=== PATIENT | male | born 1965 | race Caucasian/White ===

== ENCOUNTER 2023-01-05 09:46 | Emergency (ER) | payer MEDICAID, SELFPAY ==
[2023-01-05 09:47] VITALS: BP 162/95
[2023-01-05 09:49] VITALS: BP 162/95; PULSE 72; RESP 24; TEMP 36.4; O2SAT 100; BMI 30.4
--- NOTE | 2023-01-05 09:53 | ECG_ITS ---
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
--- NOTE | 2023-01-05 09:53 | CT_ITS ---
The [address] [address] Patient Name: OSMANI AYALA MRN: [id number] date: 1965 Sex: M Assigned Patient Location: ED.MAIN Current Patient Location: Accession/Order Number: [id number] Exam Date: 01/05/2023 10:15 Report Date: 01/05/2023 10:42 At the request of: IBIS HART Procedure: CT head/brain wo con CT head/brain wo con, 01/05/2023 10:15 AM EDT, OH001 INDICATION: MONT[place]OS confusion. Sensitivity. Nausea. COMPARISON: None. TECHNIQUE: CT images of the brain from skull base to vertex, including portions of the face and sinuses, were obtained without contrast. Supplemental 2D reformatted images were generated and reviewed as needed. Dose reduction techniques were achieved by using automated exposure control and/or adjustment of mA and/or kV according to patient size and/or use of iterative reconstruction technique. FINDINGS: The ventricles and sulci are within normal limits for the patient's age. No significant white matter disease or acute ischemia. No mass effect, acute hemorrhage, midline shift, hydrocephalus or exta-axial fluid collection. The basal cisterns are patent. The calvarium appears intact. The visualized paranasal sinuses are clear. The mastoids are clear. CT/CT head/brain wo con IMPRESSION: No CT evidence of acute intracranial abnormality. Electronically authenticated by: ANDREW WRIGHT Date: 01/05/2023 10:42
--- NOTE | 2023-01-05 09:54 | ED.GENADUL1 ---
HPI - General Adult General Chief complaint: Headache Stated complaint: HEADACHE Time Seen by Provider: 01/05/23 09:49 Mode of arrival: ambulance History of Present Illness HPI narrative: 57-year-old male presents for reported headache. Paramedics brought him and he was quite uncooperative with them. He admitted to drinking alcohol. He's had a headache reportedly for a week, per paramedics. He won't answer questions generally. There is no known history of trauma. Related Data Home Medications Medication Instructions Recorded Confirmed amlodipine 10 mg tablet 10 mg PO DAILY 01/05/23 01/05/23 atenolol 50 mg tablet 50 mg PO Q24H 01/05/23 01/05/23 cefdinir 300 mg capsule 300 mg PO Q12H 01/05/23 01/05/23 meloxicam 15 mg tablet 15 mg PO DAILY 01/05/23 01/05/23 Allergies Allergy/AdvReac Type Severity Reaction Status Date / Time No Known Drug Allergies Allergy Verified 01/05/23 09:48 Review of Systems ROS Narrative not obtainable, uncooperative Exam Narrative Exam Narrative: Nurses note and vital signs reviewed and patient is not hypoxic. General: The patient is in no respiratory distress. He is sitting upright. Skin: Warm, dry, no pallor noted. There is no rash noted. Head: Normocephalic, atraumatic Eye: Normal conjunctiva, no drainage, EOMI. PERRL Ears, Nose, Mouth, and Throat: oral mucosa is moist. Nares patent. Cardiovascular: Regular Rate and Rhythm Respiratory: Patient is in no distress, no accessory muscle use, lungs are clear to auscultation, no wheezing, rales or rhonchi Back: non-tender, no CVA tenderness bilaterally to percussion. GI: soft and nontender Musculoskeletal: The patient has no evidence of calf tenderness, no pitting edema, symmetrical pulses noted bilaterally Neurological: he is awake and alert. He will speak but will answer questions. He moves all four extremities well. Psychiatric: uncooperative Constitutional Vital Signs, click to edit/add: Last Vital Signs Temp 97.5 F L 01/05/23 09:49 Pulse 72 01/05/23 09:49 Resp 24 01/05/23 09:49 BP 162/95 H 01/05/23 09:49 Pulse Ox 100 01/05/23 09:49 O2 Del Method Room Air 01/05/23 09:49 Course Vital Signs Vital signs: Vital Signs Temperature 97.5 F L 01/05/23 09:49 Pulse Rate 72 01/05/23 09:49 Respiratory Rate 24 01/05/23 09:49 Blood Pressure 162/95 H 01/05/23 09:49 Pulse Oximetry 100 01/05/23 09:49 Oxygen Delivery Method Room Air 01/05/23 09:49 Temperature 97.5 F L 01/05/23 09:49 Pulse Rate 72 01/05/23 09:49 Respiratory Rate 24 01/05/23 09:49 Blood Pressure 162/95 H 01/05/23 09:49 Pulse Oximetry 100 01/05/23 09:49 Oxygen Delivery Method Room Air 01/05/23 09:49 Medical Decision Making MDM Narrative Medical decision making narrative: the patient has had a negative workup. The patient is known to have cervical arthritis and the findings on the CTA of his neck were discussed with him. He is acting himself now. He tested positive for opiates and is not prescribed any opiates. He is able to be discharged home. Differential Diagnosis Differential Diagnosis: stroke, and call intoxication, overdose Lab Data Lab results reviewed: Yes I reviewed the patient's lab results Labs: Lab Results 01/05/23 01/05/23 01/05/23 Range/Units 09:06 10:33 11:31 WBC 15.1 H (4.0-11.0) 10^3/uL RBC 4.58 L (4.70-6.10) 10^6/uL Hgb 14.4 (14.0-18.0) g/dL Hct 42.2 (42.0-54.0) % MCV 92.1 (80.0-94.0) fL MCH 31.4 (25.9-34.0) pg MCHC 34.1 (29.9-35.2) g/dL RDW 13.6 (11.0-15.0) % Plt Count 376 (150-450) 10^3/uL MPV 9.4 L (9.5-13.5) fL Neut % (Auto) 71.9 (43.0-75.0) % Lymph % (Auto) 19.4 L (20.5-60.0) % [place] % (Auto) 7.8 (1.7-12.0) % Eos % (Auto) 0.2 L (0.9-7.0) % Baso % (Auto) 0.3 (0.2-2.0) % Neut # (Auto) 10.9 H (1.4-6.5) 10^3/uL Lymph # (Auto) 2.9 (1.2-3.8) 10^3/uL [place] # (Auto) 1.2 H (0.3-0.8) 10^3/uL Eos # (Auto) 0.0 (0.0-0.7) 10^3/uL Baso # (Auto) 0.1 (0.0-0.1) 10^3/uL Abs Immat Gran (auto) 0.06 H (0.00-0.03) 10^3/uL Imm/Tot Granulo (auto) 0.4 (0.0-0.5) % Sodium 137 (136-145) mmol/L Potassium 4.0 (3.5-5.1) mmol/L Chloride 99 (98-107) mmol/L Carbon Dioxide 23.7 (21.0-32.0) mmol/L Anion Gap 18.3 BUN 8.0 (7.0-18.0) mg/dL Creatinine 1.18 (0.70-1.30) mg/dL Est GFR ( Amer) >60 (>=60) Est GFR (Non-Af Amer) >60 (>=60) BUN/Creatinine Ratio 6.8 Glucose 116 H (74-106) mg/dL Calcium 10.0 (8.5-10.1) mg/dL Total Bilirubin 0.5 (0.2-1.0) mg/dL Direct Bilirubin 0.2 (0.0-0.2) mg/dL AST 30 (15-37) U/L ALT 34 (16-63) U/L Alkaline Phosphatase 86 (46-116) U/L Troponin I High Sens (4.0-76.1) pg/mL Total Protein 8.2 (6.4-8.2) g/dL Albumin 4.6 (3.4-5.0) g/dL Globulin 3.6 g/dL Albumin/Globulin Ratio 1.3 Amylase 50 (25-115) U/L Lipase 42.0 (16.0-77.0) U/L Urine Color Lt. yellow (YELLOW) Urine Clarity Clear (CLEAR) Urine pH 7.0 (5.0-9.0) Ur Specific [place] <=1.005 A (1.005-1.025) Urine Protein Negative (NEG/TRACE) mg/dL Urine Glucose (UA) Negative (NEGATIVE) mg/dL Urine Ketones Trace A (NEGATIVE) mg/dL Urine Occult Blood Negative (NEGATIVE) Urine Nitrite Negative (NEGATIVE) Urine Bilirubin Negative (NEGATIVE) Urine Urobilinogen 0.2 (0.2-1.0) EU/dL Ur Leukocyte Esterase Negative (NEGATIVE) Urine RBC None seen (0-2) #/HPF Urine WBC None seen (NONE SEEN) #/HPF Ur Squamous Epith Cells Rare (NONE/RARE) #/LPF Urine Bacteria None seen (NONE SEEN) #/HPF Urine Mucus None seen (NONE SEEN) Urine Opiates Screen Positive A (NEGATIVE) Ur Buprenorphine Scrn Negative (NEGATIVE) Ur Oxycodone Screen Negative (NEGATIVE) Urine Methadone Screen Negative (NEGATIVE) Ur Propoxyphene Screen Negative (NEGATIVE) Ur Barbiturates Screen Negative (NEGATIVE) U Tricyclic Antidepress Negative (NEGATIVE) Ur Phencyclidine Scrn Negative (NEGATIVE) Ur Amphetamines Screen Negative (NEGATIVE) U Methamphetamines Scrn Negative (NEGATIVE) U Benzodiazepines Scrn Negative (NEGATIVE) Urine Cocaine Screen Negative (NEGATIVE) U Cannabinoids Screen Negative (NEGATIVE) Ethanol Quant <3 mg/dL SARS-CoV-2 (PCR) Negative (NEGATIVE) 01/05/23 Range/Units 11:40 WBC (4.0-11.0) 10^3/uL RBC (4.70-6.10) 10^6/uL Hgb (14.0-18.0) g/dL Hct (42.0-54.0) % MCV (80.0-94.0) fL MCH (25.9-34.0) pg MCHC (29.9-35.2) g/dL RDW (11.0-15.0) % Plt Count (150-450) 10^3/uL MPV (9.5-13.5) fL Neut % (Auto) (43.0-75.0) % Lymph % (Auto) (20.5-60.0) % [place] % (Auto) (1.7-12.0) % Eos % (Auto) (0.9-7.0) % Baso % (Auto) (0.2-2.0) % Neut # (Auto) (1.4-6.5) 10^3/uL Lymph # (Auto) (1.2-3.8) 10^3/uL [place] # (Auto) (0.3-0.8) 10^3/uL Eos # (Auto) (0.0-0.7) 10^3/uL Baso # (Auto) (0.0-0.1) 10^3/uL Abs Immat Gran (auto) (0.00-0.03) 10^3/uL Imm/Tot Granulo (auto) (0.0-0.5) % Sodium (136-145) mmol/L Potassium (3.5-5.1) mmol/L Chloride (98-107) mmol/L Carbon Dioxide (21.0-32.0) mmol/L Anion Gap BUN (7.0-18.0) mg/dL Creatinine (0.70-1.30) mg/dL Est GFR ( Amer) (>=60) Est GFR (Non-Af Amer) (>=60) BUN/Creatinine Ratio Glucose (74-106) mg/dL Calcium (8.5-10.1) mg/dL Total Bilirubin (0.2-1.0) mg/dL Direct Bilirubin (0.0-0.2) mg/dL AST (15-37) U/L ALT (16-63) U/L Alkaline Phosphatase (46-116) U/L Troponin I High Sens 5.4 (4.0-76.1) pg/mL Total Protein (6.4-8.2) g/dL Albumin (3.4-5.0) g/dL Globulin g/dL Albumin/Globulin Ratio Amylase (25-115) U/L Lipase (16.0-77.0) U/L Urine Color (YELLOW) Urine Clarity (CLEAR) Urine pH (5.0-9.0) Ur Specific [place] (1.005-1.025) Urine Protein (NEG/TRACE) mg/dL Urine Glucose (UA) (NEGATIVE) mg/dL Urine Ketones (NEGATIVE) mg/dL Urine Occult Blood (NEGATIVE) Urine Nitrite (NEGATIVE) Urine Bilirubin (NEGATIVE) Urine Urobilinogen (0.2-1.0) EU/dL Ur Leukocyte Esterase (NEGATIVE) Urine RBC (0-2) #/HPF Urine WBC (NONE SEEN) #/HPF Ur Squamous Epith Cells (NONE/RARE) #/LPF Urine Bacteria (NONE SEEN) #/HPF Urine Mucus (NONE SEEN) Urine Opiates Screen (NEGATIVE) Ur Buprenorphine Scrn (NEGATIVE) Ur Oxycodone Screen (NEGATIVE) Urine Methadone Screen (NEGATIVE) Ur Propoxyphene Screen (NEGATIVE) Ur Barbiturates Screen (NEGATIVE) U Tricyclic Antidepress (NEGATIVE) Ur Phencyclidine Scrn (NEGATIVE) Ur Amphetamines Screen (NEGATIVE) U Methamphetamines Scrn (NEGATIVE) U Benzodiazepines Scrn (NEGATIVE) Urine Cocaine Screen (NEGATIVE) U Cannabinoids Screen (NEGATIVE) Ethanol Quant mg/dL SARS-CoV-2 (PCR) (NEGATIVE) Imaging Data CT head, CTA head and neck: Radiologist's impression: Procedure: CT angio head EXAMINATION: CT angio head, CT angio neck HISTORY: difficulty speaking COMPARISON: Noncontrast CT head 01/05/2023. TECHNIQUE: Contrast enhanced head and neck CT arteriogram was performed. Scanning performed during the arterial phase from the thoracic inlet to the [place] of [place]. 3D reconstructions were rendered on a separate 3D workstation to evaluate vascular anatomy. Dose reduction techniques were achieved by using automated exposure control and/or adjustment of mA and/or kV according to patient size and/or use of iterative reconstruction technique. Carotid stenosis was measured utilizing NASCET criteria. FINDINGS: VASCULATURE FINDINGS: Arch and Subclavian Arteries: Standard three vessel arch. Subclavian arteries are normal bilaterally. Common Carotids: Normal bilaterally. ICAs: Patent bilaterally to the carotid terminus. MCAs: Normal bilaterally. ACAs: Normal bilaterally. P-Comms: Visualized bilaterally. Vertebral Arteries: Short segment near occlusion/occlusion of the bilateral vertebral arteries at C6-C7, contributed to by uncovertebral and facet joint hypertrophy. Additional high-grade narrowing of both vertebral arteries at C5-C6, also contributed to by uncovertebral and facet joint hypertrophy. Remainder of the vertebral arteries are patent. Right vertebral artery is dominant. Nondominant left vertebral artery predominantly terminates into the PICA. Basilar Artery: Patent and developmentally small in caliber. 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 Aneurysm: None. Dural venous sinuses: Patent. NECK FINDINGS: No acute soft tissue abnormalities in the neck. Airway is patent. Normal thyroid. Visualized lungs are clear. IMPRESSION: 1. No large vessel occlusion, high-grade narrowing, or substantial luminal irregularity in the carotid arteries or intracranial arterial vasculature. 2. Short segment near occlusion/occlusion of the bilateral vertebral arteries at C6-C7. Additional high-grade narrowing of the bilateral vertebral arteries at C5-C6. These are contributed to by uncovertebral and facet joint hypertrophy. Electronically authenticated by: MILES NINA Date: 01/05/2023 12:29 Procedure: CT head/brain wo con CT head/brain wo con, 01/05/2023 10:15 AM EDT, OH001 INDICATION: [place] confusion. Sensitivity. Nausea. COMPARISON: None. TECHNIQUE: CT images of the brain from skull base to vertex, including portions of the face and sinuses, were obtained without contrast. Supplemental 2D reformatted images were generated and reviewed as needed. Dose reduction techniques were achieved by using automated exposure control and/or adjustment of mA and/or kV according to patient size and/or use of iterative reconstruction technique. FINDINGS: The ventricles and sulci are within normal limits for the patient's age. No significant white matter disease or acute ischemia. No mass effect, acute hemorrhage, midline shift, hydrocephalus or exta-axial fluid collection. The basal cisterns are patent. The calvarium appears intact. The visualized paranasal sinuses are clear. The mastoids are clear. IMPRESSION: No CT evidence of acute intracranial abnormality. Electronically authenticated by: ANDREW WRIGHT Date: 01/05/2023 10:42 Procedure: XR chest 1V EXAM: XR chest 1V HISTORY: . cough . COMPARISON: None. TECHNIQUE: Single view of the chest FINDINGS: Heart and vascularity are unremarkable. Lungs are free of focal infiltrates. Grossly no bony abnormality is appreciated. IMPRESSION: No acute heart or lung disease identified. Electronically authenticated by: EDMUNDO SILVA Date: 01/05/2023 10:41 Discharge Plan Discharge Chief Complaint: Headache Clinical Impression: Altered mental status Patient Disposition: Home, Self-Care Time of Disposition Decision: 13:01 Condition: Good Mode of Transportation: Private Vehicle Prescriptions / Home Meds: No Action meloxicam 15 mg tablet 15 mg PO DAILY amlodipine 10 mg tablet 10 mg PO DAILY cefdinir 300 mg capsule 300 mg PO Q12H atenolol 50 mg tablet 50 mg PO Q24H Instructions: Altered Mental Status (ED) Stand Alone Forms: Portal Instructions Referrals: Marlee Sosa MD [Primary Care Provider] - 1 week
[2023-01-05 09:58] VITALS: PULSE 63; RESP 14
[2023-01-05 09:59] VITALS: PULSE 66; RESP 19
[2023-01-05] MEDS: ONDANSETRON PF 4 MG/2 ML VIAL IV (10:06)
--- NOTE | 2023-01-05 10:13 | XR_ITS ---
The [address] [address] Patient Name: OSMANI AYALA MRN: [id number] date: 1965 Sex: M Assigned Patient Location: ER Current Patient Location: ER Accession/Order Number: [id number] Exam Date: 01/05/2023 10:15 Report Date: 01/05/2023 10:41 At the request of: IBIS HART Procedure: XR chest 1V EXAM: XR chest 1V HISTORY: . cough . COMPARISON: None. TECHNIQUE: Single view of the chest FINDINGS: Heart and vascularity are unremarkable. Lungs are free of focal infiltrates. Grossly no bony abnormality is appreciated. XR/XR chest 1V IMPRESSION: No acute heart or lung disease identified. Electronically authenticated by: EDMUNDO SILVA Date: 01/05/2023 10:41
[2023-01-05 10:22] LABS: Alanine Aminotransferase 34 U/L (16-63); Albumin Globulin Ratio 1.3; Albumin Level 4.6 g/dL (3.4-5.0); Alkaline Phosphatase 86 U/L (46-116); Amylase 50 U/L (25-115); Anion Gap 18.3; Aspartate Amino Transferase 30 U/L (15-37); BUN Creatinine Ratio 6.8; Bilirubin Direct 0.2 mg/dL (0.0-0.2); Bilirubin Total 0.5 mg/dL (0.2-1.0); Carbon Dioxide 23.7 mmol/L (21.0-32.0); Chloride 99 mmol/L (98-107); Estimated GFR (African America >60 (>=60); Estimated GFR (Non-African Ame >60 (>=60); Ethanol <3 mg/dL; Globulin 3.6 g/dL; Glucose 116 mg/dL (74-106); Sodium 137 mmol/L (136-145); Total Protein 8.2 g/dL (6.4-8.2)
[2023-01-05 10:28] LABS: Basophils Absolute Auto 0.1 10^3/uL (0.0-0.1); Basophils Percent Auto 0.3 % (0.2-2.0); Eosinophils Percent Auto 0.2 % (0.9-7.0); Hematocrit 42.2 % (42.0-54.0); Hemoglobin 14.4 g/dL (14.0-18.0); Immature Granulocytes Abs Auto 0.06 10^3/uL (0.00-0.03); Immature Granulocytes Pct Auto 0.4 % (0.0-0.5); Lymphocytes Absolute Auto 2.9 10^3/uL (1.2-3.8); Lymphocytes Percent Auto 19.4 % (20.5-60.0); Mean Corpuscular HGB Conc 34.1 g/dL (29.9-35.2); Mean Corpuscular Hemoglobin 31.4 pg (25.9-34.0); Mean Corpuscular Volume 92.1 fL (80.0-94.0); Mean Platelet Volume 9.4 fL (9.5-13.5); Monocytes Absolute Auto 1.2 10^3/uL (0.3-0.8); Monocytes Percent Auto 7.8 % (1.7-12.0); Neutrophils Absolute Auto 10.9 10^3/uL (1.4-6.5); Neutrophils Percent Auto 71.9 % (43.0-75.0); Platelet Count 376 10^3/uL (150-450); Red Blood Count 4.58 10^6/uL (4.70-6.10); Red Cell Distribution Width 13.6 % (11.0-15.0); White Blood Count 15.1 10^3/uL (4.0-11.0)
[2023-01-05 10:58] LABS: SARS-CoV-2 Ag NEGATIVE (NEGATIVE)
--- NOTE | 2023-01-05 11:20 | CT_ITS ---
[address] [address] Patient Name: OSMANI AYALA MRN: [id number] date: 1965 Sex: M Assigned Patient Location: ER Current Patient Location: Accession/Order Number: [id number] Exam Date: 01/05/2023 11:45 Report Date: 01/05/2023 12:29 At the request of: IBIS HART Procedure: CT angio neck EXAMINATION: CT angio head, CT angio neck HISTORY: difficulty speaking COMPARISON: Noncontrast CT head 01/05/2023. TECHNIQUE: Contrast enhanced head and neck CT arteriogram was performed. Scanning performed during the arterial phase from the thoracic inlet to the [place] of [place]. 3D reconstructions were rendered on a separate 3D workstation to evaluate vascular anatomy. Dose reduction techniques were achieved by using automated exposure control and/or adjustment of mA and/or kV according to patient size and/or use of iterative reconstruction technique. Carotid stenosis was measured utilizing NASCET criteria. FINDINGS: VASCULATURE FINDINGS: Arch and Subclavian Arteries: Standard three vessel arch. Subclavian arteries are normal bilaterally. Common Carotids: Normal bilaterally. ICAs: Patent bilaterally to the carotid terminus. MCAs: Normal bilaterally. ACAs: Normal bilaterally. P-Comms: Visualized bilaterally. Vertebral Arteries: Short segment near occlusion/occlusion of the bilateral vertebral arteries at C6-C7, contributed to by uncovertebral and facet joint hypertrophy. Additional high-grade narrowing of both vertebral arteries at C5-C6, also contributed to by uncovertebral and facet joint hypertrophy. Remainder of the vertebral arteries are patent. Right vertebral artery is dominant. Nondominant left vertebral artery predominantly terminates into the PICA. Basilar Artery: Patent and developmentally small in caliber. 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 Aneurysm: None. Dural venous sinuses: Patent. NECK FINDINGS: No acute soft tissue abnormalities in the neck. Airway is patent. Normal thyroid. Visualized lungs are clear. CT/CT angio neck IMPRESSION: 1. No large vessel occlusion, high-grade narrowing, or substantial luminal irregularity in the carotid arteries or intracranial arterial vasculature. 2. Short segment near occlusion/occlusion of the bilateral vertebral arteries at C6-C7. Additional high-grade narrowing of the bilateral vertebral arteries at C5-C6. These are contributed to by uncovertebral and facet joint hypertrophy. Electronically authenticated by: MILES NINA Date: 01/05/2023 12:29
--- NOTE | 2023-01-05 11:20 | CT_ITS ---
[address] [address] Patient Name: OSMANI AYALA MRN: [id number] date: 1965 Sex: M Assigned Patient Location: ER Current Patient Location: Accession/Order Number: [id number] Exam Date: 01/05/2023 11:45 Report Date: 01/05/2023 12:29 At the request of: IBIS HART Procedure: CT angio head EXAMINATION: CT angio head, CT angio neck HISTORY: difficulty speaking COMPARISON: Noncontrast CT head 01/05/2023. TECHNIQUE: Contrast enhanced head and neck CT arteriogram was performed. Scanning performed during the arterial phase from the thoracic inlet to the [place] of [place]. 3D reconstructions were rendered on a separate 3D workstation to evaluate vascular anatomy. Dose reduction techniques were achieved by using automated exposure control and/or adjustment of mA and/or kV according to patient size and/or use of iterative reconstruction technique. Carotid stenosis was measured utilizing NASCET criteria. FINDINGS: VASCULATURE FINDINGS: Arch and Subclavian Arteries: Standard three vessel arch. Subclavian arteries are normal bilaterally. Common Carotids: Normal bilaterally. ICAs: Patent bilaterally to the carotid terminus. MCAs: Normal bilaterally. ACAs: Normal bilaterally. P-Comms: Visualized bilaterally. Vertebral Arteries: Short segment near occlusion/occlusion of the bilateral vertebral arteries at C6-C7, contributed to by uncovertebral and facet joint hypertrophy. Additional high-grade narrowing of both vertebral arteries at C5-C6, also contributed to by uncovertebral and facet joint hypertrophy. Remainder of the vertebral arteries are patent. Right vertebral artery is dominant. Nondominant left vertebral artery predominantly terminates into the PICA. Basilar Artery: Patent and developmentally small in caliber. 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 Aneurysm: None. Dural venous sinuses: Patent. NECK FINDINGS: No acute soft tissue abnormalities in the neck. Airway is patent. Normal thyroid. Visualized lungs are clear. CT/CT angio head IMPRESSION: 1. No large vessel occlusion, high-grade narrowing, or substantial luminal irregularity in the carotid arteries or intracranial arterial vasculature. 2. Short segment near occlusion/occlusion of the bilateral vertebral arteries at C6-C7. Additional high-grade narrowing of the bilateral vertebral arteries at C5-C6. These are contributed to by uncovertebral and facet joint hypertrophy. Electronically authenticated by: MILES NINA Date: 01/05/2023 12:29
[2023-01-05] MEDS: KETOROLAC TROMETHAMINE 30 MG/ML VIAL IVP (11:22)
[2023-01-05 11:59] LABS: Troponin I High Sensitivity 5.4 pg/mL (4.0-76.1)
[2023-01-05 12:00] LABS: Bilirubin Urine NEGATIVE (NEGATIVE); Blood Urine NEGATIVE (NEGATIVE); Clarity Urine CLEAR (CLEAR); Color Urine LT. YELLOW (YELLOW); Glucose Urine UA NEGATIVE (NEGATIVE); Ketones Urine TRACE mg/dL (NEGATIVE); Leukocyte Esterase Urine NEGATIVE (NEGATIVE); Nitrite Urine NEGATIVE (NEGATIVE); Protein Urine NEGATIVE (NEG/TRACE); Specific Gravity Urine <=1.005 (1.005-1.025); Urobilinogen Urine 0.2 EU/dL (0.2-1.0)
[2023-01-05 12:20] LABS: Cannabinoid Screen Urine NEGATIVE (NEGATIVE); Cocaine Screen Urine NEGATIVE (NEGATIVE); Methamphetamines Screen Urine NEGATIVE (NEGATIVE); Opiate Screen Urine POSITIVE (NEGATIVE); Phencyclidine Screen Urine NEGATIVE (NEGATIVE)
[2023-01-05 12:21] LABS: Amphetamine Screen Urine NEGATIVE (NEGATIVE); Barbiturates Screen Urine NEGATIVE (NEGATIVE); Benzodiazepines Screen Urine NEGATIVE (NEGATIVE); Buprenorphine Screen Urine NEGATIVE (NEGATIVE); Methadone Screen Urine NEGATIVE (NEGATIVE); Oxycodone Screen Urine NEGATIVE (NEGATIVE); Tricyclic Antidepressant Urine NEGATIVE (NEGATIVE)
[2023-01-05 12:32] LABS: Bacteria Urine NONE SEEN #/HPF (NONE SEEN); Mucus Urine NONE SEEN (NONE SEEN); RBC Urine NONE SEEN #/HPF (0-2); Squamous Epithelial Cell Urine RARE #/LPF (NONE/RARE); WBC Urine NONE SEEN #/HPF (NONE SEEN)
[2023-01-05 13:08] VITALS: BP 160/90
[2023-01-05 15:14] LABS: SARS-CoV-2 NAA NOT DETECTED (NOT DETECTE)
== END 2023-01-05 13:11 | disposition home or self-care (01) ==
PROVIDERS: Emergency Provider Emergency Medicine; PCP Family Medicine
DX: R41.82 Altered mental status, unspecified (principal); Z79.899 Other long term (current) drug therapy; Z20.822 Contact with and (suspected) exposure to COVID-19
CPT/HCPCS: 36415; 70450; 70496; 70498; 71045; 80048; 80076; 80307; 80320; 81001; 82150; 83690; 84484; 85025; 87635; 87811; 93005; 96374; 96375; 99285; Q9967

== ENCOUNTER 2023-01-09 11:10 | Inpatient (IN) | payer MEDICAID, SELFPAY ==
[2023-01-09] VITALS (26 sets, daily range): BP systolic 104–153; BP diastolic 74–93; PULSE 52–64; RESP 12–23; TEMP 36.4–36.7; O2SAT 93–100; BMI 27.4
--- NOTE | 2023-01-09 12:01 | XR_ITS ---
The [address] [address] Patient Name: OSMANI AYALA MRN: [id number] date: 1965 Sex: M Assigned Patient Location: ER Current Patient Location: ER Accession/Order Number: [id number] Exam Date: 01/09/2023 12:30 Report Date: 01/09/2023 12:51 At the request of: DIVYA PAN Procedure: XR chest 1V EXAM: XR chest 1V HISTORY: confusion COMPARISON: None. TECHNIQUE: AP view of the chest. FINDINGS: The cardiomediastinal silhouette is normal. The lungs are clear. There is no pneumothorax. No pleural effusion is noted. The osseous structures are intact. XR/XR chest 1V IMPRESSION: No acute cardiopulmonary process. Electronically authenticated by: OWEN BESS Date: 01/09/2023 12:51
--- NOTE | 2023-01-09 12:01 | ECG_ITS ---
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
--- NOTE | 2023-01-09 12:01 | CT_ITS ---
[address] [address] Patient Name: OSMANI AYALA MRN: [id number] date: 1965 Sex: M Assigned Patient Location: ER Current Patient Location: ER Accession/Order Number: [id number] Exam Date: 01/09/2023 12:30 Report Date: 01/09/2023 12:51 At the request of: DIVYA PAN Procedure: CT head/brain wo con EXAMINATION: CT head/brain wo con 01/09/2023 12:30 PM EDT HISTORY: confusion COMPARISON: CT head 01/05/2023 TECHNIQUE: Using multidetector thin collimation helical acquisition technique, axial, coronal and sagittal CT images from the skull base to the vertex were obtained without intravenous contrast. Dose reduction techniques were achieved by using automated exposure control and/or adjustment of mA and/or kV according to patient size and/or use of iterative reconstruction technique. FINDINGS: No intracranial hemorrhage, mass effect, or midline shift. The ventricles are proportionate to the cerebral sulci. The lee to white matter differentiation of the cerebral hemispheres is preserved. The basal cisterns are patent. The visualized paranasal sinuses are clear. The mastoid air cells are clear. CT/CT head/brain wo con IMPRESSION: No acute intracranial pathology. Electronically authenticated by: MOISE GOYAL Date: 01/09/2023 12:51
[2023-01-09 12:05] LABS: Glucometer 107 mg/dL (74-106)
[2023-01-09 12:21] LABS: Basophils Absolute Auto 0.1 10^3/uL (0.0-0.1); Basophils Percent Auto 0.4 % (0.2-2.0); Eosinophils Absolute Auto 0.1 10^3/uL (0.0-0.7); Eosinophils Percent Auto 0.6 % (0.9-7.0); Hemoglobin 13.1 g/dL (14.0-18.0); Immature Granulocytes Abs Auto 0.06 10^3/uL (0.00-0.03); Immature Granulocytes Pct Auto 0.4 % (0.0-0.5); Lymphocytes Percent Auto 21.1 % (20.5-60.0); Mean Corpuscular HGB Conc 33.6 g/dL (29.9-35.2); Mean Corpuscular Hemoglobin 31.3 pg (25.9-34.0); Mean Corpuscular Volume 93.3 fL (80.0-94.0); Mean Platelet Volume 9.5 fL (9.5-13.5); Monocytes Absolute Auto 1.3 10^3/uL (0.3-0.8); Monocytes Percent Auto 8.9 % (1.7-12.0); Neutrophils Absolute Auto 9.9 10^3/uL (1.4-6.5); Neutrophils Percent Auto 68.6 % (43.0-75.0); Platelet Count 309 10^3/uL (150-450); Red Blood Count 4.18 10^6/uL (4.70-6.10); Red Cell Distribution Width 13.5 % (11.0-15.0); White Blood Count 14.4 10^3/uL (4.0-11.0)
[2023-01-09 12:23] LABS: PCO2 VBG 42.4 mmHg (40.0-52.0); pH VBG 7.397 (7.330-7.430)
[2023-01-09 12:34] LABS: Ammonia 17 umol/L (11-32)
[2023-01-09] MEDS: MULTIVIT INFUSN,ADULT 4,VIT K 10 ML, FOLIC ACID 1 MG, THIAMINE HCL 100 MG in DEXTROSE 5... 250 ML IV (12:37)
[2023-01-09 12:38] LABS: Alanine Aminotransferase 47 U/L (16-63); Albumin Globulin Ratio 1.3; Alkaline Phosphatase 76 U/L (46-116); Anion Gap 14.6; Aspartate Amino Transferase 25 U/L (15-37); Bilirubin Total 0.3 mg/dL (0.2-1.0); Calcium 9.4 mg/dL (8.5-10.1); Carbon Dioxide 24.1 mmol/L (21.0-32.0); Chloride 106 mmol/L (98-107); Estimated GFR (African America >60 (>=60); Estimated GFR (Non-African Ame >60 (>=60); Globulin 3.2 g/dL; Glucose 105 mg/dL (74-106); Potassium 3.7 mmol/L (3.5-5.1); Sodium 141 mmol/L (136-145); Total Protein 7.2 g/dL (6.4-8.2)
[2023-01-09 12:39] LABS: Ethanol <3 mg/dL; Troponin I High Sensitivity 5.5 pg/mL (4.0-76.1)
[2023-01-09 12:41] LABS: Acetaminophen <2.0 ug/mL (10.0-30.0)
--- NOTE | 2023-01-09 14:21 | ED.GENADUL1 ---
HPI - General Adult General Chief complaint: Altered Mental Status Stated complaint: CONFUSION Time Seen by Provider: 01/09/23 12:01 Source: friend Source information: Ada Roach, s/o of many years Mode of arrival: walk-in Limitations: altered mental status History of Present Illness HPI narrative: Patient is a 57-year-old male who is presenting to the Emergency Room today with difficulty speaking, and confusion. Patient's long time girlfriend over 15 years is at bedside. Patient was seen and evaluated on 01/05 for similar symptoms. Patient had workup, and was discharged. Patient symptoms have been ongoing since . Patient's been having Difficulty speaking throughout the weekend. Patient also had confusion state this morning. Patient normally wears overalls when he goes to work. Patient typically wears all of his clothes underneath his overalls before he goes to work. 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 Patient had 2 shirts on top of his overalls which is not normal for him at all. Patient also had 2 different shoes on this morning. Patient's girlfriend states that he's been intermittently confused all weekend as well. Patient smokes 2 packs of cigarettes a day for over 40+ years. Patient drinks 2 twisted teas Daily, patient quit drinking heavily approximately 15 years ago. Patient did drink heavily for approximately 20+ years. Patient takes medication for blood pressure and arthritis. Patient has diffuse arthritis. Patient's PCP is Dr. Sosa. Patient takes no blood thinners, has not been taking any blood thinners or aspirin recently. Patient has had no recent trauma. Patient did travel to [place] in the last few weeks, they went to [place]. Patient has no chest pain, no shortness of breath, no headache. No loss of function to arms or legs. No facial droop, no garbled speech. Patient comfort at bedside was most concerned because he's had a intermittent blank stare since last . Patient was in the Emergency Room on January 05, patient had a very thorough evaluation done including CTA of the head and neck along with a stroke workup. . All systems are negative except as noted/marked. All systems reviewed and otherwise negative. . Nurses note and vital signs reviewed and patient is not hypoxic. General: The patient appears well and in no apparent distress. Patient is resting comfortably on cart. Patient is not toxic, lethargic, or listless Skin: Warm, dry, no pallor noted. There is no rash noted. No petechiae, purpura. Head: Normocephalic, atraumatic; No carotid bruits bilateral. Eye: Normal conjunctiva, no drainage, EOMI. PERRL Ears, Nose, Mouth, and Throat: oral mucosa is moist. Nares patent. Mouth without vesicles. Cardiovascular: Regular Rate and Rhythm, no murmur, gallop, rub Respiratory: Patient is in no distress, no accessory muscle use, lungs are clear to auscultation, no wheezing, rales or rhonchi Back: non-tender, no CVA tenderness bilaterally to percussion. No CT LS midline pain GI: soft, no tenderness to palpation, no masses appreciated. No rebound, guarding, or rigidity noted. No flank pain bilateral, No distention Musculoskeletal: Patient has full range of motion of all of the extremities, no motor, sensory, or focal neurological deficits Neurological: A&O x3, Expressive aphasia, NIH 2. Psychiatric: Cooperative Related Data Home Medications Medication Instructions Recorded Confirmed amlodipine 10 mg tablet 10 mg PO DAILY 01/05/23 01/09/23 atenolol 50 mg tablet 50 mg PO Q24H 01/05/23 01/09/23 cefdinir 300 mg capsule 300 mg PO Q12H 01/05/23 01/09/23 meloxicam 15 mg tablet 15 mg PO DAILY 01/05/23 01/09/23 Allergies Allergy/AdvReac Type Severity Reaction Status Date / Time No Known Drug Allergies Allergy Verified 01/09/23 11:37 PFSH PFS Social History Smoking status: Current every day smoker Exam Constitutional Vital Signs, click to edit/add: Last Vital Signs Temp 97.8 F 01/09/23 11:29 Pulse 59 L 01/09/23 14:30 Resp 22 01/09/23 14:30 BP 141/84 01/09/23 14:30 Pulse Ox 100 01/09/23 14:30 O2 Del Method Room Air 01/09/23 11:29 Course Vital Signs Vital signs: Vital Signs Temperature 97.8 F 01/09/23 11:29 Pulse Rate 60 01/09/23 11:29 Respiratory Rate 18 01/09/23 11:29 Blood Pressure 145/86 H 01/09/23 11:29 Pulse Oximetry 98 01/09/23 11:29 Oxygen Delivery Method Room Air 01/09/23 11:29 Temperature 97.8 F 01/09/23 11:29 Pulse Rate 59 L 01/09/23 14:30 Respiratory Rate 22 01/09/23 14:30 Blood Pressure 141/84 01/09/23 14:30 Pulse Oximetry 100 01/09/23 14:30 Oxygen Delivery Method Room Air 01/09/23 11:29 Medical Decision Making MDM Narrative Medical decision making narrative: CT of the brain shows no acute findings. Patient had CT of the brain and a CT of the head and neck January 05. Patient labwork otherwise is unremarkable. Patient's normotensive. Patient has expressive aphasia. Patient will be admitted for further evaluation. His only concern about acute confusion state. Patient has no diagnosis of any type of dementia. Patient does have a significant alcohol history, he has quit drinking heavily approximately 15 years ago but did drink heavily for over 20 years. Patient smokes 2 packs of cigarettes a day. Patient PCP is Dr. Sosa. Differential diagnosis was discussed at bedside with patient and his long-time girlfriend of possible types of dementia that could be occurring as well. Patient looks well. Patient also has diffuse arthritis that is chronic, he's had no new acute findings. Patient be admitted for further evaluation and testing. Patient be admitted to Dr. Lanza. Lab Data Lab results reviewed: Yes I reviewed the patient's lab results Labs: Lab Results 01/09/23 01/09/23 01/09/23 Range/Units 11:58 12:02 12:14 WBC 14.4 H (4.0-11.0) 10^3/uL RBC 4.18 L (4.70-6.10) 10^6/uL Hgb 13.1 L (14.0-18.0) g/dL Hct 39.0 L (42.0-54.0) % MCV 93.3 (80.0-94.0) fL MCH 31.3 (25.9-34.0) pg MCHC 33.6 (29.9-35.2) g/dL RDW 13.5 (11.0-15.0) % Plt Count 309 (150-450) 10^3/uL MPV 9.5 (9.5-13.5) fL Neut % (Auto) 68.6 (43.0-75.0) % Lymph % (Auto) 21.1 (20.5-60.0) % [place] % (Auto) 8.9 (1.7-12.0) % Eos % (Auto) 0.6 L (0.9-7.0) % Baso % (Auto) 0.4 (0.2-2.0) % Neut # (Auto) 9.9 H (1.4-6.5) 10^3/uL Lymph # (Auto) 3.0 (1.2-3.8) 10^3/uL [place] # (Auto) 1.3 H (0.3-0.8) 10^3/uL Eos # (Auto) 0.1 (0.0-0.7) 10^3/uL Baso # (Auto) 0.1 (0.0-0.1) 10^3/uL Abs Immat Gran (auto) 0.06 H (0.00-0.03) 10^3/uL Imm/Tot Granulo (auto) 0.4 (0.0-0.5) % VBG pH 7.397 (7.330-7.430) VBG pCO2 42.4 (40.0-52.0) mmHg Sodium 141 (136-145) mmol/L Potassium 3.7 (3.5-5.1) mmol/L Chloride 106 (98-107) mmol/L Carbon Dioxide 24.1 (21.0-32.0) mmol/L Anion Gap 14.6 BUN 12.0 (7.0-18.0) mg/dL Creatinine 1.00 (0.70-1.30) mg/dL Est GFR ( Amer) >60 (>=60) Est GFR (Non-Af Amer) >60 (>=60) BUN/Creatinine Ratio 12.0 Glucose 105 (74-106) mg/dL Calcium 9.4 (8.5-10.1) mg/dL Total Bilirubin 0.3 (0.2-1.0) mg/dL AST 25 (15-37) U/L ALT 47 (16-63) U/L Alkaline Phosphatase 76 (46-116) U/L Ammonia 17 (11-32) umol/L Troponin I High Sens 5.5 (4.0-76.1) pg/mL Total Protein 7.2 (6.4-8.2) g/dL Albumin 4.0 (3.4-5.0) g/dL Globulin 3.2 g/dL Albumin/Globulin Ratio 1.3 Acetaminophen <2.0 L (10.0-30.0) ug/mL Ethanol Quant <3 mg/dL POC Glucose 107 H (74-106) mg/dL ECG Data Attestation: I personally reviewed and interpreted this ECG as follows: (EKG interpretation. Normal sinus rhythm at 59 beats a minute. Normal axis deviation. No acute ST elevation, no acute ectopy. QTC of 403.) Discharge Plan Discharge Chief Complaint: Altered Mental Status Clinical Impression: Expressive aphasia, Confusion state Patient Disposition: Admitted As Inpatient Time of Disposition Decision: 14:35 Condition: Fair
[2023-01-09] MEDS: ACETAMINOPHEN 325 MG TABLET 650 MG PO (14:27)
[2023-01-09] MEDS: ASPIRIN 81 MG TAB.CHEW 324 MG PO (14:27)
--- NOTE | 2023-01-09 17:06 | P.HP_ITS ---
Pt seen and examined at about 1900. Agree with Above information provided by MEDICAL LABORATORY TECHNICAL OFFICER Did demonstrate some word finding issues on exam - no other focal deficits Check on MRI in am, Teleneuro visit. With peristence of symptoms would start pt on aspirin and plavix, can stop one of the 2 depending on findings with MRI, and progression of symptoms H&P: HPI History of Present Illness Chief complaint: CONFUSION, Expressive Aphasia Narrative: Date/time of exam: 01/09/23 2460 This is a 57-year-old male patient with a past medical history as outlined below including remote history of alcohol dependence, daily tobacco abuse, hypertension; who presented to the ED for the second time in a week complaining of acute confusion and difficulty with speech. The patient reports a 2-week course of apparent expressive aphasia and some confusion. The patient confirms that he is aware of the word he is trying to say but sometimes cannot express it or comes out improperly or in pieces. He had a thorough work-up for stroke in the ED on 01/05/2023 with no acute finding and the patient was discharged home a t that time. He reports traveling to [place] within the last month. He denies any toxic exposure, bug bites, or swimming in lakes or [place]. He admits to daily NyQuil and DayQuil use since returning from [place] as he complained of congestion after returning. In addition the patient drinks 2 twisted teas per day (EtOH), and was taking Percocet belonging to someone else over the last week. Work-up in the ED was unremarkable other than leukocytosis which is persistent for this patient since November. CXR and CT of the head were unremarkable. Due to the patient's persistent confusion and expressive aphasia he is being admitted to observation by the hospitalist service under Dr. Lanza for further work-up. At the time of my exam the patient is resting comfortably in bed. He has cont inued evidence of expressive aphasia at times during our conversation. He is awake and alert and oriented throughout our conversation. The ED did report staring episodes which did not evidence during my exam. He denies CP (other than long standing chest pain), increased SOB, N/V/D, abdominal pain, fever/chills, or any other acute complaint. Review of Systems ROS Status of ROS 10 or more systems reviewed and unremarkable except as noted in history and below [facility] Medical History (Updated 01/09/23 @ 17:28 by Marcy Duff NP) Arthritis ?M19.90 - Unspecified osteoarthritis, unspecified site (ICD-10) Hypertension ?I10 - Essential (primary) hypertension (ICD-10) Family History (Updated 01/09/23 @ 15:45 by Yulissa Cantrell) Mother Family history of diabetes mellitus Family history of hypertension Father Family history of hypertension Brother Family history of diabetes mellitus Social History (Updated 01/09/23 @ 16:06 by Yulissa Cantrell) Within the past year, how often did you have a drink containing alcohol: 4 or more times a week Within the past year, how many standard drinks containing alcohol did you have on a typical day: 3 or 4 Within the past year, how often did you have six or more drinks on one occasion: never Total score: 2 Score interpretation: A score of 4 or more indicates drinking is likely to affect patient's safety. 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 Highest level of school completed/degree received: 9th grade Are you now , , , , never or living with a partner: living with partner In a typical week, how many times do you talk on the telephone with family, friends, or neighbors: 3 or more times per week How often do you get together with friends or relatives: 3 or more times per week How often do you attend taoism or moravian services: never Do you belong to any clubs or organizations such as taoism groups unions, fraternal or athletic groups, or school groups: no Total score: 2 Score interpretation: A score of greater than or equal to 2 indicates the lowest level of social isolation. Little interest or pleasure in doing things: not at all Feeling down, depressed, or hopeless: not at all Feel stressed/tense/nervous/anxious/difficulty sleeping: not at all Do you think of yourself as: straight/heterosexual Gender Identity: male Meds Home Medications and Allergies Home Medications Medication Instructions Recorded Confirmed Type amlodipine 10 mg tablet 10 mg PO DAILY 01/05/23 01/09/23 History atenolol 50 mg tablet 50 mg PO Q24H 01/05/23 01/09/23 History cefdinir 300 mg capsule 300 mg PO Q12H 01/05/23 01/09/23 History meloxicam 15 mg tablet 15 mg PO DAILY 01/05/23 01/09/23 History Allergies Allergy/AdvReac Type Severity Reaction Status Date / Time No Known Drug Allergies Allergy Verified 01/09/23 11:37 Exam Constitutional Vital Signs, click to edit/add: Last Vital Signs Temp 97.5 F L 01/09/23 15:47 Pulse 58 L 01/09/23 15:47 Resp 18 01/09/23 15:47 BP 153/93 H 01/09/23 15:47 Pulse Ox 94 L 01/09/23 15:47 O2 Del Method Room Air 01/09/23 15:47 Common normals: no apparent distress, oriented x3, alert and well nourished General appearance: cooperative Orientation/consciousness: Yes awake HENMT Common normals: normocephalic, head/scalp atraumatic, hearing grossly normal bilaterally, external ears normal, external nose normal and moist oral mucous membranes Head and scalp: normocephalic and atraumatic Face and sinus: normal facial exam Nose: external nose normal External ear: external ears normal Eye Common normals: PERRL, EOMs intact bilaterally, conjunctivae normal and no scleral icterus General eye: normal appearance of both eyes Alignment: alignment normal Eyelid: eyelids normal Conjunctiva: conjunctiva(e) normal Pupil: PERRL Neck & C-Spine Common normals: full ROM, supple and no JVD Chest Common normals: inspection of chest normal Chest: symmetrical chest wall rise Respiratory Common normals: normal respiratory effort, no retractions, no use of accessory muscles and clear to auscultation bilaterally Effort & inspection: able to speak in complete sentences Auscultation: clear to auscultation bilaterally Cardio Common normals: no JVD, regular rate, regular rhythm, S1 normal heart sound, S2 normal heart sound, no gallops, no clicks, no murmurs, no rub and peripheral pulses 2+ throughout Rate: regular rate Rhythm: regular rhythm Heart sounds: S1 normal and S2 normal Peripheral pulses: pulses 2+ throughout GI Common normals: Normal to inspection, nondistended, normoactive bowel sounds present, soft to palpation, non-tender, no hepatosplenomegaly, no masses and no bruits Palpation: soft and no hepatosplenomegaly Bladder/kidney exam: bladder normal to palpation Back & Pelvis Common normals: thoracic and lumbar spine normal to inspection Extremity Common normals: normal capillary refill and no pedal edema General: normal exam except as noted; no clubbing and no cyanosis Neuro [place] Coma Scale: GCS not evaluated Common normals: oriented x3, CN's II-XII intact bilaterally, moves all extremities, no focal motor deficits and no sensory deficits noted Sensorium/orientation: awake and alert Speech: expressive aphasia Motor exam: strength 5/5 throughout Psych Common normals: mental status grossly normal, thought process normal, affect normal and activity/motor behavior normal Thought process: normal thought process Results Labs Labs: Short CBC 01/09/23 Range/Units 11:58 WBC 14.4 H (4.0-11.0) 10^3/uL Hgb 13.1 L (14.0-18.0) g/dL Hct 39.0 L (42.0-54.0) % Plt Count 309 (150-450) 10^3/uL BMP 01/09/23 11:58 Sodium 141 Potassium 3.7 Chloride 106 Carbon Dioxide 24.1 BUN 12.0 Creatinine 1.00 Glucose 105 Calcium 9.4 Liver Function 01/09/23 Range/Units 11:58 Total Bilirubin 0.3 (0.2-1.0) mg/dL AST 25 (15-37) U/L ALT 47 (16-63) U/L Alkaline Phosphatase 76 (46-116) U/L Albumin 4.0 (3.4-5.0) g/dL ABG ABG results: 01/09/23 12:14 VBG pH 7.397 VBG pCO2 42.4 Pulse Oximetry Attestation: I have reviewed the pertinent pulse oximetry results. Assessment and Plan Assessment and Plan (1) Expressive aphasia: Assessment and Plan: ACUTE * Adm observation * CT/CTA head & neck neg for acute abnormalities on 01/05 & 01/09 * Persistent expressive aphasia remains concerning for neurologic event * Obtain MRI brain w/ wo contrast in AM * Etiology remains unclear - Polypharmacy vs CVA vs other * CBC, CMP daily (2) Acute metabolic encephalopathy: Assessment and Plan: ACUTE * Unclear etiology * Consider polypharmacy - pt taking nyquil, twisted tea x 2, percocet together * See expressive aphasia above (3) Arthritis: Assessment and Plan: CHRONIC * Continue home meloxicam (4) Hypertension: Assessment and Plan: CHRONIC * Continue home atenolol (5) Tobacco dependence: Assessment and Plan: CHRONIC * 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
[2023-01-09 19:56] LABS: Bilirubin Urine NEGATIVE (NEGATIVE); Blood Urine NEGATIVE (NEGATIVE); Clarity Urine CLEAR (CLEAR); Color Urine YELLOW (YELLOW); Glucose Urine UA NEGATIVE (NEGATIVE); Ketones Urine NEGATIVE (NEGATIVE); Leukocyte Esterase Urine NEGATIVE (NEGATIVE); Nitrite Urine NEGATIVE (NEGATIVE); Protein Urine NEGATIVE (NEG/TRACE); Urobilinogen Urine 0.2 EU/dL (0.2-1.0); pH Urine 6.5 (5.0-9.0)
[2023-01-09 19:57] LABS: Urine Microscopic Indicated NO
[2023-01-09 20:05] LABS: Amphetamine Screen Urine NEGATIVE (NEGATIVE); Barbiturates Screen Urine NEGATIVE (NEGATIVE); Benzodiazepines Screen Urine NEGATIVE (NEGATIVE); Buprenorphine Screen Urine NEGATIVE (NEGATIVE); Cannabinoid Screen Urine NEGATIVE (NEGATIVE); Cocaine Screen Urine NEGATIVE (NEGATIVE); Methadone Screen Urine NEGATIVE (NEGATIVE); Methamphetamines Screen Urine NEGATIVE (NEGATIVE); Opiate Screen Urine NEGATIVE (NEGATIVE); Oxycodone Screen Urine NEGATIVE (NEGATIVE); Phencyclidine Screen Urine NEGATIVE (NEGATIVE); Tricyclic Antidepressant Urine NEGATIVE (NEGATIVE)
[2023-01-09] MEDS: NICOTINE 21 MG PATCH TD (20:18)
[2023-01-09] MEDS: CLOPIDOGREL BISULFATE 75 MG TABLET PO (20:18)
[2023-01-09] MEDS: ATENOLOL 50 MG TABLET PO (20:18)
[2023-01-09] MEDS: ENOXAPARIN SODIUM 40 MG/0.4 ML SYRINGE SUBQ (20:18)
[2023-01-10] VITALS (19 sets, daily range): BP systolic 147–170; BP diastolic 80–99; PULSE 51–88; RESP 18–20; TEMP 36.4–36.6; O2SAT 92–98
--- NOTE | 2023-01-10 | XR_ITS ---
The [address] [address] Patient Name: OSMANI AYALA MRN: [id number] date: 1965 Sex: M Assigned Patient Location: [place] Current Patient Location: [place] Accession/Order Number: [id number] Exam Date: 01/10/2023 09:12 Report Date: 01/10/2023 10:35 At the request of: NATALIE HECTOR Procedure: XR foreign body eye EXAMINATION: XR foreign body eye HISTORY: FOREIGN BODY EYE COMPARISON: No relevant comparison available. FINDINGS: ORBITS: Negative for a metallic foreign body. OTHER: Negative. XR/XR foreign body eye IMPRESSION: No metallic foreign body within the orbits. Electronically authenticated by: DAYLIN HAN Date: 01/10/2023 10:35
--- NOTE | 2023-01-10 07:00 | MR_ITS ---
[address] [address] Patient Name: OSMANI AYALA MRN: [id number] date: 1965 Sex: M Assigned Patient Location: [place] Current Patient Location: [place] Accession/Order Number: [id number] Exam Date: 01/10/2023 08:45 Report Date: 01/11/2023 07:59 At the request of: HARVEY ESPINOZA Procedure: MR head/brain wo/w con MRI BRAIN WITH AND WITHOUT CONTRAST, 01/10/2023. HISTORY: Altered mental status. COMPARISON: CT head without contrast, 01/09/2023. TECHNIQUE: Multiplanar, multisequence MRI imaging of the brain with and without contrast. FINDINGS: Chronic left maxillary sinusitis. There is mucosal thickening and thickening of the wall the left maxillary sinus. There is some fluid in the mastoid air cells on the left. Nasopharynx is normal. Cost Control Supervisor spaces are normal. Orbital contents are unremarkable. Ventricles are normal in size. No hydrocephalus. No mass effect. No shift of midline. Mild chronic microvascular ischemic changes in the cerebral white matter. No diffusion restriction. No evidence of acute ischemic infarction. T2 gradient images show no hemorrhagic lesions. No pathologic enhancement in the brain. No brain mass. MR/MR head/brain wo/w con IMPRESSION: 1. No acute findings. No acute infarction. 2. Very mild chronic microvascular ischemic changes. No pathologic enhancement. No masses. Electronically authenticated by: KRUNAL MARIE Date: 01/11/2023 07:59
[2023-01-10 07:12] LABS: Basophils Absolute Auto 0.1 10^3/uL (0.0-0.1); Basophils Percent Auto 0.6 % (0.2-2.0); Eosinophils Percent Auto 0.3 % (0.9-7.0); Hematocrit 42.1 % (42.0-54.0); Hemoglobin 14.3 g/dL (14.0-18.0); Immature Granulocytes Abs Auto 0.04 10^3/uL (0.00-0.03); Immature Granulocytes Pct Auto 0.3 % (0.0-0.5); Lymphocytes Absolute Auto 2.3 10^3/uL (1.2-3.8); Mean Corpuscular Hemoglobin 31.4 pg (25.9-34.0); Mean Corpuscular Volume 92.3 fL (80.0-94.0); Mean Platelet Volume 9.2 fL (9.5-13.5); Monocytes Absolute Auto 0.7 10^3/uL (0.3-0.8); Neutrophils Absolute Auto 8.7 10^3/uL (1.4-6.5); Neutrophils Percent Auto 73.8 % (43.0-75.0); Platelet Count 305 10^3/uL (150-450); Red Blood Count 4.56 10^6/uL (4.70-6.10); Red Cell Distribution Width 13.2 % (11.0-15.0); White Blood Count 11.9 10^3/uL (4.0-11.0)
[2023-01-10 07:36] LABS: Alanine Aminotransferase 50 U/L (16-63); Albumin Globulin Ratio 1.1; Alkaline Phosphatase 79 U/L (46-116); Aspartate Amino Transferase 25 U/L (15-37); BUN Creatinine Ratio 7.3; Bilirubin Total 0.4 mg/dL (0.2-1.0); Carbon Dioxide 24.5 mmol/L (21.0-32.0); Chloride 105 mmol/L (98-107); Estimated GFR (African America >60 (>=60); Estimated GFR (Non-African Ame >60 (>=60); Globulin 3.5 g/dL; Glucose 141 mg/dL (74-106); Potassium 3.5 mmol/L (3.5-5.1); Sodium 140 mmol/L (136-145); Total Protein 7.5 g/dL (6.4-8.2)
[2023-01-10 07:41] LABS: Thyroid Stimulating Hormone 1.767 uIU/mL (0.358-3.740)
--- NOTE | 2023-01-10 08:03 | CM.NOTE ---
Rounds made with Dr. Lanza. Mr. Landaverde complaining of being dizzy-fuzzy vision. Plan for MRI and TeleNeuro Consult today. Potential discharge later today.
[2023-01-10] MEDS: ASPIRIN 81 MG TAB.CHEW 162 MG PO (08:30)
[2023-01-10] MEDS: ATENOLOL 50 MG TABLET PO ×2 (08:30→22:33)
[2023-01-10] MEDS: MELOXICAM 7.5 MG TABLET 15 MG PO (08:31)
[2023-01-10] MEDS: AMLODIPINE BESYLATE 5 MG TABLET 10 MG PO (08:31)
[2023-01-10] MEDS: CEFDINIR 300 MG CAPSULE PO ×2 (08:34→18:16)
--- NOTE | 2023-01-10 09:25 | CM.NOTE ---
Spoke with Saima and his significant other, Ada who state he does not have Medical coverage. Patient Financial Services notified. Paperwork had been filled out according to Ada.
[2023-01-10] MEDS: CLONIDINE HCL 0.1 MG TABLET PO ×2 (10:34→22:32)
[2023-01-10] MEDS: ROPINIROLE HCL 0.25 MG TABLET 0.5 MG PO ×3 (10:35→22:32)
[2023-01-10] MEDS: HYOSCYAMINE SULFATE 0.125 MG TAB.SUBL PO ×3 (12:45→22:32)
--- NOTE | 2023-01-10 13:12 | CA_ITS ---
Patient: OSMANI AYALA Exam Date: 01/10/2023 : 1965 Gender:M Ordering : NATALIE HECTOR Admission #: [id number] Family : DR Folrezlas Pool . Order #: [id number] CLICK HERE TO VIEW EXAM ECHOCARDIOGRAM REPORT PROCEDURE: CA ECHO DOPPLER COMPLETE INDICATIONS: Possible CVA, etoh,hypertension, smoker (2 ppd) COMPARISON: None. DESCRIPTION: COMPLETE ECHOCARDIOGRAM Real-time transthoracic echocardiography with 2D, M-mode, spectral and color flow Doppler performed. QUALITY: Technical quality was adequate. LEFT VENTRICLE: Normal chamber size. Mild concentric left ventricular hypertrophy. Normal systolic function. LV EF: Normal left ventricular ejection fraction, (>55%). DIASTOLIC: Normal diastolic function. ATRIAL SEPTUM: Visually appears intact. LEFT ATRIUM: Normal chamber size. RIGHT ATRIUM: Normal chamber size. RIGHT VENTRICLE: Normal chamber size. Normal right ventricular systolic function. TRICUSPID VALVE: Normal mobility and thickness. No stenosis with trivial regurgitation. No evidence of pulmonary hypertension. RVSP 26 mmHg MITRAL VALVE: Normal mobility and thickness. No evidence of mitral valve stenosis. There is no mitral annular calcification. No mitral regurgitation. AORTIC VALVE: Normal trileaflet appearance. No visible sclerosis. Normal leaflet mobility. No evidence of aortic valve stenosis. No aortic regurgitation. AORTIC ROOT: Normal diameter and appearance. PULMONIC VALVE: Not well visualized. No stenosis. No regurgitation. PERICARDIUM: No evidence of pericardial effusion. IVC: Collapses with inspirations. PLEURA: CONCLUSION: 1. Mild concentric left ventricular hypertrophy with normal systolic function. LVEF is 55 to 60%. 2. Normal right ventricular size and systolic function. 3. No significant valvular dysfunction. 4. Normal right-sided pressures. 5. No pericardial effusion. Adult Echocardiography Procedure Report Left Ventricle LVEDD (3.7 - 5.6 cm): 4.52 cm LVESD (2.2 - 4.0 cm): 2.41 cm LVIVS thickness (0.6 - 1.2 cm): 0.94 cm LVPW thickness (0.5 - 1.0 cm): 1.16 cm e': 0.11 m/s E - e': 4.78 LVOT Max Gradient: 3.86 mm[Hg] LVOT Area (cm2): 0.98 m/s Peak Velocity (LVOT): 0.98 m/s LVOT Diameter 2.01 cm Left Atrium LA Volume Index (2D A2C): 30.84 ml/m2 Left Atrium Systolic Dimension: 3.21 cm Mitral Valve MV E to A Ratio: 0.98 Mitral Valve A-Wave Peak Velocity: 0.55 m/s Mitral Valve E-Wave Peak Velocity: 0.54 m/s Right Ventricle Aorta AO Root Diam: 3.60 cm Ascending Ao Diam: 2.68 cm Aortic Valve AoV Area (Peak Antonio): 2.47 cm2, 2.47 cm2 Peak Velocity(Antegrade Flow): 1.27 m/s Peak Gradient(Antegrade Flow): 6.41 mm[Hg] Tricuspid Valve Peak Velocity (Regurgitant Flow): 2.39 m/s Pulmonic Valve Peak Velocity: 0.80 m/s Peak Gradient: 2.57 mm[Hg] Right Atrium Dictated by: Ugo Soto M.D. on 01/10/2023 at 17:07 Approved by: Ugo Soto M.D. on 01/10/2023 at 17:09
--- NOTE | 2023-01-10 16:21 | P.PN_ITS ---
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 His significant other is at the bedside during our conversation. I have informed him that all imaging studies are unremarkable and we do not believe the patient has a CVA, mass, or other acute intracranial abnormality. We will obtain a 2D echo today to rule out PFO or other valvular or wall motion abnormality. In addition we have consulted telestroke because of his expressive aphasia and staring episodes which could represent absence seizure's. No observed seizure-like activity since arrival to the medical floor. During my exam the patient's speech is completely back to normal and there is no evidence of confusion. Discharge possible later today or tomorrow pending neuro recommendations from teleneuro service. ADDENDUM 1625: Teleneuro recommends EEG, check B12, thiamine, folate, ammonia, and methylmalonic acid labs. EEG and thiamine (AM fasting lab) cannot be done until tomorrow. Pt will remain until further work up is completed. Exam Constitutional Vital Signs, click to edit/add: Last Vital Signs Temp 98 F 01/10/23 14:00 Pulse 72 01/10/23 16:00 Resp 18 01/10/23 14:00 BP 149/92 H 01/10/23 14:00 Pulse Ox 92 L 01/10/23 14:00 O2 Del Method Room Air 01/10/23 14:00 Common normals: no apparent distress, oriented x3, alert and well nourished Orientation/consciousness: Yes awake [facility] Common normals: normocephalic, head/scalp atraumatic, hearing grossly normal bilaterally, external ears normal, external nose normal and moist oral mucous membranes Head and scalp: normocephalic and atraumatic Face and sinus: normal facial exam Nose: external nose normal External ear: external ears normal Eye Common normals: PERRL, EOMs intact bilaterally, conjunctivae normal and no scleral icterus General eye: normal appearance of both eyes Alignment: alignment normal Eyelid: eyelids normal Conjunctiva: conjunctiva(e) normal Pupil: PERRL Neck & C-Spine Common normals: full ROM, supple and no JVD Chest Common normals: inspection of chest normal Chest: symmetrical chest wall rise Respiratory Common normals: normal respiratory effort, no retractions, no use of accessory muscles and clear to auscultation bilaterally Effort & inspection: able to speak in complete sentences Auscultation: clear to auscultation bilaterally Cardio Common normals: no JVD, regular rate, regular rhythm, S1 normal heart sound, S2 normal heart sound, no gallops, no clicks, no murmurs, no rub and peripheral pulses 2+ throughout Rate: regular rate Rhythm: regular rhythm Heart sounds: S1 normal and S2 normal Peripheral pulses: pulses 2+ throughout GI Common normals: Normal to inspection, nondistended, normoactive bowel sounds pre sent, soft to palpation, non-tender, no hepatosplenomegaly, no masses and no bruits Palpation: soft and no hepatosplenomegaly Bladder/kidney exam: bladder normal to palpation Back & Pelvis Common normals: thoracic and lumbar spine normal to inspection Extremity Common normals: normal capillary refill and no pedal edema General: normal exam except as noted; no clubbing and no cyanosis Neuro [place] Coma Scale: GCS not evaluated Common normals: oriented x3, CN's II-XII intact bilaterally, moves all extremities, no focal motor deficits and no sensory deficits noted Sensorium/orientation: awake and alert Speech: speech normal (expressive aphasia resolved) Motor exam: strength 5/5 throughout Psych Common normals: mental status grossly normal, thought process normal, affect normal and activity/motor behavior normal Thought process: normal thought process Progress Note: Objective Labs Labs: Short CBC 01/10/23 Range/Units 07:01 WBC 11.9 H (4.0-11.0) 10^3/uL Hgb 14.3 (14.0-18.0) g/dL Hct 42.1 (42.0-54.0) % Plt Count 305 (150-450) 10^3/uL BMP 01/10/23 07:01 Sodium 140 Potassium 3.5 Chloride 105 Carbon Dioxide 24.5 BUN 8.0 Creatinine 1.09 Glucose 141 H Calcium 9.0 Liver Function 01/10/23 Range/Units 07:01 Total Bilirubin 0.4 (0.2-1.0) mg/dL AST 25 (15-37) U/L ALT 50 (16-63) U/L Alkaline Phosphatase 79 (46-116) U/L Albumin 4.0 (3.4-5.0) g/dL Urine 01/09/23 Range/Units 19:28 Urine Color Yellow (YELLOW) Urine Clarity Clear (CLEAR) Urine pH 6.5 (5.0-9.0) Ur Specific [place] 1.020 (1.005-1.025) Urine Protein Negative (NEG/TRACE) mg/dL Urine Glucose (UA) Negative (NEGATIVE) mg/dL Imaging MRI - head: Attestation: I have reviewed the pertinent imaging results. Radiologist's impression: IMPRESSION: 1. No acute findings. No acute infarction. 2. Very mild chronic microvascular ischemic changes. No pathologic enhancement. No masses. Eye XR: Attestation: I have reviewed the pertinent imaging results. Radiologist's impression: IMPRESSION: No metallic foreign body within the orbits. Progress Note: A&P Assessment and Plan (1) Expressive aphasia: Assessment and Plan: ACUTE * CT/CTA head & neck neg for acute abnormalities on 01/05 & 01/09 * MRI today - No acute intracranial abnormalities * Expressive aphasia apparently resolved today * Etiology remains unclear - Polypharmacy vs CVA vs other * Obtain 2D echo to r/o PFO or other WM or valvular abn * Teleneuro consult today * further work up per neurology recommendations * Consider D/C later today if pt remains stable w/o recurrence of aphasia unless neurology has further recommendations * CBC, CMP daily (2) Acute metabolic encephalopathy: Assessment and Plan: ACUTE * Resolved * Consider polypharmacy - pt taking nyquil, twisted tea x 2, percocet together * Pt strongly advised to avoid mixing opioids with alcohol or other medications * Opioids were not prescribed to this pt and he is strongly advised not to take medications if not prescribed to him * See expressive aphasia above (3) Seizure-like activity: Assessment and Plan: ACUTE * Family reports staring episodes where pt is awake but unresponsive. No recurrence after arrival to the floor * Possible absence seizures * defer to teleneuro service if further work up is indicated * Follow up outpatient with neurology (4) Polypharmacy: Assessment and Plan: ACUTE * See acute metabolic enceph above (5) Tachycardia: Assessment and Plan: ACUTE * Possible opioid withdrawal syndrome but pts reported opioid use history is unclear and contradictatory * Home atenolol increased to BID dosing last night w/ adequate HR response and stable BP - consider continuing at discharge (6) Arthritis: Assessment and Plan: CHRONIC * Continue home meloxicam (7) Hypertension: Assessment and Plan: CHRONIC * Continue home atenolol (8) Tobacco dependence: Assessment and Plan: CHRONIC * 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
[2023-01-10] MEDS: CLOPIDOGREL BISULFATE 75 MG TABLET PO (20:54)
[2023-01-10] MEDS: NICOTINE 21 MG PATCH TD (20:54)
--- NOTE | 2023-01-10 21:21 | CT_ITS ---
The [address] [address] Patient Name: OSMANI AYALA MRN: [id number] date: 1965 Sex: M Assigned Patient Location: [place] Current Patient Location: [place] Accession/Order Number: [id number] Exam Date: 01/10/2023 22:03 Report Date: 01/10/2023 22:35 At the request of: LINO HERNADEZ Procedure: CT head/brain wo con INDICATION: 57 years old; Male. Expressive aphasia. TECHNIQUE: CT Head (ax/cor/sag reformats). Ionizing radiation dose reduced via iterative reconstruction/FBP blend and body size kV/mA adjustment. Comparison: Head CT dated 01/09/2023 at 12:32 PM. FINDINGS: POSTOPERATIVE CHANGES: None. BRAIN PARENCHYMA: No focal lesions. No mass effect. No midline shift or herniation. No intraparenchymal or extra-axial hemorrhage. Normal lee/white differentiation. VENTRICLES/EXTRA-AXIAL SPACES: Normal for patient's age. SINUSES/MASTOIDS: There is bony sclerosis and thickening in the visualized portion of the superior aspect of the maxillary sinus on the left. The maxillary sinuses are incompletely visualized. The frontal sinuses are hypoplastic. Mastoid air cells are clear. MSK: No displaced or depressed calvarial fracture. OTHER: No hyperdense intraluminal thrombus. CT/CT head/brain wo con IMPRESSION: 1. No acute intracranial abnormality. No hemorrhage or mass effect. If there is continued suspicion for intracranial infarction, then MRI with diffusion imaging would be more sensitive to evaluate this patient. Electronically authenticated by: KYLE CALLAHAN Date: 01/10/2023 22:35
[2023-01-11] VITALS (17 sets, daily range): BP systolic 132–158; BP diastolic 74–94; PULSE 50–89; RESP 18–20; TEMP 36.4–36.8; O2SAT 93–96
--- NOTE | 2023-01-11 00:34 | PC.NURSE ---
was in room with pt and getting ready to admin meds at 2053, episode lasted @ 4 minutes, pt had another episode of expressive aphasia, he was unable to speak and unable to move. pt came out of episode and started acting normal, was able to answer questions and wanted to stand up out of bed. pupils were slow to respond/unresponsive dilated at 7-8mm- during this episode. able to talk to and articulate now, pupils are reactive now and pt follows directions. Pt later had an additional episode at [id number] while still in room with pt. Pt had anther episode at 0944-1050 when imaging came up to get him for stat CT. During the times he was having an episode of this aphasia he could not talk, or move in a controlled manner, pupils were dilated to 8mm and were slow/unresponsive when checked with pen light, pt also when he first came out of the episode he was fixated on the line on the floor and walking on it like it was possibly a field sobriety test and after he regained control of his body and words he would reorient on his own at that time.
[2023-01-11 04:42] LABS: Basophils Absolute Auto 0.1 10^3/uL (0.0-0.1); Basophils Percent Auto 0.5 % (0.2-2.0); Eosinophils Absolute Auto 0.1 10^3/uL (0.0-0.7); Eosinophils Percent Auto 0.6 % (0.9-7.0); Hemoglobin 14.4 g/dL (14.0-18.0); Immature Granulocytes Abs Auto 0.06 10^3/uL (0.00-0.03); Immature Granulocytes Pct Auto 0.4 % (0.0-0.5); Lymphocytes Absolute Auto 3.2 10^3/uL (1.2-3.8); Lymphocytes Percent Auto 21.1 % (20.5-60.0); Mean Corpuscular HGB Conc 33.5 g/dL (29.9-35.2); Mean Corpuscular Hemoglobin 31.3 pg (25.9-34.0); Mean Corpuscular Volume 93.5 fL (80.0-94.0); Mean Platelet Volume 9.3 fL (9.5-13.5); Monocytes Absolute Auto 1.3 10^3/uL (0.3-0.8); Monocytes Percent Auto 8.4 % (1.7-12.0); Neutrophils Absolute Auto 10.3 10^3/uL (1.4-6.5); Platelet Count 346 10^3/uL (150-450); Red Cell Distribution Width 13.3 % (11.0-15.0); White Blood Count 14.9 10^3/uL (4.0-11.0)
[2023-01-11 05:10] LABS: Alanine Aminotransferase 52 U/L (16-63); Albumin Globulin Ratio 1.2; Albumin Level 4.1 g/dL (3.4-5.0); Alkaline Phosphatase 77 U/L (46-116); Anion Gap 12.5; Aspartate Amino Transferase 24 U/L (15-37); BUN Creatinine Ratio 11.7; Bilirubin Total 0.4 mg/dL (0.2-1.0); Calcium 9.4 mg/dL (8.5-10.1); Carbon Dioxide 27.4 mmol/L (21.0-32.0); Chloride 101 mmol/L (98-107); Estimated GFR (African America >60 (>=60); Estimated GFR (Non-African Ame >60 (>=60); Globulin 3.5 g/dL; Glucose 110 mg/dL (74-106); Potassium 3.9 mmol/L (3.5-5.1); Sodium 137 mmol/L (136-145); Total Protein 7.6 g/dL (6.4-8.2)
[2023-01-11] MEDS: ROPINIROLE HCL 0.25 MG TABLET 0.5 MG PO ×3 (07:04→21:19)
[2023-01-11] MEDS: CEFDINIR 300 MG CAPSULE PO (07:04)
[2023-01-11] MEDS: ATENOLOL 50 MG TABLET PO ×2 (10:09→21:19)
[2023-01-11] MEDS: MELOXICAM 7.5 MG TABLET 15 MG PO (10:09)
[2023-01-11] MEDS: HYOSCYAMINE SULFATE 0.125 MG TAB.SUBL PO ×4 (10:10→21:19)
[2023-01-11] MEDS: ASPIRIN 81 MG TAB.CHEW 162 MG PO (10:10)
[2023-01-11] MEDS: AMLODIPINE BESYLATE 5 MG TABLET 10 MG PO (10:10)
[2023-01-11] MEDS: CLONIDINE HCL 0.1 MG TABLET PO ×2 (10:10→21:19)
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
[2023-01-11] MEDS: CEFTRIAXONE 2,000 MG in 0.9 % SODIUM CHLORIDE 100 ML 200 MG IV (14:03)
[2023-01-11 18:10] LABS: Amphetamine Screen Urine NEGATIVE (NEGATIVE); Barbiturates Screen Urine NEGATIVE (NEGATIVE); Benzodiazepines Screen Urine NEGATIVE (NEGATIVE); Buprenorphine Screen Urine NEGATIVE (NEGATIVE); Cannabinoid Screen Urine NEGATIVE (NEGATIVE); Cocaine Screen Urine NEGATIVE (NEGATIVE); Methadone Screen Urine NEGATIVE (NEGATIVE); Methamphetamines Screen Urine NEGATIVE (NEGATIVE); Opiate Screen Urine NEGATIVE (NEGATIVE); Oxycodone Screen Urine NEGATIVE (NEGATIVE); Phencyclidine Screen Urine NEGATIVE (NEGATIVE); Tricyclic Antidepressant Urine NEGATIVE (NEGATIVE)
--- NOTE | 2023-01-11 18:40 | PC.NURSE ---
Printer Helper took call from [facility] stating pt is on waiting list for a bed there. No accepting physician has been named yet. She did state there was a long wait list.
[2023-01-11] MEDS: LEVETIRACETAM 1,000 MG in 0.9 % SODIUM CHLORIDE 100 ML 440 MG IV (20:33)
[2023-01-11] MEDS: CLOPIDOGREL BISULFATE 75 MG TABLET PO (21:19)
[2023-01-11] MEDS: NICOTINE 21 MG PATCH TD (21:25)
--- NOTE | 2023-01-11 22:50 | PC.NURSE ---
At 0, pt called stating his tube was out of his vein . Nurse found pts IV pulled out. Pt began having jerky movements in both arms, along with his staring episodes and head nodding. This was observed by both the DATA MINING ANALYST and covering RN. Pt was alert the entire time during this. Tele Hospitalist Myrna Mckeon notified of change in condition, patient is still awaiting a bed at [facility] at this time.
[2023-01-12] VITALS (10 sets, daily range): BP systolic 138–167; BP diastolic 55–79; PULSE 62–102; RESP 18; TEMP 37.1; O2SAT 97
[2023-01-12 00:33] LABS: Glucometer 142 mg/dL (74-106)
--- NOTE | 2023-01-12 00:45 | PC.NURSE ---
Nurse notified tele hospitalist Myrna Mckeon again. Pt is now very confused, holding the urinal up to his chest. She stated he is most likely post ictal and no new orders.
[2023-01-12] MEDS: CEFTRIAXONE 2,000 MG in 0.9 % SODIUM CHLORIDE 100 ML 200 MG IV (01:25)
--- NOTE | 2023-01-12 02:17 | PC.NURSE ---
Pt taking off tele wires from the patches and attempting to move onto different patches. Pt talking nonsense. Speech is clear but does not make any sense.
--- NOTE | 2023-01-12 03:36 | PC.NURSE ---
[facility] access called for update, updated on frequency and length of his episodes as well as the confusion. Had a 3 way call with neuro and access. Dr wants to keep the Keppra BID. No other orders.
[2023-01-12] MEDS: ROPINIROLE HCL 0.25 MG TABLET 0.5 MG PO (05:14)
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
[2023-01-12 05:26] LABS: Basophils Absolute Auto 0.1 10^3/uL (0.0-0.1); Basophils Percent Auto 0.6 % (0.2-2.0); Eosinophils Percent Auto 0.3 % (0.9-7.0); Hemoglobin 13.4 g/dL (14.0-18.0); Immature Granulocytes Abs Auto 0.07 10^3/uL (0.00-0.03); Immature Granulocytes Pct Auto 0.5 % (0.0-0.5); Lymphocytes Absolute Auto 2.4 10^3/uL (1.2-3.8); Lymphocytes Percent Auto 15.5 % (20.5-60.0); Mean Corpuscular HGB Conc 32.7 g/dL (29.9-35.2); Mean Corpuscular Hemoglobin 30.6 pg (25.9-34.0); Mean Corpuscular Volume 93.6 fL (80.0-94.0); Mean Platelet Volume 9.5 fL (9.5-13.5); Monocytes Absolute Auto 1.3 10^3/uL (0.3-0.8); Monocytes Percent Auto 8.4 % (1.7-12.0); Neutrophils Absolute Auto 11.5 10^3/uL (1.4-6.5); Neutrophils Percent Auto 74.7 % (43.0-75.0); Platelet Count 340 10^3/uL (150-450); Red Blood Count 4.38 10^6/uL (4.70-6.10); Red Cell Distribution Width 13.2 % (11.0-15.0); White Blood Count 15.4 10^3/uL (4.0-11.0)
[2023-01-12 05:57] LABS: Alanine Aminotransferase 47 U/L (16-63); Albumin Globulin Ratio 1.1; Albumin Level 3.9 g/dL (3.4-5.0); Alkaline Phosphatase 76 U/L (46-116); Anion Gap 15.8; Aspartate Amino Transferase 24 U/L (15-37); BUN Creatinine Ratio 10.5; Bilirubin Total 0.2 mg/dL (0.2-1.0); Calcium 8.8 mg/dL (8.5-10.1); Carbon Dioxide 26.1 mmol/L (21.0-32.0); Chloride 101 mmol/L (98-107); Estimated GFR (African America >60 (>=60); Estimated GFR (Non-African Ame >60 (>=60); Globulin 3.4 g/dL; Glucose 102 mg/dL (74-106); Potassium 3.9 mmol/L (3.5-5.1); Sodium 139 mmol/L (136-145); Total Protein 7.3 g/dL (6.4-8.2)
--- NOTE | 2023-01-12 06:05 | PC.NURSE ---
0600- RNs walked in on patient while he was unresponsive, he was grunting and gasping for air and thrashing his arms and legs. He was then able to hear what we were saying and nodding his head yes but unable to speak. Once patient was able to speak he said his head was in a fog and was tired. patient appeared to be dazed, pulse oxygenation was 95% on room air.
[2023-01-12] MEDS: CALCIUM CARBONATE 500 MG (200MG ELEMENTAL) TAB CHEW PO (08:11)
[2023-01-12] MEDS: HYOSCYAMINE SULFATE 0.125 MG TAB.SUBL PO ×2 (08:11→10:41)
[2023-01-12] MEDS: LEVETIRACETAM 500 MG in 0.9 % SODIUM CHLORIDE 100 ML 420 MG IV ×2 (08:12→11:33)
--- NOTE | 2023-01-12 08:42 | CM.NOTE ---
Nurse Lisa voiced concern to Dr. Lanza regarding episodes patient continues to have. Dr. Lanza stated he will try to facilitate priority for transfer for the patient. The patient was alert and oriented during rounds and is aware of the episodes he is having and explained them to Dr. Lanza. Continue to follow for any anticipated discharge needs. Plan at this time is awaiting bed at [facility].
[2023-01-12] MEDS: AMLODIPINE BESYLATE 5 MG TABLET 10 MG PO (10:39)
[2023-01-12] MEDS: ATENOLOL 50 MG TABLET PO (10:39)
[2023-01-12] MEDS: CLONIDINE HCL 0.1 MG TABLET PO (10:39)
[2023-01-12] MEDS: MELOXICAM 7.5 MG TABLET 15 MG PO (10:40)
--- NOTE | 2023-01-12 11:22 | SWNOTE1 ---
Pt is being transferred.
[2023-01-12] MEDS: AMPICILLIN SODIUM 2,000 MG in 0.9 % SODIUM CHLORIDE 100 ML 200 MG IV (12:00)
--- NOTE | 2023-01-12 13:31 | P.PN_ITS ---
Pt seen and examined at 0730 this am Deterioration overnight not following commands Will have teleneuro do assessment this ama for added strategies prior to transfer Progress Note: Subjective Subjective Interval history: Date/time of exam: 01/12/23 0930 The pt is resting quietly in bed. Nursing reports recurrent aphasia and episodes of unresponsiveness with staring overnight. In addition an episode with generalized shaking was noted and the patient appears to have no memory of this event but clear memory of events immediately preceding and after this episode. He has been accepted in transfer to [facility] in [place] by the neurology service but a bed is not yet available. Per neurology recommendations yesterday afternoon we have added acyclovir in addition to Rocephin for possible meningitis. Aspirin and plavix have been held to allow for an LP procedure as soon as possible. He has also been placed on IV Keppra BID with a loading dose given yesterday afternoon. We expect a repeat teleneurology visit within the next hour or so and will implement any further recommendations that they have. Hopefully the patient will be able to be transferred within the next 12 to 24 hours. ADDENDUM 1045: Per neurologist recommendations, IVPB Vancomycin (pharmacy to dose) and ampicillin 2Gm have been added for broad empiric gram pos coverage as well. Rocephin and acyclovir are to continue. IV Keppra was increased to 1000mg BID dosing. Transfer still pending bed availability. Exam Constitutional Vital Signs, click to edit/add: Last Vital Signs Temp 98.7 F 01/12/23 05:03 Pulse 65 01/12/23 11:48 Resp 18 01/12/23 05:03 BP 167/55 H 01/12/23 10:39 Pulse Ox 97 01/12/23 05:03 O2 Del Method Room Air 01/12/23 05:03 Common normals: no apparent distress, oriented x3, alert and well nourished Orientation/consciousness: Yes awake HENNH Common normals: normocephalic, head/scalp atraumatic, hearing grossly normal bilaterally, external ears normal, external nose normal and moist oral mucous membranes Head and scalp: normocephalic and atraumatic Face and sinus: normal facial exam Nose: external nose normal External ear: external ears normal Eye Common normals: PERRL, EOMs intact bilaterally, conjunctivae normal and no scleral icterus General eye: normal appearance of both eyes Alignment: alignment normal Eyelid: eyelids normal Conjunctiva: conjunctiva(e) normal Pupil: PERRL Neck & C-Spine Common normals: full ROM, supple and no JVD Chest Common normals: inspection of chest normal Chest: symmetrical chest wall rise Respiratory Common normals: normal respiratory effort, no retractions and no use of accessory muscles Effort & inspection: able to speak in complete sentences Cardio Common normals: no JVD, regular rate, regular rhythm, S1 normal heart sound, S2 normal heart sound, no gallops, no clicks, no murmurs, no rub and peripheral pulses 2+ throughout Rate: regular rate Rhythm: regular rhythm Heart sounds: S1 normal and S2 normal Peripheral pulses: pulses 2+ throughout GI Common normals: Normal to inspection, nondistended, normoactive bowel sounds present, soft to palpation, non-tender, no hepatosplenomegaly, no masses and no bruits Palpation: soft and no hepatosplenomegaly Bladder/kidney exam: bladder normal to palpation Back & Pelvis Common normals: thoracic and lumbar spine normal to inspection Extremity Common normals: normal capillary refill and no pedal edema General: normal exam except as noted; no clubbing and no cyanosis Neuro Kandy Coma Scale: GCS not evaluated Common normals: oriented x3, CN's II-XII intact bilaterally, moves all extremities and no sensory deficits noted Sensorium/orientation: awake and alert Meningeal signs: no meningeal signs Speech: expressive aphasia (No aphasia throughout my exam, but nursing notes recurrent episodes) Motor exam: strength 5/5 throughout Psych Common normals: mental status grossly normal, affect normal and activity/motor behavior normal Thought process: abnormal (Difficulty with higher processing during aphasic episodes) Memory/cognition: memory grossly intact Progress Note: Objective Labs Labs: Short CBC 01/12/23 Range/Units 04:48 WBC 15.4 H (4.0-11.0) 10^3/uL Hgb 13.4 L (14.0-18.0) g/dL Hct 41.0 L (42.0-54.0) % Plt Count 340 (150-450) 10^3/uL BMP 01/12/23 04:48 Sodium 139 Potassium 3.9 Chloride 101 Carbon Dioxide 26.1 BUN 12.0 Creatinine 1.14 Glucose 102 Calcium 8.8 Liver Function 01/12/23 Range/Units 04:48 Total Bilirubin 0.2 (0.2-1.0) mg/dL AST 24 (15-37) U/L ALT 47 (16-63) U/L Alkaline Phosphatase 76 (46-116) U/L Albumin 3.9 (3.4-5.0) g/dL Progress Note: A&P Assessment and Plan (1) Expressive aphasia: Assessment and Plan: ACUTE * Frequent recurrent episodes again overnight of expressive aphasia and staring episodes (Aphasia had completely resolved yesterday) * Episodic in nature and pt fully recovers between episodes * Nursing notes episode of unresponsiveness that included generalized tremors suggestive of tonic-clonic activity * Reportedly pt did not have memory of time of generalized tremors, but did not have a post-ictal phase and was completely cognizant of events i mmediately afterwards * CT/CTA head & neck neg for acute abnormalities on 01/05 & 01/09 * MRI 01/10/23 - No acute intracranial abnormalities, mild chronic changes * Etiology remains unclear - Polypharmacy vs CVA vs Absence Seizure vs Atypical migraine vs Meningitis vs other * 2D echo 01/10/23 - unremarkable w/ preserved LVEF of 55-60% no valvular dysfunction, Nrml R side pressures. No mention of R to L shunting or valvular vegetations * Teleneuro consult - we appreciate geolad teleneuro's assistance w/ this pt's care. Further recommended QUINN: * Ammonia - 17 * B12 - 816 * Folate - 16.6 * Thiamine - pending (send out) * Continue neurochecks q4h * In presence of persistent leukocytosis (pt afebrile), will add meningitis work up * BC x 2 01/11/23 - pending * LP ordered 01/11 but unable to obtain d/t ASA & plavix - meds held * Continue Rocephin 2 gm q12h (bacterial meningitis coverage) and acyclovir (viral meningitis coverage) * Atypical migraines possible * Defer to neurology service if triptans should be added to med regimen * CBC, CMP daily (2) Acute metabolic encephalopathy: Assessment and Plan: ACUTE * Resolved * Despite episodic aphasia and decreased responsiveness, pt remains fully conscious and is not confused or disoriented * Consider polypharmacy - pt taking nyquil, twisted tea x 2, percocet together * Pt strongly advised to avoid mixing opioids with alcohol or other medications * Opioids were not prescribed to this pt and he is strongly advised not to take medications if not prescribed to him * Acute opioid withdrawal not clinically suspected at this time after 72+ hr hospitalization * See expressive aphasia above (3) Seizure-like activity: Assessment and Plan: ACUTE * Frequent staring episodes where pt is awake but unresponsive associated w/ expressive aphasia * Initial episode of generalized tremoring noted overnight suggestive of tonic- clonic seizure activity * Possible absence/focal seizures * EEG obtained today per Neuro recommendation. Result pending - we've requested expedited read * Seizure precautions * Keppra loading dose then 500mg BID added per neurology recommendation yeste rday afternoon (4) Polypharmacy: Assessment and Plan: ACUTE * See acute metabolic enceph above (5) Tachycardia: Assessment and Plan: ACUTE * Resolved w/ increased atenolol dosing * Continue to monitor for SS of opioid w/d (6) Arthritis: Assessment and Plan: CHRONIC * Continue home meloxicam (7) Hypertension: Assessment and Plan: CHRONIC * Continue home atenolol (8) Tobacco dependence: Assessment and Plan: CHRONIC * intermediate dependence hx of 2 PPD * Nicoderm patch 21 mg daily * Smoking cessation advised
--- NOTE | 2023-01-13 14:24 | P.DS_ITS ---
Pt seen and examined on day of d/c with persitent symoptoms of intermittent AMS consistent with seizure, one episode witnessed by ER Dr. Agree with assessments and plan from [facility] DS: Providers Provider Date of admission: 01/11/23 08:00 Primary care physician: Marlee Sosa MD Consults: 01/09/23 17:16 Speech Therapy Eval and Treat Routine Reason for consultation: expressive aphasia Has provider been notified: No 01/10/23 10:29 Consult to Telestroke Routine Reason for consultation: expressive aphasia Has provider been notified: No Attending physician on discharge: Gilberto Lanza Discharging clinician: Marcy Duff DS: Diagnosis Discharge Diagnosis (1) Expressive aphasia: (2) Seizure-like activity: (3) Meningitis: (4) Acute metabolic encephalopathy: (5) Polypharmacy: (6) Tachycardia: (7) Arthritis: (8) Hypertension: (9) Tobacco dependence: DS: Summary Hospital Course Hospital Course: Date of exam/discharge: 01/12/23 The patient was admitted with expressive aphasia and staring episodes as described by his family, initially to observation as all previous CT studies of the brain were negative on previous ED visits. During the course of stay thorough work-up was completed including an MRI of the brain which was unremarkable as well as a 2D echo which was also mostly unremarkable. There was some clinical concern for polypharmacy contributing to the patient's symptoms and the patient was advised to avoid mixing alcohol and medications. The patient's expressive aphasia appeared to have resolved and discharge was pending when he acutely worsened with his expressive aphasia and absence type episodes resumed. Telemedicine neurology was consulted. As the patient had symptoms that were concerning for both stroke and seizure, he was initiated on DAPT and IV Keppra per neurology recommendations. An EEG of the brain was also ordered as well as further lab work-up including thiamine, B12, and folate acid. An ammonia level had been obtained on admission and this was unremarkable. Clinical concern for meningitis was also considered and per telemetry neuro recommendations the patient was initiated on IVPB Rocephin, vancomycin, ampicillin, and acyclovir. We were unable to identify any acute abnormality either on imaging or lab work. A diagnostic LP was planned but unable to be performed as the patient was on DAPT. As the patient's symptoms began became more increasingly alarming with episodic aphasia and seizure-like activity, telemetry neuro recommended that the patient be transferred to their tertiary facility for specialty neurology care. On the last day of admission, the patient developed symptoms concerning for possible tonic-clonic seizure-like activity. A bed at [facility] in [place] eventually became available after 2 days. The patient is being transferred to the tertiary facility for advanced neurology care in stable condition. Time Spent with Patient Time attestation: Total time spent providing and/or coordinating discharge services: Exam Narrative Exam Narrative: See physical exam on Progress Noted dated 01/12/23 Constitutional Vital Signs, click to edit/add: Last Vital Signs Temp 98.7 F 01/12/23 05:03 Pulse 62 01/12/23 14:08 Resp 18 01/12/23 05:03 BP 167/55 H 01/12/23 10:39 Pulse Ox 97 01/12/23 05:03 O2 Del Method Room Air 01/12/23 05:03 DS: Data Imaging MRI - head: Attestation: I have reviewed the pertinent imaging results. Radiologist's impression: 01/10/23 IMPRESSION: 1. No acute findings. No acute infarction. 2. Very mild chronic microvascular ischemic changes. No pathologic enhancement. No masses. CT scan - head: Attestation: I have reviewed the pertinent imaging results. Radiologist's impression: 01/10/23 IMPRESSION: 1. No acute intracranial abnormality. No hemorrhage or mass effect. If there is continued suspicion for intracranial infarction, then MRI with diffusion imaging would be more sensitive to evaluate this patient. 2D Echo: Attestation: I have reviewed the pertinent imaging results. Radiologist's impression: 01/10/23 CONCLUSION: 1. Mild concentric left ventricular hypertrophy with normal systolic function. LVEF is 55 to 60%. 2. Normal right ventricular size and systolic function. 3. No significant valvular dysfunction. 4. Normal right-sided pressures. 5. No pericardial effusion. Chest x-ray: Attestation: I have reviewed the pertinent imaging results. Radiologist's impression: 01/09/23 IMPRESSION: No acute cardiopulmonary process. Discharge Plan Discharge Disposition: [facility] Condition: Fair Discharge Date/Time: 01/12/23 14:31 Discharge Location: [facility]
[2023-01-16 02:07] LABS: Methylmalonic Acid, Serum 112 nmol/L (0-378)
[2023-01-22 10:11] LABS: Vitamin B1 (Thiamine), Blood 181.1 nmol/L (66.5-200.0)
== END 2023-01-12 14:31 | disposition short-term general hospital (02) | DRG 70 ==
LOC: ER 14:35 → MS 15:33
PROVIDERS: Admitting Provider Family Medicine; Emergency Provider Emergency Medicine; PCP Family Medicine; Visit Provider Nurse Practitioner
DX: G93.41 Metabolic encephalopathy (principal); G03.9 Meningitis, unspecified; R47.01 Aphasia; R56.9 Unspecified convulsions; D72.829 Elevated white blood cell count, unspecified; R00.0 Tachycardia, unspecified; M19.90 Unspecified osteoarthritis, unspecified site; I10 Essential (primary) hypertension; F17.210 Nicotine dependence, cigarettes, uncomplicated; F11.10 Opioid abuse, uncomplicated; Z83.3 Family history of diabetes mellitus; Z82.49 Family history of ischemic heart disease and other diseases of the circulatory system; Z79.2 Long term (current) use of antibiotics; Z79.1 Long term (current) use of non-steroidal anti-inflammatories (NSAID); Z79.899 Other long term (current) drug therapy
CPT/HCPCS: 36415; 70030; 70450; 70553; 71045; 80053; 80307; 80320; 80329; 81003; 82140; 82607; 82746; 82800; 82945; 82948; 83921; 84157; 84425; 84443; 84484; 85025; 87040; 87070; 87116; 87205; 87206; 89051; 92507; 92523; 93005; 93306; 95819; 96365; 96366; 96367; 96368; 96372; 99285; A9575; G0378; Q3014

== ENCOUNTER 2023-05-05 10:33 | Outpatient (OUT) | payer OTHER, SELFPAY ==
--- OUTSIDE RECORDS SUMMARY | 2023-05-05 10:45 | XMS_ITS | CCD ---
Author Name Unknown Address [address] [facility] [address] [place] [address] Organization [facility] Care Team Providers Care Child Care Director Name Role Phone NEO WATKINS Attending Unavailable NEO WATKINS Consulting Unavailable MARTHA, DR MARLEE Akins Primary Care Unavailable NEO WATKINS Admitting Unavailable JAY JAY, DR OWEN Moss Attending Unavailable JAY JAY, DR OWEN Moss Consulting Unavailable JAY JAY, DR OWEN Moss Admitting Unavailable DR MARLEE SOSA Primary Care Unavailable DR YOLANDA GO Consulting Unavailable Marlee Sosa Allergies Allergy Classification Reported Allergen(s) Allergy Type Date of Onset Reaction(s) Facility (11 sources) Lisinopril Drug Allergy Unknown [place] [facility] Other Medications Current Medications Medication Drug Class(es) Dates Sig (Normalized) Sig (Original) amLODIPine 10 mg oral tablet (11 sources) Dihydropyridine Calcium Channel Cassie take 1 tablet by mouth once daily amLODIPine Besylate 10 mg TAKE ONE TABLET BY MOUTH ONCE DAILY for 30 Active Aspirin (8 sources) Platelet Aggregation Inhibitor, Nonsteroidal Anti-inflammatory Drug Aspirin 81 Active atenolol 50 mg oral tablet (6 sources) beta-Adrenergic Cassie take 1 tablet by mouth every twenty-four hours Atenolol 50 MG 1 tablet Orally Once a day for 30 days Active cefdinir 300 mg oral capsule (1 source) Cephalosporin Antibacterial Start: 01-02-2023 Cefdinir 300 MG as directed Orally bid for 7 days Dec, Active gabapentin 100 mg oral capsule (5 sources) Anti-epileptic Agent take 1 capsule by mouth every eight hours Gabapentin 100 MG 1 capsule Orally tid Active lacosamide 100 mg oral tablet (3 sources) Anti-epileptic Agent take 1 tablet by mouth every twelve hours Lacosamide 100 MG 1 tablet twice a day Active levETIRAcetam 750 mg oral tablet (8 sources) take 2 tablets by mouth twice daily at bedtime levETIRAcetam 750 MG 2 tablets Orally Twice daily, in the morning and at bedtime for 30 days Active meloxicam 15 mg oral tablet (11 sources) Nonsteroidal Anti-inflammatory Drug take 1 tablet by mouth once daily Meloxicam 15 mg TAKE ONE TABLET BY MOUTH DAILY for 30 Active 24 hr metoprolol succinate 100 mg extended release oral tablet (5 sources) beta-Adrenergic Cassie Start: 03-07-2023 take 1 tablet by mouth every twenty-four hours Toprol XL 100 MG 1 tablet Orally Once a day for 30 days Feb, Active Start: 03-07-2023 take 1 tablet by rosemary th every twenty-four hours Toprol XL 25 MG 1 tablet Orally Once a day for 30 days Feb, Active thiamine 100 mg oral tablet (8 sources) take 1 tablet by rosemary th every twenty-four hours Vitamin B-1 100 MG 1 tablet once a day Active Problems Active Problems Problem Classification Problem Date Documented Date Episodic/Chronic Chronic obstructive pulmonary disease and bronchiectasis (2 sources) Bronchitis, not specified as acute or chronic Episodic E Codes: Adverse effects of medical drugs (1 source) Adverse effect of angiotensin-converti ng-enzyme inhibitors, initial encounter; Translations: [ADVERSE EFFECT ACEI INITIAL ENCNTR] Onset: 10-21-2020 Episodic Epilepsy; convulsions (11 sources) Seizure disorder; Translations: [Epilepsy, unspecified, not intractable, without status epilepticus] Chronic Essential hypertension (20 sources) Essential (primary) hypertension; Translations: [Essential hypertension] Onset: 07-24-2017 Chronic Headache; including migraine (11 sources) Headache disorder; Translations: [Other headache syndrome] Episodic Other aftercare (1 source) 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; Translations: [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] Onset: 10-21-2020 Episodic Other connective tissue disease (1 source) Neuralgia and neuritis, unspecified Episodic Other injuries and conditions due to external causes (2 sources) Angioneurotic edema, initial encounter; Translations: [ANGIONEUROTIC EDEMA INITIAL ENCNTR] Onset: 11-28-2019 Episodic Other injuries and conditions due to external causes (11 sources) Angioedema; Translations: [Angioneurotic edema, initial encounter] Episodic Other nervous system disorders (11 sources) Paresthesia of lower extremity; Translations: [Paresthesia of skin] Episodic Other nervous system disorders (1 source) Paresthesia of skin Episodic Other skin disorders (3 sources) Localized swelling, mass and lump, head; Translations: [LOCALIZED SWELLING MASS AND LUMP HEAD] Onset: 10-19-2020 Episodic Residual codes; unclassified (8 sources) Difficulty sleeping ; Translations: [Sleep disorder, unspecified] Episodic Residual codes; unclassified (1 source) Sleep disorder, unspecified Episodic Spondylosis; intervertebral disc disorders; other back problems (20 sources) Thoracic and lumbosacral neuritis; Translations: [Thoracic or lumbosacral neuritis or radiculitis, unspecified] Onset: 06-06-2017 Episodic Substance-related disorders (12 sources) Nicotine dependence, cigarettes, uncomplicated; Translations: [Tobacco user] Onset: 11-28-2019 Chronic Past or Other Problems Problem Classification Problem Date Documented Da te Episodic/Chronic Cardiac dysrhythmias (11 sources) Tachycardia; Translations: [Tachycardia, unspecified] Onset: 06-06-2017 Episodic Disorders of teeth and jaw (1 source) Periapical abscess without sinus; Translations: [PERIAPICAL ABSCESS WITHOUT SINUS] Onset: 11-28-2019 Episodic Other lower respiratory disease (3 sources) Shortness of breath; Translations: [SHORTNESS OF BREATH] Onset: 11-04-2019 Episodic Results Test Name Value Interpretation Reference Range Facil ity FRESH FROZ PLASMAon 10-30-19 21 FRESH FROZ PLASMA Unit Blood Type O Pos Unit Number [id number] Status Information Transfused Product ID FFP Product Code [id number] Normal [facility] Comment on above: Performed By: #### F FP #### [facility] [address] [place], [place] [id number] Brenda Murphy CBC W MANUAL DIFFon 10-20-19 21 ATYPICAL LYMPH # 0.29 103/ul Normal [facility] Comment on above: Performed By: #### C CARO #### [facility] [address], [place] [address] Brenda Murphy ATYPICAL LYMPH % 2 % Normal [facility] Comment on above: Performed By: #### C CARO #### [facility] [address] [place], [place] [address] Brenda Murpyh BAND # 0.1 103/ul Normal 0.0-0.3 [facility] Comment on above: Performed By: #### C CARO #### [facility] [address] [id number] Brenda Katherine BAND % 1 % Normal 0-5 [facility] Comment on above: Performed By: #### C CARO #### [facility] [address] [address] Brenda Katherine BASOM # 0.15 103/ul Critically high 0.00-0.10 [facility] Comment on above: Performed By: #### C CARO #### [facility] [address] [address] Brenda Katherine BASOM % 1.0 % Normal 0.2-2.0 [facility] Comment on above: Performed By: #### C CARO #### [facility] [address] [place] [address] Brenda Katherine BLAST # Normal [facility] Comment on above: Performed By: #### C CARO #### [facility] [address] [place] [address] Brenda Katherine BLAST % Normal [facility] Comment on above: Performed By: #### C CARO #### [facility] [address] [place], [place] [id number] Brenda Katherine CORRECTED WBC Normal 4.0-11.0 [facility] Comment on above: Performed By: #### C CARO #### [facility] [address] [place] [address] Brenda Katherine EOS # 0.58 103/ul Normal 0.00-0.70 [facility] Comment on above: Performed By: #### C CARO #### [facility] [address] [place] [address] Brenda Katherine EOS% 4.0 % Normal 0.9-7.0 [facility] Comment on above: Performed By: #### C CARO #### [facility] [address] [place] [address] Brenda Katherine HCT 39.9 % Critically low 42.0-54.0 [facility] Comment on above: Performed By: #### Alcon ELIZONDO #### [facility] [address] [id number] Brenda Katherine HGB 13.3 g/dl Critically low 14.0-18.0 [facility] Comment on above: Performed By: #### Alcon ELIZONDO #### [facility] [address] [id number] Brenda Katherine LYMPHM # 5.40 103/ul Critically high 1.20-3.80 [facility] Comment on above: Performed By: #### Alcon ELIZONDO #### [facility] [address] [address] Brenda Katherine LYMPHM% 37.0 % Normal 20.5-60.0 [facility] Comment on above: Performed By: #### Alcon ELIZONDO #### [facility] [address] [place] [address] Brenda Katherine MCH 31.4 pg Normal 25.9-34.0 [facility] Comment on above: Performed By: #### Alcon ELIZONDO #### [facility] [address] [place] [address] Brenda Katherine MCHC 33.3 g/dl Normal 29.9-35.2 [facility] Comment on above: Performed By: #### Alcon ELIZONDO #### [facility] [address] [place], [place] [id number] Brenda Katherine MCV 94.1 fL Critically high 80.0-94.0 [facility] Comment on above: Performed By: #### Alcon ELIZONDO #### [facility] [address] [place] [address] Brenda Katherine METAMYELOCYTE # Normal [facility] Comment on above: Performed By: #### Alcon ELIZONDO #### [facility] [address] [place], [place] [id number] Brenda Katherine METAMYELOCYTE % Normal [facility] Comment on above: Performed By: #### Alcon ELIZONDO #### [facility] [address] [id number] Brenda Katherine MONOM# 0.00 103/ul Critically low 0.30-0.80 [facility] Comment on above: Performed By: #### C CARO #### [facility] [address] [id number] Brenda Katherine MONOM% 0.0 % Critically low 1.7-12.0 [facility] Comment on above: Performed By: #### C CARO #### [facility] [address] [id number] Brenda Katherine MPV 9.6 fL Normal 9.5-13.5 [facility] Comment on above: Performed By: #### C CARO #### [facility] [address] [place] [address] Brenda Katherine MYELOCYTE # Normal [facility] Comment on above: Performed By: #### C CARO #### [facility] [address] [place] [address] Brenda Katherine MYELOCYTE % Normal [facility] Comment on above: Performed By: #### Alcon ELIZONDO #### [facility] [address] [place] [address] Brenda Katherine NRBC Normal [facility] Comment on above: Performed By: #### Alcon ELIZONDO #### [facility] [address] [place], [place] [id number] Brenda Katherine PLT 256 103/ul Normal 150-450 [facility] Comment on above: Performed By: #### Alcon ELIZONDO #### [facility] [address] [address] Brenda Katherine RBC 4.24 106/ul Critically low 4.70-6.10 [facility] Comment on above: Performed By: #### Alcon ELIZONDO #### [facility] [address] [id number] Brenda Katherine RDW 13.9 % Normal 11.0-15.0 [facility] Comment on above: Performed By: #### C CARO #### [facility] [address] [address] Brenda Katherine SEG # 8.03 103/ul Critically high 1.40-6.50 [facility] Comment on above: Performed By: #### C CARO #### [facility] [address] [place] [address] Brenda Katherine SEG % 55.0 % Normal 43.0-75.0 [facility] Comment on above: Performed By: #### C CARO #### [facility] [address] [place], [place] [address] Brenda Katherine WBC 14.6 103/ul Critically high 4.0-11.0 [facility] Comment on above: Performed By: #### C CARO #### [facility] [address] [place] [address] Brenda Katherine PROF 14(COMP METB)on 021 Albumin [Mass/Vol] 4.1 g/dL Normal 3.5-5.0 [facility] [place] Comment on above: Performed By: #### C MP #### [facility] [address] [place], [place] [address] Brenda Katherine Albumin/Globulin [Mass ratio] 1.5 {ratio} Normal [facility] Comment on above: Performed By: #### C MP #### [facility] [address] [place] [address] Brenda Katherine ALP [Catalytic activity/Vol] 76 U/L Normal 38-126 [facility] Comment on above: Performed By: #### C MP #### [facility] [address] [place], [place] [address] Brenda Katherien ALT [Catalytic activity/Vol] 27 U/L Normal 21-72 [facility] Comment on above: Performed By: #### C MP #### [facility] [address] [place] [address] Brenda Katherine Anion gap [Moles/Vol] 10.1 mmol/L Normal [facility] Comment on above: Performed By: #### C MP #### [facility] [address] [place], [place] [address] Brenda Katherine AST [Catalytic activity/Vol] 24 U/L Normal 17-59 [facility] Comment on above: Performed By: #### C MP #### [facility] [address] [place], [place] [address] Brenda Katherine Bilirubin [Mass/Vol] 0.2 mg/dL Normal 0.2-1.3 [facility] Comment on above: Performed By: #### C MP #### [facility] [address] [address] Brenda Katherine Calcium [Mass/Vol] 8.5 mg/dL Normal 8.4-10.2 [facility] Comment on above: Performed By: #### C MP #### [facility] [address] [address] Brenda Katherine Chloride [Moles/Vol] 107 mmol/L Normal 98-107 [facility] Comment on above: Performed By: #### C MP #### [facility] [address] [address] Brenda Katherine CO2 [Moles/Vol] 29.0 mmol/L Normal 22.0-30.0 [facility] Comment on above: Performed By: #### C MP #### [facility] [address] [address] Brenda Katherine Creatinine [Mass/Vol] 1.30 mg/dL Critically high 0.66-1.25 [facility] Comment on above: Performed By: #### C MP #### [facility] [address] [place] [address] Brenda Katherine EGFR-AF TANZANIAN >60 Normal >=60 [facility] Comment on above: Performed By: #### C MP #### [facility] [address] [place] [address] Brenda Katherine EGFR-NON AF TANZANIAN 57 mL/min/1.73m2 Critically low >=60 [facility] Comment on above: Performed By: #### C MP #### [facility] [address] [id number] Brenda Katherine Globulin (S) [Mass/Vol] 2.7 g/dL Normal [facility] Comment on above: Performed By: #### C MP #### [facility] [address] [address] Brenda Katherine Glucose [Mass/Vol] 109 mg/dL Critically high 74-106 T [facility] Comment on above: Performed By: #### C MP #### [facility] [address] [address] Brenda Katherine Potassium [Moles/Vol] 4.1 mmol/L Normal 3.4-5.0 [facility] Comment on above: Performed By: #### C MP #### [facility] [address] [address] Brenda Katherine Protein [Mass/Vol] 6.8 g/dL Normal 6.1-8.2 [facility] [place] Comment on above: Performed By: #### C MP #### [facility] [address] [address] Brenda Katherine Sodium [Moles/Vol] 142 mmol/L Normal 137-145 [facility] [place] Comment on above: Performed By: #### C MP #### [facility] [address] [address] Brenda Katherine Urea nitrogen [Mass/Vol] 19.0 mg/dL Normal 9.0-20.0 [facility] Comment on above: Performed By: #### C MP #### [facility] [address] [address] Brenda Katherine Urea nitrogen/Creatinine [Mass ratio] 14.6 mg/mg Normal [facility] Comment on above: Performed By: #### C MP #### [facility] [address] [id number] Brenda Katherine PROTIMEon 10-19-2020 INR Coag (PPP) [Relative time] 0.97 {INR} Normal [facility] Comment on above: Performed By: #### P TT, PT #### [facility] [address] [id number] Brenda Katherine INR GUIDELINES SEE BELOW Normal [facility] Comment on above: Result Comment: JED RED INR: 2.0 - 3.0 CONDITIONS NOT LISTED BELOW 2.5 - 3.5 FOR PROSTHETIC HEART VALVE REPLACEMENT 2.5 - 3.5 RECURRENT THROMBOSIS Performed By: #### P TT, PT #### [facility] [address] [address] Brendaconrad Murphy PT Coag (PPP) [Time] 10.5 s Normal 9.0-11.6 [facility] Comment on above: Performed By: #### P TT, PT #### [facility] [address] [place], [place] [address] Brenda Murphy PTTon 10-19-2020 aPTT Coag (Bld) [Time] 26.8 s Normal 22.3-36.2 [facility] Comment on above: Performed By: #### P TT, PT #### [facility] [address] [place], [place] [address] Brenda Katherine TYPE AND SCREENon 10-19-2020 TYPE AND SCREEN Negative Normal [facility] Comment on above: Performed By: #### T NS #### [facility] [address] [place], [place] [address] Brenda Murphy Vital Signs Date Time Vital Sign Value Performing Clinician Facility 03-07-2023 14:00-0500 Body height 166.37 cm Marlee Sosa Other [facility] 03-07-2023 14:00-0500 Body mass index (BMI) [Ratio] 31.2 kg/m2 Marlee Sosa Other [facility] 03-07-2023 14:00-0500 Body weight 86.37 kg Marlee Sosa Other [facility] 03-07-2023 14:00-0500 Diastolic blood pressure 85 mm[Hg] Marlee Sosa Other [facility] Other 03-07-2023 14:00-0500 SaO2% (BldA) [Mass fraction] 97 % Marlee Sosa Other [facility] Other 03-07-2023 14:00-0500 Systolic blood pressure 125 mm[Hg] Marlee Sosa Other [facility] Other 01-26-2023 10:45-0500 Body height 166.37 cm Marlee Sosa Other [facility] Other 01-26-2023 10:45-0500 Body mass index (BMI) [Ratio] 29.36 kg/m2 Marlee Sosa Other [facility] 01-26-2023 10:45-0500 Body weight 81.29 kg Marlee Sosa Other [facility] Other 01-26-2023 10:45-0500 Diastolic blood pressure 87 mm[Hg] Marlee Sosa Other [facility] Other 01-26-2023 10:45-0500 Systolic blood pressure 146 mm[Hg] Marlee Sosa Other [facility] Other 11-22-2022 09:00-0400 Body height 166.37 cm Marlee Sosa Other [facility] Other 11-22-2022 09:00-0400 Body mass index (BMI) [Ratio] 29.99 kg/m2 Marlee Sosa Other [facility] 11-22-2022 09:00-0400 Body weight 83.01 kg Marlee Sosa Other [facility] Other 11-22-2022 09:00-0400 Diastolic blood pressure 88 mm[Hg] Marlee Sosa Other [facility] Other 11-22-2022 09:00-0400 Systolic blood pressure 134 mm[Hg] Marlee Sosa Other [facility] Other Encounters Encounter Date Encounter Type Care Provider Facility Start: 04-17-2023 End: 04-17-2023 ambulatory Marlee Sosa Other [facility] Other Start: 04-17-2023 Telephone encounter Marlee Sosa [facility] Start: 03-21-2023 End: 03-21-2023 ambulatory Marlee Sosa Other [facility] Start: 03-21-2023 Telephone encounter Marlee Sosa [facility] Start: 03-16-2023 End: 03-16-2023 ambulatory Marlee Sosa Other [facility] Other Start: 03-16-2023 Telephone encounter Marlee Sosa [facility] Start: 03-07-2023 End: 03-07-2023 ambulatory Marlee Sosa Other [facility] Other Start: 03-07-2023 Office outpatient vi sit 15 minutes Marlee Martha [facility] Start: 03-06-2023 End: 03-06-2023 ambulatory Marlee Sosa Other [facility] Other Start: 03-06-2023 Telephone encounter Marlee Sosa [facility] Start: 01-26-2023 End: 01-26-2023 ambulatory Marlee Sosa Other [facility] Start: 01-26-2023 Office outpatient vi sit 15 minutes Marlee Martha [facility] Start: 01-02-2023 (Televisit) Televisit Marlee Martha Vela [facility] Start: 01-02-2023 End: 01-02-2023 ambulatory Marlee Sosa Other [facility] Other Start: 11-28-2022 End: 11-28-2022 ambulatory Marlee Sosa Other [facility] Other Start: 11-28-2022 Telephone encounter Marlee Martha [facility] Start: 11-22-2022 End: 11-22-2022 ambulatory Marlee Sosa Other [facility] Other Start: 11-22-2022 Office outpatient vi sit 15 minutes Marlee Sosa [facility] Start: 10-19-2020 End: 10-19-[address] OWEN GOYAL Facility:[facility] Start: 11-04-2019 End: 11-04-2019 ambulatory NEO WATKINS Facility:[facility] Procedures Date Procedure Procedure Detail Performing Clinician Screening for malign ant neoplasm of prostate Marlee Sosa Other Payers Date Payer Category Payer Unknown [id number] [id number] 1965 Unknown [id number] 1959 Self-pay [id number] Medicaid [id number] 2. [id number] Social History Date Type Detail Facility Sex Assigned At [facility] Other Evaluation note 03-21-2023 Note Date & Type Note Facility 03-21-2023 Evaluation note Encounter Date Diagnosis Assessment Notes Mar, Seizure disorder (ICD-10 - G40.909) Mar, Essential (primary) hypertension (ICD-10 - I10) f/u in 6 months [facility] Other Evaluation note 03-07-2023 Note Date & Type Note Facility 03-07-2023 Evaluation note Encounter Date Diagnosis Assessment Notes Feb, Essential (primary) hypertension (ICD-10 - I10) f/u in 6 months Switched b-cassie. Call w bps in 2 weeks Feb, Seizure disorder (ICD-10 - G40.909) Reviewed notes from Dr. Buck. - one med removed, followup there as scheduled. [facility] Other Evaluation note 01-26-2023 Note Date & Type Note Facility 01-26-2023 Evaluation note Encounter Date Diagnosis Assessment Notes Jan, Seizure disorder (ICD-10 - G40.909) We will obtain test and discharge summaries from the [facility]. Patient and his significant other agreed to referral to advanced neurology for further care. I discussed his positive opiate drug test. Patient was unaware that he was taking that medication. He states that he was not thinking properly prior to hospitalizatio n. 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 t Suggested follow-up with neurology This is a chronic problem. Also Jan, Sleep difficulties (ICD-10 - G47.9) Presently taking melatonin 5 mg. Would limit anything stronger to help with sleep as he has had a lot of medical issues recently. [facility] Other Evaluation note 01-02-2023 Note Date & Type Note Facility 01-02-2023 Evaluation note Encounter Date Diagnosis Assessment Notes Dec, Bronchitis (ICD-10 - J40) Finish antibiotic. ER if dyspnea occurs. Take OTC Cold meds only as listed on packaging. Pt understands. [facility] Other Evaluation note 11-22-2022 Note Date & Type Note Facility 11-22-2022 Evaluation note Encounter Date Diagnosis Assessment Notes Nov, Bilateral leg paresthesia (ICD-10 - R20.2) Discussed differential including diabetes. Gave HO for JUNE at [facility] - advised A1C and the lipid/chem 8 panel. Pt states he will do it tomorrow when he is paid. Nov, Essential (primary) hypertension (ICD-10 - I10) f/u in 6 months Blood pressure remains well controlled at this time. Denies cardiac symptoms. Shows no signs or symptoms or poor control. Patient to continue with above medication and we will continue to monitor. Advised to pay attention to body and symptoms. Any developing patterns. Stay well hydrated. 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 Diagnosis 1 Seizure disorder (G4 0.909) Referral Organization [facility] saravanan Referring Provider First Name Marlee Referring Provider Last Name Martha Referring Provider Specialty Family [facility] Referred Organization [facility] Referred Address [address] [place], [place],[address] Referred Provider Specialty Neurology Referral Priority Routine Additional Source Comments (unrecognized sect ion and content) No Status Records Found INFORMATION SOURCE (unrecogn ized section and content) DATE CREATED AUTHOR 10/30/2020 [facility] REASON FOR VISIT (unrecogniz ed section and content) Check [employer] Infection, Congestion- [phone] Infection, Congestion- [phone] bpBP issuesRefillBP Readingsbps FOR RECORDS PERTAINING TO PATIENTS WHO ARE OR HAVE BEEN ENROLLED IN A CHEMICAL DEPENDENCY/SUBSTANCEABUSE PROGRAM, SOME INFORMATION MAY BE OMITTED. This clinical summary was aggregated from multiple sources. Caution should be exercised in using it in the provision of clinical care. This summary normalizes information from multiple sources, and as a consequence, information in this document may materially change the coding, format and clinical context of patient data. In addition, data may be omitted in some cases. CLINICAL DECISIONS SHOULD BE BASED ON THE PRIMARY CLINICAL RECORDS. [employer] provides no warranty or guarantee of the accuracy or completeness of information in this document.
[2023-05-05 11:32] LABS: Basophils Absolute Auto 0.1 10^3/uL (0.0-0.1); Basophils Percent Auto 0.6 % (0.2-2.0); Eosinophils Absolute Auto 0.2 10^3/uL (0.0-0.7); Eosinophils Percent Auto 1.8 % (0.9-7.0); Hematocrit 45.7 % (42.0-54.0); Hemoglobin 14.9 g/dL (14.0-18.0); Immature Granulocytes Abs Auto 0.06 10^3/uL (0.00-0.03); Immature Granulocytes Pct Auto 0.5 % (0.0-0.5); Lymphocytes Absolute Auto 3.3 10^3/uL (1.2-3.8); Lymphocytes Percent Auto 26.4 % (20.5-60.0); Mean Corpuscular HGB Conc 32.6 g/dL (29.9-35.2); Mean Corpuscular Hemoglobin 31.1 pg (25.9-34.0); Mean Corpuscular Volume 95.4 fL (80.0-94.0); Mean Platelet Volume 9.9 fL (9.5-13.5); Monocytes Absolute Auto 1.2 10^3/uL (0.3-0.8); Neutrophils Absolute Auto 7.5 10^3/uL (1.4-6.5); Neutrophils Percent Auto 60.7 % (43.0-75.0); Platelet Count 271 10^3/uL (150-450); Red Blood Count 4.79 10^6/uL (4.70-6.10); Red Cell Distribution Width 12.4 % (11.0-15.0); White Blood Count 12.4 10^3/uL (4.0-11.0)
[2023-05-05 14:15] LABS: Anion Gap 11.3; BUN Creatinine Ratio 15.2; Calcium 9.3 mg/dL (8.5-10.1); Carbon Dioxide 29.7 mmol/L (21.0-32.0); Chloride 103 mmol/L (98-107); Estimated GFR (African America >60 (>=60); Estimated GFR (Non-African Ame 60 (>=60); Glucose 93 mg/dL (74-106); Sodium 139 mmol/L (136-145); Thyroid Stimulating Hormone 2.896 uIU/mL (0.358-3.740)
[2023-05-05 14:26] LABS: Prostate Specific Antigen Scrn 0.97 ng/mL (<=4.00)
== END 2023-05-05 10:34 | disposition home or self-care (01) ==
LOC: LAB 10:36
PROVIDERS: PCP Family Medicine; Visit Provider Family Medicine
DX: R42 Dizziness and giddiness (principal); R53.83 Other fatigue; Z12.5 Encounter for screening for malignant neoplasm of prostate
CPT/HCPCS: 36415; 80048; 82607; 82746; 84443; 85025; G0103

== ENCOUNTER 2023-10-04 20:42 | Outpatient (OUT) | payer OTHER, SELFPAY ==
--- OUTSIDE RECORDS SUMMARY | 2023-10-04 20:50 | XMS_ITS | CCD ---
Author Organization [facility] Care Team Providers Care Lead Caster Name Role Phone NEO WATKINS Attending Unavailable NEO WATKINS Consulting Unavailable DR MARLEE SOSA Primary Care Unavailable NEO WATKINS Admitting Unavailable JAY JAY, DR OWEN Moss Attending Unavailable JAY JAY, DR OWEN Moss Consulting Unavailable DR OWEN GOYAL Admitting Unavailable DR MARLEE SOSA Primary Care Unavailable DR YOLANDA GO Consulting Unavailable Marlee Sosa REHAN RAE Attending Unavailable Allergies Allergy Classification Reported Allergen(s) Allergy Type Date of Onset Reaction(s) Facility (12 sources) Lisinopril Drug Allergy Unknown Pica8 Other Medications Current Medications Medication Drug Class(es) Dates Sig (Normalized) Sig (Original) amLODIPine 10 mg oral tablet (14 sources) Dihydropyridine Calcium Channel Cassie Start: 05-05-2023 take 1 tablet by mouth once daily Amlodipine Active 1 TAB PO Daily May 05, 2023 1:00am FreeTextSig: TAKE ONE TABLET BY MOUTH ONCE DAILY; Note: Source Status: Taking; Refills: 4; Qty: 30 Each; Provider: Ian Akins aspirin 81 mg delayed release oral tablet (11 sources) Platelet Aggregation Inhibitor, Nonsteroidal Anti-inflammatory Drug Start: 05-05-2023 take 1 tablet by mouth once daily Aspirin (Adult Aspirin Regimen) 81 mg tablet,delayed release (/EC) Active 81 MG PO Daily May 05, 2023 1:00am Aspirin 81 Activ e atenolol 50 mg oral tablet (6 sources) beta-Adrenergic Cassie take 1 tablet by mouth every twenty-four hours Atenolol 50 MG 1 tablet Orally Once a day for 30 days Active cefdinir 300 mg oral capsule (1 source) Cephalosporin Antibacterial Start: 023 Cefdinir 300 MG as directed Orally bid for 7 days Dec, Active cloNIDine hydrochloride 0.2 mg oral tablet (6 sources) Central alpha-2 Adrenergic Agonist Start: take 0.2 mg by mouth twice daily Clonidine Hcl Active 0.2 MG PO Twice daily July 24, 2023 12:00am Start: 07-17-2023 End: 07-24-2023 take 1 tablet by mouth twice daily Clonidine Hcl Discontinued 0 .ROUTE .COMPLEX 60 July 17, 2023 11:47am July 24, 2023 10:19am TAKE ONE TABLET BY MOUTH TWICE A DAY Start: 06-15-2023 End: 07-17-2023 take 1 tablet by mouth twice daily Clonidine Hcl Discontinued 0 .ROUTE .COMPLEX June 15, 2023 9:49pm July 17, 2023 11:47am TAKE ONE TABLET BY MOUTH TWICE A DAY Start: 05-12-2023 End: 06-15-2023 take 0.1 mg by mouth twice daily Clonidine Hcl Discontinued 0.1 MG PO Twice daily June 14, 2023 12:48pm June 15, 2023 9:49pm gabapentin 100 mg oral capsule (8 sources) Anti-epileptic Agent Start: 05-05-2023 take 1 capsule by mouth three times daily Gabapentin Active 100 MG PO Three times daily May 05, 2023 1:00am FreeTextSi capsule Orally tid; Note: Source Status: Taking; Provider: Ian Whalen ( ) lacosamide 100 mg oral tablet (3 sources) Anti-epileptic Agent take 1 tablet by mouth every twelve hours Lacosamide 100 MG 1 tablet twice a day Active levETIRAcetam 750 mg oral tablet (12 sources) Start: 05-22-2023 take 2 tablets by mouth twice daily at bedtime Levetiracetam Active 0 .ROUTE .COMPLEX 60 May 22, 2023 4:36pm TAKE TWO TABLETS BY MOUTH TWICE A DAY ( IN THE MORNING AND AT BEDTIME ) Start: 05-05-2023 End: 05-22-2023 take 2 tablets by mouth twice daily at bedtime Levetiracetam Discontinued MG PO May 05, 2023 1:00am May 22, 2023 4:36pm FreeTextSi tablets Orally Twice daily, in the morning and at bedtime; Note: Source Status: Refill; Refills: 3; Provider: Ina Akins meloxicam 15 mg oral tablet (16 sources) Nonsteroidal Anti-inflammatory Drug Start: 05-05-2023 End: 05-05-2023 take 1 tablet by mouth once daily Meloxicam Active 15 MG PO Daily May 05, 2023 10:47am FreeTextSig: TAKE ONE TABLET BY MOUTH DAILY; Note: Source Status: Start; Refills: 3; Qty: 30 Each; Provider: Ian Whalen ( ) 24 hr metoprolol succinate 100 mg extended release oral tablet (10 sources) beta-Adrenergic Cassie Start: 07-17-2023 take 1 tablet by mouth once daily Metoprolol Succinate Active 0 .ROUTE .COMPLEX July 17, 2023 11:47am TAKE ONE TABLET BY MOUTH ONCE DAILY FOR 30 DAYS Start: 05-22-2023 End: 07-17-2023 take 1 tablet by mouth once daily Metoprolol Succinate Discontinued 0 .ROUTE .COMPLEX May 22, 2023 4:36pm July 17, 2023 11:47am TAKE ONE TABLET BY MOUTH ONCE DAILY FOR 30 DAYS Start: 03-07-2023 take 1 tablet by rosemary th every twenty-four hours Toprol XL 25 MG 1 tablet Orally Once a day for 30 days Feb, Active Start: 03-07-2023 End: 05-22-2023 take 1 tablet by mouth once daily Metoprolol Succinate Discontinued 100 MG PO Daily May 05, 2023 1:00am May 22, 2023 4:36pm FreeTextSi tablet Orally Once a day; Note: Source Status: Refill; Refills: 1; Qty: 30 Tablet; Provider: Ian Akins thiamine 100 mg oral tablet (11 sources) Start: 05-05-2023 take 1 tablet by mouth once daily Thiamine Hcl (Vitamin B1) Active 100 MG PO Daily May 05, 2023 1:00am FreeTextSi tablet once a day; Note: Source Status: Taking; Provider: Ian Whalen ( ) Problems Active Problems Problem Classification Problem Date Documented Date Episodic/Chronic Chronic obstructive pulmonary disease and bronchiectasis (2 sources) Bronchitis, not specified as acute or chronic Episodic Conditions associated with dizziness or vertigo (4 sources) Dizziness of unknown cause; Translations: [Dizziness and giddiness] 05-05-2023 Episodic E Codes: Adverse effects of medical drugs (1 source) Adverse effect of angiotensin-converti ng-enzyme inhibitors, initial encounter; Translations: [ADVERSE EFFECT ACEI INITIAL ENCNTR] Onset: 10-21-2020 Episodic Epilepsy; convulsions (12 sources) Seizure disorder; Translations: [Epilepsy, unspecified, not intractable, without status epilepticus] Chronic Essential hypertension (20 sources) Essential (primary) hypertension; Translations: [Essential hypertension] Onset: 07-24-2017 Chronic Headache; including migraine (12 sources) Headache disorder; Translations: [Other headache syndrome] Episodic Malaise and fatigue (4 sources) Fatigue; Translations: [Other fatigue] 05-05-2023 Episodic Other aftercare (1 source) Other rat exterminator (current) drug therapy; Translations: [OTH LONGTERM CURRENT DRUG THERAPY] Onset: 10-21-2020 Episodic Other connective tissue disease (1 source) Neuralgia and neuritis, unspecified Episodic Other injuries and conditions due to external causes (2 sources) Angioneurotic edema, initial encounter; Translations: [ANGIONEUROTIC EDEMA INITIAL ENCNTR] Onset: 11-28-2019 Episodic Other injuries and conditions due to external causes (12 sources) Angioedema; Translations: [Angioneurotic edema, initial encounter] Episodic Other nervous system disorders (12 sources) Paresthesia of lower extremity; Translations: [Paresthesia of skin] Episodic Other nervous system disorders (1 source) Paresthesia of skin Episodic Other screening for suspected conditions (not mental disorders or infectious disease) (4 sources) Patient encounter status; Translations: [Encounter for screening for malignant neoplasm of prostate] 05-05-2023 Episodic Other skin disorders (3 sources) Localized swelling, mass and lump, head; Translations: [LOCALIZED SWELLING MASS AND LUMP HEAD] Onset: 10-19-2020 Episodic Residual codes; unclassified (9 sources) Difficulty sleeping ; Translations: [Sleep disorder, unspecified] Episodic Residual codes; unclassified (1 source) Sleep disorder, unspecified Episodic Spondylosis; intervertebral disc disorders; other back problems (4 sources) Lumbar spondylosis; Translations: [Spondylosis without myelopathy or radiculopathy, lumbar region] 05-05-2023 Chronic Spondylosis; intervertebral disc disorders; other back problems (20 sources) Thoracic and lumbosacral neuritis; Translations: [Thoracic or lumbosacral neuritis or radiculitis, unspecified] Onset: 06-06-2017 Episodic Substance-related disorders (13 sources) Nicotine dependence, cigarettes, uncomplicated; Translations: [Tobacco user] Onset: 11-28-2019 Chronic Past or Other Problems Problem Classification Problem Date Documented Da te Episodic/Chronic Cardiac dysrhythmias (12 sources) Tachycardia; Translations: [Tachycardia, unspecified] Onset: 06-06-2017 Episodic Disorders of teeth and jaw (1 source) Periapical abscess without sinus; Translations: [PERIAPICAL ABSCESS WITHOUT SINUS] Onset: 11-28-2019 Episodic Other lower respiratory disease (3 sources) Shortness of breath; Translations: [SHORTNESS OF BREATH] Onset: 11-04-2019 Episodic Results Test Name Value Interpretation Reference Range Facil ity Basophils Auto (Bld) [#/Vol] on 05-05-2023 Basophils (Bld) [#/Vol] 0.1 10 3/uL 0.0-0.1 [facility] Basophils/100 WBC Auto (Bld) on 05-05-2023 Basophils/100 WBC (Bld) 0.6 % 0.2-2.0 [facility] Eosinophils/100 WBC Auto (Bl d)on 05-05-2023 Eosinophils/100 WBC (Bld) 1.8 % 0.9-7.0 [facility] Erythrocyte distribution wid th Auto (RBC) [Ratio]on 05-05-2023 Erythrocyte distribution width (RBC) [Ratio] 12.4 % 11.0-15.0 [facility] Estimated glomerular filtrat ion rate (GFR) non- Americanon 05-05-2023 GFR/1.73 sq M.predicted among non-blacks MDRD (S/P/Bld) [Vol rate/Area] 60 mL/min/{1.73_m2} >=60 [facility] Hematocrit Auto (Bld) [Volum e fraction]on 05-05-2023 Hematocrit (Bld) [Volume fraction] 45.7 % 42.0-54.0 [facility] Hemoglobin [Mass/volume] in Bloodon 05-05-2023 Hemoglobin (Bld) [Mass/Vol] 14.9 g/dL 14.0-18.0 [facility] Laboratory - Chemistry and C hemistry - challengeon 05-05-2023 Calcium [Mass/Vol] 9.3 mg/dL 8.5-10.1 [facility] Chloride [Moles/Vol] 103 mmol/L 98-107 [facility] CO2 [Moles/Vol] 29.7 mmol/L 21.0-32.0 [facility] Cobalamin (Vitamin B12) [Mass/Vol] 710.0 pg/mL 193.0-986.0 [facility] Creatinine [Mass/Vol] 1.25 mg/dL 0.70-1.30 [facility] GFR/1.73 sq M.predicted MDRD (S/P/Bld) [Vol rate/Area] mL/min/{1.73_m2} >=60 [facility] Glucose [Mass/Vol] 93 mg/dL 74-106 [facility] Potassium [Moles/Vol] 5.0 mmol/L 3.5-5.1 [facility] Sodium [Moles/Vol] 139 mmol/L 136-145 [facility] TSH Qn 2.896 m[IU]/L 0.358-3.740 [facility] Urea nitrogen [Mass/Vol] 19.0 mg/dL 7.0-18.0 [facility] Urea nitrogen/Creatinine [Mass ratio] 15.2 mg/mg [facility] Laboratory - Hematology and Cell countson 05-05-2023 Immature granulocytes/100 WBC (Bld) 0.5 % 0.0-0.5 [facility] Leukocytes [#/volume] correc wendy for nucleated erythrocytes in Blood by Automated counon 05-05-2023 WBC corrected for nucl RBC Auto (Bld) [#/Vol] 12.4 10 3/uL 4.0-11.0 [facility] Lymphocytes Auto (Bld) [#/Vo l]on 05-05-2023 Lymphocytes (Bld) [#/Vol] 3.3 10 3/uL 1.2-3.8 [facility] Lymphocytes/100 WBC Auto (Bl d)on 05-05-2023 Lymphocytes/100 WBC (Bld) 26.4 % 20.5-60.0 [facility] MCH Auto (RBC) [Entitic mass ]on 05-05-2023 MCH (RBC) [Entitic mass] 31.1 pg 25.9-34.0 [facility] MCHC Auto (RBC) [Mass/Vol]on 05-05-2023 MCHC (RBC) [Mass/Vol] 32.6 g/dL 29.9-35.2 [facility] MCV Auto (RBC) [Entitic vol] on 05-05-2023 MCV (RBC) [Entitic vol] 95.4 fL 80.0-94.0 [facility] Monocytes Auto (Bld) [#/Vol] on 05-05-2023 Monocytes (Bld) [#/Vol] 1.2 10 3/uL 0.3-0.8 [facility] Monocytes/100 WBC Auto (Bld) on 05-05-2023 Monocytes/100 WBC (Bld) 10.0 % 1.7-12.0 [facility] Neutrophils Auto (Bld) [#/Vo l]on 05-05-2023 Neutrophils (Bld) [#/Vol] 7.5 10 3/uL 1.4-6.5 [facility] Neutrophils/100 WBC Auto (Bl d)on 05-05-2023 Neutrophils/100 WBC (Bld) 60.7 % 43.0-75.0 [facility] No Panel Informationon 05-05 Eosinophils # (Auto) 0.2 10 3/uL 0.0-0.7 [facility] Folate 26.40 ng/mL 8.60-58.90 [facility] Immature Granulocyte # (Auto) 0.06 10 3/uL 0.00-0.03 [facility] Prostate Specific Antigen Screen 0.97 ng/mL <=4.00 [facility] Platelet mean volume Auto (B ld) [Entitic vol]on 05-05-2023 Platelet mean volume (Bld) [Entitic vol] 9.9 fL 9.5-13.5 [facility] Platelets Auto (Bld) [#/Vol] on 05-05-2023 Platelets (Bld) [#/Vol] 271 10 3/uL 150-450 [facility] RBC Auto (Bld) [#/Vol]on RBC (Bld) [#/Vol] 4.79 10 6/uL 4.70-6.10 [facility] Serum or plasma anion gap de terminationon 05-05-2023 Anion gap [Moles/Vol] 11.3 mmol/L [facility] FRESH FROZ PLASMAon 10-30-19 21 FRESH FROZ PLASMA Unit Blood Type O Pos Unit Number [id number] Status Information Transfused Product ID FFP Product Code [id number] Normal [facility] Comment on above: Performed By: #### F FP #### [facility] [address] [place], [place] [id number] Brenda Katherine CBC W MANUAL DIFFon 10-20-19 21 ATYPICAL LYMPH # 0.29 103/ul Normal [facility] Comment on above: Performed By: #### C CARO #### [facility] [address] [place] [address] Brenda Katherine ATYPICAL LYMPH % 2 % Normal [facility] Comment on above: Performed By: #### C CARO #### [facility] [address] [place] [address] Brenda Katherine BAND # 0.1 103/ul Normal 0.0-0.3 [facility] Comment on above: Performed By: #### C CARO #### [facility] [address] [place] [address] Brenda Katherine BAND % 1 % Normal 0-5 [facility] Comment on above: Performed By: #### C CARO #### [facility] [address] [place] [address] Brenda Katherine BASOM # 0.15 103/ul Critically high 0.00-0.10 [facility] Comment on above: Performed By: #### C CARO #### [facility] [address] [place] [address] Brenda Katherine BASOM % 1.0 % Normal 0.2-2.0 [facility] Comment on above: Performed By: #### C CARO #### [facility] [address] [id number] Brenda Katherine BLAST # Normal [facility] Comment on above: Performed By: #### C CARO #### [facility] [address] [id number] Brenda Katherine BLAST % Normal [facility] Comment on above: Performed By: #### C CARO #### [facility] [address] [id number] Brenda Katherine CORRECTED WBC Normal 4.0-11.0 [facility] Comment on above: Performed By: #### C CARO #### [facility] [address] [place] [address] Brenda Katherine EOS # 0.58 103/ul Normal 0.00-0.70 [facility] Comment on above: Performed By: #### C CARO #### [facility] [address] [place] [address] Brenda Katherine EOS% 4.0 % Normal 0.9-7.0 [facility] Comment on above: Performed By: #### C CARO #### [facility] [address] [place], [place] [phone] Brenda Katherine HCT 39.9 % Critically low 42.0-54.0 [facility] Comment on above: Performed By: #### C CARO #### [facility] [address] [place] [address] Brenda Katherine HGB 13.3 g/dl Critically low 14.0-18.0 [facility] Comment on above: Performed By: #### C CARO #### [facility] [address] [place] [address] Brenda Katherine LYMPHM # 5.40 103/ul Critically high 1.20-3.80 [facility] Comment on above: Performed By: #### C CARO #### [facility] [address] [place] [address] Brenda Katherine LYMPHM% 37.0 % Normal 20.5-60.0 [facility] Comment on above: Performed By: #### C CARO #### [facility] [address] [address] Brendaconrad Linaresen MCH 31.4 pg Normal 25.9-34.0 [facility] Comment on above: Performed By: #### Alcon ELIZONDO #### [facility] [address] [address] Brenda Murphy MCHC 33.3 g/dl Normal 29.9-35.2 [facility] Comment on above: Performed By: #### Alcon ELIZONDO #### [facility] [address] [address] Bernda Katherine MCV 94.1 fL Critically high 80.0-94.0 [facility] Comment on above: Performed By: #### Alcon ELIZONDO #### [facility] [address] [place] [address] Brenda Katherine METAMYELOCYTE # Normal [facility] Comment on above: Performed By: #### Alcon ELIZONDO #### [facility] [address] [place] [address] Brenda Katherine METAMYELOCYTE % Normal [facility] Comment on above: Performed By: #### Alcon ELIZONDO #### [facility] [address] [place] [address] Brenda Katherine MONOM# 0.00 103/ul Critically low 0.30-0.80 [facility] Comment on above: Performed By: #### Alcon ELIZONDO #### [facility] [address] [place] [address] Brenda Katherine MONOM% 0.0 % Critically low 1.7-12.0 [facility] Comment on above: Performed By: #### Alcon ELIZONDO #### [facility] [address] [place] [address] Brenda Katherine MPV 9.6 fL Normal 9.5-13.5 [facility] Comment on above: Performed By: #### Alcon ELIZONDO #### [facility] [address] [place] [address] Brenda Katherine MYELOCYTE # Normal [facility] Comment on above: Performed By: #### Alcon ELIZONDO #### [facility] [address] [place], [place] [phone] Brenda Murphy MYELOCYTE % Normal [facility] Comment on above: Performed By: #### Alcon ELIZONDO #### [facility] [address] [place], [place] [phone] Brenda Murphy NRBC Normal [facility] Comment on above: Performed By: #### Alcon ELIZONDO #### [facility] [address] [place], [place] [address] Brenda Murphy PLT 256 103/ul Normal 150-450 [facility] Comment on above: Performed By: #### Alcon ELIZONDO #### [facility] [address] [place] [address] Brenda Murphy RBC 4.24 106/ul Critically low 4.70-6.10 [facility] Comment on above: Performed By: #### Alcon ELIZONDO #### [facility] [address] [place] [address] Brenda Murphy RDW 13.9 % Normal 11.0-15.0 [facility] Comment on above: Performed By: #### Alcon ELIZONDO #### [facility] [address] [place] [address] Brenda Murphy SEG # 8.03 103/ul Critically high 1.40-6.50 [facility] Comment on above: Performed By: #### C CARO #### [facility] [address] [place] [address] Brenda Murphy SEG % 55.0 % Normal 43.0-75.0 [facility] Comment on above: Performed By: #### Alcon ELIZONDO #### [facility] [address] [place] [address] Brenda Murphy WBC 14.6 103/ul Critically high 4.0-11.0 [facility] Comment on above: Performed By: #### Alcon ELIZONDO #### [facility] [address] [place], [place] [address] Brenda Murphy PROF 14(COMP METB)on 021 Albumin [Mass/Vol] 4.1 g/dL Normal 3.5-5.0 [facility] Comment on above: Performed By: #### Alcon MP #### [facility] [address] [place], [place] [address] Brenda Katherine Albumin/Globulin [Mass ratio] 1.5 {ratio} Normal [facility] Comment on above: Performed By: #### C MP #### [facility] [address] [phone] Brenda Katherine ALP [Catalytic activity/Vol] 76 U/L Normal 38-126 [facility] Comment on above: Performed By: #### C MP #### [facility] [address] [id number] Brenda Katherine ALT [Catalytic activity/Vol] 27 U/L Normal 21-72 [facility] Comment on above: Performed By: #### C MP #### [facility] [address] [place], [place] [address] Brenda Katherine Anion gap [Moles/Vol] 10.1 mmol/L Normal [facility] Comment on above: Performed By: #### C MP #### [facility] [address] [place] [address] Brenda Katherine AST [Catalytic activity/Vol] 24 U/L Normal 17-59 [facility] Comment on above: Performed By: #### C MP #### [facility] [address] [place], [place] [address] Brenda Katherine Bilirubin [Mass/Vol] 0.2 mg/dL Normal 0.2-1.3 [facility] Comment on above: Performed By: #### C MP #### [facility] [address] [place], [place] [address] Brenda Katherine Calcium [Mass/Vol] 8.5 mg/dL Normal 8.4-10.2 [facility] Comment on above: Performed By: #### C MP #### [facility] [address] [place], [place] [address] Brenda Katherine Chloride [Moles/Vol] 107 mmol/L Normal 98-107 [facility] Comment on above: Performed By: #### C MP #### [facility] [address] [place], [place] [address] Brenda Katherine CO2 [Moles/Vol] 29.0 mmol/L Normal 22.0-30.0 [facility] Comment on above: Performed By: #### C MP #### [facility] [address] [phone] Brenda Katherine Creatinine [Mass/Vol] 1.30 mg/dL Critically high 0.66-1.25 [facility] Comment on above: Performed By: #### C MP #### [facility] [address] [phone] Brenda Katherine EGFR-AF TANZANIAN >60 Normal >=60 [facility] Comment on above: Performed By: #### C MP #### [facility] [address] [place], [place] [address] Brenda Katherine EGFR-NON AF TANZANIAN 57 mL/min/1.73m2 Critically low >=60 [facility] Comment on above: Performed By: #### C MP #### [facility] [address] [place], [place] [address] Brenda Katherine Globulin (S) [Mass/Vol] 2.7 g/dL Normal [facility] Comment on above: Performed By: #### C MP #### [facility] [address] [place], [place] [address] Brenda Katherine Glucose [Mass/Vol] 109 mg/dL Critically high 74-106 [facility] Comment on above: Performed By: #### C MP #### [facility] [address] [place], [place] [address] Brenda Katherine Potassium [Moles/Vol] 4.1 mmol/L Normal 3.4-5.0 [facility] Comment on above: Performed By: #### C MP #### [facility] [address] [place], [place] [address] Brenda Katherine Protein [Mass/Vol] 6.8 g/dL Normal 6.1-8.2 [facility] Comment on above: Performed By: #### C MP #### [facility] [address] [place], [place] [address] Brenda Katherine Sodium [Moles/Vol] 142 mmol/L Normal 137-145 [facility] Comment on above: Performed By: #### C MP #### [facility] [address] [place] [address] Brenda Katherine Urea nitrogen [Mass/Vol] 19.0 mg/dL Normal 9.0-20.0 [facility] Comment on above: Performed By: #### C MP #### [facility] [address] [place] [address] Brenda Katherine Urea nitrogen/Creatinine [Mass ratio] 14.6 mg/mg Normal [facility] Comment on above: Performed By: #### C MP #### [facility] [address] [place] [address] Brenda Katherine PROTIMEon 10-19-2020 INR Coag (PPP) [Relative time] 0.97 {INR} Normal [facility] Comment on above: Performed By: #### P TT, PT #### [facility] [address] [place] [address] Brenda Katherine INR GUIDELINES SEE BELOW Normal [facility] Comment on above: Result Comment: JED RED INR: 2.0 - 3.0 CONDITIONS NOT LISTED BELOW 2.5 - 3.5 FOR PROSTHETIC HEART VALVE REPLACEMENT 2.5 - 3.5 RECURRENT THROMBOSIS Performed By: #### P TT, PT #### [facility] [address] [place] [address] Brendaconrad Murphy PT Coag (PPP) [Time] 10.5 s Normal 9.0-11.6 [facility] Comment on above: Performed By: #### P TT, PT #### [facility] [address] [place] [address] Brenda Katherine PTTon 10-19-2020 aPTT Coag (Bld) [Time] 26.8 s Normal 22.3-36.2 Th [facility] Comment on above: Performed By: #### P TT, PT #### [facility] [address] [place] [address] Brenda Katherine TYPE AND SCREENon 10-19-2020 TYPE AND SCREEN Negative Normal [facility] Comment on above: Performed By: #### T NS #### [facility] [address] [place], [place] [id number] Brenda Murphy Vital Signs Date Time Vital Sign Value Performing Clinician Facility 07-24-2023 09:57-0400 Body height 166.37 cm [facility] 07-24-2023 09:57-0400 Body mass index (BMI) [Ratio] 33 kg/m2 [facility] 07-24-2023 09:57-0400 Body weight 91.62 kg [facility] 07-24-2023 09:57-0400 Diastolic blood pressure 101 mm[Hg] [facility] 07-24-2023 09:57-0400 Heart rate 72 /min [facility] 07-24-2023 09:57-0400 Systolic blood pressure 153 mm[Hg] [facility] 05-05-2023 09:28-0500 Body height 166.37 cm [facility] 05-05-2023 09:28-0500 Body mass index (BMI) [Ratio] 32.6 kg/m2 [facility] 05-05-2023 09:28-0500 Body weight 90.43 kg [facility] 05-05-2023 09:28-0500 Diastolic blood pressure 86 mm[Hg] [facility] 05-05-2023 09:28-0500 Heart rate 78 /min [facility] 05-05-2023 09:28-0500 Systolic blood pressure 134 mm[Hg] [facility] 03-07-2023 14:00-0500 Body height 166.37 cm Marlee Sosa Other [facility] 03-07-2023 14:00-0500 Body mass index (BMI) [Ratio] 31.2 kg/m2 Marlee Sosa Other [facility] Other 03-07-2023 14:00-0500 Body weight 86.37 kg Marlee Sosa Other [facility] Other 03-07-2023 14:00-0500 Body weight 86.36 kg [facility] 03-07-2023 14:00-0500 Diastolic blood pressure 85 mm[Hg] Marlee Sosa Other [facility] 03-07-2023 14:00-0500 SaO2% (BldA) [Mass fraction] 97 % Marlee Sosa Other [facility] Other 03-07-2023 14:00-0500 Systolic blood pressure 125 mm[Hg] Marlee Sosa Other [facility] 01-26-2023 10:45-0500 Body height 166.37 cm Marlee Sosa Other [email or web address] Other 01-26-2023 10:45-0500 Body mass index (BMI) [Ratio] 29.36 kg/m2 Marlee Sosa Other [facility] Other 01-26-2023 10:45-0500 Body weight 81.29 kg Marlee Sosa Other [facility] Other 01-26-2023 10:45-0500 Diastolic blood pressure 87 mm[Hg] Marlee Sosa Other [facility] Other 01-26-2023 10:45-0500 Systolic blood pressure 146 mm[Hg] Marlee Sosa Other [facility] Other 11-22-2022 09:00-0400 Body height 166.37 cm Marlee Sosa Other [facility] Other 11-22-2022 09:00-0400 Body mass index (BMI) [Ratio] 29.99 kg/m2 Marlee Sosa Other [facility] Other 11-22-2022 09:00-0400 Body weight 83.01 kg Marlee Sosa Other [facility] Other 11-22-2022 09:00-0400 Diastolic blood pressure 88 mm[Hg] Marlee Sosa Other [facility] Other 11-22-2022 09:00-0400 Systolic blood pressure 134 mm[Hg] Marlee Sosa Other [facility] Other Encounters Encounter Date Encounter Type Care Provider Facility Start: 09-20-2023 End: 09-20-2023 ambulatory REHAN RAE Not Available Start: 07-24-2023 End: 07-24-2023 ambulatory [facility] Work Phone: Start: 07-24-2023 End: 07-24-2023 Patient encounter procedure [facility] Work Phone: Start: 05-22-2023 Non-patient / Non-visit [facility] [employer] Work Phone: Start: 05-12-2023 End: 05-12-2023 ambulatory Marlee Sosa Other [facility] Other Start: 05-12-2023 Telephone encounter Marlee Ian [facility] Start: 05-12-2023 Non-patient / [facility] Start: 05-05-2023 End: 05-05-2023 ambulatory [facility] Work Phone: Start: 05-05-2023 End: 05-05-2023 Patient encounter procedure [facility] Work Phone: Start: 04-17-2023 End: 04-17-2023 ambulatory Marlee Sosa Other [facility] Other Start: 04-17-2023 Telephone encounter Marlee Ian [facility] Start: 03-21-2023 End: 03-21-2023 ambulatory Marlee Sosa Other [facility] Other Start: 03-21-2023 Telephone encounter Marlee Ian [facility] Start: 03-16-2023 End: 03-16-2023 ambulatory Marlee Sosa Other [facility] Other Start: 03-16-2023 Telephone encounter Marlee Ian [facility] Start: 03-07-2023 End: 03-07-2023 ambulatory Marlee Sosa Other [facility] Other Start: 03-07-2023 Office outpatient vi sit 15 minutes Marlee Sosa [facility] Start: 03-07-2023 End: 03-07-2023 Patient encounter procedure [facility] Work Phone: Start: 03-06-2023 End: 03-06-2023 ambulatory Marlee Sosa Other [facility] Other Start: 03-06-2023 Telephone encounter Marlee Ian [facility] Start: 01-26-2023 End: 01-26-2023 ambulatory Marlee Ian Other [facility] Other Start: 01-26-2023 Office outpatient vi sit 15 minutes Marlee Ian [facility] Start: 01-02-2023 (Televisit) Televisit Marlee Ian [facility] Start: 01-02-2023 End: 01-02-2023 ambulatory Marlee Ian Other [facility] Other Start: 11-28-2022 End: 11-28-2022 ambulatory Marlee Ian Other [facility] Other Start: 11-28-2022 Telephone encounter Marlee Ian [facility] Start: 11-22-2022 End: 11-22-2022 ambulatory Marlee Ian Other [facility] Other Start: 11-22-2022 Office outpatient vi sit 15 minutes Marlee Sosa [facility] Start: 10-19-2020 End: 10-19-[address] OWEN GOYAL Facility:[facility] Start: 11-04-2019 End: 11-04-2019 ambulatory NEO WATKINS Facility:[facility] Procedures Date Procedure Procedure Detail Performing Clinician Screening for malign ant neoplasm of prostate Marlee Sosa Other Plan of Treatment Date Care Activity Detail Author [facility] Payers Date Payer Category Payer Medicaid [id number] 2. [id number] 1965 Unknown [id number] 1965 Unknown [id number] 1965 Unknown [id number] 1959 Self-pay [id number] Medicaid [employer] [id number] Self-pay Self Pay [id number] Unknown Regular Insurance [id number] Social History Date Type Detail Facility Sex Assigned At [email or web address] Other Start: 1965 Sex Assigned At Male F [facility] Evaluation note 03-21-2023 Note Date & Type Note Facility 03-21-2023 Evaluation note Encounter Date Diagnosis Assessment Notes Mar, Seizure disorder (ICD-10 - G40.909) Mar, Essential (primary) hypertension (ICD-10 - I10) f/u in 6 months [email or web address] Other Evaluation note 03-07-2023 Note Date & Type Note Facility 03-07-2023 Evaluation note Encounter Date Diagnosis Assessment Notes Feb, Essential (primary) hypertension (ICD-10 - I10) f/u in 6 months Switched b-cassie. Call w bps in 2 weeks Feb, Seizure disorder (ICD-10 - G40.909) Reviewed notes from Dr. Rae. - one med removed, followup there as scheduled. [facility] Other Evaluation note 01-26-2023 Note Date & Type Note Facility 01-26-2023 Evaluation note Encounter Date Diagnosis Assessment Notes Jan, Seizure disorder (ICD-10 - G40.909) We will obtain test and discharge summaries from the [facility]. Patient and his significant other agreed to [...] had a lot of medical issues recently. [facility] Other Evaluation note 01-02-2023 Note Date & Type Note Facility 01-02-2023 Evaluation note Encounter Date Diagnosis Assessment Notes Dec, Bronchitis (ICD-10 - J40) Finish antibiotic. ER if dyspnea occurs. Take OTC Cold meds only as listed on packaging. Pt understands. [facility] Other Evaluation note 11-22-2022 Note Date & Type Note Facility 11-22-2022 Evaluation note Encounter Date Diagnosis Assessment Notes Nov, Bilateral leg paresthesia (ICD-10 - R20.2) Discussed differential including diabetes. Gave HO for JUNE at [place] - advised A1C and the lipid/chem 8 [...] symptoms. Any developing patterns. Stay well hydrated. [facility] Other History general Narrative - Reported 08-18-2017 Note Date & Type Note Facility 08-18-2017 History general N arrative - Reported Type Medical History Essential (primary) hypertension Surgical History Lumbar medial branch block 09/06 17 Hospitalization History SEE SURGICAL HX [facility] Other History general Narrative - Reported 08-18-2017 Note Date & Type Note Facility 08-18-2017 History general N arrative - Reported Type Medical History Essential (primary) hypertension Medical History Seizures Medical History Arthritis Surgical History Lumbar medial branch block 09/06 18 Hospitalization History SEE SURGICAL HX Hospitalization History [facility] Other Evaluation note Note Date & Type Note Facility Evaluation note No Information Variable Other Evaluation note Note Date & Type Note Facility Evaluation note Diagnosis Onset Date Dizziness of unknown cause a cute Encounter for screening for malignant neoplasm of prostate acute Essential (primary) hypertension acute Fatigue acute Osteoarthritis of lumbar spine acute [facility] Work Phone: Summary Purpose Family History No Family History Records Found Relationship Condition Age at Onset Recorded Date/T tricia father Diabetes mellitus Unknown Not Specified Diabetes mellitus Unknown Advance Directives No Advanced Directives Records Found Advance Directive Response Recorded Date/ Time Advance Directives No August 02 8 12:13pm Advance Directive Response Recorded Date/ Time Advance Directives No August 02 8 1:13pm Reason for Referral Reason Ca office - Se izure disorder, treated at [facility]. Diagnosis 1 Seizure disorder (G4 0.909) Referral Organization [facility] Referring Provider First Name Mralee Referring Provider Last Name Ina Referring Provider Specialty Family [facility] Referred Organization [facility] Referred Address [address] [place], [place] Referred Provider Specialty Neurology Referral Priority Routine Chief Complaint and Reason for Visit Chief Complaint High Bp Blood Pressure Reason for Visit Dizziness of unknown cause Encounter for screening for malignant neoplasm of prostate Essential (primary) hypertension Fatigue Osteoarthritis of lumbar spine Chief Complaint Blood Pressure Amb Documentation Amb Documentation Med Check Reason for Visit Dizziness of unknown cause Encounter for screening for malignant neoplasm of prostate Essential (primary) hypertension Fatigue Osteoarthritis of lumbar spine Additional Source Comments (unrecognized sect ion and content) No Status Records FoundNo Status Records Found INFORMATION SOURCE (unrecogn ized section and content) DATE CREATED AUTHOR 10/30/2020 [facility] DATE CREATED AUTHOR AUTHOR'S ORGANANTOINE ATION 09/22/2023 [facility] EPIC REASON FOR VISIT (unrecogniz ed section and content) Check UplabsSinus Infection, Congestion- [phone] Infection, Congestion- [phone] bpBP issuesRefillBP ReadingsbpsNo Information Care Teams (unrecognized sec tion and content) Team Status: Active Member Role Status Dates Marlee Sosa MD Primary Care Provider Active Team Status: Inactive Member Role Status Dates Marlee Sosa MD Attending Provider Active St art: March 07, 2023 End: March 07, 2023 Team Status: Inactive Member Role Status Dates Marlee Sosa MD Primary Care Provide r, Attending Provider Active Start: May 05, 2023 End: May 05, 2023 Team Status: Active Member Role Status Dates Marlee Sosa MD Primary Care Provider Active Start: May 12, 2023 ELVIS Prasad Attending Provider Active Start : May 12, 2023 Team Status: Active Member Role Status Dates Marlee Sosa MD Primary Care Provider Active Start: May 22, 2023 ELVIS Prasad Attending Provider Active Start : May 22, 2023 Team Status: Inactive Member Role Status Dates Marlee Sosa MD Primary Care Provide r, Attending Provider Active Start: July 24, 2023 End: July 24, 2023 Goals (unrecognized section and content) Goals may be documented in a n alternate section FOR RECORDS PERTAINING TO PATIENTS WHO ARE [...] BE BASED ON THE PRIMARY CLINICAL RECORDS. [facility]. provides no warranty or guarantee of the accuracy or completeness of information in this document.
== END 2023-10-04 20:43 | disposition home or self-care (01) ==
LOC: SLEEP 20:48
PROVIDERS: PCP Psychiatry & Neurology Neurology; Visit Provider Psychiatry & Neurology Neurology
DX: G47.33 Obstructive sleep apnea (adult) (pediatric) (principal)
CPT/HCPCS: 95811

== ENCOUNTER 2023-11-15 19:54 | Outpatient (OUT) | payer OTHER, SELFPAY ==
--- OUTSIDE RECORDS SUMMARY | 2023-11-15 20:07 | XMS_ITS | CCD ---
Author Organization [facility] Care Team Providers Care Rn Float Name Role Phone NEO WATKINS Attending Unavailable [...] Facility (12 sources) Lisinopril Drug Allergy Unknown [facility] Other Medications Current Medications Medication Drug Class(es) [...] Note: Source Status: Refill; Refills: 3; Provider: Ian Akins meloxicam 15 mg oral tablet (16 [...] 05-05-2023 Episodic Other aftercare (1 source) Other [facility] (current) drug therapy; Translations: [OTH CARE HOME CURRENT DRUG THERAPY] Onset: 10-21-2020 Episodic Other [...] Basophils (Bld) [#/Vol] 0.1 10 3/uL 0.0-0.1 [facility] Basophils/100 WBC Auto (Bld) on 05-05-2023 Basophils/100 WBC (Bld) 0.6 % 0.2-2.0 [facility] Eosinophils/100 WBC Auto (Bl d)on 05-05-2023 Eosinophils/100 WBC (Bld) 1.8 % 0.9-7.0 [facility] Erythrocyte distribution wid th Auto (RBC) [Ratio]on 05-05-2023 Erythrocyte distribution width (RBC) [Ratio] 12.4 % 11.0-15.0 [facility] Estimated glomerular filtrat ion rate (GFR) non- Americanon 05-05-2023 GFR/1.73 sq M.predicted among non-blacks MDRD (S/P/Bld) [Vol rate/Area] 60 mL/min/{1.73_m2} >=60 [facility] Hematocrit Auto (Bld) [Volum e fraction]on 05-05-2023 Hematocrit (Bld) [Volume fraction] 45.7 % 42.0-54.0 [facility] Hemoglobin [Mass/volume] in Bloodon 05-05-2023 Hemoglobin (Bld) [Mass/Vol] 14.9 g/dL 14.0-18.0 [facility] Laboratory - Chemistry and C hemistry - challengeon 05-05-2023 Calcium [Mass/Vol] 9.3 mg/dL 8.5-10.1 [facility] Chloride [Moles/Vol] 103 mmol/L 98-107 [facility] CO2 [Moles/Vol] 29.7 mmol/L 21.0-32.0 [facility] Cobalamin (Vitamin B12) [Mass/Vol] 710.0 pg/mL 193.0-986.0 [facility] Creatinine [Mass/Vol] 1.25 mg/dL 0.70-1.30 [facility] GFR/1.73 sq M.predicted MDRD (S/P/Bld) [Vol rate/Area] mL/min/{1.73_m2} >=60 [facility] Glucose [Mass/Vol] 93 mg/dL 74-106 [facility] Potassium [Moles/Vol] 5.0 mmol/L 3.5-5.1 [facility] Sodium [Moles/Vol] 139 mmol/L 136-145 [facility] TSH Qn 2.896 m[IU]/L 0.358-3.740 [facility] Urea nitrogen [Mass/Vol] 19.0 mg/dL 7.0-18.0 [facility] Urea nitrogen/Creatinine [Mass ratio] 15.2 mg/mg [facility] Laboratory - Hematology and Cell countson 05-05-2023 Immature granulocytes/100 WBC (Bld) 0.5 % 0.0-0.5 [facility] Leukocytes [#/volume] correc wendy for nucleated erythrocytes in Blood by Automated counon 05-05-2023 WBC corrected for nucl RBC Auto (Bld) [#/Vol] 12.4 10 3/uL 4.0-11.0 [facility] Lymphocytes Auto (Bld) [#/Vo l]on 05-05-2023 Lymphocytes (Bld) [#/Vol] 3.3 10 3/uL 1.2-3.8 [facility] Lymphocytes/100 WBC Auto (Bl d)on 05-05-2023 Lymphocytes/100 WBC (Bld) 26.4 % 20.5-60.0 [facility] MCH Auto (RBC) [Entitic mass ]on 05-05-2023 MCH (RBC) [Entitic mass] 31.1 pg 25.9-34.0 [facility] MCHC Auto (RBC) [Mass/Vol]on 05-05-2023 MCHC (RBC) [Mass/Vol] 32.6 g/dL 29.9-35.2 [facility] MCV Auto (RBC) [Entitic vol] on 05-05-2023 MCV (RBC) [Entitic vol] 95.4 fL 80.0-94.0 [facility] Monocytes Auto (Bld) [#/Vol] on 05-05-2023 Monocytes (Bld) [#/Vol] 1.2 10 3/uL 0.3-0.8 [facility] Monocytes/100 WBC Auto (Bld) on 05-05-2023 Monocytes/100 WBC (Bld) 10.0 % 1.7-12.0 [facility] Neutrophils Auto (Bld) [#/Vo l]on 05-05-2023 Neutrophils (Bld) [#/Vol] 7.5 10 3/uL 1.4-6.5 [facility] Neutrophils/100 WBC Auto (Bl d)on 05-05-2023 Neutrophils/100 WBC (Bld) 60.7 % 43.0-75.0 [facility] No Panel Informationon 05-05 Eosinophils # (Auto) 0.2 10 3/uL 0.0-0.7 [facility] Folate 26.40 ng/mL 8.60-58.90 [facility] Immature Granulocyte # (Auto) 0.06 10 3/uL 0.00-0.03 [facility] Prostate Specific Antigen Screen 0.97 ng/mL <=4.00 [facility] Platelet mean volume Auto (B ld) [Entitic vol]on 05-05-2023 Platelet mean volume (Bld) [Entitic vol] 9.9 fL 9.5-13.5 [facility] Platelets Auto (Bld) [#/Vol] on 05-05-2023 Platelets (Bld) [#/Vol] 271 10 3/uL 150-450 [facility] RBC Auto (Bld) [#/Vol]on RBC (Bld) [#/Vol] 4.79 10 6/uL 4.70-6.10 [facility] Serum or plasma anion gap de terminationon 05-05-2023 Anion gap [Moles/Vol] 11.3 mmol/L [facility] FRESH FROZ PLASMAon 10-30-19 21 FRESH FROZ PLASMA Unit Blood Type O Pos Unit Number [id number] Status Information Transfused Product ID FFP Product Code [id number] Normal [facility] Comment on above: Performed By: #### F FP #### [facility] [address] [place], [place] [id number] Brenda Katherine CBC W MANUAL DIFFon 10-20-19 21 ATYPICAL LYMPH # 0.29 103/ul Normal [facility] Comment on above: Performed By: #### C CARO #### [facility] [address] [place] [address] Brenda Katherine ATYPICAL LYMPH % 2 % Normal [facility] Comment on above: Performed By: #### C CARO #### [facility] [address] [place] [address] Brenda Katherine BAND # 0.1 103/ul Normal 0.0-0.3 [facility] Comment on above: Performed By: #### C CARO #### [facility] [address] [place] [address] Brenda Katherine BAND % 1 % Normal 0-5 [facility] Comment on above: Performed By: #### C CARO #### [facility] [address] [place] [address] Brenda Katherine BASOM # 0.15 103/ul Critically high 0.00-0.10 [facility] Comment on above: Performed By: #### C CARO #### [facility] [address] [place] [address] Brenda Katherine BASOM % 1.0 % Normal 0.2-2.0 [facility] Comment on above: Performed By: #### C CARO #### [facility] [address] [id number] Brenda Katherine BLAST # Normal [facility] Comment on above: Performed By: #### C CARO #### [facility] [address] [id number] Brenda Katherine BLAST % Normal [facility] Comment on above: Performed By: #### C CARO #### [facility] [address] [id number] Brenda Katherine CORRECTED WBC Normal 4.0-11.0 [facility] Comment on above: Performed By: #### C CARO #### [facility] [address] [place] [address] Brenda Katherine EOS # 0.58 103/ul Normal 0.00-0.70 [facility] Comment on above: Performed By: #### C CARO #### [facility] [address] [place] [address] Rbenda Katherine EOS% 4.0 % Normal 0.9-7.0 [facility] Comment on above: Performed By: #### C CARO #### [facility] [address] [place], [place] [id number] Brenda Katherine HCT 39.9 % Critically low 42.0-54.0 [facility] Comment on above: Performed By: #### C CARO #### [facility] [address] [place] [address] Brenda Katherine HGB 13.3 g/dl Critically low 14.0-18.0 [facility] Comment on above: Performed By: #### C CARO #### [facility] [address] [place] [address] Brenda Katherine LYMPHM # 5.40 103/ul Critically high 1.20-3.80 [facility] Comment on above: Performed By: #### C CARO #### [facility] [address] [place] [address] Brenda Katherine LYMPHM% 37.0 % Normal 20.5-60.0 [facility] Comment on above: Performed By: #### C CARO #### [facility] [address] [address] Brendaconrad Linaresen MCH 31.4 pg Normal 25.9-34.0 [facility] Comment on above: Performed By: #### Alcon ELIZONDO #### [facility] [address] [address] Brenda Murphy MCHC 33.3 g/dl Normal 29.9-35.2 [facility] Comment on above: Performed By: #### Alcon ELIZONDO #### [facility] [address] [address] Brenda Katherine MCV 94.1 fL Critically high 80.0-94.0 [facility] Comment on above: Performed By: #### Alcon ELIZONDO #### [facility] [address] [place] [address] Brenda Katherine METAMYELOCYTE # Normal [facility] Comment on above: Performed By: #### Alcon LEIZONDO #### [facility] [address] [place] [address] Brenda Katherine METAMYELOCYTE % Normal [facility] Comment on above: Performed By: #### Alcon ELIZONDO #### [facility] [address] [place] [address] Brenda Katherine MONOM# 0.00 103/ul Critically low 0.30-0.80 [facility] Comment on above: Performed By: #### Alcon ELIZONDO #### [facility] [address] [place] [address] Brenda Katherine MONOM% 0.0 % Critically low 1.7-12.0 [facility] Comment on above: Performed By: #### Alcon ELIZONDO #### [facility] [address] [place] [address] Brenda Katherine MPV 9.6 fL Normal 9.5-13.5 [facility] Comment on above: Performed By: #### Alcon ELIZONDO #### [facility] [address] [place] [address] Brenda Katherine MYELOCYTE # Normal [facility] Comment on above: Performed By: #### Alcon ELIZONDO #### [facility] [address] [place], [place] [id number] Brenda Murphy MYELOCYTE % Normal [facility] Comment on above: Performed By: #### Alcon ELIZONDO #### [facility] [address] [place], [place] [address] Brenda Murphy NRBC Normal [facility] Comment on above: Performed By: #### Alcon ELIZONDO #### [facility] [address] [place], [place] [address] Brenda Murphy PLT 256 103/ul Normal 150-450 [facility] Comment on above: Performed By: #### Alcon ELIZONDO #### [facility] [address] [place] [address] Brenda Murphy RBC 4.24 106/ul Critically low 4.70-6.10 [facility] Comment on above: Performed By: #### Alcon ELIZONDO #### [facility] [address] [place] [address] Brenda Murphy RDW 13.9 % Normal 11.0-15.0 [facility] Comment on above: Performed By: #### Alcon ELIZONDO #### [facility] [address] [place] [address] Brenda Murphy SEG # 8.03 103/ul Critically high 1.40-6.50 [facility] Comment on above: Performed By: #### C CARO #### [facility] [address] [place] [address] Brenda Murphy SEG % 55.0 % Normal 43.0-75.0 [facility] Comment on above: Performed By: #### Alcon ELIZONDO #### [facility] [address] [place] [address] Brenda Murphy WBC 14.6 103/ul Critically high 4.0-11.0 [facility] Comment on above: Performed By: #### Alcon ELIZONDO #### [facility] [address] [place], [place] [id number] Brenda Murphy PROF 14(COMP METB)on 021 Albumin [Mass/Vol] 4.1 g/dL Normal 3.5-5.0 [facility] Comment on above: Performed By: #### Alcon MP #### [facility] [address] [place], [place] [address] Brenda Katherine Albumin/Globulin [Mass ratio] 1.5 {ratio} Normal [facility] Comment on above: Performed By: #### C MP #### [facility] [address] [id number] Brenda Katherine ALP [Catalytic activity/Vol] 76 U/L Normal 38-126 [facility] Comment on above: Performed By: #### C MP #### [facility] [address] [id number] Brenda Katherine ALT [Catalytic activity/Vol] 27 U/L Normal 21-72 [facility] Comment on above: Performed By: #### C MP #### [facility] [address] [place], [place] [address] Brenda Katherine Anion gap [Moles/Vol] 10.1 mmol/L Normal [facility] Comment on above: Performed By: #### C MP #### [facility] [address] [place] [address] Brenda Katherine AST [Catalytic activity/Vol] 24 U/L Normal 17-59 [facility] Comment on above: Performed By: #### C MP #### [facility] [address] [place], [place] [address] Brenda Katherine Bilirubin [Mass/Vol] 0.2 mg/dL Normal 0.2-1.3 [facility] Comment on above: Performed By: #### C MP #### [facility] [address] [place], [place] [address] Brenda Katherine Calcium [Mass/Vol] 8.5 mg/dL Normal 8.4-10.2 [facility] Comment on above: Performed By: #### C MP #### [facility] [address] [place], [place] [address] Brenda Katherine Chloride [Moles/Vol] 107 mmol/L Normal 98-107 [facility] Comment on above: Performed By: #### C MP #### [facility] [address] [place], [place] [address] Brenda Katherine CO2 [Moles/Vol] 29.0 mmol/L Normal 22.0-30.0 [facility] Comment on above: Performed By: #### C MP #### [facility] [address] [id number] Brenda Katherine Creatinine [Mass/Vol] 1.30 mg/dL Critically high 0.66-1.25 [facility] Comment on above: Performed By: #### C MP #### [facility] [address] [id number] Brenda Katherine EGFR-AF NIUEAN >60 Normal >=60 [facility] Comment on above: Performed By: #### C MP #### [facility] [address] [place], [place] [address] Brenda Katherine EGFR-NON AF NIUEAN 57 mL/min/1.73m2 Critically low >=60 [facility] Comment on above: Performed By: #### C MP #### [facility] [address] [place], [place] [address] Brenda Katherine Globulin (S) [Mass/Vol] 2.7 g/dL Normal [facility] Comment on above: Performed By: #### C MP #### [facility] [address] [place], [place] [address] Brenda Katherine Glucose [Mass/Vol] 109 mg/dL Critically high 74-106 [facility] Comment on above: Performed By: #### C MP #### [facility] [address] [place], [place] [address] Brenda Katherine Potassium [Moles/Vol] 4.1 mmol/L Normal 3.4-5.0 [facility] Comment on above: Performed By: #### C MP #### [facility] [address] [place], [place] [address] Brenda Katherine Protein [Mass/Vol] 6.8 g/dL Normal 6.1-8.2 [facility] Comment on above: Performed By: #### C MP #### [facility] [address] [place], [place] [address] Brenda Katherine Sodium [Moles/Vol] 142 mmol/L Normal 137-145 [facility] Comment on above: Performed By: #### C MP #### [facility] [address] [place] [address] Brenda Katherine Urea nitrogen [Mass/Vol] 19.0 mg/dL Normal 9.0-20.0 [facility] Comment on above: Performed By: #### C MP #### [facility] [address] [place] [address] Brenda Katherine Urea nitrogen/Creatinine [Mass ratio] 14.6 mg/mg Normal [facility] Comment on above: Performed By: #### C MP #### [facility] [address] [place] [address] Brenda Katherine PROTIMEon 10-19-2020 INR Coag (PPP) [Relative time] 0.97 {INR} Normal [facility] Comment on above: Performed By: #### P TT, PT #### [facility] [address] [place] [address] Brenda Katherine INR GUIDELINES SEE BELOW Normal [facility] Comment on above: Result Comment: JED RED INR: 2.0 - 3.0 CONDITIONS NOT LISTED BELOW 2.5 - 3.5 FOR PROSTHETIC HEART VALVE REPLACEMENT 2.5 - 3.5 RECURRENT THROMBOSIS Performed By: #### P TT, PT #### [facility] [address] [place] [address] Brendaconrad Murphy PT Coag (PPP) [Time] 10.5 s Normal 9.0-11.6 [facility] Comment on above: Performed By: #### P TT, PT #### [facility] [address] [place] [address] Brenda Katherine PTTon 10-19-2020 aPTT Coag (Bld) [Time] 26.8 s Normal 22.3-36.2 Th [facility] Comment on above: Performed By: #### P TT, PT #### [facility] [address] [place] [address] Brenda Katherine TYPE AND SCREENon 10-19-2020 TYPE AND SCREEN Negative Normal [facility] Comment on above: Performed By: #### T NS #### [facility] [address] [place], [place] [id number] Brenda Murphy Vital Signs Date Time Vital Sign Value Performing Clinician Facility 07-24-2023 09:57-0400 Body height 166.37 cm [facility] 07-24-2023 09:57-0400 Body mass index (BMI) [Ratio] 33 kg/m2 [facility] 07-24-2023 09:57-0400 Body weight 91.62 kg [facility] 07-24-2023 09:57-0400 Diastolic blood pressure 101 mm[Hg] [facility] 07-24-2023 09:57-0400 Heart rate 72 /min [facility] 07-24-2023 09:57-0400 Systolic blood pressure 153 mm[Hg] [facility] 05-05-2023 09:28-0500 Body height 166.37 cm [facility] 05-05-2023 09:28-0500 Body mass index (BMI) [Ratio] 32.6 kg/m2 [facility] 05-05-2023 09:28-0500 Body weight 90.43 kg [facility] 05-05-2023 09:28-0500 Diastolic blood pressure 86 mm[Hg] [facility] 05-05-2023 09:28-0500 Heart rate 78 /min [facility] 05-05-2023 09:28-0500 Systolic blood pressure 134 mm[Hg] [facility] 03-07-2023 14:00-0500 Body height 166.37 cm Marlee Sosa Other [facility] 03-07-2023 14:00-0500 Body mass index (BMI) [Ratio] 31.2 kg/m2 Marlee Sosa Other [facility] Other 03-07-2023 14:00-0500 Body weight 86.37 kg Marlee Sosa Other [facility] Other 03-07-2023 14:00-0500 Body weight 86.36 kg [facility] 03-07-2023 14:00-0500 Diastolic blood pressure 85 mm[Hg] Marlee Sosa Other [facility] 03-07-2023 14:00-0500 SaO2% (BldA) [Mass fraction] 97 % Marlee Sosa Other [facility] Other 03-07-2023 14:00-0500 Systolic blood pressure 125 mm[Hg] Marlee Sosa Other [facility] 01-26-2023 10:45-0500 Body height 166.37 cm Marlee Sosa Other [facility] Other 01-26-2023 10:45-0500 Body mass index (BMI) [Ratio] 29.36 kg/m2 Marlee Sosa Other [facility] Other 01-26-2023 10:45-0500 Body weight 81.29 kg Marlee Sosa Other [facility] Other 01-26-2023 10:45-0500 Diastolic blood pressure 87 mm[Hg] Marlee Sosa Other [facility] Other 01-26-2023 10:45-0500 Systolic blood pressure 146 mm[Hg] Marlee Sosa Other [facility] Other 11-22-2022 09:00-0400 Body height 166.37 cm Marlee Sosa Other [facility] Other 11-22-2022 09:00-0400 Body mass index (BMI) [Ratio] 29.99 kg/m2 Marlee Sosa Other [facility] Other 11-22-2022 09:00-0400 Body weight 83.01 kg Marlee Sosa Other [facility] Other 11-22-2022 09:00-0400 Diastolic blood pressure 88 mm[Hg] Marlee Sosa Other [facility] Other 11-22-2022 09:00-0400 Systolic blood pressure 134 mm[Hg] Marlee Sosa Other [facility] Other Encounters Encounter Date Encounter Type Care Provider Facility Start: 09-20-2023 End: 09-20-2023 ambulatory REHAN RAE Not Available Start: 07-24-2023 End: 07-24-2023 ambulatory [facility] Work Phone: Start: 07-24-2023 End: 07-24-2023 Patient encounter procedure [facility] Physician [facility] Work Phone: Start: 05-22-2023 Non-patient / Non-visit [facility] Physician [facility] Work Phone: Start: 05-12-2023 End: 05-12-2023 ambulatory Marlee Sosa Other [facility] Other Start: 05-12-2023 Telephone encounter Marlee Ian [facility] Start: 05-12-2023 Non-patient / Non-visit [facility] Work Phone: Start: 05-05-2023 End: 05-05-2023 ambulatory [facility] Work Phone: Start: 05-05-2023 End: 05-05-2023 Patient encounter procedure [facility] Physician [facility] Work Phone: Start: 04-17-2023 End: 04-17-2023 ambulatory Marlee Sosa Other [facility] Other Start: 04-17-2023 Telephone encounter Marlee Ian [facility] Start: 03-21-2023 End: 03-21-2023 ambulatory Marlee Sosa Other [facility] Other Start: 03-21-2023 Telephone encounter Marlee Ian [facility] Start: 03-16-2023 End: 03-16-2023 ambulatory Marlee Sosa Other [facility] Other Start: 03-16-2023 Telephone encounter Marlee Ian [facility] Start: 03-07-2023 End: 03-07-2023 ambulatory Marlee Sosa Other [facility] Other Start: 03-07-2023 Office outpatient vi sit 15 minutes Marlee Sosa [facility] Start: 03-07-2023 End: 03-07-2023 Patient encounter procedure [facility] Work Phone: Start: 03-06-2023 End: 03-06-2023 ambulatory Marlee Sosa Other [facility] Other Start: 03-06-2023 Telephone encounter Marele Ian [facility] Start: 01-26-2023 End: 01-26-2023 ambulatory Marlee Ian Other [facility] Other Start: 01-26-2023 Office outpatient vi sit 15 minutes Marlee Ian [facility] Start: 01-02-2023 (Televisit) Televisit Marlee Ian [facility] Start: 01-02-2023 End: 01-02-2023 ambulatory Marlee Ian Other [facility] Other Start: 11-28-2022 End: 11-28-2022 ambulatory Marlee Ian Other [facility] Other Start: 11-28-2022 Telephone encounter Marlee Ian [facility] Start: 11-22-2022 End: 11-22-2022 ambulatory Marlee Ian Other [facility] Other Start: 11-22-2022 Office outpatient vi sit 15 minutes Marlee Sosa [facility] Start: 10-19-2020 End: 10-19-[address] OWEN GOYAL Facility:[facility] Start: 11-04-2019 End: 11-04-2019 ambulatory NEO WATKINS Facility:[facility] Procedures Date Procedure Procedure Detail Performing Clinician Screening for malign ant neoplasm of prostate Marlee Sosa Other Plan of Treatment Date Care Activity Detail Author [facility] Payers Date Payer Category Payer Medicaid [id number] 2. [id number] 1965 Unknown [id number] [id number] 1965 Unknown [id number] 1965 Unknown [id number] 1959 Self-pay [id number] Medicaid [employer] [id number] Self-pay Self Pay [id number] Unknown Regular Insurance [id number] Social History Date Type Detail Facility Sex Assigned At [facility] Other Start: 1965 Sex Assigned At Male F [facility] Evaluation note 03-21-2023 Note Date & Type Note Facility 03-21-2023 Evaluation note Encounter Date Diagnosis Assessment Notes Mar, Seizure disorder (ICD-10 - G40.909) Mar, Essential (primary) hypertension (ICD-10 - I10) f/u in 6 months [facility] Other Evaluation note 03-07-2023 Note Date & Type Note Facility 03-07-2023 Evaluation note Encounter Date Diagnosis Assessment Notes Feb, Essential (primary) hypertension (ICD-10 - I10) f/u in 6 months Switched b-cassie. Call w bps in 2 weeks Feb, Seizure disorder (ICD-10 - G40.909) Reviewed notes from Dr. Rae. - one med removed, followup there as scheduled. [facility] Other Evaluation note 01-26-2023 Note Date & Type Note Facility 01-26-2023 Evaluation note Encounter Date Diagnosis Assessment Notes Jan, Seizure disorder (ICD-10 - G40.909) We will obtain test and discharge summaries from the [facility]. Patient and his significant other agreed to [...] had a lot of medical issues recently. [facility] Other Evaluation note 01-02-2023 Note Date & Type Note Facility 01-02-2023 Evaluation note Encounter Date Diagnosis Assessment Notes Dec, Bronchitis (ICD-10 - J40) Finish antibiotic. ER if dyspnea occurs. Take OTC Cold meds only as listed on packaging. Pt understands. [facility] Other Evaluation note 11-22-2022 Note Date & Type Note Facility 11-22-2022 Evaluation note Encounter Date Diagnosis Assessment Notes Nov, Bilateral leg paresthesia (ICD-10 - R20.2) Discussed differential including diabetes. Gave HO for JUNE at [facility] - advised A1C and the lipid/chem 8 [...] symptoms. Any developing patterns. Stay well hydrated. 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 Hospitalization History SEE SURGICAL HX Hospitalization History [facility] Other Evaluation note Note Date & Type Note Facility Evaluation note No Information [facility] ([facility]) Other Evaluation note Note Date & Type Note Facility Evaluation note Diagnosis Onset Date Dizziness of unknown cause a cute Encounter for screening for malignant neoplasm of prostate acute Essential (primary) hypertension acute Fatigue acute Osteoarthritis of lumbar spine acute [facility] Work Phone: Summary Purpose Family History No [...] office - Se izure disorder, treated at [facility]. Diagnosis 1 Seizure disorder (G4 0.909) Referral Organization [facility] Referring Provider First Name Marlee Referring Provider Last Name Ian Referring Provider Specialty Family [facility] Referred Organization [facility] Referred Address [address] [place], [place],[address] Referred Provider Specialty Neurology Referral Priority Routine [...] DATE CREATED AUTHOR AUTHOR'S ORGANANTOINE ATION 09/22/2023 [facility] EPIC REASON FOR VISIT (unrecogniz ed section and content) Check UplabsSinus Infection, Congestion- [phone] Infection, Congestion- [phone] bpBP issuesRefillBP ReadingsbpsNo Information Care Teams (unrecognized [...] BE BASED ON THE PRIMARY CLINICAL RECORDS. [facility] built[employer] [facility]. provides no warranty or guarantee of the accuracy or completeness of information in this document.
== END 2023-11-15 19:55 | disposition home or self-care (01) ==
LOC: SLEEP 19:55
PROVIDERS: PCP Psychiatry & Neurology Neurology; Visit Provider Psychiatry & Neurology Neurology
DX: G47.33 Obstructive sleep apnea (adult) (pediatric) (principal)
CPT/HCPCS: 95811

== ENCOUNTER 2024-05-14 10:19 | Outpatient (OUT) | payer OTHER, SELFPAY ==
--- OUTSIDE RECORDS SUMMARY | 2024-05-14 10:31 | XMS_ITS | CCD ---
Author Organization [facility] Care Team Providers Care Package Dyer Name Role Phone NEO WATKINS Attending Unavailable NEO WATKINS Consulting Unavailable MARTHA, DR MARLEE Akins Primary Care Unavailable NEO WATKINS Admitting Unavailable JAY JAY, DR OWEN Moss Attending Unavailable JAY JAY, DR OWEN Moss Consulting Unavailable JAY JAY, DR OWEN Moss Admitting Unavailable MARTHA, DR MARLEE Akins Primary Care Unavailable ABBI, DR GUERRERO Consulting Unavailable Marlee Thomas Unavailable Marlee Thomas MD Primary Care Provider Rehan Rae DO Unavailable Savi [employer], Tiesha Unavailable [phone] TIESHA HOU Attending Unavailable REHAN RAE Attending Unavailable TIESHA HOU Attending Unavailable REAHN RAE Attending Unavailable TIESHA HOU Attending Unavailable MARLEE THOMAS Referring Unavailable Allergies Allergy Classification Reported Allergen(s) Allergy Type Date of Onset Reaction(s) Facility (12 sources) Lisinopril Drug Allergy Unknown [employer] Other (10 sources) Lisinopril Propensity to adverse reactions 4 [facility] Healthcare Medications Current Medications Medication Drug Class(es) Dates Sig (Normalized) Sig (Original) amLODIPine 10 mg oral tablet (20 sources) Dihydropyridine Calcium Channel Cassie Start: 05-05-2023 End: 02-28-2024 amLODIPine (Norvasc) 10 MG tablet 12/04/2023 Active aspirin 81 mg delayed release oral tablet (20 sources) Platelet Aggregation Inhibitor, Nonsteroidal Anti-inflammatory Drug Start: 05-05-2023 take 1 tablet by mouth once daily Aspirin (Adult Aspirin Regimen) 81 mg tablet,delayed release (DR/EC) Active 81 MG PO Daily May 05, 2023 12:00am Aspirin 81 Activ e atenolol 50 mg oral tablet (6 sources) beta-Adrenergic Cassie take 1 tablet by mouth every twenty-four hours Atenolol 50 MG 1 tablet Orally Once a day for 30 days Active cefdinir 300 mg oral capsule (1 source) Cephalosporin Antibacterial Start: 023 Cefdinir 300 MG as directed Orally bid for 7 days Dec, Active cloNIDine hydrochloride 0.3 mg oral tablet (20 sources) Central alpha-2 Adrenergic Agonist Start: 025 take 1 tablet by mouth twice daily Clonidine Hcl 0.3 mg tablet Active 0.3 MG PO Twice daily 60 April 29, 2024 2:21pm Start: 07-24-2023 End: 04-29-2024 take 1 tablet by mouth in the morning cloNIDine (Catapres) 0.2 MG tablet Take 0.2 mg by mouth in the morning and 0.2 mg before bedtime. 07/24/2023 Active Start: 06-15-2023 End: 07-24-2023 take 1 tablet by mouth twice daily Clonidine Hcl 0.1 mg tablet Discontinued 0 .ROUTE .COMPLEX 60 July 17, 2023 10:47am July 24, 2023 9:19am TAKE ONE TABLET BY MOUTH TWICE A DAY Start: 06-15-2023 End: 07-17-2023 take 1 tablet by mouth twice daily Clonidine Hcl Discontinued 0 .ROUTE .COMPLEX 60 June 15, 2023 9:49pm July 17, 2023 11:47am TAKE ONE TABLET BY MOUTH TWICE A DAY Start: 05-12-2023 End: 06-15-2023 take 1 tablet by mouth twice daily Clonidine Hcl 0.1 mg tablet Discontinued 0.1 MG PO Twice daily 60 May 15, 2023 9:20am June 14, 2023 11:49am gabapentin 400 mg oral capsule (20 sources) Anti-epileptic Agent Start: 02-07-2024 take 1 capsule by mouth once daily Gabapentin 400 mg capsule Active 400 MG PO Daily April 29, 2024 12:00am Start: 02-07-2024 take 1 tablet by rosemary th once daily at bedtime Gabapentin 600 mg tablet Active 600 MG PO Daily at bedtime April 29, 2024 12:00am Start: 02-07-2024 gabapentin (Ne urontin) 600 MG tablet Indications: Idiopathic peripheral neuropathy Take one at bedtime 30 tablet 2 02/07/2024 Active Start: 12-26-2023 End: 02-07-2024 take 3 capsules by mouth once in the morning, then take 4 capsules by mouth once at bedtime gabapentin (Neurontin) 100 MG capsule Indications: Seizure (CMS/HCC) 3 po q am and 4 po q hs 210 capsule 2 12/26/2023 02/07/2024 Discontinued Start: 09-20-2023 take 3 capsules by m outh once in the morning, then take 4 capsules by mouth once at bedtime gabapentin (Neurontin) 100 MG capsule Indications: Seizure (CMS/HCC) 3 po q am and 4 po q hs 210 capsule 2 09/20/2023 Active Start: 05-05-2023 End: 04-29-2024 take 1 capsule by mouth three times daily Gabapentin 100 mg capsule Discontinued 100 MG PO Three times daily May 05, 2023 12:00am April 29, 2024 2:03pm FreeText[employer] capsule Orally tid; Note: Source Status: Taking; Provider: Martha Whalen ( ) lacosamide 100 mg oral tablet (13 sources) Anti-epileptic Agent Start: 01-18-2023 take 1 tablet by mouth once daily lacosamide (Vimpat) 100 MG tablet Take 100 mg by mouth Daily 01/18/2023 Active Start: 01-18-2023 take 1 tablet by rosemary th in the morning lacosamide (Vimpat) 100 MG tablet Take 100 mg by mouth in the morning and 100 mg in the evening. 01/18/2023 Active levETIRAcetam 750 mg oral ta blet (20 sources) Start: 02-07-2024 levETIRAcetam (Keppra) 750 MG tablet Indications: Seizure (CMS/HCC) Take 2 tabs twice a day 120 tablet 5 02/07/2024 Active Start: 02-07-2024 levETIRAcetam (Keppra) 750 MG tablet Indications: Seizure (CMS/HCC) Take 2 tabs twice a day 120 tablet 5 02/07/2024 Active Start: 10-18-2023 End: 04-16-2024 take 2 tablets by mouth in the morning levETIRAcetam (Keppra) 750 MG tablet Indications: Seizure (CMS/HCC) Take 2 tablets (1,500 mg) by mouth in the morning and 2 tablets (1,500 mg) before bedtime. 120 tablet 01/17/2024 02/07/2024 Discontinued (Reorder) Start: 05-22-2023 End: 09-19-2023 take 2 tablets by mouth twice daily at bedtime Levetiracetam 750 mg tablet Active 0 .ROUTE .COMPLEX September 19, 2023 8:41am TAKE TWO TABLETS BY MOUTH TWICE A DAY ( IN THE MORNING AND AT BEDTIME ) Start: 05-05-2023 End: 05-22-2023 take 2 tablets by mouth twice daily at bedtime Levetiracetam 750 mg tablet Discontinued MG PO May 05, 2023 12:00am May 22, 2023 3:36pm FreeText[employer] tablets Orally Twice daily, in the morning and at bedtime; Note: Source Status: Refill; Refills: 3; Provider: Martha Akins methylPREDNISolone (2 sources) Corticosteroid Start: 11-16-2023 End: 11-23-2023 methylPREDNISolone (Medrol Dospak) 4 MG tablets Indications: Chronic tension-type headache, intractable Follow schedule on package instructions 21 tablet 11/16/2023 11/23/2023 Active 24 hr metoprolol succinate 100 mg extended release oral tablet (20 sources) beta-Adrenergic Cassie Start: 07-17-2023 End: 02-20-2024 take 1 tablet by mouth once daily Metoprolol Succinate 100 mg tablet extended release 24 hr Active 0 .ROUTE .COMPLEX February 20, 2024 11:18am TAKE ONE TABLET BY MOUTH ONCE DAILY FOR 30 DAYS Start: 05-22-2023 End: 07-17-2023 take 1 tablet by mouth once daily Metoprolol Succinate 100 mg tablet extended release 24 hr Discontinued 0 .ROUTE .COMPLEX May 22, 2023 3:36pm July 17, 2023 10:47am TAKE ONE TABLET BY MOUTH ONCE DAILY FOR 30 DAYS Start: 05-22-2023 End: 07-17-2023 take 1 tablet by mouth once daily Metoprolol Succinate Discontinued 0 .ROUTE .COMPLEX May 22, 2023 4:36pm July 17, 2023 11:47am TAKE ONE TABLET BY MOUTH ONCE DAILY FOR 30 DAYS Start: 03-07-2023 take 1 tablet by rosemary th once daily metoprolol succinate XL (Toprol-XL) 100 MG 24 hr tablet Take 25 mg by mouth Daily 03/07/2023 Active Start: 03-07-2023 take 1 tablet by rosemary once daily metoprolol succinate XL (Toprol-XL) 25 MG 24 hr tablet Take 25 mg by mouth Daily 03/07/2023 Active Start: 03-07-2023 End: 05-22-2023 take 1 tablet by mouth once daily Metoprolol Succinate 100 mg tablet extended release 24 hr Discontinued 100 MG PO Daily May 05, 2023 12:00am May 22, 2023 3:36pm FreeTextSi tablet Orally Once a day; Note: Source Status: Refill; Refills: 1; Qty: 30 Tablet; Provider: Martha Akins thiamine 100 mg oral tablet (20 sources) Start: 01-19-2023 take 1 tablet by mouth in the morning thiamine (Vitamin B-1) 100 MG tablet Take 100 mg by mouth in the morning. 01/19/2023 Active tiZANidine 4 mg oral capsule (10 sources) Central alpha-2 Adrenergic Agonist Start: 04-29-2024 take 1 capsule by mouth once daily at bedtime as needed Tizanidine 4 mg capsule Active 4 MG PO Daily at bedtime as needed April 29, 2024 12:00am Start: 02-20-2024 tiZANidine (Za naflex) 4 MG tablet Indications: Neck pain Take 1/2-1 as needed qam 30 tablet 2 02/20/2024 Active Start: 11-22-2023 tiZANidine (Za naflex) 4 MG tablet Indications: Neck pain Take 1/2-1 as needed qam 30 tablet 2 11/22/2023 Active Start: 11-16-2023 tiZANidine (Za naflex) 4 MG tablet Indications: Neck pain Take 1/2-1 as needed while awake 30 tablet 2 11/16/2023 Active Completed/Discontinued Medications Medication Drug Class(es) Dates Sig (Normalized) Sig (Original) meloxicam 15 mg oral tablet (20 sources) Nonsteroidal Anti-inflammatory Drug Start: 05-05-2023 End: 03-18-2024 take 1 tablet by mouth once daily Meloxicam 15 mg tablet Discontinued 15 MG PO Daily May 05, 2023 9:47am August 10, 2023 10:12am FreeTextSig: TAKE ONE TABLET BY MOUTH DAILY; Note: Source Status: Start; Refills: 3; Qty: 30 Each; Provider: Martha Whalen ( ) Problems Active Problems Problem Classification Problem Date Documented Date Episodic/Chronic Chronic obstructive pulmonary disease and bronchiectasis (2 sources) Bronchitis, not specified as acute or chronic Episodic Conditions associated with dizziness or vertigo (6 sources) Dizziness of unknown cause; Translations: [Dizziness and giddiness] 05-05-2023 Episodic E Codes: Adverse effects of medical drugs (1 source) Adverse effect of angiotensin-converti ng-enzyme inhibitors, initial encounter; Translations: [ADVERSE EFFECT ACEI INITIAL ENCNTR] Onset: 10-21-2020 Episodic Epilepsy; convulsions (15 sources) Seizure disorder; Translations: [Epilepsy, unspecified, not intractable, without status epilepticus] Chronic Essential hypertension (20 sources) Essential (primary) hypertension; Translations: [Essential hypertension] Onset: 07-24-2017 Chronic Headache; including migraine (15 sources) Intractable chronic tension headache; Translations: [Chronic tension-type headache, intractable] Onset: 11-16-2023 11-16-2023 Chronic Headache; including migraine (16 sources) Headache disorder; Translations: [Other headache syndrome] 02-07-2024 Episodic Malaise and fatigue (6 sources) Fatigue; Translations: [Other fatigue] 05-05-2023 Episodic Other aftercare (1 source) 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; Translations: [[facility] SENIOR LIVING CURRENT DRUG THERAPY] Onset: 10-21-2020 Episodic Other connective tissue disease (1 source) Neuralgia and neuritis, unspecified Episodic Other injuries and conditions due to external causes (2 sources) Angioneurotic edema, initial encounter; Translations: [ANGIONEUROTIC EDEMA INITIAL ENCNTR] Onset: 11-28-2019 Episodic Other injuries and conditions due to external causes (12 sources) Angioedema; Translations: [Angioneurotic edema, initial encounter] Episodic Other nervous system disorders (15 sources) Idiopathic peripheral neuropathy; Translations: [Hereditary and idiopathic neuropathy, unspecified] Onset: 11-16-2023 11-16-2023 Chronic Other nervous system disorders (12 sources) Paresthesia of lower extremity; Translations: [Paresthesia of skin] Episodic Other nervous system disorders (1 source) Paresthesia of skin Episodic Other screening for suspected conditions (not mental disorders or infectious disease) (8 sources) Patient encounter status; Translations: [Encounter for screening for malignant neoplasm of prostate] 05-05-2023 Episodic Other skin disorders (3 sources) Localized swelling, mass and lump, head; Translations: [LOCALIZED SWELLING MASS AND LUMP HEAD] Onset: 10-19-2020 Episodic Residual codes; unclassified (13 sources) Obstructive sleep apnea syndrome; Translations: [Obstructive sleep apnea (adult) (pediatric)] Onset: 11-16-2023 11-16-2023 Chronic Residual codes; unclassified (4 sources) Mixed sleep apnea; Translations: [Other sleep apnea] 02-07-2024 Chronic Residual codes; unclassified (9 sources) Difficulty sleeping ; Translations: [Sleep disorder, unspecified] Episodic Residual codes; unclassified (1 source) Sleep disorder, unspecified Episodic Spondylosis; intervertebral disc disorders; other back problems (7 sources) Lumbar spondylosis; Translations: [Spondylosis without myelopathy or radiculopathy, lumbar region] 05-05-2023 Chronic Substance-related disorders (13 sources) Nicotine dependence, cigarettes, uncomplicated; Translations: [Tobacco user] Onset: 11-28-2019 Chronic Past or Other Problems Problem Classification Problem Date Documented Da te Episodic/Chronic Cardiac dysrhythmias (12 sources) Tachycardia; Translations: [Tachycardia, unspecified] Onset: 06-06-2017 Episodic Disorders of teeth and jaw (1 source) Periapical abscess without sinus; Translations: [PERIAPICAL ABSCESS WITHOUT SINUS] Onset: 11-28-2019 Episodic Epilepsy; convulsions (13 sources) Seizure; Translations: [Unspecified convulsions] Onset: 11-16-2023 11-16-2023 Episodic Other lower respiratory disease (3 sources) Shortness of breath; Translations: [SHORTNESS OF BREATH] Onset: 11-04-2019 Episodic Other nervous system disorders (15 sources) Numbness and tingling sensation of skin; Translations: [Anesthesia of skin] Onset: 11-16-2023 11-16-2023 Episodic Spondylosis; intervertebral disc disorders; other back problems (20 sources) Thoracic and lumbosacral neuritis; Translations: [Thoracic or lumbosacral neuritis or radiculitis, unspecified] Onset: 06-06-2017 11-16-2023 Episodic Results Test Name Value Interpretation Reference Range Facil ity Basophils Auto (Bld) [#/Vol] on 05-05-2023 Basophils (Bld) [#/Vol] 0.1 10 3/uL 0.0-0.1 [facility] Basophils/100 WBC Auto (Bld) on 05-05-2023 Basophils/100 WBC (Bld) 0.6 % 0.2-2.0 [facility] Eosinophils/100 WBC Auto (Bl d)on 05-05-2023 Eosinophils/100 WBC (Bld) 1.8 % 0.9-7.0 [facility] Erythrocyte distribution wid th Auto (RBC) [Ratio]on 05-05-2023 Erythrocyte distribution width (RBC) [Ratio] 12.4 % 11.0-15.0 [facility] Estimated glomerular filtrat ion rate (GFR) non- Americanon 05-05-2023 GFR/1.73 sq M.predicted among non-blacks MDRD (S/P/Bld) [Vol rate/Area] 60 mL/min/{1.73_m2} >=60 [facility] Hematocrit Auto (Bld) [Volum e fraction]on 05-05-2023 Hematocrit (Bld) [Volume fraction] 45.7 % 42.0-54.0 [facility] Hemoglobin [Mass/volume] in Bloodon 05-05-2023 Hemoglobin (Bld) [Mass/Vol] 14.9 g/dL 14.0-18.0 [facility] Laboratory - Chemistry and C hemistry - challengeon 05-05-2023 Calcium [Mass/Vol] 9.3 mg/dL 8.5-10.1 [facility] Chloride [Moles/Vol] 103 mmol/L 98-107 [facility] CO2 [Moles/Vol] 29.7 mmol/L 21.0-32.0 [facility] Cobalamin (Vitamin B12) [Mass/Vol] 710.0 pg/mL 193.0-986.0 [facility] Creatinine [Mass/Vol] 1.25 mg/dL 0.70-1.30 [facility] GFR/1.73 sq M.predicted MDRD (S/P/Bld) [Vol rate/Area] mL/min/{1.73_m2} >=60 [facility] Glucose [Mass/Vol] 93 mg/dL 74-106 [facility] Potassium [Moles/Vol] 5.0 mmol/L 3.5-5.1 [facility] Sodium [Moles/Vol] 139 mmol/L 136-145 [facility] TSH Qn 2.896 m[IU]/L 0.358-3.740 [facility] Urea nitrogen [Mass/Vol] 19.0 mg/dL 7.0-18.0 [facility] Urea nitrogen/Creatinine [Mass ratio] 15.2 mg/mg [facility] Laboratory - Hematology and Cell countson 05-05-2023 Immature granulocytes/100 WBC (Bld) 0.5 % 0.0-0.5 [facility] Leukocytes [#/volume] correc wendy for nucleated erythrocytes in Blood by Automated counon 05-05-2023 WBC corrected for nucl RBC Auto (Bld) [#/Vol] 12.4 10 3/uL 4.0-11.0 [facility] Lymphocytes Auto (Bld) [#/Vo l]on 05-05-2023 Lymphocytes (Bld) [#/Vol] 3.3 10 3/uL 1.2-3.8 [facility] Lymphocytes/100 WBC Auto (Bl d)on 05-05-2023 Lymphocytes/100 WBC (Bld) 26.4 % 20.5-60.0 [facility] MCH Auto (RBC) [Entitic mass ]on 05-05-2023 MCH (RBC) [Entitic mass] 31.1 pg 25.9-34.0 [facility] MCHC Auto (RBC) [Mass/Vol]on 05-05-2023 MCHC (RBC) [Mass/Vol] 32.6 g/dL 29.9-35.2 [facility] MCV Auto (RBC) [Entitic vol] on 05-05-2023 MCV (RBC) [Entitic vol] 95.4 fL 80.0-94.0 [facility] Monocytes Auto (Bld) [#/Vol] on 05-05-2023 Monocytes (Bld) [#/Vol] 1.2 10 3/uL 0.3-0.8 [facility] Monocytes/100 WBC Auto (Bld) on 05-05-2023 Monocytes/100 WBC (Bld) 10.0 % 1.7-12.0 [facility] Neutrophils Auto (Bld) [#/Vo l]on 05-05-2023 Neutrophils (Bld) [#/Vol] 7.5 10 3/uL 1.4-6.5 [facility] Neutrophils/100 WBC Auto (Bl d)on 05-05-2023 Neutrophils/100 WBC (Bld) 60.7 % 43.0-75.0 [facility] No Panel Informationon 05-05 Eosinophils # (Auto) 0.2 10 3/uL 0.0-0.7 [facility] Folate 26.40 ng/mL 8.60-58.90 [facility] Immature Granulocyte # (Auto) 0.06 10 3/uL 0.00-0.03 [facility] Prostate Specific Antigen Screen 0.97 ng/mL <=4.00 [facility] Platelet mean volume Auto (B ld) [Entitic vol]on 05-05-2023 Platelet mean volume (Bld) [Entitic vol] 9.9 fL 9.5-13.5 [facility] Platelets Auto (Bld) [#/Vol] on 05-05-2023 Platelets (Bld) [#/Vol] 271 10 3/uL 150-450 [facility] RBC Auto (Bld) [#/Vol]on RBC (Bld) [#/Vol] 4.79 10 6/uL 4.70-6.10 [facility] Serum or plasma anion gap de terminationon 05-05-2023 Anion gap [Moles/Vol] 11.3 mmol/L [facility] FRESH FROZ PLASMAon 10-30-19 21 FRESH FROZ PLASMA Unit Blood Type O Pos Unit Number [id number] Status Information Transfused Product ID FFP Product Code [id number] Normal [facility] Comment on above: Performed By: #### F FP #### [facility] [address] [place], [place] [id number] Brenda Katherine CBC W MANUAL DIFFon 10-20-19 21 ATYPICAL LYMPH # 0.29 103/ul Normal [facility] Comment on above: Performed By: #### Alcon ELIZONDO #### [facility] [address] [place] [address] Brenda Katherine ATYPICAL LYMPH % 2 % Normal [facility] Comment on above: Performed By: #### C CARO #### [facility] [address] [place] [address] Brenda Katherine BAND # 0.1 103/ul Normal 0.0-0.3 [facility] Comment on above: Performed By: #### C CARO #### [facility] [address] [place] [address] Brenda Katherine BAND % 1 % Normal 0-5 [facility] Comment on above: Performed By: #### Alcon ELIZONDO #### [facility] [address] [place] [address] Brenda Katherine BASOM # 0.15 103/ul Critically high 0.00-0.10 [facility] Comment on above: Performed By: #### Alcon ELIZONDO #### [facility] [address] [place] [address] Brenda Katherine BASOM % 1.0 % Normal 0.2-2.0 [facility] Comment on above: Performed By: #### Alcon ELIZONDO #### [facility] [address] [place] [address] Brenda Katherine BLAST # Normal [facility] Comment on above: Performed By: #### Alcon ELIZONDO #### [facility] [address] [place] [address] Brenda Katherine BLAST % Normal [facility] Comment on above: Performed By: #### Alcon ELIZONDO #### [facility] [address] [place] [address] Brenda Katherine CORRECTED WBC Normal 4.0-11.0 [facility] Comment on above: Performed By: #### Alcon ELIZONDO #### [facility] [address] [place] [address] Brenda Katherine EOS # 0.58 103/ul Normal 0.00-0.70 [facility] Comment on above: Performed By: #### C CARO #### [facility] [address] [address] Brenda Katherine EOS% 4.0 % Normal 0.9-7.0 [facility] Comment on above: Performed By: #### C CARO #### [facility] [address] [address] Brenda Katherine HCT 39.9 % Critically low 42.0-54.0 [facility] Comment on above: Performed By: #### C CARO #### [facility] [address] [place] [address] Brenda Katherine HGB 13.3 g/dl Critically low 14.0-18.0 [facility] Comment on above: Performed By: #### C CARO #### [facility] [address] [place] [address] Brenda Katherine LYMPHM # 5.40 103/ul Critically high 1.20-3.80 [facility] Comment on above: Performed By: #### Alcon ELIZONDO #### [facility] [address] [place] [address] Brenda Katherine LYMPHM% 37.0 % Normal 20.5-60.0 [facility] Comment on above: Performed By: #### Alcon ELIZONDO #### [facility] [address] [place] [address] Brenda Katherine MCH 31.4 pg Normal 25.9-34.0 [facility] Comment on above: Performed By: #### C CARO #### [facility] [address] [place], [place] [id number] Brenda Katherine MCHC 33.3 g/dl Normal 29.9-35.2 [facility] Comment on above: Performed By: #### C CARO #### [facility] [address] [place] [address] Brenda Katherine MCV 94.1 fL Critically high 80.0-94.0 [facility] Comment on above: Performed By: #### Alcon ELIZONDO #### [facility] [address] [place] [address] Brenda Katherine METAMYELOCYTE # Normal [facility] Comment on above: Performed By: #### Alcon ELIZONDO #### [facility] [address] [place] [address] Brenda Katherine METAMYELOCYTE % Normal [facility] Comment on above: Performed By: #### Alcon ELIZONDO #### [facility] [address] [place] [address] Brenda Katherine MONOM# 0.00 103/ul Critically low 0.30-0.80 [facility] Comment on above: Performed By: #### Alcon ELIZONDO #### [facility] [address] [place] [address] Brenda Katherine MONOM% 0.0 % Critically low 1.7-12.0 [facility] Comment on above: Performed By: #### Alcon ELIZONDO #### [facility] [address] [place] [address] Brenda Katherine MPV 9.6 fL Normal 9.5-13.5 [facility] Comment on above: Performed By: #### Alcon ELIZONDO #### [facility] [address] [place] [address] Brenda Katherine MYELOCYTE # Normal [facility] Comment on above: Performed By: #### Alcon ELIZONDO #### [facility] [address] [place] [address] Brenda Katherine MYELOCYTE % Normal [facility] Comment on above: Performed By: #### Alcon ELIZONDO #### [facility] [address] [place] [address] Brenda Katherine NRBC Normal [facility] Comment on above: Performed By: #### Alcon ELIZONDO #### [facility] [address] [place] [address] Brenda Katherine PLT 256 103/ul Normal 150-450 [facility] Comment on above: Performed By: #### Alcon ELIZONDO #### [facility] [address] [place] [address] Brenda Katherine RBC 4.24 106/ul Critically low 4.70-6.10 [facility] Comment on above: Performed By: #### C CARO #### [facility] [address] [place] [id number] Brenda Murphy RDW 13.9 % Normal 11.0-15.0 [facility] Comment on above: Performed By: #### C CARO #### [facility] [address] [place], [place] [id number] Brenda Murphy SEG # 8.03 103/ul Critically high 1.40-6.50 [facility] Comment on above: Performed By: #### C CARO #### [facility] [address] [place], [place] [id number] Brenda Murphy SEG % 55.0 % Normal 43.0-75.0 [facility] Comment on above: Performed By: #### C CARO #### [facility] [address] [place], [place] [phone] Brenda Murphy WBC 14.6 103/ul Critically high 4.0-11.0 [facility] Comment on above: Performed By: #### C CARO #### [facility] [address] [place], [place] [phone] Brenda Murphy PROF 14(COMP METB)on 021 Albumin [Mass/Vol] 4.1 g/dL Normal 3.5-5.0 [facility] Comment on above: Performed By: #### C MP #### [facility] [address] [place], [place] [phone] Brenda Murphy Albumin/Globulin [Mass ratio] 1.5 {ratio} Normal [facility] Comment on above: Performed By: #### C MP #### [facility] [address] [place], [place] [phone] Brenda Katherine ALP [Catalytic activity/Vol] 76 U/L Normal 38-126 [facility] Comment on above: Performed By: #### C MP #### [facility] [address] [place], [place] [phone] Brenda Katherine ALT [Catalytic activity/Vol] 27 U/L Normal 21-72 [facility] Comment on above: Performed By: #### C MP #### [facility] [address] [phone] Brenda Katherine Anion gap [Moles/Vol] 10.1 mmol/L Normal [facility] Comment on above: Performed By: #### C MP #### [facility] [address] [phone] Brenda Katherine AST [Catalytic activity/Vol] 24 U/L Normal 17-59 [facility] Comment on above: Performed By: #### C MP #### [facility] [address] [address] Brenda Katherine Bilirubin [Mass/Vol] 0.2 mg/dL Normal 0.2-1.3 [facility] Comment on above: Performed By: #### C MP #### [facility] [address] [address] Brenda Katherine Calcium [Mass/Vol] 8.5 mg/dL Normal 8.4-10.2 [facility] Comment on above: Performed By: #### C MP #### [facility] [address] [address] Brenda Kathernie Chloride [Moles/Vol] 107 mmol/L Normal 98-107 [facility] Comment on above: Performed By: #### C MP #### [facility] [address] [phone] Brenda Katherine CO2 [Moles/Vol] 29.0 mmol/L Normal 22.0-30.0 The [facility] Comment on above: Performed By: #### C MP #### [facility] [address] [phone] Brenda Katherine Creatinine [Mass/Vol] 1.30 mg/dL Critically high 0.66-1.25 [facility] Comment on above: Performed By: #### C MP #### [facility] [address] [phone] Brenda Katherine EGFR-AF NEW ZEALANDER >60 Normal >=60 The [facility] Comment on above: Performed By: #### C MP #### [facility] [address] [phone] Brenda Katherine EGFR-NON AF NEW ZEALANDER 57 mL/min/1.73m2 Critically low >=60 [facility] Comment on above: Performed By: #### C MP #### [facility] [address] [phone] Brenda Katherine Globulin (S) [Mass/Vol] 2.7 g/dL Normal [facility] Comment on above: Performed By: #### C MP #### [facility] [address] [phone] Brenda Katherine Glucose [Mass/Vol] 109 mg/dL Critically high 74-106 T [facility] Comment on above: Performed By: #### C MP #### [facility] [address] [address] Brenda Katherine Potassium [Moles/Vol] 4.1 mmol/L Normal 3.4-5.0 [facility] Comment on above: Performed By: #### C MP #### [facility] [address] [place] [address] Brenda Katherine Protein [Mass/Vol] 6.8 g/dL Normal 6.1-8.2 [facility] Comment on above: Performed By: #### C MP #### [facility] [address] [place], [place] [phone] Brenda Katherine Sodium [Moles/Vol] 142 mmol/L Normal 137-145 [facility] Comment on above: Performed By: #### C MP #### [facility] [address] [phone] Brenda Katherine Urea nitrogen [Mass/Vol] 19.0 mg/dL Normal 9.0-20.0 [facility] Comment on above: Performed By: #### C MP #### [facility] [address] [place], [place] [phone] Brenda Katherine Urea nitrogen/Creatinine [Mass ratio] 14.6 mg/mg Normal [facility] Comment on above: Performed By: #### C MP #### [facility] [address] [place], [place] [phone] Brenda Katherine PROTIMEon 10-19-2020 INR Coag (PPP) [Relative time] 0.97 {INR} Normal [facility] Comment on above: Performed By: #### P TT, PT #### [facility] [address] [place] [id number] Brenda Murphy INR GUIDELINES SEE BELOW Normal [facility] Comment on above: Result Comment: JED RED INR: 2.0 - 3.0 CONDITIONS NOT LISTED BELOW 2.5 - 3.5 FOR PROSTHETIC HEART VALVE REPLACEMENT 2.5 - 3.5 RECURRENT THROMBOSIS Performed By: #### P TT, PT #### [facility] [address] [place] [address] Brenda Murphy PT Coag (PPP) [Time] 10.5 s Normal 9.0-11.6 [facility] Comment on above: Performed By: #### P TT, PT #### [facility] [address] [place] [address] Brenda Murphy PTTon 10-19-2020 aPTT Coag (Bld) [Time] 26.8 s Normal 22.3-36.[address] [facility] Comment on above: Performed By: #### P TT, PT #### [facility] [address] [place], [place] [phone] Brenda Murphy TYPE AND SCREENon 10-19-2020 TYPE AND SCREEN Negative Normal [facility] Comment on above: Performed By: #### T NS #### [facility] [address] [place], [place] [phone] Brenda Murphy Vital Signs Date Time Vital Sign Value Performing Clinician Facility 04-29-2024 13:57-0500 Body height 166.37 cm [facility] 04-29-2024 13:57-0500 Body mass index (BMI) [Ratio] 33.8 kg/m2 [facility] 04-29-2024 13:57-0500 Body weight 93.61 kg [facility] 04-29-2024 13:57-0500 Diastolic blood pressure 90 mm[Hg] [facility] 04-29-2024 13:57-0500 Heart rate 66 /min [facility] 04-29-2024 13:57-0500 Systolic blood pressure 145 mm[Hg] [facility] 02-07-2024 09:01-0500 Body height 165.1 cm Tiesha Hou [employer] Work Phone: [facility] 02-07-2024 09:01-0500 Body mass index (BMI) [Ratio] 34.28 kg/m2 Tiesha Sowr [employer] Work Phone: [facility] 02-07-2024 09:01-0500 Body weight 93.44 kg Tiesha Sowr [employer] Work Phone: [facility] 02-07-2024 09:01-0500 Diastolic blood pressure 80 mm[Hg] Tiesha Sowr [employer] Work Phone: [facility] 02-07-2024 09:01-0500 Heart rate 58 /min Tiesha Sowr [employer] Work Phone: [facility] 02-07-2024 09:01-0500 SaO2% (BldA) [Mass fraction] 95 % Tiesha Sowr [employer] Work Phone: [facility] 02-07-2024 09:01-0500 Systolic blood pressure 122 mm[Hg] Tiesha Sowr [employer] Work Phone: [facility] 12-05-2023 08:39-0400 Diastolic blood pressure 108 mm[Hg] Rehan Heber DO Work Phone: [facility] 12-05-2023 08:39-0400 Heart rate 78 /min Rehan Heber DO Work Phone: [facility] 12-05-2023 08:39-0400 SaO2% (BldA) [Mass fraction] 99 % Rehan Heber DO Work Phone: [facility] 12-05-2023 08:39-0400 Systolic blood pressure 184 mm[Hg] Rehan Heber DO Work Phone: [facility] 12-04-2023 15:36-0400 Body height 166.37 cm [facility] 12-04-2023 15:36-0400 Body mass index (BMI) [Ratio] 33.5 kg/m2 [facility] 12-04-2023 15:36-0400 Body weight 92.98 kg [facility] 12-04-2023 15:36-0400 Diastolic blood pressure 104 mm[Hg] [facility] 12-04-2023 15:36-0400 Heart rate 65 /min [facility] 12-04-2023 15:36-0400 SaO2% (BldA) [Mass fraction] 92 % [facility] 12-04-2023 15:36-0400 Systolic blood pressure 170 mm[Hg] [facility] 11-16-2023 13:19-0400 Body height 165.1 cm Tiesha Sowr [employer] Work Phone: [facility] 11-16-2023 13:19-0400 Body mass index (BMI) [Ratio] 33.61 kg/m2 Tiesha Susymor [employer] Work Phone: [facility] 11-16-2023 13:19-0400 Body weight 91.63 kg Tiesha Susymor [employer]OY[employer]STRUCTION[employer] Work Phone: [facility] 11-16-2023 13:19-0400 Diastolic blood pressure 90 mm[Hg] Tiesha Gillmor [employer]PLOYMENT INSTRUCTIONAL [employer]ATE Work Phone: [facility] 11-16-2023 13:19-0400 Systolic blood pressure 152 mm[Hg] Tiesha Susymor [employer]OY[employer]STRUCTION[employer] Work Phone: [facility] 07-24-2023 09:57-0400 Body height 166.37 cm [facility] 07-24-2023 09:57-0400 Body mass index (BMI) [Ratio] 33 kg/m2 [facility] 07-24-2023 09:57-0400 Body weight 91.62 kg [facility] 07-24-2023 09:57-0400 Diastolic blood pressure 101 mm[Hg] [facility] 07-24-2023 09:57-0400 Heart rate 72 /min [facility] 07-24-2023 09:57-0400 Systolic blood pressure 153 mm[Hg] [facility] 05-05-2023 09:28-0500 Body height 166.37 cm [facility] 05-05-2023 09:28-0500 Body mass index (BMI) [Ratio] 32.6 kg/m2 [facility] 05-05-2023 09:28-0500 Body weight 90.43 kg [facility] 05-05-2023 09:28-0500 Diastolic blood pressure 86 mm[Hg] [facility] 05-05-2023 09:28-0500 Heart rate 78 /min [facility] 05-05-2023 09:28-0500 Systolic blood pressure 134 mm[Hg] [facility] 03-07-2023 14:00-0500 Body height 166.37 cm Marlee Thomas Other [facility] 03-07-2023 14:00-0500 Body mass index (BMI) [Ratio] 31.2 kg/m2 Marlee Thomas Other [employer] [facility] [employer] Other 03-07-2023 14:00-0500 Body weight 86.37 kg Marlee Thomas Other [employer] Other 03-07-2023 14:00-0500 Body weight 86.36 kg [facility] 03-07-2023 14:00-0500 Diastolic blood pressure 85 mm[Hg] Marlee Thomas Other [facility] 03-07-2023 14:00-0500 SaO2% (BldA) [Mass fraction] 97 % Marlee Thomas Other [employer] Other 03-07-2023 14:00-0500 Systolic blood pressure 125 mm[Hg] Marlee Thomas Other [facility] 01-26-2023 10:45-0500 Body height 166.37 cm Marlee Thomas Other [employer] Other 01-26-2023 10:45-0500 Body mass index (BMI) [Ratio] 29.36 kg/m2 Marlee Thomas Other [employer] Other 01-26-2023 10:45-0500 Body weight 81.29 kg Marlee Thomas Other [employer] Other 01-26-2023 10:45-0500 Diastolic blood pressure 87 mm[Hg] Marlee Thomas Other [employer] Other 01-26-2023 10:45-0500 Systolic blood pressure 146 mm[Hg] Marlee Thomas Other [employer] Other 11-22-2022 09:00-0400 Body height 166.37 cm Marlee Thomas Other [employer] Other 11-22-2022 09:00-0400 Body mass index (BMI) [Ratio] 29.99 kg/m2 Marlee Thomas Other [employer] Other 11-22-2022 09:00-0400 Body weight 83.01 kg Marlee Thomas Other [employer] Other 11-22-2022 09:00-0400 Diastolic blood pressure 88 mm[Hg] Marlee Thomas Other [employer] Other 11-22-2022 09:00-0400 Systolic blood pressure 134 mm[Hg] Marlee Thomas Other [employer] Other Encounters Encounter Date Encounter Type Care Provider Facility Start: 05-09-2024 End: 05-09-2024 Norma Hou NP Work Phone: [facility] Start: 05-09-2024 End: 05-09-2024 Norma Hou NP Work Phone: [facility] Start: 05-09-2024 End: 05-09-2024 ambulatory TIESHA SUSYMOR Not Available Start: 04-29-2024 End: 04-29-[address] [facility] Work Phone: Start: 04-29-2024 End: 04-29-2024 Patient encounter procedure Formerly [facility] Work Phone: Start: 02-07-2024 End: 02-07-2024 Bamboo flowsheet Tiesha Susymor [employer]OYMENT INSTRUCTIONAL [employer]ATE Work Phone: [facility] [address] Start: 02-07-2024 End: 02-07-2024 Bamboo flowsheet Tiesha Susymor [employer]PLOYMENT INSTRUCTIONAL [employer]IATE Work Phone: [facility] Start: 02-07-2024 End: 02-07-2024 Office outpatient visit 25 minutes Tiesha Hou [employer]STRUCTION[employer] Work Phone: [facility] Comment on above: Idiopathic periphera l neuropathy (Primary Dx); Seizure (CMS/HCC); Complex sleep apnea syndrome; Other complicated headache syndrome; Numbness and tingling Start: 02-07-2024 End: 02-07-2024 ambulatory TIESHA SUSYMOR Not Available Start: 12-05-2023 End: 12-05-2023 Bamboo flowsheet Rehan Heber DO Work Phone: [facility] Start: 12-05-2023 End: 12-05-2023 Bamboo flowsheet Rehan Heber DO Work Phone: [facility] Start: 12-05-2023 End: 12-05-2023 Office outpatient visit 25 minutes Rehan Heber DO Work Phone: [facility] Comment on above: Idiopathic periphera l neuropathy (Primary Dx); Migraine without aura and without status migrainosus, not intractable (CMS/HCC); Other complicated headache syndrome; Complex sleep apnea syndrome; Numbness and tingling; Chronic tension-type headache, intractable; HOWARD (obstructive sleep apnea) Start: 12-05-2023 End: 12-05-2023 ambulatory REHAN RAE Not Available Start: 12-04-2023 End: 12-04-[address] [facility] Work Phone: Start: 12-04-2023 End: 12-04-2023 Patient encounter procedure Formerly [facility] Work Phone: Start: 11-16-2023 End: 11-16-2023 Bamboo flowsheet Tiesha Hou [employer]PLOYMENT INSTRUCTIONAL [employer]OCIATE Work Phone: [address] Start: 11-16-2023 End: 11-16-2023 Bamboo flowsheet Tiesha Hou [employer]PLOYMENT INSTRUCTIONAL [employer]IATE Work Phone: [address] Start: 11-16-2023 End: 11-16-2023 Office outpatient visit 25 minutes Tiesha Hou [employer] INSTRUCTIONAL [employer]ATE Work Phone: [address] Comment on above: HOWARD (obstructive sle ep apnea) (Primary Dx); Seizure (CMS/HCC); Numbness and tingling; Idiopathic peripheral neuropathy; Chronic tension-type headache, intractable; Neck pain Start: 11-16-2023 End: 11-16-2023 ambulatory TIESHA HOU Not Available Start: 09-20-2023 End: 09-20-2023 ambulatory REHAN RAE Not Available Start: 07-24-2023 End: 07-24-[address] [facility] Work Phone: Start: 07-24-2023 End: 07-24-2023 Patient encounter procedure Former[facility] Work Phone: Start: 05-22-2023 Non-patient / Non-visit [facility] [employer] Work Phone: Start: 05-12-2023 End: 05-12-2023 ambulatory Marlee Thomas Other [facility] [employer] Other Start: 05-12-2023 Telephone encounter Marlee Thomas [facility] Start: 05-12-2023 Non-patient / Non-visit [facility] [employer] Work Phone: Start: 05-05-2023 End: 05-05-[address] [facility] Work Phone: Start: 05-05-2023 End: 05-05-2023 Patient encounter procedure Formerly [facility] Work Phone: Start: 04-17-2023 End: 04-17-2023 ambulatory Marlee Thomas Other [employer] Other Start: 04-17-2023 Telephone encounter Marlee Thomas [facility] Start: 03-21-2023 End: 03-21-2023 ambulatory Marlee Thomas Other [employer] Other Start: 03-21-2023 Telephone encounter Marlee Thomas [facility] Start: 03-16-2023 End: 03-16-2023 ambulatory Marlee Thomas Other [employer] Other Start: 03-16-2023 Telephone encounter Marlee Martha [facility] Start: 03-07-2023 End: 03-07-2023 ambulatory Marlee Thomas Other [employer] Other Start: 03-07-2023 Office outpatient vi sit 15 minutes Marlee Thomas [facility] Start: 03-07-2023 End: 03-07-2023 Patient encounter procedure [facility] Work Phone: Start: 03-06-2023 End: 03-06-2023 ambulatory Marlee Thomas Other [employer] Other Start: 03-06-2023 Telephone encounter Marlee Martha [facility] Start: 01-26-2023 End: 01-26-2023 ambulatory Marlee Thomas Other [employer] Other Start: 01-26-2023 Office outpatient vi sit 15 minutes Marlee Thomas [facility] Start: 01-02-2023 (Televisit) Televisit Marlee Martha [facility] Start: 01-02-2023 End: 01-02-2023 ambulatory Marlee Martha Other [employer] Other Start: 11-28-2022 End: 11-28-2022 ambulatory Marlee Martha Other [employer] Other Start: 11-28-2022 Telephone encounter Marlee Martha [facility] Start: 11-22-2022 End: 11-22-2022 ambulatory Marlee Martha Other [employer] Other Start: 11-22-2022 Office outpatient vi sit 15 minutes Marlee Martha [facility] Start: 10-19-2020 End: 10-19-[address] OWEN GOYAL Facility:[facility] Start: 11-04-2019 End: 11-04-2019 ambulatory NEO WATKINS Facility:[facility] Procedures Date Procedure Procedure Detail Performing Clinician Screening for malign ant neoplasm of prostate Marlee Martha Other Plan of Treatment Date Care Activity Detail Author Start: 05-09-2024 End: 05-09-2024 Patient encounter procedure 05/09/2024 8:40 AM EST Office Visit [facility] [address] [place] [phone] Tiesha Hou, RONY [address] [place] [address] [facility] Start: 02-07-2024 End: 02-07-2024 Patient encounter procedure [facility] Comment on above: Arrived Start: 12-05-2023 End: 12-05-2023 Patient encounter procedure [facility] Comment on above: Arrived Start: 11-16-2023 End: 11-16-2023 Patient encounter procedure 11/16/2023 1:20 PM EDT Office Visit [facility] [address] [facility] [place] [phone] Tiesha Hou, RONY [address] [place], [place] Arrived [facility] [address] [address] Comment on above: Arrived Comprehensive metabo lic 2000 panel - Serum or Plasma [facility] Payers Date Payer Category Payer Medicaid [employer] [place] [id number] 2023-Present [address] [place] [address] [id number] 2023 Private Health Insurance [facility] [id number] 2023 Medicaid [id number] 1965 Unknown [id number] 1965 Unknown [id number] 1965 Unknown [id number] 1259 1965 Unknown [id number] 1259 1965 Unknown [id number] 1259 1965 Unknown [id number] 1259 1965 Unknown [id number] 1259 1959 Self-pay [id number] Medicaid [employer] [id number] Self-pay Self Pay [id number] Unknown Regular Insurance [id number] Social History Date Type Detail Facility Start: 12-05-2023 End: 02-07-2024 Sex Assigned At [facility] [employer] Other Start: 1965 Sex Assigned At Male F [facility] Start: 07-25-2023 [facility] daily [facility] History of tobacco use Cigarette Smoker [facility] Start: 12-05-2023 End: 02-07-2024 Alcoholic beverage intake Current drinker of alcohol (finding) [facility] Start: 12-05-2023 End: 02-07-2024 History of Social function [facility] Start: 1965 Sex assigned at Not on file N [facility] Tobacco smoking stat [facility] Unknown if ever smoked [facility] Work Phone: Start: 04-29-2024 Sex Male (finding) [facility] Clinical Notes 08-18-2017 to 11-16-2023 Tiesha Hou NP - 11/16/2023 1:20 PM EDT Note Date & Type Note Facility 11-16-2023 History of Presen t illness Narrative Images from the original note were not included. Chief Complaint Patient presents with Sleep Apnea Seizures Headache Numbness Tingling Subjective . Patient is here today for follow-up of seizure, sleep, headaches, paresthesias, dizziness and imbalance. I am following the plan of care established by Dr. Rae who is present in the office today and supervising patient care. . Patient is her for f/u to headaches. Presents with his girlfriend. Patient reports that he is still experiencing numbness and tingling in his feet. Some days are worse than others. Ambulates with a cane. Uses it most of the time. He states that he has been getting dizzy and loses his balance. Uses cane to keep himself up. States that the gabapentin does seem to help in his feet. Patient states that he is experiencing severe headaches. 4-5 days a week. Describes it as debilitating . Admits light sensitivity, has to shut them off to get relieve. Denies sound sensitivity. Denies nausea/vomiting. Admits to blurry vision and loss of balance. Pt. Admits he has been sleeping well once he falls asleep. It does take him some time to asleep. He states his feet are the reason he has difficulty falling asleep. Pt. Reports 5-6 hours of sleep per night, broken. Patient is also taking a 2-3 hour nap during the day. He never got the CPAP titration as he did not want to wear the mask. Reports that he did his sleep study at the [place] [facility] last night. Past Medical History: Diagnosis Date Diabetes ([facility]) Hypertension ([facility]) Seizures ([facility]) Past Surgical History: Procedure Laterality Date IR LUMBAR PUNCTURE 01/17/2023 IR LUMBAR PUNCTURE 01/17/2023 Family History Problem Relation Name Age of Onset Diabetes Mother Diabetes Sister Social History Tobacco Use Smoking status: Every Day Types: Cigarettes Smokeless tobacco: Not on file Substance Use Topics Alcohol use: Yes Alcohol/week: 3.0 - 4.0 standard drinks of alcohol Types: 3 - 4 Standard drinks or equivalent per week Allergies: Lisinopril General: No fever or chills HEENT: No nasal congestion or runny nose Pulmonary: No shortness of breath or cough Cardiovascular: No chest pain or palpitations GI: No nausea or vomiting : No dysuria or hematuria Musculoskeletal: No new aches or pains or muscle weakness Infectious: no recurrent fevers or infections Dermatologic: No rashes or skin lesions Neurologic: No new headaches or dizziness Vitals: 11/16/23 1319 BP: 152/90 Body mass index is 33.61 kg/m . weight: 202 lb Neurologic exam: General: Normal body habitus, cooperative, pleasant Mental status: Awake, alert to person, place and time. Recent and remote memory are intact. Attention and concentration are normal. Fund of knowledge is appropriate for level of education. HEENT: NC/AT Cranial nerves: CN II: Visual linares full to confrontation. No loss of vision CN III, IV, : pupils equal round and reactive to light. Extraocular movements intact. No ptosis present. CN V: Facial sensation is normal. CN VII: Full and symmetric facial movement. CN VIII: Hearing is normal CN IX and X: Palate elevates symmetrically. CN XI: Shoulder shrug is normal bilaterally. CN XII: Tongue is midline without atrophy or fasciculation. Speech: Clear and fluent no aphasia or dysarthria Pronator drift: Negative bilateral upper extremity Coordination: Intact, no signs of dysmetria Good finger to nose and rapid alternating movements Sensory: Sensation is intact to light, temperature intact. vibratory touch decreased in a stocking distribution. Motor: LUE 5/5 RUE 5/5 LLE 5/5 RLE 5/5 Tone: Physiologic, no tremor, bradykinesia or rigidity DTR: Bilateral Biceps 2/4 Bilateral BR 2/4 Bilateral Patellar 1/4 Gait: Using cane for stability Romberg's positive Review and summary of old records: Hospital workup includes Lumbar puncture under fluoroscopy MRI of the brain that was nonacute with small-vessel changes CT of the brain that was nonacute Continuous EEG that showed status epilepticus Assessment/Plan Diagnoses and all orders for this visit: HOWARD (obstructive sleep apnea) Seizure (CMS/HCC) Numbness and tingling Idiopathic peripheral neuropathy Chronic tension-type headache, intractable - methylPREDNISolone (Medrol Dospak) 4 MG tablets; Follow schedule on package instructions Neck pain - tiZANidine (Zanaflex) 4 MG tablet; Take 1/2-1 as needed while awake 58 year old male with BLE pain and paresthesias secondary to a PN. This does cause him imbalance and dizziness. He is having worsening paresthesias at night. These have improved with increase at last visit. He likely will need further increase pending course. . Patient has been found to have a severe obstructive sleep apnea with an apnea-hypopnea index of 61 and a oxygen desaturation down to 83 percent. He was sent over to [place] for a titration study. He initially refused this but once we talked about the repercussions of untreated sleep apnea he decided to do that. This was done last night therefore we do not have the results yet. He does have sleep onset and maintenance insomnia. He is taking long naps and this interfering with his night time sleep. . Patient was originally seen for episodes of alteration of awareness and staring spells. He had been in the emergency room. He had taken some DayQuil and NyQuil along with an antibiotic and reportedly he had started drinking again after being sober for quite some time. He also had bought Percocet and Vicodin off the street and took at least 2 pain pills a day for hip pain. He had workup and it was negative. Originally he had EEG that showed a few nidus areas of epileptiform activity and rare electrographic seizures he then went into status epilepticus. He was put on Keppra which was increased to 150 mg twice a day and loaded on Vimpat 100 mg twice a day. His EEG normalized. He remains on the Keppra 1500 mg twice a day and the Vimpat 100 mg twice a day. He is also on gabapentin for the pain. Denies further events. . Patient also then was having headaches that seem to be most consistent with episodes of hypertensive encephalopathy with hypertension and confusion. He was abusing the Excedrin he was taken off of it and had been doing better. He did call the office for an appointment as he does have a severe headache with photosensitivity. It is debilitating. We will give him a medrol dose back to break this up. He does have in pain in his neck that is contributing. WE will order zanaflex. He is aware this can be sedating. I do not want him to take this and sleep or nap due to his severe HOWARD. I do not want to make this any worse. His catapres was increased from 0.1 to 0.2 a few months ago. He has not follow up with PCP and should as his BP to day is 152/90. . I do believe his untreated HOWARD, poor sleep and HTN are worsening his headaches and I am hopeful once these issues are treated he will improve Plan He had polysomnogram/titration study at [place] last night and therefore we do not have results Start medrol dose pack to break up current headache/migraine Start zanaflex 4 mg prn, neck and back pain causing headaches and poor sleep, he will not take at bedtime/napping until we are treating his HOWARD as we do not want to sedate him and worsen his apnea Continue the gabapentin to 300 mg in the morning 400 mg at night, may need increase pending course Call PCP and get back in as soon as possible to discuss HTN Monitor the headaches and the blood pressure Continue the Keppra Continue the Vimpat Call if there is any worsening He is inadequate sleep hygiene needs to set his sleep schedule and sleep for 8 hours a night and not nap during the day The patient was counseled on proper sleep hygiene and adequate hours of sleep. The patient was counseled on the risks of stroke, SC, and sudden with HOWARD, along with the need for compliance with the CPAP/BiPAP treatment. Return to clinic: already scheduled in a few weeks and he will keep this visit documented in this encounter [facility] 03-21-2023 Evaluation note Encounter Date Diagnosis Assessment Notes Mar, Seizure disorder (ICD-10 - G40.909) Mar, Essential (primary) hypertension (ICD-10 - I10) f/u in 6 months [facility] Other 12-19-2023 Evaluation note* Encounter Date Diagnosis Assessment Notes Treatment Notes Treatment Clinical Notes Feb, Essential (primary) hypertension (ICD-10 - I10) f/u in 6 months Switched b-cassie. Call w bps in 2 weeks Feb, Seizure disorder (ICD-10 - G40.909) Reviewed notes from Dr. Rae. - one med removed, followup there as scheduled. [facility] Other 11-09-2023 Evaluation note* Encounter Date Diagnosis Assessment Notes Treatment Notes Treatment Clinical Notes Jan, Seizure disorder (ICD-10 - G40.909) We will obtain test and discharge summaries from the [facility]. Patient and his significant other agreed to referral to advanced neurology for further care. I discussed his positive opiate drug test. Patient was unaware that he was taking that medication. He states that he was not thinking properly prior to hospitalization. 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 t Suggested follow-up with neurology This is a chronic problem. Also Jan, Sleep difficulties (ICD-10 - G47.9) Presently taking melatonin 5 mg. Would limit anything stronger to help with sleep as he has had a lot of medical issues recently. [facility] Other 10-16-2023 Evaluation note* Encounter Date Diagnosis Assessment Notes Treatment Notes Treatment Clinical Notes Dec, Bronchitis (ICD-10 - J40) Finish antibiotic. ER if dyspnea occurs. Take OTC Cold meds only as listed on packaging. Pt understands. [facility] Other 09-05-2023 Evaluation note* Encounter Date Diagnosis Assessment Notes Treatment Notes Treatment Clinical Notes Nov, Bilateral leg paresthesia (ICD-10 - R20.2) Discussed differential including diabetes. Gave HO for JUNE at [place] - advised A1C and the lipid/chem 8 [...] symptoms. Any developing patterns. Stay well hydrated. [facility] Other 06-01-2018 History general Narrative - Reported* Type Description Date Medical History Essential (primary) hypertension Surgical History Lumbar medial branch block 09/06 17 Hospitalization History SEE SURGICAL HX [facility] Other 06-01-2018 History general Narrative - Reported* Type Description Date Medical History Essential (primary) hypertension Medical History Seizures Medical History Arthritis Surgical History Lumbar medial branch block 09/06 17 Hospitalization History SEE SURGICAL HX [facility]* Diagnosis Onset Date Resolution Status Dizziness of unknown cause a cute Encounter for screening for malignant neoplasm of prostate acute Essential (primary) hypertension acute Fatigue acute Osteoarthritis of lumbar spine acute [facility] Work Phone: Evaluation noteNo assessment information available [facility] Work Phone: Evaluation note* Diagnosis Idiopathic peripheral neuropathy- Primary Unspecified hereditary and idiopathic peripheral neuropathy Seizure (CMS/HCC) Other convulsions Complex sleep apnea syndrome Other complicated headache syndrome Numbness and tingling Disturbance of skin sensation documented in this encounter [facility] HealthcareEvaluation note* Diagnosis Idiopathic peripheral neuropathy- Primary Unspecified hereditary and idiopathic peripheral neuropathy Migraine without aura and without status migrainosus, not intractable (CMS/HCC) Other complicated headache syndrome Complex sleep apnea syndrome Numbness and tingling Disturbance of skin sensation Chronic tension-type headache, intractable Chronic tension type headache HOWARD (obstructive sleep apnea) Obstructive sleep apnea (adult) (pediatric) documented in this encounter [facility] HealthcareEvaluation note* Diagnosis HOWARD (obstructive sleep apnea)- Primary Obstructive sleep apnea (adult) (pediatric) Seizure (CMS/HCC) Other convulsions Numbness and tingling Disturbance of skin sensation Idiopathic peripheral neuropathy Unspecified hereditary and idiopathic peripheral neuropathy Chronic tension-type headache, intractable Chronic tension type headache Neck pain Cervicalgia documented in this encounter [facility] HealthcareEvaluation note* Diagnosis Onset Date Resolution Status Admit Date Essential (primary) hypertension acute April 29, 1:41pm Osteoarthritis of lumbar spine acute April 29, 2024 1:41pm Screening PSA (prostate specific antigen) acute April 29, 2024 1:41pm Seizure disorder acute April 29, 2024 1:41pm [facility] Work Phone: History of Present illness Narrative* Rehan Rae DO - 12/05/2023 3:00 PM EDT Chief Complaint Patient presents with Sleep Apnea Seizures Headache Dizziness Subjective Presents with his girlfriend. Patient reports that he is still experiencing numbness and tingling in his feet. Some days are worse than others. Ambulates with a cane. Uses it most of the time. 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 He states that he has been getting dizzy and loses his balance. Uses cane to keep himself up. States that the gabapentin does seem to help in his feet. Patient states that he is experiencing severe headaches. 5 days a week, sometimes more. Describes it as debilitating . Admits light sensitivity, has to shut them off to get relieve. Denies sound sensitivity. Denies nausea/vomiting. Admits to blurry vision and loss of balance. He states that his BPhas been increased and medications were adjusted by his PCP. His blood pressure is still high. Pt. Admits he has been sleeping well once he falls asleep. It does take him some time to asleep. Hestates his feet are the reason he has difficulty falling asleep. Pt. Reports 5-6 hours of sleep pernight, broken. Patient is also taking a 2-3 hour nap during the day. He has not gotten his machine yet but states that he is going to call them today about this. HE had to have a serovent adapt machine for the emergence of a central sleep apnea. He does not use salt much in his diet. He does not eat a lot of pre-prepared meals. HE tries not toeat processed foods. Past Medical History: Diagnosis Date Diabetes (CMS/HCC) Hypertension (CMS/HCC) Seizures (CMS/HCC) Past Surgical History: Procedure Laterality Date IR LUMBAR PUNCTURE 01/17/2023 IR LUMBAR PUNCTURE 01/17/2023 Family History Problem Relation Name Age of Onset Diabetes Mother Diabetes Sister Social History Tobacco Use Smoking status: Every Day Types: Cigarettes Smokeless tobacco: Not on file Substance Use Topics Alcohol use: Yes Alcohol/week: 3.0 - 4.0 standard drinks of alcohol Types: 3 - 4 Standard drinks or equivalent per week Allergies: Lisinopril General: No fever or chills HEENT: No nasal congestion or runny nose Pulmonary: No shortness of breath or cough Cardiovascular: No chest pain or palpitations GI: No nausea or vomiting : No dysuria or hematuria Musculoskeletal: No new aches or pains or muscle weakness Infectious: no recurrent fevers or infections Dermatologic: No rashes or skin lesions Neurologic: No new headaches or dizziness Vitals: 12/05/23 0839 BP: (!) 184/108 Pulse: 78 SpO2: 99% There is no height or weight on file to calculate BMI. Neurologic exam: General: Normal body habitus, cooperative, pleasant Mental status: Awake, alert to person, place and time. Recent and remote memory are intact. Attention and concentration are normal. Fund of knowledge is appropriate for level of education. HEENT: NC/AT Cranial nerves: CN II: Visual linares full to confrontation. No loss of vision CN III, IV, : pupils equal round and reactive to light. Extraocular movements intact. No ptosis present. CN V: Facial sensation is normal. CN VII: Full and symmetric facial movement. CN VIII: Hearing is normal CN IX and X: Palate elevates symmetrically. CN XI: Shoulder shrug is normal bilaterally. CN XII: Tongue is midline without atrophy or fasciculation. Speech: Clear and fluent no aphasia or dysarthria Pronator drift: Negative bilateral upper extremity Coordination: Intact, no signs of dysmetria Good finger to nose and rapid alternating movements Sensory: Sensation is intact to light, temperature intact. vibratory touch decreased in a stocking distribution. Motor: LUE 5/5 RUE 5/5 LLE 5/5 RLE 5/5 Tone: Physiologic, no tremor, bradykinesia or rigidity DTR: Bilateral Biceps 2/4 Bilateral BR 2/4 Bilateral Patellar 1/4 Gait: Using cane for stability Romberg's positive Review and summary of old records: Hospital workup includes Lumbar puncture under fluoroscopy MRI of the brain that was nonacute with small- vessel changes CT of the brain that was nonacute Continuous EEG that showed status epilepticus Assessment/Plan Diagnoses and all orders for this visit: Idiopathic peripheral neuropathy Migraine without aura and without status migrainosus, not intractable (CMS/HCC) Other complicated headache syndrome Complex sleep apnea syndrome Numbness and tingling Chronic tension-type headache, intractable HOWARD (obstructive sleep apnea) 58 year old male with episodes of intractable headache however this is likely related to his severehypertension. She is still very elevated today. He did not take yet the blood pressure medicine that was prescribed for him yesterday by Dr. Thomas. We gave him some water and he is going to take that. He is on 3 different blood pressure medications because he has had persistently high blood pressure. We will leave the workup and treatment of that up to her. However I suspect this is what is causing the headaches not vice versa and these are not primary headaches they are more related to the blood pressure. He is not eating much salt in his diet. He does have obstructive sleep apnea with an emergence of central sleep apnea when he was being titrated onto the machine. He now needs an add up Serevent machine and this is out at the [facility] to get approved and obtained. We will check on this to see how quickly we can get the machine. He has BLE pain and paresthesias secondary to a PN Which causes him some dizziness and balance issues. He has a gabapentin. You may need to up the dose however I do not want to make any changes untilhis blood pressure is under better control. We will also see what this does with treatment of the sleep apnea as it may improve some with the machine. . Patient has been found to have a severe obstructive sleep apnea with an apnea- hypopnea index of 61 and a oxygen desaturation down to 83 percent. As above he had emergence of central sleep apnea and we are waiting the add up Serevent machine. He does have some inadequate sleep hygiene with not enough hours at night and 2 long of a nap during the day at 2-3 hours. He needs to minimize daytime napping and get more hours at night. . Patient was originally seen for episodes of alteration of awareness and staring spells. He had beenin the emergency room. He had taken some DayQuil and NyQuil along with an antibiotic and reportedlyhe had started drinking again after being sober for quite some time. He also had bought Percocet and Vicodin off the street and took at least 2 pain pills a day for hip pain. He had workup and it wasnegative. Originally he had EEG that showed a few nidus areas of epileptiform activity and rare electrographic seizures he then went into status epilepticus. He was put on Keppra which was increased to 150 mg twice a day and loaded on Vimpat 100 mg twice a day. His EEG normalized. He remains on theKeppra 1500 mg twice a day and the Vimpat 100 mg twice a day. He is also on gabapentin for the pain. Denies further events and this has been doing well. . . I do believe his untreated HOWARD, poor sleep and HTN are worsening his headaches and I am hopeful once these issues are treated he will improve Plan Reviewed his titration study Need to track down his titration onto the adapt machine. Get started on the add up Serevent machine checking on when he can get this Hold on further headache medication as I suspect his headaches are related to his blood pressure. Needs to stay on the 3rd blood pressure agent that was started We will leave workup and treatment of the blood pressure up to Dr. Martha mojica zanaflex 4 mg prn, neck and back pain causing headaches and poor sleep, Continue the gabapentin to 300 mg in the morning 400 mg at night, may need increase pending course Monitor the headaches and the blood pressure Continue the Keppra Continue the Vimpat Call if there is any worsening Minimize napping and get more hours through the night The patient was counseled on proper sleep hygiene and adequate hours of sleep. The patient was counseled on the risks of stroke, SC, and sudden with HOWARD, along with the need for compliance with the CPAP/BiPAP treatment. Return to clinic: 6-8 weeks [facility] Summary Purpose Family History No Family History Records Found Relationship Condition Age at Onset Recorded Date/T tricia father Diabetes mellitus Unknown Not Specified Diabetes mellitus Unknown Relationship Condition Age at Onset Recorded Date/T tricia father Diabetes mellitus Unknown mother Diabetes mellitus Unknown Advance Directives No Advanced Directives Records Found Advance Directive Response Recorded Date/ Time Advance Directives No August 02 12:13pm Advance Directive Response Recorded Date/ Time Advance Directives No August 02 1:13pm Reason for Referral Reason Ca office - Se izure disorder, treated at [facility]. Diagnosis 1 Seizure disorder (G4 0.909) Referral Organization [facility] Referring Provider First Name Marlee Referring Provider Last Name Martha Referring Provider Specialty Family [facility] Referred Organization [facility] Referred Address [address],[place], [place],[address] Referred Provider Specialty Neurology Referral Priority Routine [...] Fatigue Osteoarthritis of lumbar spine Chief Complaint High BP Chief Complaint Admit Date Med f/u April 29, 2024 1:41pm Reason for Visit Admit Date Essential (primary) hypertension uar 2024 1:41pm Osteoarthritis of lumbar spine April 29, 2024 1:41pm Screening PSA (prostate specific antigen ) April 29, 2024 1:41pm Seizure disorder April 29, 2024 1:41pm Additional Source Comments (unrecognized sect ion and content) No Status Records FoundNo Status Records Found INFORMATION SOURCE (unrecogn ized section and content) DATE CREATED AUTHOR 10/30/2020 [facility] [place] [facility] DATE CREATED AUTHOR AUTHOR'S ORGANANTOINE ATION 05/11/2024 [facility] EPIC REASON FOR VISIT (unrecogniz ed section and content) Reason Comments Sleep Apnea Seizures Headache Dizziness Numbness Tingling Reason Comments Sleep Apnea Seizures Headache Dizziness Reason Comments Sleep Apnea Seizures Headache Numbness Tingling Care Teams (unrecognized sec tion and content) Team Status: Active Member Role Status Dates Marlee Thomas MD Primary Care Provider Active Team Status: Inactive Member Role Status Dates Marlee Thomas MD Attending Provider Active St art: March 07, 2023 End: March 07, 2023 Team Status: Inactive Member Role Status Dates Marlee Thomas MD Primary Care Provide r, Attending Provider Active Start: May 05, 2023 End: May 05, 2023 Team Status: Active Member Role Status Dates Marlee Thomas MD Primary Care Provider Active Start: May 12, 2023 ELVIS Prasad Attending Provider Active Start : May 12, 2023 Team Status: Active Member Role Status Dates Marlee Thomas MD Primary Care Provider Active Start: May 22, 2023 ELVIS Prasad Attending Provider Active Start : May 22, 2023 Team Status: Inactive Member Role Status Dates Marlee Thomas MD Primary Care Provide r, Attending Provider Active Start: July 24, 2023 End: July 24, 2023 Team Status: Inactive Member Role Status Dates Marlee Thomas MD Primary Care Provide r, Attending Provider Active Start: December 04, 2023 End: December 04, 2023 Package Dyer Relationship Specialty Start Date End Date Marlee Thomas MD [address] [place] [address] PCP - General Family Medicine 07/26/23 Package Dyer Relationship Specialty Start Date End Date Marlee Thomas MD [address] [place] [address] PCP - General Family Medicine 07/26/23 Rehan Rae DO [address] [place] [address] Referring Physician Neurology 02/07/24 Tiesha Hou NP [address] [place] [address] Nurse Practitioner Neurology 02/07/24 Package Dyer Relationship Specialty Start Date End Date Marlee Thomas MD [address] [facility] [place] [phone] PCP - General Family Medicine 07/26/23 Package Dyer Relationship Specialty Start Date End Date Marlee Thomas MD [address] [place] [facility] [place] [phone] PCP - General Family Medicine 07/26/23 Package Dyer Relationship Specialty Start Date End Date Marlee Thomas MD [address] [place] [facility] [place] [phone] PCP - General Family Medicine 07/26/23 Team Status: Inactive Member Role Status Dates Marlee Thomas MD Primary Care Provide r, Attending Provider Active Start: April 29, 2024 End: April 29, 2024 Package Dyer Relationship Specialty Start Date End Date Marlee Thomas MD [address] [place] [facility] [place] [phone] PCP - General Family Medicine 07/26/23 Rehan Rae DO [address] [place] [address] Referring Physician Neurology 02/07/24 Tiesha Hou NP [address] [place] [address] Nurse Practitioner Neurology 02/07/24 Goals (unrecognized section and content) Goals may [...] BE BASED ON THE PRIMARY CLINICAL RECORDS. [facility]. provides no warranty or guarantee of the accuracy or completeness of information in this document.
[2024-05-14 10:57] LABS: Basophils Absolute Auto 0.1 10^3/uL (0.0-0.1); Basophils Percent Auto 0.6 % (0.2-2.0); Eosinophils Absolute Auto 0.3 10^3/uL (0.0-0.7); Eosinophils Percent Auto 1.5 % (0.9-7.0); Hematocrit 44.5 % (42.0-54.0); Immature Granulocytes Abs Auto 0.08 10^3/uL (0.00-0.03); Immature Granulocytes Pct Auto 0.5 % (0.0-0.5); Lymphocytes Absolute Auto 4.5 10^3/uL (1.2-3.8); Lymphocytes Percent Auto 27.2 % (20.5-60.0); Mean Corpuscular HGB Conc 33.7 g/dL (29.9-35.2); Mean Corpuscular Hemoglobin 31.6 pg (25.9-34.0); Mean Corpuscular Volume 93.9 fL (80.0-94.0); Monocytes Absolute Auto 1.4 10^3/uL (0.3-0.8); Monocytes Percent Auto 8.6 % (1.7-12.0); Neutrophils Absolute Auto 10.3 10^3/uL (1.4-6.5); Neutrophils Percent Auto 61.6 % (43.0-75.0); Platelet Count 284 10^3/uL (150-450); Red Blood Count 4.74 10^6/uL (4.70-6.10); Red Cell Distribution Width 12.9 % (11.0-15.0); White Blood Count 16.6 10^3/uL (4.0-11.0)
[2024-05-14 11:28] LABS: Microalbumin Urine Random <1.3 mg/dL (<=30.0)
[2024-05-14 11:38] LABS: Alanine Aminotransferase 76 U/L (16-63); Albumin Globulin Ratio 1.1; Alkaline Phosphatase 92 U/L (46-116); Anion Gap 12.2; Aspartate Amino Transferase 33 U/L (15-37); BUN Creatinine Ratio 10.9; Bilirubin Total 0.3 mg/dL (0.2-1.0); Calcium 9.3 mg/dL (8.5-10.1); Carbon Dioxide 28.2 mmol/L (21.0-32.0); Chloride 103 mmol/L (98-107); Chol HDL Ratio 5.1; Cholesterol 230 mg/dL (<=200); Estimated GFR (African America >60 (>=60 mL/min/1.73m^2); Estimated GFR (Non-African Ame 53 (>=60 mL/min/1.73m^2); Globulin 3.5 g/dL; Glucose 99 mg/dL (74-106); HDL Cholesterol 45 mg/dL (40-60); Potassium 4.4 mmol/L (3.5-5.1); Sodium 139 mmol/L (136-145); Total Protein 7.5 g/dL (6.4-8.2); Triglycerides 465 mg/dL (<=150)
[2024-05-14 11:41] LABS: LDL Cholesterol Direct 126 mg/dL
[2024-05-14 11:43] LABS: Prostate Specific Antigen Scrn 2.18 ng/mL (<=4.00)
[2024-05-14 11:47] LABS: Creatinine Urine Random 637.74 mg/dL (20.00-300.00)
== END 2024-05-14 10:20 | disposition home or self-care (01) ==
LOC: LAB 10:21
PROVIDERS: PCP Family Medicine; Visit Provider Family Medicine
DX: I10 Essential (primary) hypertension (principal); Z12.5 Encounter for screening for malignant neoplasm of prostate
CPT/HCPCS: 36415; 80053; 80061; 82043; 82570; 83721; 85025; G0103

== ENCOUNTER 2024-09-09 08:03 | Outpatient (OUT) | payer OTHER, SELFPAY ==
--- NOTE | 2024-09-09 09:18 | ECG_ITS ---
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 Measurements Intervals [employer] Rate: 67 P: 47 IN: 155 QRS: -38 QRSD: 94 T: 14 QT: 383 QTc: 405 Interpretive Statements SINUS RHYTHM MARKED LEFT AXIS DEVIATION [QRS AXIS < -30] LOW QRS VOLTAGE IN PRECORDIAL LEADS [QRS DEFLECTION < 1.0 mV IN CHEST LEADS] PATTERN CONSISTENT WITH PULMONARY DISEASE INCOMPLETE RIGHT BUNDLE BRANCH BLOCK [90+ ms QRS DURATION, TERMINAL R IN V1/V2, 40+ ms S IN I/aVL/V4/V5/V6] Compared to ECG 01/09/2023 11:36:05 Low QRS voltage now present Electronically Signed On 09-09-2024 18:20:55 EDT by SONIA MONTOYA M.D.
--- NOTE | 2024-09-09 10:42 | PC.NURSE ---
Nursing Note Cardiac Stress Test Reviewed: Medication, allergies and patient history reviewed. Stress Test: [ ] Patient tolerated stress test well. [ ] Patient unable to tolerate walking on treadmill. Switched to Lexiscan stress test. [ ] No chest pain noted per patient [ ] Chest pain that resolved prior to leaving stress lab. [ ] No dyspnea noted. [ ] Dyspnea that resolved prior to leaving stress lab. [ ] Patient left stress lab asymptomatic and hemodynamically stable. [ ] Patient taken to the Emergency Room due to non-resolving symptoms following stress test. [ ] Patient achieved target heart rate. [ ] Patient unable to achieve target heart rate. [ ] Aminophylline administered as reversal agent to Lexiscan (Regadenoson). [ ] Nitro administered. Nursing Comments:Pt had a regular TM stress test ordered. Pt was unable to walk on TM for longer then 10 seconds. Pt attempted it 2 times but was unsuccessful both times and almost fell off the TM. Pt states he was unable to walk long enough to get HR up. I contacted the ordering provider and left a message for her about the test and that he was unable to complete it.
== END 2024-09-09 08:04 | disposition home or self-care (01) ==
LOC: CARD 08:05
PROVIDERS: PCP Family Medicine; Visit Provider Family Medicine
DX: R07.9 Chest pain, unspecified (principal); I10 Essential (primary) hypertension
CPT/HCPCS: 93005

== ENCOUNTER 2024-11-11 07:06 | Outpatient (OUT) | payer OTHER, SELFPAY ==
--- OUTSIDE RECORDS SUMMARY | 2024-11-04 06:12 | XMS_ITS | Continuity of Care Document ---
Author Organization [facility] Address [address] [place] [address] Phone Care Team Providers Care Facility Maintenance Worker Name Role Phone Marlee Sosa MD Primary Care Provider Marlee Sosa MD Attending Provider Dorota Hou APRN Attending Provider Care Teams Patient Care Team Team Status: Active Member Role Status Dates Marlee Sosa MD Primary Care Provider Active Visit Care Team Team Status: Inactive Member Role Status Dates Marlee Sosa MD Primary Care Provider Active Start: August 15, 2024 End: August 15, 2024 Marlee Sosa MD Attending Provider Active St art: August 15, 2024 End: August 15, 2024 Visit Care Team Team Status: Inactive Member Role Status Dates Marlee Sosa MD Primary Care Provider Active Start: September 11, 2024 End: September 11, 2024 Marlee Sosa MD Attending Provider Active St art: September 11, 2024 End: September 11, 2024 Patient Care Team Team Status: Inactive Member Role Status Dates Marlee Sosa MD Primary Care Provider Active Start: November 04, 2024 End: November 04, 2024 Dorota Hou APRN Attending Provider Active Start: November 04, 2024 End: November 04, 2024 Chief Complaint and Reason for Visit Chief Complaint Admit Date bp concerns August 15, 2024 3:35p m 1 month f/u September 11, 2024 9:52 am 6 month follow up November 04, 2024 9: 33am Reason for Visit Admit Date Essential (primary) hypertension July 3:35pm Left-sided chest pain August 15, 2024 3:3 5pm Essential (primary) hypertension September 112024 9:52am Left-sided chest pain September 11, 2024 9: 52am Allergies, Adverse Reactions, Alerts Allergen Type Severity Reaction Last Updated Verified Status lisinopril Allergy Unknown Hives November 04, 2024 9:44am Yes Active Social History Smoking Status Unknown if ever smoked Observation Status Observation Response Date of Response Legal Sex Male (finding) Sex Assigned At Male May Family History Relationship Condition Age at Onset Recorded Date/T tricia father Diabetes mellitus Unknown mother Diabetes mellitus Unknown Problems Active Problems Medical Problem Onset Date Status Left-sided chest pain Unknown Active Dizziness of unknown cause Unknown Activ e Screening PSA (prostate specific antigen) Unknow n Active Encounter for screening for malignant neoplasm o f prostate Unknown Active Colon cancer screening Unknown Active Fatigue Unknown Active Osteoarthritis of lumbar spine Unknown A ctive Seizure disorder Unknown Active Essential (primary) hypertension Unknown Active Medications Medication Status Dose Units Route Directions Qty Days St art Date Stop Date End Date Instructions Adherence Metoprolol Succinate 100 mg tablet extended release 24 hr Discont inued 0 .ROUTE .[facility] May 22, 2023 4:36pm July 17, 2023 11:47 am TAKE ONE TABLET BY MOUTH ONCE DAILY FOR 30 DAYS Levetiracet am 750 mg tablet Discont inued 0 .ROUTE .COMPLEX May 22, 2023 4:36pm September 19, 2023 9:41a m TAKE TWO TABLETS BY MOUTH TWICE A DAY ( IN THE MORNING AND AT BEDTIME ) Clonidine Hcl 0.1 mg tablet Discont inued 0.1 MG PO Twice daily June 14, 2023 12:48p m June 15, 2023 9:49p m Clonidine Hcl 0.1 mg tablet Discont inued 0 .ROUTE .COMPLEX June 15, 2023 9:49pm July 17, 2023 11:47 am TAKE ONE TABLET BY MOUTH TWICE A DAY Clonidine Hcl 0.1 mg tablet Discont inued 0 .ROUTE .COMPLEX July 17, 2023 11:47a m July 24, 2023 10:19 am TAKE ONE TABLET BY MOUTH TWICE A DAY Metoprolol Succinate 100 mg tablet extended release 24 hr Discont inued 0 .ROUTE .COMPLEX July 17, 2023 11:47a m August 17, 2023 8:47a m TAKE ONE TABLET BY MOUTH ONCE DAILY FOR 30 DAYS Meloxicam 15 mg tablet Discont inued 15 MG PO Daily August 10, 2023 11:12a m Septe mber 2023 4:29p m FreeTextSig: TAKE ONE TABLET BY MOUTH DAILY; Note: Source Status: Start; Refills: 3; Qty: 30 Each; Provider: Ian Whalen ( ) Metoprolol Succinate 100 mg tablet extended release 24 hr Discont inued 0 .ROUTE .COMPLEX August 17, 2023 8:47am October 17, 2023 9:56a m TAKE ONE TABLET BY MOUTH ONCE DAILY FOR 30 DAYS Levetiracet am 750 mg tablet Discont inued 0 .ROUTE .COMPLEX September 19, 2023 9:41am August 20, 2024 10:21 am TAKE TWO TABLETS BY MOUTH TWICE A DAY ( IN THE MORNING AND AT BEDTIME ) Metoprolol Succinate 100 mg tablet extended release 24 hr Discont inued 0 .ROUTE .COMPLEX October 17, 2023 9:55am [facility] 2023 12:18 pm TAKE ONE TABLET BY MOUTH ONCE DAILY FOR 30 DAYS Clonidine Hcl 0.2 mg tablet Discont inued 0.2 MG PO Twice daily November 03, 2023 7:49am 2023 2:13p m Meloxicam 15 mg tablet Discont inued 15 MG PO Daily 2023 4:29pm [facility] 2023 11:51 am FreeTextSig: TAKE ONE TABLET BY MOUTH DAILY; Note: Source Status: Start; Refills: 3; Qty: 30 Each; Provider: Ian Whalen ( ) Clonidine Hcl 0.2 mg tablet Discont inued 0.2 MG PO Twice daily 60 Novemb er 2023 2:13pm Febru 2024 3:22p m Metoprolol Succinate 100 mg tablet extended release 24 hr Discont inued 0 .ROUTE .COMPLEX er 2023 12:18p m June 10, 2024 3:42p m TAKE ONE TABLET BY MOUTH ONCE DAILY FOR 30 DAYS Amlodipine 10 mg tablet Discont inued 10 MG PO Daily 30 mb er 2023 10:56a m June 10, 2024 8:38a m Meloxicam 15 mg tablet Discont inued 15 MG PO Daily 30 mb er 2023 11:51a m Febru marina 2024 12:42 pm FreeTextSig: TAKE ONE TABLET BY MOUTH DAILY; Note: Source Status: Start; Refills: 3; Qty: 30 Each; Provider: Ian Whalen ( ) Meloxicam 15 mg tablet Active 15 MG PO Daily 30 Februa ry 2024 12:42p m FreeTextSig: TAKE ONE TABLET BY MOUTH DAILY; Note: Source Status: Start; Refills: 3; Qty: 30 Each; Provider: Ian Whalen ( ) Complies with drug therapy Fenofibrate Nanocrystal lized 145 mg tablet Discont inued 145 MG PO Daily May 20, 2024 1:00am June 10, 2024 3:42p m Blood Pressure Monitor kit Discont inued 0 .Route June 06, 2024 12:00a m June 06, 2024 3:40p m to check blood pressure daily Blood Pressure Monitor kit Active 0 .Route June 06, 2024 3:40pm to check blood pressure daily Amlodipine 10 mg tablet Discont inued 10 MG PO Daily June 10, 2024 8:38am June 10, 2024 3:42p m Metoprolol Succinate 100 mg tablet extended release 24 hr Discont inued 0 .ROUTE .COMPLEX June 10, 2024 3:42pm August 15, 2024 4:11p m TAKE ONE TABLET BY MOUTH ONCE DAILY FOR 30 DAYS Amlodipine 10 mg tablet Discont inued 10 MG PO Daily June 10, 2024 3:42pm August 19, 2024 10:58 am Fenofibrate Nanocrystal lized 145 mg tablet Discont inued 145 MG PO Daily June 10, 2024 3:42pm August 19, 2024 10:58 am Fenofibrate Nanocrystal lized 145 mg tablet Discont inued 145 MG PO Daily August 19, 2024 10:58a m August 23, 2024 11:59 am Amlodipine 10 mg tablet Discont inued 10 MG PO Daily August 19, 2024 10:58a m August 23, 2024 11:59 am Levetiracet am 750 mg tablet Discont inued 0 .ROUTE .COMPLEX August 20, 2024 10:21a m September 03, 2024 12:25 pm TAKE TWO TABLETS BY MOUTH TWICE A DAY ( IN THE MORNING AND AT BEDTIME ) Amlodipine 10 mg tablet Active 10 MG PO Daily August 23, 2024 11:59a m Complies with drug therapy Fenofibrate Nanocrystal lized 145 mg tablet Active 145 MG PO Daily August 23, 2024 11:59a m Complies with drug therapy Clonidine Hcl 0.3 mg tablet Active 0.3 MG PO Twice daily 60 August 28, 2024 8:19am Complies with drug therapy Levetiracet am 750 mg tablet Active 0 .ROUTE .COMPLEX 360 September 03, 2024 12:25p m TAKE TWO TABLETS BY MOUTH TWICE A DAY ( IN THE MORNING AND AT BEDTIME ) Complies with drug therapy Meloxicam 15 mg tablet Discont inued 1 TAB PO Daily 2023 1:00am 2023 10:47 am FreeTextSig: TAKE ONE TABLET BY MOUTH DAILY; Note: Source Status: Start; Refills: 3; Qty: 30 Each; Provider: Ian Whalen ( ) Levetiracet am 750 mg tablet Discont inued MG PO 2023 1:00am May 22, 2023 4:36p m FreeTextSi tablets Orally Twice daily, in the morning and at bedtime; Note: Source Status: Refill; Refills: 3; Provider: Ian Akins Gabapentin 100 mg capsule Discont inued 100 MG PO Three times daily 2023 1:00am 2024 3:03p m FreeTextSi capsule Orally tid; Note: Source Status: Taking; Provider: Ian Whalen ( ) Amlodipine 10 mg tablet Discont inued 1 TAB PO Daily 2023 1:00am Septe [facility] 2023 4:01p m FreeTextSig: TAKE ONE TABLET BY MOUTH ONCE DAILY; Note: Source Status: Taking; Refills: 4; Qty: 30 Each; Provider: Ian Akins Thiamine Hcl (Vitamin B1) 100 mg tablet Active 100 MG PO Daily 2023 1:00am FreeTextSi tablet once a day; Note: Source Status: Taking; Provider: Ian Whalen ( ) Complies with drug therapy Metoprolol Succinate 100 mg tablet extended release 24 hr Discont inued 100 MG PO Daily 2023 1:00am May 22, 2023 4:36p m FreeTextSi tablet Orally Once a day; Note: Source Status: Refill; Refills: 1; Qty: 30 Tablet; Provider: Ian Akins Aspirin (Adult Aspirin Regimen) 81 mg tablet,jeffrey yed release (DR/EC) Active 81 MG PO Daily 2023 1:00am Complies with drug therapy Meloxicam 15 mg tablet Discont inued 15 MG PO Daily 30 2023 10:47a m August 10, 2023 11:12 am FreeTextSig: TAKE ONE TABLET BY MOUTH DAILY; Note: Source Status: Start; Refills: 3; Qty: 30 Each; Provider: Ian Whalen ( ) Clonidine Hcl 0.2 mg tablet Discont inued 0.2 MG PO Twice daily 60 July 24, 2023 12:00a m Augus t 2023 7:49a m Tizanidine 4 mg capsule Active 4 MG PO Daily at bedtime as needed 2024 1:00am Complies with drug therapy Gabapentin 400 mg capsule Active 400 MG PO Daily 2024 1:00am Complies with drug therapy Gabapentin 600 mg tablet Active 600 MG PO Daily at bedtime 2024 1:00am Complies with drug therapy Clonidine Hcl 0.3 mg tablet Discont inued 0.3 MG PO Twice daily 60 2024 3:21pm August 28, 2024 8:19a m Metoprolol Succinate 50 mg tablet extended release 24 hr Active 50 MG PO Daily August 15, 2024 4:08pm Complies with drug therapy Clonidine Hcl 0.1 mg tablet Discont inued 0.1 MG PO Twice daily 60 2023 1:00am Febru 2023 10:20 am Clonidine Hcl 0.1 mg tablet Discont inued 0.1 MG PO Twice daily 60 2023 10:20a m June 14, 2023 12:49 pm Amlodipine 10 mg tablet Discont inued 10 MG PO Daily 30 2023 4:01pm Decem 2023 10:56 am Vital Signs Vital Reading Result Reference Range Collection Date/Time Height 65.5 [in_i] August 15, 2024 3:47pm Weight 94.80 kg August 15, 2024 3:47pm Heart Rate 61 /min 60-100 August 15, 2024 3:47pm BP Systolic 151 mm[Hg] 100-140 August 15, 2024 3:47pm BP Diastolic 96 mm[Hg] 60-100 August 15, 2024 3:47pm BMI (Body Mass Index) 34.2 kg/m2 August 152024 3:47pm Height 65.5 [in_i] September 11, 2024 10:02am Weight 94.80 kg September 11, 2024 10:02am Heart Rate 67 /min 60-100 September 11, 2024 10:02am BP Systolic 130 mm[Hg] 100-140 September 11, 2024 10:02am BP Diastolic 85 mm[Hg] 60-100 September 11, 2024 10:02am BMI (Body Mass Index) 34.2 kg/m2 August 192024 10:02am Height 65 [in_i] November 04 9:41am Weight 96.16 kg November 04 9:41am BP Systolic 148 mm[Hg] 100-140 November 04 9:41am BP Diastolic 99 mm[Hg] 60-100 November 04 9:41am BMI (Body Mass Index) 35.2 kg/m2 November 04, 2024 9:41am Advance Directives Advance Directive Response Recorded Date/ Time Advance Directives No August 02 8 1:13pm Insurance Providers Guarantor Bob Landaverde Address [address] [place] [address] Contact Info. Home Phone: Payer Policy Id Subscriber's Name Subscriber Id Effective Date Expiration Date [employer] [id number] Bob Landaverde [id number] [employer] [id number] Bob Eubanksne [id number] Encounters Encounter Location(s) Arrival/Admit Date Discharge/Depart Date Provider(s) Departed Physician/Prov ider Office Visit -[facility] August 15, 2024 3:35pm August 15, 2024 4:20pm Marlee Sosa MD Departed Physician/Prov ider Office Visit -[facility] September 11, 2024 9:52am September 11, 2024 10:29am Marlee Sosa MD Departed Physician/Prov ider Office Visit -[facility] November 04, 2024 9:33am November 04, 2024 10:11am Rubi Gongora APRN Recent Diagnosis Onset Date Admit Date Essential (primary) hypertension Unknown August 15, 2024 3:35pm Left-sided chest pain Unknown August 15, 2024 3:35pm Essential (primary) hypertension Unknown September 11, 2024 9:52am Left-sided chest pain Unknown September 11, 2024 9:52am Assessments Diagnosis Onset Date Resolution Status Admit Date Essential (primary) hypertension acu te August 15, 2024 3:35pm Left-sided chest pain acute August 15, 2024 3:35pm Essential (primary) hypertension acu te September 11, 2024 9:52am Left-sided chest pain acute Aug 9:52am Plan of Treatment Author Dortoa Hou [facility] Authored November 04, 2024 10 :07am Review and summary of old re cords: Hospital workup includes Lumbar puncture under fluoroscopy MRI of the brain that was nonacute with small-vessel changes CT of the brain that was nonacute Continuous EEG that showed status epilepticus . . 59 year old male with episodes of intractable headache however this was likely related to his severe hypertension. His BP has been normotensive. It was suspected that HTN was causing the headaches not vice versa and these are not primary headaches they are more related to the blood pressure. He now has only had a few minor headaches a month. He is not eating much salt in his diet. . He has BLE pain and paresthesias secondary to a PN Which causes him some dizziness and balance issues. He continues with his cane and no falls since last visit. He is on gabapentin BID. His paresthesias that were worsening as the day goes on and waking him at night have improved with the increase in the bedtime gabapentin. He is having a little trouble swallowing so many caps. We are going to get to one cap/tab. . Patient has been found to have a severe obstructive sleep apnea with an apnea-hypopnea index of 61 and a oxygen desaturation down to 83 percent. He does have obstructive sleep apnea with an emergence of central sleep apnea He is on Serevent machine and denies any issues with the machine or his mask. He is benefiting greatly as his BP and headaches have both improved. He is getting more hours of sleep and waking rested. He is not complaint on download ending 05/05/2024 as he wore the mask > 4 hours 60% of the days with nightly average usage 5 hours 3 minutes, residual AHI 8.3. He did put it on . He was much more complaint on last download. He continues to have inadequate sleep hygiene with not enough hours at night. He is sleeping around 6 hours. He states this is actually good for him as he has always been a 4-5 hours sleeper. He is no longer needing naps since on his machine. We did discuss getting closer to 7.5-8. . Patient was originally seen for episodes [...] put on Keppra which was increased to 1500 mg twice a day and loaded on Vimpat 100 mg twice a day. His EEG normalized. He remains on the Keppra 1500 mg twice a day and is no longer on the Vimpat 100 mg twice a day according to our research. This has not been filled since March 08, 2023. From someone in [place]. He is not having any events so we will leave things as they are. He is also on gabapentin for the paresthesias. He is having some photosensitivity that started a few months ago. He has never been to the an eye provider and was scheduling this. Not discussed today. . . . Plan MMSE at next visit Compliance download reviewed Compliance download at next visit Get mask on every night and wear whenever sleeping continue zanaflex 4 mg 1/2-1 prn neck and back pain Continue the gabapentin to 400 mg in the morning 600 mg at night OARRS reviewed and as expected, reviewed with refills Monitor the headaches and the blood pressure Continue the Keppra 750 mg 2 tabs BID He is no longer on Vimpat, this was from psych likely as last filled from a [facility] provider, and not filled since 02/[address] for photosensitivity Call if there is any worsening Increase hours of sleep to 7.5-8 The patient was counseled on proper sleep hygiene and adequate hours of sleep. The patient was counseled on the risks of stroke, [place], and sudden with HOWARD, along with the need for compliance with the CPAP/BiPAP treatment. Author [facility] Authored August 16, 2024 1:00p m Jerri ordered and faxed t o [facility] Decrease metoprolol and take metoprolol in am and amlodipine in pm. Continue to take clonidine bid. Author [facility] Authored September 11, 2024 2:18 pm Goraniscan pending. If results abnormal, will refer to cardiology. Continue present medications, HH diet. Followup in 3 months. Future Tests Future scheduled test information is unavailable Pending Tests Pending diagnostic test information is unavailable Future Visits Future appointment information is unavailable Referrals to Other Providers Referral information is unavailable Future Procedures Future procedure information is unavailable Future Medications Future medication information is unavailable Patient Instructions Patient instructions are unavailable
--- NOTE | 2024-11-11 | NM_ITS ---
Patient Name: OSMANI AYALA MR#: [id number] : 1965 Exam Date: 11/11/2024 Ordering Doctor: DR EVON THOMAS M.D. RADIOLOGY REPORT PROCEDURE: NM CHONG PERF SPECT REST STR COMPARISON: None. INDICATIONS: ESSENTIAL HYPERTENSION, UNABLE TO WALK TREADMILL TECHNIQUE: Exam Description: Stress/Rest one day protocol gated SPECT Rest Imagin.1 mCi Tc-99m Cardiolite IV on 11/11/2024 Stress Imaging 30.7 mCi Tc-99m Cardiolite IV on 11/11/2024 Exercise Protocol: 0.4 mg Lexiscan given IV Heart Rate (bpm): Rest: 63 Max: 88 PMHR: 54 Blood Pressure: Rest: 160/98 Max: 160/98 Symptoms: Rest and peak stress ECG findings were pending, and the exercise portion of the study was pending per attending physician [facility]. For more details, please see separate cardiac stress test report. FINDINGS: QUALITY OF STUDY: Good PERFUSION DEFECT: LOCATION: N/A SIZE: N/A SEVERITY: N/A TYPE: N/A WALL MOTION: Normal wall motion LV SIZE: 74 mL. TID / TCD: 0.7 LVEF: Calculated EF 69%. SUMMARY: Myocardial perfusion imaging study is normal CONCLUSION: 1. Myocardial perfusion is normal with diaphragmatic attenuation 2. Global left ventricular systolic function is normal 3. No significant transient ischemic dilatation Dictated by: Shannan Castillo M.D. on 11/13/2024 at 13:48 Approved by: Shannan Castillo M.D. on 11/13/2024 at 13:49
--- OUTSIDE RECORDS SUMMARY | 2024-11-11 07:08 | XMS_ITS | CCD ---
Author Organization [facility] Care Team Providers Care Practice Clinician Name Role Phone NEO WATKINS Attending Unavailable NEO WATKINS Consulting Unavailable MARTHA, DR MARLEE Akins Primary Care Unavailable NEO WATKINS Admitting Unavailable JAY JAY, DR OWEN Moss Attending Unavailable JAY JAY, DR OWEN Moss Consulting Unavailable JAY JYA, DR OWEN Moss Admitting Unavailable MARTHA, DR MARLEE Akins Primary Care Unavailable ABBI, DR GUERRERO Consulting Unavailable Marlee Thomas Unavailable Marlee Thomas MD Primary Care Provider Rehan Rae DO Unavailable Savi TERRAZZO JOURNEYMAN, Tiesha Unavailable TIESHA HOU Attending Unavailable REHAN RAE Attending Unavailable TIESHA HOU Attending Unavailable REHAN RAE Attending Unavailable TIESHA HOU Attending Unavailable MARLEE THOMAS Referring Unavailable Marlee Thomas MD Primary Care Provider [phone] Marlee Thomas MD Primary Care Provider [phone] Marlee Thomas MD Attending Provider Tiesha Hou APRN Attending Provider Allergies Allergy Classification Reported Allergen(s) Allergy Type Date of Onset Reaction(s) Facility (12 sources) Lisinopril Drug Allergy Unknown [facility] Other (11 sources) Lisinopril Propensity to adverse reactions 4 [facility] Medications Current Medications Medication Drug Class(es) Dates Sig (Normalized) Sig (Original) aspirin 81 mg delayed release oral tablet (20 sources) Platelet Aggregation Inhibitor, Nonsteroidal Anti-inflammatory Drug Start: 05-05-2023 take 1 tablet by mouth once daily Aspirin (Adult Aspirin Regimen) 81 mg tablet,delayed release (DR/EC) Active 81 MG PO Daily May 05, 2023 1:00am Complies with drug therapy Aspirin 81 Activ e atenolol 50 mg oral tablet (6 sources) beta-Adrenergic Cassie take 1 tablet by mouth every twenty-four hours Atenolol 50 MG 1 tablet Orally Once a day for 30 days Active Blood Pressure Monitor kit (6 sources) Start: Blood Pressure Monitor kit Active 0 .Route 1 June 06, 2024 3:40pm to check blood pressure daily Start: 06-06-2024 End: 06-06-2024 Blood Pressure Monitor kit D iscontinued 0 .Route 1 June 06, 2024 12:00am June 06, 2024 3:40pm to check blood pressure daily cefdinir 300 mg oral capsule (1 source) Cephalosporin Antibacterial Start: 01-02-2023 Cefdinir 300 MG as directed Orally bid for 7 days Dec, Active gabapentin 600 mg oral tablet (20 sources) Anti-epileptic Agent Start: 02-07-2024 End: 08-06-2024 take 1 capsule by mouth once daily Gabapentin 400 mg capsule Active 400 MG PO Daily April 29, 2024 1:00am Complies with drug therapy Start: 02-07-2024 End: 08-06-2024 take 1 tablet by mouth once daily at bedtime Gabapentin 600 mg tablet Active 600 MG PO Daily at bedtime April 29, 2024 1:00am Complies with drug therapy Start: 12-26-2023 End: 02-07-2024 take 3 capsules [...] Three times daily May 05, 2023 1:00am April 29, 2024 3:03pm FreeTextSi capsule Orally tid; Note: Source Status: [...] 100 mg in the evening. 01/18/2023 Active methylPREDNISolone (2 sources) Corticosteroid Start: 11-16-2023 End: 11-23-2023 methylPREDNISolone (Medrol Dospak) 4 MG tablets Indications: Chronic tension-type headache, intractable Follow schedule on package instructions 21 tablet 11/16/2023 11/23/2023 Active 24 hr metoprolol succinate 50 mg extended release oral tablet (20 sources) beta-Adrenergic Cassie Start: 08-15-2024 take 1 tablet by mouth once daily Metoprolol Succinate 50 mg tablet extended release 24 hr Active 50 MG PO Daily August 15, 2024 4:08pm Complies with drug therapy Start: 05-22-2023 End: 08-15-2024 take 1 tablet by mouth once daily Metoprolol Succinate 100 mg tablet extended release 24 hr Discontinued 0 .ROUTE .COMPLEX June 10, 2024 3:42pm August 15, 2024 4:11pm TAKE ONE TABLET BY MOUTH ONCE DAILY [...] th once daily metoprolol succinate XL (Toprol-XL) 25 [...] Refill; Refills: 1; Qty: 30 Tablet; Provider: Martah Akins Start: 03-07-2023 take 1 tablet by rosemary th once daily metoprolol succinate XL (Toprol-XL) 100 MG 24 hr tablet Take 25 mg by mouth Daily 03/07/2023 Active thiamine 100 mg oral tablet (20 sources) Start: 01-19-2023 take 1 tablet by mouth once daily Thiamine Hcl (Vitamin B1) 100 mg tablet Active 100 MG PO Daily May 05, 2023 1:00am FreeTextSi tablet once a day; Note: Source Status: Taking; Provider: Martha Whalen ( ) Complies with drug therapy tiZANidine 4 mg oral capsule (14 sources) Central alpha-2 Adrenergic Agonist Start: 04-29-2024 take 1 capsule by mouth once daily at bedtime as needed Tizanidine 4 mg capsule Active 4 MG PO Daily at bedtime as needed April 29, 2024 1:00am Complies with drug therapy Start: 02-20-2024 tiZANidine (Za naflex) 4 MG tablet Indications: Neck pain Take 1/2-1 as needed qam 30 tablet 5 05/09/2024 Active Start: 11-22-2023 tiZANidine (Za naflex) 4 [...] Dihydropyridine Calcium Channel Cassie Start: 05-05-2023 End: 08-23-2024 take 1 tablet by mouth once daily Amlodipine 10 mg tablet Discontinued 10 MG PO Daily December 04, 2023 4:01pm February 28, 2024 10:56am cloNIDine hydrochloride 0.3 mg oral tablet (20 sources) Central alpha-2 Adrenergic Agonist Start: 07-24-2023 End: 08-28-2024 take 1 tablet by mouth twice daily Clonidine Hcl 0.3 mg tablet Discontinued 0.3 MG PO Twice daily 60 April 29, 2024 3:21pm August 28, 2024 8:19am Start: 07-24-2023 End: 04-29-2024 take 1 tablet by mouth twice daily Clonidine Hcl 0.2 mg tablet Discontinued 0.2 MG PO Twice daily 60 February 01, 2024 2:13pm April 29, 2024 3:22pm Start: 06-15-2023 End: 07-24-2023 take 1 tablet [...] PO Twice daily 60 May 15, 2023 10:20am June 14, 2023 12:49pm fenofibrate 145 mg oral tablet (10 sources) Peroxisome Proliferator Receptor alpha Agonist Start: 05-20-2024 End: 08-23-2024 take 1 tablet by mouth once daily Fenofibrate Nanocrystallized 145 mg tablet Discontinued 145 MG PO Daily 90 August 19, 2024 10:58am August 23, 2024 11:59am levETIRAcetam 750 mg oral tablet (20 sources) Start: 10-18-2023 End: 04-16-2024 levETIRAcetam (Keppra) 750 MG tablet Indications: Seizure (CMS/HCC) Take 2 tabs twice a day 120 tablet 5 02/07/2024 Active Start: 05-22-2023 End: 09-03-2024 take 2 tablets by mouth twice daily at bedtime Levetiracetam 750 mg tablet Discontinued 0 .ROUTE .COMPLEX 60 August 20, 2024 10:21am September 03, 2024 12:25pm TAKE TWO TABLETS BY MOUTH TWICE A DAY ( IN THE MORNING AND AT BEDTIME ) Start: 05-05-2023 End: 05-22-2023 take 2 tablets by mouth twice daily at bedtime Levetiracetam 750 mg tablet Discontinued MG PO May 05, 2023 1:00am May 22, 2023 4:36pm FreeTextSi tablets Orally Twice daily, in the morning and at bedtime; Note: Source Status: Refill; Refills: 3; Provider: Martha Akins meloxicam 15 mg oral tablet (20 sources) Nonsteroidal Anti-inflammatory Drug Start: 05-05-2023 End: 05-15-2024 take 1 tablet by mouth once daily Meloxicam 15 mg tablet Discontinued 15 MG PO Daily May 05, 2023 10:47am August 10, 2023 11:12am FreeTextSig: TAKE ONE TABLET BY MOUTH DAILY; Note: Source Status: Start; Refills: 3; Qty: 30 Each; Provider: Martha Whalen ( ) Problems Active Problems Problem Classification Problem Date Documented Date Episodic/Chronic Chronic obstructive pulmonary disease and bronchiectasis (2 sources) Bronchitis, not specified as acute or chronic Episodic Conditions associated with dizziness or vertigo (9 sources) Dizziness of unknown cause; Translations: [Dizziness and giddiness] 05-05-2023 Episodic E Codes: Adverse effects of medical drugs (1 source) Adverse effect of angiotensin-converti ng-enzyme inhibitors, initial encounter; Translations: [ADVERSE EFFECT ACEI INITIAL ENCNTR] Onset: 10-21-2020 Episodic Epilepsy; convulsions (18 sources) Seizure disorder; Translations: [Epilepsy, unspecified, not intractable, without status epilepticus] Chronic Essential hypertension (20 sources) Essential (primary) hypertension; Translations: [Essential hypertension] Onset: 07-24-2017 Chronic Headache; including migraine (16 sources) Intractable chronic tension headache; Translations: [Chronic tension-type headache, intractable] Onset: 11-16-2023 11-16-2023 Chronic Headache; including migraine (16 sources) Headache disorder; Translations: [Other headache syndrome] 02-07-2024 Episodic Malaise and fatigue (9 sources) Fatigue; Translations: [Other fatigue] 05-05-2023 Episodic Nonspecific chest pain (7 sources) Left sided chest pain; Translations: [Chest pain, unspecified] 08-15-2024 Episodic Other aftercare (1 source) Other ferry terminal agent (current) drug therapy; Translations: [OTH ELECTRONIC DIE MAKER CURRENT DRUG THERAPY] Onset: 10-21-2020 Episodic Other connective tissue disease (1 source) Neuralgia and neuritis, unspecified Episodic Other injuries and conditions due to external causes (2 sources) Angioneurotic edema, initial encounter; Translations: [ANGIONEUROTIC EDEMA INITIAL ENCNTR] Onset: 11-28-2019 Episodic Other injuries and conditions due to external causes (12 sources) Angioedema; Translations: [Angioneurotic edema, initial encounter] Episodic Other nervous system disorders (17 sources) Idiopathic peripheral neuropathy; Translations: [Hereditary and idiopathic neuropathy, unspecified] Onset: 11-16-2023 11-16-2023 Chronic Other nervous system disorders (12 sources) Paresthesia of lower extremity; Translations: [Paresthesia of skin] Episodic Other nervous system disorders (1 source) Paresthesia of skin Episodic Other screening for suspected conditions (not mental disorders or infectious disease) (17 sources) Patient encounter status; Translations: [Encounter for screening for malignant neoplasm of prostate] 05-05-2023 Episodic Other skin disorders (3 sources) Localized swelling, mass and lump, head; Translations: [LOCALIZED SWELLING MASS AND LUMP HEAD] Onset: 10-19-2020 Episodic Residual codes; unclassified (14 sources) Obstructive sleep apnea syndrome; Translations: [Obstructive sleep apnea (adult) (pediatric)] Onset: 11-16-2023 11-16-2023 Chronic Residual codes; unclassified (4 sources) Mixed sleep apnea; Translations: [Other sleep apnea] 02-07-2024 Chronic Residual codes; unclassified (9 sources) Difficulty sleeping ; Translations: [Sleep disorder, unspecified] Episodic Residual codes; unclassified (1 source) Sleep disorder, unspecified Episodic Spondylosis; intervertebral disc disorders; other back problems (10 sources) Lumbar spondylosis; Translations: [Spondylosis without myelopathy [...] WITHOUT SINUS] Onset: 11-28-2019 Episodic Epilepsy; convulsions (14 sources) Seizure; Translations: [Unspecified convulsions] Onset: 11-16-2023 11-16-2023 Episodic Other lower respiratory disease (3 sources) Shortness of breath; Translations: [SHORTNESS OF BREATH] Onset: 11-04-2019 Episodic Other nervous system disorders (16 sources) Numbness and tingling sensation of skin; Translations: [Anesthesia of skin] Onset: 11-16-2023 11-16-2023 Episodic Spondylosis; intervertebral disc disorders; other back problems (20 sources) Thoracic and lumbosacral neuritis; Translations: [Thoracic or lumbosacral neuritis or radiculitis, unspecified] Onset: 06-06-2017 11-16-2023 Episodic Results Test Name Value Interpretation Reference Range Facil ity Basophils Auto (Bld) [#/Vol] on 05-05-2023 Basophils (Bld) [#/Vol] 0.1 10 3/uL 0.0-0.1 [facility] Basophils/100 WBC Auto (Bld) on 05-05-2023 Basophils/100 WBC (Bld) 0.6 % 0.2-2.0 [facility] Eosinophils/100 WBC Auto (Bl d)on 05-05-2023 Eosinophils/100 WBC (Bld) 1.8 % 0.9-7.0 [facility] Erythrocyte distribution wid th Auto (RBC) [Ratio]on 05-05-2023 Erythrocyte distribution width (RBC) [Ratio] 12.4 % 11.0-15.0 [facility] Estimated glomerular filtrat ion rate (GFR) non- Americanon 05-05-2023 GFR/1.73 sq M.predicted among non-blacks MDRD (S/P/Bld) [Vol rate/Area] 60 mL/min/{1.73_m2} >=60 [facility] Hematocrit Auto (Bld) [Volum e fraction]on 05-05-2023 Hematocrit (Bld) [Volume fraction] 45.7 % 42.0-54.0 [facility] Hemoglobin [Mass/volume] in Bloodon 05-05-2023 Hemoglobin (Bld) [Mass/Vol] 14.9 g/dL 14.0-18.0 [facility] Laboratory - Chemistry and C hemistry - challengeon 05-05-2023 Calcium [Mass/Vol] 9.3 mg/dL 8.5-10.1 [facility] Chloride [Moles/Vol] 103 mmol/L 98-107 [facility] CO2 [Moles/Vol] 29.7 mmol/L 21.0-32.0 [facility] Cobalamin (Vitamin B12) [Mass/Vol] 710.0 pg/mL 193.0-986.0 [facility] Creatinine [Mass/Vol] 1.25 mg/dL 0.70-1.30 [facility] GFR/1.73 sq M.predicted MDRD (S/P/Bld) [Vol rate/Area] mL/min/{1.73_m2} >=60 [facility] Glucose [Mass/Vol] 93 mg/dL 74-106 [facility] Potassium [Moles/Vol] 5.0 mmol/L 3.5-5.1 [facility] Sodium [Moles/Vol] 139 mmol/L 136-145 [facility] TSH Qn 2.896 m[IU]/L 0.358-3.740 [facility] Urea nitrogen [Mass/Vol] 19.0 mg/dL 7.0-18.0 [facility] Urea nitrogen/Creatinine [Mass ratio] 15.2 mg/mg [facility] - Hematology and Cell countson 05-05-2023 Immature granulocytes/100 WBC (Bld) 0.5 % 0.0-0.5 [facility] Leukocytes [#/volume] correc wendy for nucleated erythrocytes in Blood by Automated counon 05-05-2023 WBC corrected for nucl RBC Auto (Bld) [#/Vol] 12.4 10 3/uL 4.0-11.0 [facility] Lymphocytes Auto (Bld) [#/Vo l]on 05-05-2023 Lymphocytes (Bld) [#/Vol] 3.3 10 3/uL 1.2-3.8 [facility] Lymphocytes/100 WBC Auto (Bl d)on 05-05-2023 Lymphocytes/100 WBC (Bld) 26.4 % 20.5-60.0 [facility] MCH Auto (RBC) [Entitic mass ]on 05-05-2023 MCH (RBC) [Entitic mass] 31.1 pg 25.9-34.0 [facility] MCHC Auto (RBC) [Mass/Vol]on 05-05-2023 MCHC (RBC) [Mass/Vol] 32.6 g/dL 29.9-35.2 [facility] MCV Auto (RBC) [Entitic vol] on 05-05-2023 MCV (RBC) [Entitic vol] 95.4 fL 80.0-94.0 [facility] Monocytes Auto (Bld) [#/Vol] on 05-05-2023 Monocytes (Bld) [#/Vol] 1.2 10 3/uL 0.3-0.8 [facility] Monocytes/100 WBC Auto (Bld) on 05-05-2023 Monocytes/100 WBC (Bld) 10.0 % 1.7-12.0 [facility] Neutrophils Auto (Bld) [#/Vo l]on 05-05-2023 Neutrophils (Bld) [#/Vol] 7.5 10 3/uL 1.4-6.5 [facility] Neutrophils/100 WBC Auto (Bl d)on 05-05-2023 Neutrophils/100 WBC (Bld) 60.7 % 43.0-75.0 [facility] No Panel Informationon 05-05 Eosinophils # (Auto) 0.2 10 3/uL 0.0-0.7 [facility] Folate 26.40 ng/mL 8.60-58.90 [facility] Immature Granulocyte # (Auto) 0.06 10 3/uL 0.00-0.03 [facility] Prostate Specific Antigen Screen 0.97 ng/mL <=4.00 [facility] Platelet mean volume Auto (B ld) [Entitic vol]on 05-05-2023 Platelet mean volume (Bld) [Entitic vol] 9.9 fL 9.5-13.5 [facility] Platelets Auto (Bld) [#/Vol] on 05-05-2023 Platelets (Bld) [#/Vol] 271 10 3/uL 150-450 [facility] RBC Auto (Bld) [#/Vol]on RBC (Bld) [#/Vol] 4.79 10 6/uL 4.70-6.10 [facility] Serum or plasma anion gap de terminationon 05-05-2023 Anion gap [Moles/Vol] 11.3 mmol/L [facility] FRESH FROZ PLASMAon 10-30-19 21 FRESH FROZ PLASMA Unit Blood Type O Pos Unit Number [id number] Status Information Transfused Product ID FFP Product Code [id number] Normal [facility] Comment on above: Performed By: #### F BRIGIDA #### [facility] [address] [place] [address] Brenda Katherine CBC W MANUAL DIFFon 10-20-19 21 ATYPICAL LYMPH # 0.29 103/ul Normal [facility] Comment on above: Performed By: #### C CARO #### [facility] [address] [address] Brenda Katherine ATYPICAL LYMPH % 2 % Normal [facility] Comment on above: Performed By: #### C CARO #### [facility] [address] [address] Brenda Katherine BAND # 0.1 103/ul Normal 0.0-0.[address] [facility] Comment on above: Performed By: #### C CARO #### [facility] [address] [place], [place] [id number] Brenda Katherine BAND % 1 % Normal 0-5 [facility] Comment on above: Performed By: #### C CARO #### [facility] [address] [place] [address] Brenda Katherine BASOM # 0.15 103/ul Critically high 0.00-0.[address] [facility] Comment on above: Performed By: #### C CARO #### [facility] [address] [place] [address] Brenda Katherine BASOM % 1.0 % Normal 0.2-2.0 [facility] Comment on above: Performed By: #### C CARO #### [facility] [address] [place] [address] Brenda Katherine BLAST # Normal [facility] Comment on above: Performed By: #### C CARO #### [facility] [address] [place] [address] Brenda Katherine BLAST % Normal [facility] Comment on above: Performed By: #### C CARO #### [facility] [address] [place] [address] Brenda Katherine CORRECTED WBC Normal 4.0-11.0 [facility] Comment on above: Performed By: #### C CARO #### [facility] [address] [place] [address] Brenda Katherine EOS # 0.58 103/ul Normal 0.00-0.70 [facility] Comment on above: Performed By: #### C CARO #### [facility] [address] [place] [address] Brenda Katherine EOS% 4.0 % Normal 0.9-7.0 [facility] Comment on above: Performed By: #### C CARO #### [facility] [address] [place] [address] Brenda Katherine HCT 39.9 % Critically low 42.0-54.0 [facility] Comment on above: Performed By: #### C CARO #### [facility] [address] [place] [address] Brenda Katherine HGB 13.3 g/dl Critically low 14.0-18.0 [facility] Comment on above: Performed By: #### C CARO #### [facility] [address] [place] [address] Brenda Murphy LYMPHM # 5.40 103/ul Critically high 1.20-3.80 [facility] Comment on above: Performed By: #### C CARO #### [facility] [address] [place] [address] Brenda Katherine LYMPHM% 37.0 % Normal 20.5-60.0 [facility] Comment on above: Performed By: #### C CARO #### [facility] [address] [place] [address] Brenda Linaresen MCH 31.4 pg Normal 25.9-34.[address] [facility] Comment on above: Performed By: #### Alcon ELIZONDO #### [facility] [address] [place] [address] Brenda Murphy MCHC 33.3 g/dl Normal 29.9-35.[address] [facility] Comment on above: Performed By: #### Alcon ELIZONDO #### [facility] [address] [place] [address] Brenda Linaresen MCV 94.1 fL Critically high 80.0-94.[address] [facility] Comment on above: Performed By: #### Alcon ELIZONDO #### [facility] [address] [place] [address] Brenda Katherine METAMYELOCYTE # Normal [facility] Comment on above: Performed By: #### Alcon ELIZONDO #### [facility] [address] [place] [address] Brenda Katherine METAMYELOCYTE % Normal [facility] Comment on above: Performed By: #### C CARO #### [facility] [address] [place] [address] Brenda Linaresen MONOM# 0.00 103/ul Critically low 0.30-0.[address] [facility] Comment on above: Performed By: #### Alcon ELIZONDO #### [facility] [address] [id number] Brenda Murphy MONOM% 0.0 % Critically low 1.7-12.0 [facility] Comment on above: Performed By: #### Alcon ELIZONDO #### [facility] [address] [id number] Brenda Murphy MPV 9.6 fL Normal 9.5-13.5 [facility] Comment on above: Performed By: #### Alcon ELIZONDO #### [facility] [address] [address] Brenda Katherine MYELOCYTE # Normal [facility] Comment on above: Performed By: #### Alcon ELIZONDO #### [facility] [address] [place], [place] [id number] Brendaconrad Murphy MYELOCYTE % Normal [facility] Comment on above: Performed By: #### Alcon ELIZONDO #### [facility] [address] [place], [place] [id number] Brenda Linaresen NRBC Normal [facility] Comment on above: Performed By: #### Alcon ELIZONDO #### [facility] [address] [place], [place] [id number] Brenda Linaresen PLT 256 103/ul Normal 150-450 [facility] Comment on above: Performed By: #### Alcon ELIZONDO #### [facility] [address] [place], [place] [id number] Brenda Katherine RBC 4.24 106/ul Critically low 4.70-6.[address] [facility] Comment on above: Performed By: #### Alcon ELIZONDO #### [facility] [address] [place], [place] [id number] Brenda Murphy RDW 13.9 % Normal 11.0-15.0 [facility] Comment on above: Performed By: #### Alcon ELIZONDO #### [facility] [address] [place], [place] [id number] Brenda Katherine SEG # 8.03 103/ul Critically high 1.40-6.[address] [facility] Comment on above: Performed By: #### Alcon ELIZONDO #### [facility] [address] [place], [place] [id number] Brenda Katherine SEG % 55.0 % Normal 43.0-75.[address] [facility] Comment on above: Performed By: #### C CARO #### [facility] [address] [place], [place] [id number] Brenda Murphy WBC 14.6 103/ul Critically high 4.0-11.0 [facility] Comment on above: Performed By: #### C CARO #### [facility] [address] [place], [place] [id number] Brenda Murphy PROF 14(COMP METB)on 021 Albumin [Mass/Vol] 4.1 g/dL Normal 3.5-5.0 [facility] Comment on above: Performed By: #### C MP #### [facility] [address] [place], [place] [id number] Brenda Murphy Albumin/Globulin [Mass ratio] 1.5 {ratio} Normal [facility] Comment on above: Performed By: #### C MP #### [facility] [address] [place] [address] Brendaconrad Murphy ALP [Catalytic activity/Vol] 76 U/L Normal 38-[address] [facility] Comment on above: Performed By: #### C MP #### [facility] [address] [place] [address] Brenda Murphy ALT [Catalytic activity/Vol] 27 U/L Normal 21-[address] [facility] Comment on above: Performed By: #### C MP #### [facility] [address] [place], [place] [id number] Brenda Katherine Anion gap [Moles/Vol] 10.1 mmol/L Normal [facility] Comment on above: Performed By: #### C MP #### [facility] [address] [place], [place] [id number] Brenda Katherine AST [Catalytic activity/Vol] 24 U/L Normal 17-[address] [facility] Comment on above: Performed By: #### C MP #### [facility] [address] [place] [address] Brendaconrad Murphy Bilirubin [Mass/Vol] 0.2 mg/dL Normal 0.2-1.[address] [facility] Comment on above: Performed By: #### C MP #### [facility] [address] [id number] Brenda Katherine Calcium [Mass/Vol] 8.5 mg/dL Normal 8.4-10.2 [facility] Comment on above: Performed By: #### C MP #### [facility] [address] [id number] Brenda Katherine Chloride [Moles/Vol] 107 mmol/L Normal 98-107 [facility] Comment on above: Performed By: #### C MP #### [facility] [address] [id number] Brenda Katherine CO2 [Moles/Vol] 29.0 mmol/L Normal 22.0-30.[address] [facility] Comment on above: Performed By: #### C MP #### [facility] [address] [address] Brenda Katherine Creatinine [Mass/Vol] 1.30 mg/dL Critically high 0.66-1.[address] [facility] Comment on above: Performed By: #### C MP #### [facility] [address] [id number] Brenda Katherine EGFR-AF CHADIAN >60 Normal >=60 [facility] Comment on above: Performed By: #### C MP #### [facility] [address] [id number] Brenda Katherine EGFR-NON AF CHADIAN 57 mL/min/1.73m2 Critically low >=[address] [facility] Comment on above: Performed By: #### C MP #### [facility] [address] [id number] Brenad Katherine Globulin (S) [Mass/Vol] 2.7 g/dL Normal [facility] Comment on above: Performed By: #### C MP #### [facility] Laboratory [address] [id number] Brenda Katherine Glucose [Mass/Vol] 109 mg/dL Critically high 74-106 [facility] Comment on above: Performed By: #### C MP #### [facility] [address] [address] Brenda Katherine Potassium [Moles/Vol] 4.1 mmol/L Normal 3.4-5.0 [facility] Comment on above: Performed By: #### C MP #### [facility] [address] [address] Brenda Katherine Protein [Mass/Vol] 6.8 g/dL Normal 6.1-8.2 The [facility] Comment on above: Performed By: #### C MP #### [facility] [address] [id number] Brenda Katherine Sodium [Moles/Vol] 142 mmol/L Normal 137-145 The [facility] Comment on above: Performed By: #### C MP #### [facility] [address] [address] Brenda Katherine Urea nitrogen [Mass/Vol] 19.0 mg/dL Normal 9.0-20.[address] [facility] Comment on above: Performed By: #### C MP #### [facility] [address] [id number] Brenda Katherine Urea nitrogen/Creatinine [Mass ratio] 14.6 mg/mg Normal [facility] Comment on above: Performed By: #### C MP #### [facility] [address] [id number] Brenda Murphy PROTIMEon 10-19-2020 INR Coag (PPP) [Relative time] 0.97 {INR} Normal [facility] Comment on above: Performed By: #### P TT, PT #### [facility] [address] [id number] Bernda Katherine INR GUIDELINES SEE BELOW Normal [facility] Comment on above: Result Comment: JED RED INR: 2.0 - 3.0 CONDITIONS NOT LISTED BELOW 2.5 - 3.5 FOR PROSTHETIC HEART VALVE REPLACEMENT 2.5 - 3.5 RECURRENT THROMBOSIS Performed By: #### P TT, PT #### [facility] [address] [id number] Brenda Katherine PT Coag (PPP) [Time] 10.5 s Normal 9.0-11.6 [facility] Comment on above: Performed By: #### P TT, PT #### [facility] [address] [place], [place] [address] Brenda Murphy PTTon 10-19-2020 aPTT Coag (Bld) [Time] 26.8 s Normal 22.3-36.2 [facility] Comment on above: Performed By: #### P TT, PT #### [facility] [address] [place], [place] [address] Brenda Murphy TYPE AND SCREENon 10-19-2020 TYPE AND SCREEN Negative Normal [facility] Comment on above: Performed By: #### T NS #### [facility] [address] [place], [place] [address] Brenda Murphy Vital Signs Date Time Vital Sign Value Performing Clinician Facility 11-04-2024 09:41-0400 Body height 165.1 cm Marlee Thomas MD Work Phone: [facility] 11-04-2024 09:41-0400 Body mass index (BMI) [Ratio] 35.2 kg/m2 Marlee Thomas MD Work Phone: [facility] 11-04-2024 09:41-0400 Body weight 96.16 kg Marlee Thomas MD Work Phone: [facility] 11-04-2024 09:41-0400 Diastolic blood pressure 99 mm[Hg] Marlee Thomas MD Work Phone: [facility] 11-04-2024 09:41-0400 Systolic blood pressure 148 mm[Hg] Marlee Thomas MD Work Phone: [facility] 09-11-2024 10:02-0400 Body height 166.37 cm Marlee Thomas MD Work Phone: [facility] 09-11-2024 10:02-0400 Body mass index (BMI) [Ratio] 34.2 kg/m2 Marlee Thomas MD Work Phone: [facility] 09-11-2024 10:02-0400 Body weight 94.8 kg Marlee Thomas MD Work Phone: [facility] 09-11-2024 10:02-0400 Diastolic blood pressure 85 mm[Hg] Marlee Thomas MD Work Phone: [facility] 09-11-2024 10:02-0400 Heart rate 67 /min Marlee Thomas MD Work Phone: [facility] 09-11-2024 10:02-0400 Systolic blood pressure 130 mm[Hg] Marlee Thomas MD Work Phone: [facility] 08-15-2024 15:47-0400 Body height 166.37 cm [facility] 08-15-2024 15:47-0400 Body mass index (BMI) [Ratio] 34.2 kg/m2 [facility] 08-15-2024 15:47-0400 Body weight 94.8 kg [facility] 08-15-2024 15:47-0400 Diastolic blood pressure 96 mm[Hg] [facility] 08-15-2024 15:47-0400 Heart rate 61 /min [facility] 08-15-2024 15:47-0400 Systolic blood pressure 151 mm[Hg] [facility] 04-29-2024 13:57-0500 Body height 166.37 cm [facility] 04-29-2024 13:57-0500 Body mass index (BMI) [Ratio] 33.8 kg/m2 [facility] 04-29-2024 13:57-0500 Body weight 93.61 kg [facility] 04-29-2024 13:57-0500 Diastolic blood pressure 90 mm[Hg] [facility] 04-29-2024 13:57-0500 Heart rate 66 /min [facility] 04-29-2024 13:57-0500 Systolic blood pressure 145 mm[Hg] [facility] 02-07-2024 09:01-0500 Body height 165.1 cm Tiesha Hou NP Work Phone: [facility] 02-07-2024 09:01-0500 Body mass index (BMI) [Ratio] 34.28 kg/m2 Tiesha Sowr [employer] Work Phone: [facility] 02-07-2024 09:01-0500 Body weight 93.44 kg Tiesha Sowr [employer] Work Phone: [facility] 02-07-2024 09:01-0500 Diastolic blood pressure 80 mm[Hg] Tiesha Sowr [employer] Work Phone: [facility] 02-07-2024 09:01-0500 Heart rate 58 /min Tiesha Sowr [employer] Work Phone: [facility] 02-07-2024 09:01-0500 SaO2% (BldA) [Mass fraction] 95 % Tiesha Sowr [employer] Work Phone: [facility] 02-07-2024 09:01-0500 Systolic blood pressure 122 mm[Hg] Tiesha Sowr [employer] Work Phone: [facility] 12-05-2023 08:39-0400 Diastolic blood pressure 108 mm[Hg] Rehan Heber DO Work Phone: [facility] 12-05-2023 08:39-0400 Heart rate 78 /min Rehan Heber DO Work Phone: [facility] 12-05-2023 08:39-0400 SaO2% (BldA) [Mass fraction] 99 % Rehan Heber DO Work Phone: [facility] 12-05-2023 08:39-0400 Systolic blood pressure 184 mm[Hg] Rehan Hebre DO Work Phone: [facility] 12-04-2023 15:36-0400 Body height 166.37 cm [facility] 12-04-2023 15:36-0400 Body mass index (BMI) [Ratio] 33.5 kg/m2 [facility] 12-04-2023 15:36-0400 Body weight 92.98 kg [facility] 12-04-2023 15:36-0400 Diastolic blood pressure 104 mm[Hg] [facility] 12-04-2023 15:36-0400 Heart rate 65 /min [facility] 12-04-2023 15:36-0400 SaO2% (BldA) [Mass fraction] 92 % [facility] 12-04-2023 15:36-0400 Systolic blood pressure 170 mm[Hg] [facility] 11-16-2023 13:19-0400 Body height 165.1 cm Tiesha Gillmor [employer] Work Phone: [facility] 11-16-2023 13:19-0400 Body mass index (BMI) [Ratio] 33.61 kg/m2 Tiesha Gillmor [employer] Work Phone: [facility] 11-16-2023 13:19-0400 Body weight 91.63 kg Tiesha Gillmor [employer] Work Phone: [facility] 11-16-2023 13:19-0400 Diastolic blood pressure 90 mm[Hg] Tiesha Gillmor [employer] Work Phone: [facility] 11-16-2023 13:19-0400 Systolic blood pressure 152 mm[Hg] Tiesha Gillmor [employer] Work Phone: [facility] 07-24-2023 09:57-0400 Body height 166.37 cm [facility] 07-24-2023 09:57-0400 Body mass index (BMI) [Ratio] 33 kg/m2 [facility] 07-24-2023 09:57-0400 Body weight 91.62 kg [facility] 07-24-2023 09:57-0400 Diastolic blood pressure 101 mm[Hg] [facility] 07-24-2023 09:57-0400 Heart rate 72 /min [facility] 07-24-2023 09:57-0400 Systolic blood pressure 153 mm[Hg] [facility] 05-05-2023 09:28-0500 Body height 166.37 cm [facility] 05-05-2023 09:28-0500 Body mass index (BMI) [Ratio] 32.6 kg/m2 [facility] 05-05-2023 09:28-0500 Body weight 90.43 kg [facility] 05-05-2023 09:28-0500 Diastolic blood pressure 86 mm[Hg] [facility] 05-05-2023 09:28-0500 Heart rate 78 /min [facility] 05-05-2023 09:28-0500 Systolic blood pressure 134 mm[Hg] [facility] 03-07-2023 14:00-0500 Body height 166.37 cm Marlee Thomas Other [facility] 03-07-2023 14:00-0500 Body mass index (BMI) [Ratio] 31.2 kg/m2 Marlee Thomas Other [facility] Other 03-07-2023 14:00-0500 Body weight 86.37 kg Marlee Thomas Other [facility] Other 03-07-2023 14:00-0500 Body weight 86.36 kg [facility] 03-07-2023 14:00-0500 Diastolic blood pressure 85 mm[Hg] Marlee Thomas Other [facility] 03-07-2023 14:00-0500 SaO2% (BldA) [Mass fraction] 97 % Marlee Thomas Other [facility] Other 03-07-2023 14:00-0500 Systolic blood pressure 125 mm[Hg] Marlee Thomas Other [facility] 01-26-2023 10:45-0500 Body height 166.37 cm Marlee Thomas Other [facility] Other 01-26-2023 10:45-0500 Body mass index (BMI) [Ratio] 29.36 kg/m2 Marlee Thomas Other [facility] Other 01-26-2023 10:45-0500 Body weight 81.29 kg Marlee Thomas Other [facility] Other 01-26-2023 10:45-0500 Diastolic blood pressure 87 mm[Hg] Marlee Thomas Other [facility] Other 01-26-2023 10:45-0500 Systolic blood pressure 146 mm[Hg] Marlee Thomas Other [facility] Other 11-22-2022 09:00-0400 Body height 166.37 cm Marlee Thomas Other [facility] Other 11-22-2022 09:00-0400 Body mass index (BMI) [Ratio] 29.99 kg/m2 Marlee Thomas Other [facility] Other 11-22-2022 09:00-0400 Body weight 83.01 kg Marlee Thomas Other [facility] Other 11-22-2022 09:00-0400 Diastolic blood pressure 88 mm[Hg] Marlee Thomas Other [facility] Other 11-22-2022 09:00-0400 Systolic blood pressure 134 mm[Hg] Marlee Thomas Other [facility] Other Encounters Encounter Date Encounter Type Care Provider Facility Start: 11-04-2024 End: 11-04-2024 ambulatory Marlee Thomas MD Work Phone: [facility] Work Phone: Start: 11-04-2024 End: 11-04-2024 Patient encounter procedure Tiesha Venegas [facility] Work Phone: Start: 09-11-2024 End: 09-11-2024 ambulatory Marlee Thomas MD Work Phone: [facility] Work Phone: Start: 09-11-2024 End: 09-11-2024 Patient encounter procedure Marlee Thomas MD [facility] Work Phone: Start: 08-15-2024 End: 08-15-2024 ambulatory [facility] Work Phone: Start: 08-15-2024 End: 08-15-2024 Patient encounter procedure [facility] Work Phone: Start: 08-06-2024 End: 08-06-2024 Refmercedes [facility] Comment on above: Idiopathic periphera l neuropathy Start: 05-09-2024 End: 05-09-2024 Bamboo flowsheet Tiesha Susymor [employer] Work Phone: [facility] Start: 05-09-2024 End: 05-09-2024 Bamboo flowsheet Tiesha Gillmor [employer] Work Phone: [facility] Start: 05-09-2024 End: 05-09-2024 ambulatory TIESHA SAVI Not Available Start: 04-29-2024 End: 04-29-2024 ambulatory [facility] Work Phone: Start: 04-29-2024 End: 04-29-2024 Patient encounter procedure [facility] Work Phone: Start: 02-07-2024 End: 02-07-2024 Bamboo flowsheet Tiesha Gillmor [employer] Work Phone: [facility] Start: 02-07-2024 End: 02-07-2024 Bamboo flowsheet Tiesha Gillmor [employer] Work Phone: [facility] Start: 02-07-2024 End: 02-07-2024 Office outpatient visit 25 minutes Tiesha Sowr [employer] Work Phone: [facility] Comment on above: Idiopathic periphera l neuropathy (Primary Dx); Seizure (CMS/HCC); Complex sleep apnea syndrome; Other complicated headache syndrome; Numbness and tingling Start: 02-07-2024 End: 02-07-2024 ambulatory TIESHA HOU Not Available Start: 12-05-2023 End: 12-05-2023 Bamboo flowsheet Rehan Rae DO Work Phone: [facility] Start: 12-05-2023 End: 12-05-2023 Bamboo flowsheet Rehan Rae DO Work Phone: [facility] Start: 12-05-2023 End: 12-05-2023 Office outpatient visit 25 minutes Rehan Rae DO Work Phone: [facility] Comment on above: Idiopathic periphera l neuropathy (Primary Dx); Migraine without aura and without status migrainosus, not intractable (CMS/HCC); Other complicated headache syndrome; Complex sleep apnea syndrome; Numbness and tingling; Chronic tension-type headache, intractable; HOWARD (obstructive sleep apnea) Start: 12-05-2023 End: 12-05-2023 ambulatory REHAN RAE Not Available Start: 12-04-2023 End: 12-04-2023 ambulatory [facility] Work Phone: Start: 12-04-2023 End: 12-04-2023 Patient encounter procedure [facility] Work Phone: Start: 11-16-2023 End: 11-16-2023 Bamboo flowsheet Tiesha Hou [employer] Work Phone: [facility] Start: 11-16-2023 End: 11-16-2023 Bamboo flowsheet Tiesha Hou [employer]NEY[employer] [facility] Start: 11-16-2023 End: 11-16-2023 Office outpatient visit 25 minutes Tiesha Hou [employer] [facility] Comment on above: HOWARD (obstructive sle ep apnea) (Primary Dx); Seizure (CMS/HCC); Numbness and tingling; Idiopathic peripheral neuropathy; Chronic tension-type headache, intractable; Neck pain Start: 11-16-2023 End: 11-16-2023 ambulatory TIESHA GILLMOR Not Available Start: 09-20-2023 End: 09-20-2023 ambulatory REHAN RAE Not Available Start: 07-24-2023 End: 07-24-2023 ambulatory [facility] Work Phone: Start: 07-24-2023 End: 07-24-2023 Patient encounter procedure [facility] Work Phone: Start: 05-22-2023 Non-patient / Non-visit [facility] Work Phone: Start: 05-12-2023 End: 05-12-2023 ambulatory Marlee Thomas Other [facility] Other Start: 05-12-2023 Telephone encounter Marlee Thomas [facility] Start: 05-12-2023 Non-patient / Non-visit [facility] Work Phone: Start: 05-05-2023 End: 05-05-2023 ambulatory [facility] Work Phone: Start: 05-05-2023 End: 05-05-2023 Patient encounter procedure [facility] Work Phone: Start: 04-17-2023 End: 04-17-2023 ambulatory Marlee Thomas Other [facility] Other Start: 04-17-2023 Telephone encounter Marlee Thomas [facility] Start: 03-21-2023 End: 03-21-2023 ambulatory Marlee Thomas Other [facility] Other Start: 03-21-2023 Telephone encounter Marlee Thomas [facility] Start: 03-16-2023 End: 03-16-2023 ambulatory Marlee Thomas Other [facility] Other Start: 03-16-2023 Telephone encounter Marlee Thomas [facility] Start: 03-07-2023 End: 03-07-2023 ambulatory Marlee Thomas Other [facility] Other Start: 03-07-2023 Office outpatient vi sit [address] [facility] Start: 03-07-2023 End: 03-07-2023 Patient encounter procedure [facility] Work Phone: Start: 03-06-2023 End: 03-06-2023 ambulatory Marlee Thomas Other [facility] Other Start: 03-06-2023 Telephone encounter Marlee Thomas [facility] Start: 01-26-2023 End: 01-26-2023 ambulatory Marlee Thomas Other [facility] Other Start: 01-26-2023 Office outpatient vi sit [address] [facility] Start: 01-02-2023 (Televisit) Televisit Marlee Thomas [facility] Start: 01-02-2023 End: 01-02-2023 ambulatory Marlee Martha Other [facility] Other Start: 11-28-2022 End: 11-28-2022 ambulatory Marlee Martha Other [facility] Other Start: 11-28-2022 Telephone encounter Marlee Martha [facility] Start: 11-22-2022 End: 11-22-2022 ambulatory Marlee Thomas Other [facility] Other Start: 11-22-2022 Office outpatient vi sit [address] [facility] Start: 10-19-2020 End: 10-19-[address] OWEN GOYAL Facility:[facility] Start: 11-04-2019 End: 11-04-2019 ambulatory NEO WATKINS Facility:[facility] Procedures Date Procedure Procedure Detail Performing Clinician Screening for malign ant neoplasm of prostate Marlee Thomas Other Plan of Treatment Date Care Activity Detail Author Start: 11-04-2024 End: 11-04-2024 Patient encounter procedure 11/04/2024 9:40 AM EDT Office Visit [facility] [address] [place] [id number] Tiesha Hou NP [address] [place] [facility] Start: 05-09-2024 End: 05-09-2024 Patient encounter procedure 05/09/2024 8:40 AM EST Office Visit [facility] [address] [place] [address] Tiesha Hou NP [address] [place], [place] [facility] [address] [facility] Start: 02-07-2024 End: 02-07-2024 Patient encounter procedure [facility] Comment on above: Arrived Start: 12-05-2023 End: 12-05-2023 Patient encounter procedure [facility] Comment on above: Arrived Start: 11-16-2023 End: 11-16-2023 Patient encounter procedure 11/16/2023 1:20 PM EDT Office Visit [facility] [address] [place] [phone] Tiesha Hou NP [address] [place] Arrived [facility] [address] [facility] Comment on above: Arrived Comprehensive metabo lic 2000 panel - Serum or Plasma [facility] Payers Date Payer Category Payer Medicaid [employer] [place] [id number] 2023-Present [address] [place] [address] [id number] 2023 Private Health Insurance [employer] [id number] 2023 Medicaid [id number] 1965 Unknown [id number] 1965 Unknown [id number] 1965 Unknown [id number] 1259 1965 Unknown [id number] 1259 1965 Unknown [id number] 1965 Unknown [id number] 1259 1965 Unknown [id number] 1259 1959 Self-pay [id number] Medicaid [employer] [id number] Self-pay Self Pay [id number] Unknown Regular Insurance [id number] Social History Date Type Detail Facility Start: 12-05-2023 End: 05-09-2024 Sex Assigned At [facility] Other Start: 1965 Sex Assigned At Male [facility] Start: 07-25-2023 [facility] History of tobacco use Cigarette Smoker N [facility] Start: 12-05-2023 End: 05-09-2024 Alcoholic beverage intake Current drinker of alcohol (finding) [facility] Start: 12-05-2023 End: 05-09-2024 History of Social function [facility] Start: 1965 Sex assigned at Not on file N [facility] Tobacco smoking stat [facility] Unknown if ever smoked [facility] Work Phone: Start: 04-29-2024 End: 08-15-2024 Sex Male (finding) [facility] Clinical Notes 08-18-2017 to 08-15-2024 Note Date & Type Note Facility 08-15-2024 Evaluation note Diagnosis Onset Date Resolution Essential (primary) hypertension acute August 15, 2024 3 :35pm Left-sided chest pain acute August 15, 2024 3:35pm [facility] Work Phone: 1(979) 350-106105-29-2025 Evaluation note* Diagnosis Onset Date Resolution Status Admit Date Essential (primary) hypertension acu te August 15, 2024 3:35pm Left-sided chest pain acute August 15, 2024 3:35pm Essential (primary) hypertension acu te September 11, 2024 9:52am Left-sided chest pain acute Aug 9:52am [facility] Work Phone: 1(530) 487-970305-20-2025 Telephone encounter Note* Telephone Encounter - SABIHA Rogers - 08/06/2024 10:23 AM EDT Ada called on behalf of the patient requesting refill of gabapentin 400mg & 600mg sent to [facility] in [place]. (Continue the gabapentin to 400 mg in the morning 600 mg at night ... Per Tiesha Hou NP 05/09/24) [id number] Miscellaneous Notes* Telephone Encounter - ASBIHA Rogers - 08/06/2024 10:23 AM EDT Ada called on behalf of the patient requesting refill of gabapentin 400mg & 600mg sent to [facility] in [place]. (Continue the gabapentin to 400 mg in the morning 600 mg at night ... Per Tiesha Hou [employer] 05/09/24) documented in this encounterLiberty [id number] History of Present illness Narrative* Tiesha Hou NP - 11/16/2023 1:20 PM EDT Images from the original note were not [...] his girlfriend. Patient reports that he is stillexperiencing numbness and tingling in his feet. Some [...] he did his sleep study at the [place] sleep [facility] last night. Past Medical History: Diagnosis Date Diabetes (CMS/HCC) [...] night. These have improved with increase at lastvisit. He likely will need further increase pending course. . Patient has been found to have a severe obstructive sleep apnea with an apnea- hypopnea index of 61 and a oxygen desaturation down to 83 percent. He was sent over to [place] for a titration study. Heinitially refused this but once we talked about the repercussions of untreated sleep apnea he decided to do that. This was done last night therefore we do not have the results yet. He does have sleeponset and maintenance insomnia. He is taking long [...] the Excedrin he was taken off of itand had been doing better. He did call the office for an appointment as he does have a severe headache with photosensitivity. It is debilitating. We will give him a medrol dose back to break this up.He does have in pain in his neck that is contributing. WE will order zanaflex. He is aware this canbe sedating. I do not want him to [...] improve Plan He had polysomnogram/titration study at [place] last night and therefore we do not [...] headaches and the blood pressure Continue the [facility] Continue the [facility] Call if there is any worsening He is inadequate sleep hygiene needs to set his sleep schedule and sleep for 8 hours a night and not nap during the day The patient was counseled on proper sleep hygiene and adequate hours of sleep. The patient was counseled on the risks of stroke, MA, and sudden with HOWARD, along with the need for compliance with the CPAP/BiPAP treatment. Return to clinic: already scheduled in a few weeks and he will keep this visit documented in this encounterLiberty [id number] Evaluation note* Encounter Date Diagnosis Assessment Notes Treatment Notes Treatment Clinical Notes Mar, Seizure disorder (ICD-10 - G40.909) Mar, Essential (primary) hypertension (ICD-10 - I10) f/u in 6 months [facility] Other 12-19-2023 Evaluation note* Encounter Date Diagnosis Assessment Notes Treatment Notes Treatment Clinical Notes Feb, Essential (primary) hypertension (ICD-10 - I10) f/u in 6 months Switched b-cassie. Call w bps in 2 weeks Feb, Seizure disorder (ICD-10 - G40.909) Reviewed notes from Dr. Rae. - one med removed, followup there as scheduled. [facility] Other 11-09-2023 Evaluation note* Encounter Date Diagnosis Assessment Notes Treatment Notes Treatment Clinical Notes Jan, Seizure disorder (ICD-10 - G40.909) We will obtain test and discharge summaries from the [facility]. Patient and his significant other agreed [...] had a lot of medical issues recently. [facility] Other 10-16-2023 Evaluation note* Encounter Date Diagnosis Assessment Notes Treatment Notes Treatment Clinical Notes Dec, Bronchitis (ICD-10 - J40) Finish antibiotic. ER if dyspnea occurs. Take OTC Cold meds only as listed on packaging. Pt understands. [facility] Other 09-05-2023 Evaluation note* Encounter Date Diagnosis Assessment Notes Treatment Notes Treatment Clinical Notes Nov, Bilateral leg paresthesia (ICD-10 - R20.2) Discussed differential including diabetes. Gave HO for JUNE at [place] - advised A1C and the lipid/chem 8 [...] symptoms. Any developing patterns. Stay well hydrated. 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 Hospitalization History SEE SURGICAL HX [facility] Other Evaluation noteNo InformationNort VoterTide Other Evaluation note* Diagnosis Onset Date Resolution Status Dizziness of unknown cause a cute Encounter for screening for malignant neoplasm of prostate acute Essential (primary) hypertension acute Fatigue acute Osteoarthritis of lumbar spine acute [facility] Work Phone: Evaluation noteNo assessment information available [facility] Work Phone: Evaluation note* Diagnosis Idiopathic peripheral neuropathy- Primary Unspecified hereditary and idiopathic peripheral neuropathy Seizure (CMS/HCC) Other convulsions Complex sleep apnea syndrome Other complicated headache syndrome Numbness and tingling Disturbance of skin sensation [facility] Diagnosis Idiopathic peripheral neuropathy- Primary Unspecified hereditary and idiopathic peripheral neuropathy Migraine without aura and without status migrainosus, not intractable (CMS/HCC) Other complicated headache syndrome Complex sleep apnea syndrome Numbness and tingling Disturbance of skin sensation Chronic tension-type headache, intractable Chronic tension type headache HOWARD (obstructive sleep apnea) Obstructive sleep apnea (adult) (pediatric) documented in [facility] Diagnosis HOWARD (obstructive sleep apnea)- Primary Obstructive sleep apnea (adult) (pediatric) Seizure (CMS/HCC) Other convulsions Numbness and tingling Disturbance of skin sensation Idiopathic peripheral neuropathy Unspecified hereditary and idiopathic peripheral neuropathy Chronic tension-type headache, intractable Chronic tension type headache Neck pain Cervicalgia documented in this encounter [facility] Healthcare[facility] note* Diagnosis Onset Date Resolution Status Admit Date Essential (primary) hypertension acute April 29, 025 1:41pm Osteoarthritis of lumbar spine acute April 29, 2024 1:41pm Screening PSA (prostate specific antigen) acute April 29, 2024 1:41pm Seizure disorder acute April 29, 2024 1:41pm [facility] Work Phone: Evaluation note* Diagnosis Idiopathic peripheral neuropathy Unspecified hereditary and idiopathic peripheral neuropathy documented in this encounter [facility] Healthcare[facility]* Diagnosis Onset Date Resolution Status Admit Date Essential (primary) hypertension acu te August 15, 2024 3:35pm Left-sided chest pain acute August 15, 2024 3:35pm [facility] Work Phone: History of Present illness Narrative* Rehan Rae, - 12/05/2023 3:00 PM EDT Chief Complaint [...] machine and this is out at the [facility] to get approved and obtained. We will [...] was counseled on the risks of stroke, MA, and sudden with HOWARD, along with the need for compliance with the CPAP/BiPAP treatment. Return to clinic: 6-8 weeks [facility]No reason for [facility] Work Phone: Summary Purpose Family History Relationship Condition Age at Onset Recorded Date/T tricia father Diabetes mellitus Unknown Not Specified Diabetes mellitus Unknown Relationship Condition Age at Onset Recorded Date/T tricia father Diabetes mellitus Unknown mother Diabetes mellitus Unknown Advance Directives Advance Directive Response Recorded Date/ Time Advance Directives No August 02 12:13pm Advance Directive Response Recorded Date/ Time Advance Directives No August 02 1:13pm Reason for Referral Reason [place] - Se izure disorder, treated at [facility]. Diagnosis 1 Seizure disorder (G4 0.909) Referral Organization [facility] Referring Provider First Name Marlee Referring Provider Last Name Martha Referring Provider Specialty Family [facility] Referred Organization [facility] Referred Address [address] [place], [place],[address] Referred Provider Specialty Neurology Referral Priority Routine Chief Complaint and Reason for Visit Chief Complaint Admit Date bp concerns August 15, 2024 3:35p m 1 month f/u September 11, 2024 9:52 am Reason for Visit Admit Date Essential (primary) hypertension July 3:35pm Left-sided chest pain August 15, 2024 3:3 5pm Chief Complaint High Bp Blood Pressure Reason [...] for Visit Admit Date Essential (primary) hypertension 2024 1:41pm Osteoarthritis of lumbar spine April 29, 2024 1:41pm Screening PSA (prostate specific antigen ) April 29, 2024 1:41pm Seizure disorder April 29, 2024 1:41pm Chief Complaint Admit Date bp concerns August 15, 2024 3:35p m Chief Complaint Admit Date bp concerns August 15, 2024 3:35p m 1 month f/u September 11, 2024 9:52 am 6 month follow up November 04, 2024 9: 33am Reason for Visit Admit Date Essential (primary) hypertension July 3:35pm Left-sided chest pain August 15, 2024 3:3 5pm Essential (primary) hypertension September 112024 9:52am Left-sided chest pain September 11, 2024 9: 52am Additional Source Comments (unrecognized sect ion and content) No Status Records FoundNo Status Records Found INFORMATION SOURCE (unrecogn ized section and content) DATE CREATED AUTHOR 10/30/2020 [facility] DATE CREATED AUTHOR AUTHOR'S ORGANIZ ATION 05/11/2024 [facility] EPIC REASON FOR VISIT (unrecogniz ed section and content) Reason Comments Sleep Apnea Seizures Headache Dizziness Numbness Tingling Reason Comments Sleep Apnea Seizures Headache Dizziness Reason Comments Sleep Apnea Seizures Headache Numbness Tingling Reason Onset Date Comments Med Refill 08/06/2024 Care Teams (unrecognized sec tion and content) [...] Status: Inactive Member Role Status Dates Marlee Thomsa MD Primary Care Provide r, Attending Provider Active Start: July 24, 2023 End: July 24, 2023 Team Status: Inactive Member Role Status Dates Marlee Thomas MD Primary Care Provide r, Attending Provider Active Start: December 04, 2023 End: December 04, 2023 Practice Clinician Relationship Specialty Start Date End Date Marlee Thomas MD [address] [place] [phone] PCP - General Family Medicine 07/26/23 Practice Clinician Relationship Specialty Start Date End Date Marlee Thomas MD [address] [facility] [place] [id number] PCP - General Family Medicine 07/26/23 Rehan Rae DO [address] [place] [address] Referring Physician Neurology 02/07/24 Tiesha Hou NP [address] [place], [place] Nurse Practitioner Neurology 02/07/24 Practice Clinician Relationship Specialty Start Date End Date Marlee Thomas MD [address] [facility] [place] [address] PCP - General Family Medicine 07/26/23 Practice Clinician Relationship Specialty Start Date End Date Marlee Thomas MD [address] [facility] [place] [address] PCP - General Family Medicine 07/26/23 Practice Clinician Relationship Specialty Start Date End Date Marlee Thomas MD [address] [facility] [place] [address] PCP - General Family Medicine 07/26/23 Team Status: Inactive Member Role Status Dates Marlee Thomas MD Primary Care Provide r, Attending Provider Active Start: April 29, 2024 End: April 29, 2024 Practice Clinician Relationship Specialty Start Date End Date Marlee Thomas MD [address] [facility] [place] [address] PCP - General Family Medicine 07/26/23 Rehan Rae DO [address] [place] [address] Referring Physician Neurology 02/07/24 Tiesha Hou NP [address] [place], [place] Nurse Practitioner Neurology 02/07/24 Practice Clinician Relationship Specialty Start Date End Date Marlee Thomas MD PCP - General Family Medicine 07/26/23 Rehan Rae DO [address] [place] [address] Referring Physician Neurology 02/07/24 Tiesha Hou NP [address] [facility] [place] Nurse Practitioner Neurology 02/07/24 Team Status: Inactive Member Role Status Dates Marlee Thomas MD Primary Care Provide r, Attending Provider Active Start: August 15, 2024 End: August 15, 2024 Team Status: Inactive Member Role Status Dates Marlee Thomas MD Primary Care Provider Active Start: August 15, 2024 End: August 15, 2024 Marlee Thomas MD Attending Provider Active St art: August 15, 2024 End: August 15, 2024 Team Status: Inactive Member Role Status Dates Marlee Thomas MD Primary Care Provider Active Start: September 11, 2024 End: September 11, 2024 Marlee Thomas MD Attending Provider Active St art: September 11, 2024 End: September 11, 2024 Team Status: Inactive Member Role Status Dates Marlee Thomas MD Primary Care Provider Active Start: November 04, 2024 End: November 04, 2024 Tiesha Hou APRN Attending Provider Active Start: November 04, 2024 End: November 04, 2024 Goals (unrecognized section and content) Goals may [...] BE BASED ON THE PRIMARY CLINICAL RECORDS. [facility]. provides no warranty or guarantee of the accuracy or completeness of information in this document.
--- OUTSIDE RECORDS SUMMARY | 2024-11-11 07:08 | XMS_ITS | Clinical Summary ---
Author Organization [facility] Address [address] [place] [address] Care Team Providers Care Language Assistant Name Role Phone Marlee Sosa MD Primary Care Provider [phone] Rachael Buck DO Unavailable [phone] Dorota Hou PIPE OR STEAM FITTER FURNACE INSTALLER Unavailable [phone] Rachael Buck DO Unavailable [phone] Allergies Active Allergy Reactions Criticality Noted Date Comments Lisinopril 07/25/2023 Medications aspirin 81 MG EC tablet Take 81 mg by mouth at bedtime Active meloxicam (Mobic) 15 MG tablet Take 15 mg by mouth at bedtime Active cloNIDine (Catapres) 0.3 MG tablet Take 0.3 mg by mouth in the morning and 0.3 mg before bedtime. 07/24/2023 Active amLODIPine (Norvasc) 10 MG tablet 12/04/2023 Active metoprolol succinate XL (Toprol-XL) 100 MG 24 hr tablet Take 25 mg by mouth Daily 03/07/2023 Active levETIRAcetam (Keppra) 750 MG tabletIndicatio ns:Seizure (HCC) Take 2 tabs twice a day 120 tablet 5 02/07/2024 Active tiZANidine (Zanaflex) 4 MG tabletIndicatio ns:Neck pain Take 1/2-1 as needed qam 30 tablet 5 05/09/2024 Active gabapentin (Neurontin) 400 MG capsuleIndicati ons:Idiopathic peripheral neuropathy Take one in the am 30 capsule 2 08/06/2024 Active gabapentin (Neurontin) 600 MG tabletIndicatio ns:Idiopathic peripheral neuropathy Take one at bedtime 30 tablet 2 08/06/2024 Active Active Problems Problem Noted Date Diagnosed Date HOWARD (obstructive sleep apnea) 11/16/2023 Seizure 11/16/2023 Numbness and tingling 11/16/2023 Idiopathic peripheral neuropathy 11/16/2023 Chronic tension-type headache, intractable 11/15 Family History Medical History Relation Name Comments Diabetes Mother Diabetes Sister Relation Name Status Comments Mother Sister Social History Tobacco Use Types Packs/Day Years Used Date Smoking Tobacco: Every Day Cigarettes Tobacco Cessation:Ready to Q uit: Not Asked; Counseling Given: Not Answered Alcohol Use Standard Drinks/Week Comments Yes 3 (1 standard drink = 0.6 oz pur e alcohol) Sex and Gender Information Value Date Recorded Sex Assigned at Not on file Legal Sex Male 10:31 AM EDT Gender Identity Not on file Sexual Orientation Not on file Last Filed Vital Signs Vital Sign Reading Time Taken Comments Blood Pressure 138/76 05/09/2024 8:44 AM EST Pulse 66 05/09/2024 8:44 AM EST Temperature - - Respiratory Rate - - Oxygen Saturation 97% 05/09/2024 8:44 AM EST Inhaled Oxygen Concentration - - Weight 93.9 kg (207 lb) 05/09/2024 8:44 AM EST Height 165.1 cm (5' 5 ) 05/09/2024 8:44 AM EST Body Mass Index 34.45 05/09/2024 8:44 AM EST Plan of Treatment Health Maintenance Due Date Last Done Comments CT Colonography 1965 Colonoscopy 1965 Colorectal Cancer Screening 1965 FIT-DNA 1965 FIT 1965 FOBT 1965 Sigmoidoscopy 1965 Influenza Vaccine (#1) 2024 Insurance [employer] Care Teams Language Assistant Relationship Specialty Start Date End Date Marlee Sosa MD [address] [facility] [place] [phone] PCP - General Family Medicine 07/26/23 Rachael Buck DO PCP - [facility] 06/18/24 Rachael Buck DO [address] [place] [address] Referring Physician Neurology 02/07/24 Dorota Hou NP [address] [place] [address] Nurse Practitioner Neurology 02/07/24
--- OUTSIDE RECORDS SUMMARY | 2024-11-11 07:08 | XMS_ITS | Clinical Summary ---
Author Organization [facility] Address [address] [place] [address] Care Team Providers Care Surveying Technician Name Role Phone Unavailable Primary Care Provider Unavailabl e Social History Tobacco Use Types Packs/Day Years Used Date Smoking Tobacco: Never Assessed [place] Safety & Environment Answer Date Rec orded Fear of Current or Ex-Partner Not on file Emotionally Abused Not on file 05/12/2023 Physically Abused Not on file 05/12/2023 Sexually Abused Not on file 05/12/2023 Physically or Sexually Abused Not on file Sex and Gender Information Value Date Recorded Sex Assigned at Not on file Legal Sex Male 2:15 PM EST Gender Identity Not on file Sexual Orientation Not on file Plan of Treatment Upcoming Encounters Date Type Department Care Team (Late st Contact Info) Description 11/14/2024 10:40 AM EDT Office Visit [facility] [address] [place] [phone] Tanner Brian MD [address] [place] [address] Health Maintenance Due Date Last Done Comments CT Colonography 1965 Colonoscopy 1965 Colorectal Cancer Screening 1965 FIT-DNA 1965 FIT 1965 FOBT 1965 Sigmoidoscopy 1965 Depression Screening 1977 Hepatitis B Vaccines (1 of 3 - 19+ 3-dose series) 1984 Pneumococcal Vaccine: Pediat rics (0 to 5 Years) and At-Risk Patients (6 to 64 Years) (1 of 2 - PCV) 1984 Adult Tetanus 06/05/1987 Zoster Vaccines (1 of 2) 06/05/2015 COVID-19 Vaccine (2023-2 5 season) 2023 Influenza Vaccine (#1) 2024 HIB Vaccines Aged Out No longer eligi ble based on patient's age to complete this topic HPV Vaccines Aged Out No longer eligi ble based on patient's age to complete this topic IPV Vaccines Aged Out No longer eligi ble based on patient's age to complete this topic Meningococcal B Vaccine Aged Out No l onger eligible based on patient's age to complete this topic Meningococcal Vaccine Aged Out No faith yuliya eligible based on patient's age to complete this topic Rotavirus Vaccines Aged Out No longer eligible based on patient's age to complete this topic Insurance MEDICAID [place]
--- OUTSIDE RECORDS SUMMARY | 2024-11-11 07:08 | XMS_ITS | Encounter Summary ---
Author Organization [facility] Address [id number] [address] [place] [address] Care Team Providers Care Insurance Salesman Name Role Phone Unavailable Primary Care Provider Unavailabl e Encounter Details Date Type Department Care Team (Late st Contact Info) Description 01/12/2023 Orders Only [facility] External [employer] [facility] [place] [address] External, Scanning Provider Pain (Primary Dx) Social History Tobacco Use Types Packs/Day Years Used Date Smoking Tobacco: Every Day Cigarettes 2 42 Smokeless Tobacco: Former Alcohol Use Standard Drinks/Week Comments Yes 0 (1 standard drink = 0.6 oz pure alcohol) 2-3 tall boys daily until 12/18/22 now rarely AUDIT-C Answer Date Recorded Q1: How often do you have a drink containing alcohol? 4 or more times a week 01/12/2023 Q2: How many drinks containi ng alcohol do you have on a typical day when you are drinking? 3 or 4 Q3: How often do you have si x or more drinks on one occasion? Daily or almost daily 01/12/2023 PHQ-2 Answer Date Recorded Total Score 2 01/12/2023 Sex and Gender Information Value Date Recorded Sex Assigned at Not on file Legal Sex Male 11:55 AM EDT Gender Identity Not on file Sexual Orientation Not on file documented as of this encounter Functional Status * Question Answer Date of Assessment Author Functional Status Minimum assistance 01/13/2023 2:47 P M EDT Mily Mccray RN * Audit-C Score Answer Date of Assessment Author 9 01/12/2023 5:03 PM EDT Thelma Sebastian RN * Question Answer Date of Assessment Author Q1: How often do you have a drink containing alcohol? 4 or more times a week 01/12/2023 5:03 PM EDT Thelma Sebastian RN Q2: How many drinks containing alcohol do you have on a typical day when you are drinking? 3 or 4 01/12/2023 5:03 PM EDT Thelma Sebastian RN Q3: How often do you have six or more drinks on one occasion? Daily or almost daily 01/12/2023 5:03 PM EDT Thelma Sebastian RN documented as of this encounter Mental Status * Question Answer Entry Date Author Overall Cognitive Status X 01/14/2023 1:40 PM EDT Melvi So OTA/Ralf documented in this encounter Plan of Treatment Not on file documented as of this encounter Goals Goal Patient Goal Type Associated Problems Recent Progress Patient-Stated? Author Patient will DC to SNF General Yes Mily Mccray RN Note: Evaluation of progress towards goal: Pt will DC to SNF. documented as of this encounter Results * CT brain without contrast (01/10/2023 10:10 PM EDT) us Scanning Provider External IMG CT ORDERABLES Fin al Result * MR brain with and without contrast (01/10/2023 9:20 AM EDT) us Scanning Provider External IMG MRI ORDERABLES Fi nal Result * X-ray eye foreign body localization (01/10/2023 9:15 AM EDT) us Scanning Provider External IMG DIAGNOSTIC IMAGIN G ORDERABLES Final Result * CT brain without contrast (01/09/2023 12:35 PM EDT) us Scanning Provider External IMG CT ORDERABLES Fin al Result * X-ray chest 1 view (01/09/2023 12:30 PM EDT) us Scanning Provider External IMG DIAGNOSTIC IMAGIN G ORDERABLES Final Result * CT angiogram carotid (01/05/2023 11:55 AM EDT) us Scanning Provider External IMG CT ORDERABLES Fin al Result * CT brain without contrast (01/05/2023 10:30 AM EDT) us Scanning Provider External IMG CT ORDERABLES Fin al Result * X-ray chest 1 view (01/05/2023 10:25 AM EDT) us Scanning Provider External IMG DIAGNOSTIC IMAGIN G ORDERABLES Final Result documented in this encounter Visit Diagnoses Diagnosis Pain- Primary Generalized pain documented in this encounter Additional Health Concerns Infection Onset Date Last Indicated Resolved Time Meningitis Rule-Out 01/15/2023 01/17/2023 01/18/20 2:54 PM EDT Assessment Noted Time PHQ-9 Depression Total Score: 2 01/13/20 5:04 PM EDT documented as of this encounter
--- OUTSIDE RECORDS SUMMARY | 2024-11-11 07:08 | XMS_ITS | Clinical Summary ---
Author Organization [employer] [facility] Address [id number] [address] [place] [address] Care Team Providers Care Senior Mortgage Underwriter Name Role Phone Unavailable Primary Care Provider Unavailabl e Allergies No known active allergies Medications amLODIPine (NORVASC) 10 mg tablet Take 1 tablet (10 mg total) by mouth nightly. Active aspirin 81 mg Take 1 tablet (81 mg total) by mouth nightly. Active meloxicam (MOBIC) 15 mg tablet Take 1 tablet (15 mg total) by mouth nightly. Active atenoloL (TENORMIN) 50 mg tablet Take 1 tablet (50 mg total) by mouth nightly. Active lacosamide (VIMPAT) 100 mg tabletIndicatio ns:Seizure-like activity (CMS-HCC) Take 1 tablet (100 mg total) by mouth in the morning and 1 tablet (100 mg total) before bedtime. 60 tablet 3 01/18/2023 Active levETIRAcetam (KEPPRA) 750 mg tablet Take 2 tablets (1,500 mg total) by mouth in the morning and 2 tablets (1,500 mg total) before bedtime. 60 tablet 3 01/18/2023 Active thiamine HCl (VITAMIN B-1) 100 mg tablet Take 1 tablet (100 mg total) by mouth in the morning. 30 tablet 01/19/2023 Active Active Problems Problem Noted Date Diagnosed Date Seizure-like activity 01/12/2023 Immunizations No known immunizations Social History Tobacco Use Types Packs/Day Years Used Date Smoking Tobacco: Every Day Cigarettes 2 42 Smokeless Tobacco: Former Tobacco Cessation:Ready to Q uit: Not Asked; Counseling Given: Not Answered Alcohol Use Standard Drinks/Week Comments Yes 0 [...] Answer Date Recorded Total Score 2 01/12/2023 Housing Instability Answer Date Recorde d Are you worried or concerned that in the next two months you may not have stable housing that you own, rent or stay in as a part of a household? No 01/18/2023 Hunger Screening Answer Date Recorded Within the past 12 months we worried whether our food would run out before we got money to buy more. Sometimes True 023 Within the past 12 months th e food we bought just didn't last and we didn't have money to get more. Sometimes True 01/18/2023 Sex and Gender Information Value Date Recorded Sex Assigned at Not on file Legal Sex Male 11:55 AM EDT Gender Identity Not on file Sexual Orientation Not on file Last Filed Vital Signs Vital Sign Reading Time Taken Comments Blood Pressure 126/80 01/18/2023 11:14 AM EDT Pulse 61 01/18/2023 11:14 AM EDT Temperature 36.9 C (98.5 F) 01/18/2023 11:14 AM EDT Respiratory Rate 17 01/18/2023 10:00 AM EDT Oxygen Saturation 94% 01/18/2023 11:14 AM EDT Inhaled Oxygen Concentration - - Weight 75.1 kg (165 lb 9.1 oz) 01/15/2023 5:00 A M EDT Height 166.4 cm (5' 5.5 ) 01/12/2023 5:07 PM EDT Body Mass Index 27.13 01/12/2023 5:07 PM EDT Plan of Treatment Health Maintenance Due Date Last Done Comments DTaP,Tdap and Td Vaccines (1 - Tdap) 1984 Zoster (Shingles) Vaccine (1 of 2) 06/05/2015 Depression Screening 01/13/2024 01/12/2023 Tobacco Screening 01/13/2024 01/12/2023 Adult BMI Screening 01/16/2024 01/15/2023 Influenza Vaccine 11/18/2024 Goals Goal Patient Goal Type Associated Problems Recent Progress Patient-Stated? Author Patient will DC to SNF General Yes Mily Mccray RN Note: Evaluation of progress towards goal: Pt will DC to SNF. Medical Devices Not on file Insurance [employer] Advance Directives Documents on File Type Date Recorded Patient Insole And Outsole Preparer Expl anation DNR Physician Order 01/23/2023 1:11 PM * DNR Comfort Care Arrest (DNR-CCA) [place] (Latest Code Status on File) Date Activated Date Inactivated Comments 01/12/2023 5:07 PM 01/18/2023 6:29 PM
[2024-11-11] MEDS: REGADENOSON 0.4 MG/5 ML SYRINGE IV (09:31)
--- NOTE | 2024-11-11 09:32 | PC.NURSE ---
Nursing Note Cardiac Stress Test Reviewed: Medication, allergies and patient history reviewed. Stress Test: [x ] Patient tolerated stress test well. [ ] Patient unable to tolerate walking on treadmill. Switched to Lexiscan stress test. [x ] No chest pain noted per patient [ ] Chest pain that resolved prior to leaving stress lab. [x ] No dyspnea noted. [ ] Dyspnea that resolved prior to leaving stress lab. [x ] Patient left stress lab asymptomatic and hemodynamically stable. [ ] Patient taken to the Emergency Room due to non-resolving symptoms following stress test. [ ] Patient achieved target heart rate. [ ] Patient unable to achieve target heart rate. [ ] Aminophylline administered as reversal agent to Lexiscan (Regadenoson). [ ] Nitro administered. Nursing Comments:Pt had Lexiscan test done. NO CP or SOB noted. Pt ambulated to cafeteria for breakfast prior to second set of images.
--- NOTE | 2024-11-11 10:47 | PM.STRESS ---
Stress Test Stress Test Allergies Allergy/AdvReac Type Severity Reaction Status Date / Time No Known Drug Allergies Allergy Verified 01/09/23 11:37 Requesting physician: Marlee Sosa Procedure: Lexiscan pharmacological stress test General Information: Reason for Stress Test: [Chest pain, shortness of breath] Cardiac History and Risk Factors: [HTN, dyslipidemia] Resting 12 - Lead Electrocardiogram: Normal sinus rhythm Normal ECG Stress Test: Protocol: [Lexiscan stress test] Exercise Capacity: [N/A] Blood Pressure Response: [N/A] Rhythm: [Sinus] ST - Response: [No ST T wave changes] Patient Response: [No chest pain] Interpretation: 1. No ischemic ST T wave changes on Lexiscan stress test 2. Nuclear images are to be read, interpreted and reported seperately
== END 2024-11-11 07:07 | disposition home or self-care (01) ==
LOC: NM 07:06
PROVIDERS: PCP Family Medicine; Visit Provider Family Medicine
DX: R07.9 Chest pain, unspecified (principal); I10 Essential (primary) hypertension
CPT/HCPCS: 78452; 93017; A9500; J2785

== ENCOUNTER 2024-11-14 11:34 | Outpatient (OUT) | payer OTHER, SELFPAY ==
--- OUTSIDE RECORDS SUMMARY | 2024-11-14 10:40 | XMS_ITS | Encounter Summary ---
Author Organization [facility] Address [address] [place] [address] Care Team Providers Care Business Continuity Consultant Name Role Phone Marlee Sosa MD Primary Care Provider [phone] Reason for Visit * Reason Comments Chest Pain Cardiac Stress Test Sleep Apnea Seizures New Patient Hypertension Shortness of Breath Encounter Details Date Type Department Care Team (Late st Contact Info) Description 11/14/2024 10:40 AM EDT Office Visit [facility] [address] [place] [address] Tanner Brian MD [address] [place] [phone] Benign hypertensive heart disease without congestive heart [...] e alcohol) 1 to 2 per month. [place] Safety & Environment Answer Date Rec orded [...] Description 01/01/2025 11:00 AM EDT Office Visit [facility] [address] [place] [address] Tanner Brian MD [address] [place] [phone] documented as of this encounter Visit Diagnoses Diagnosis Benign hypertensive heart disease without congestive heart failure- Primary Benign hypertensive heart disease without heart failure Precordial pain Hypertensive left ventricular hypertrophy, without heart failure documented in this encounter Care Teams Business Continuity Consultant Relationship Specialty Start Date End Date Marlee Sosa MD [address] [facility] [address]A PCP - General 11/13/24 documented as of this encounter
--- OUTSIDE RECORDS SUMMARY | 2024-11-14 11:37 | XMS_ITS | Clinical Summary ---
Author Organization [facility] Address [id number] [address] [place] [address] Care Team Providers Care Core Feeder Name Role Phone Unavailable Primary Care Provider [...] Documents on File Type Date Recorded Patient Interior Horticulturist Expl anation DNR Physician Order 01/23/2023 1:11 PM * DNR Comfort Care Arrest (DNR-CCA) [place] (Latest Code Status on File) Date Activated Date Inactivated Comments 01/12/2023 5:07 PM 01/18/2023 6:29 PM
--- OUTSIDE RECORDS SUMMARY | 2024-11-14 11:37 | XMS_ITS | Encounter Summary ---
Author Organization [facility] Address [id number] [address] [place] [address] Care Team Providers Care Veterinary Anatomist Name Role Phone Unavailable Primary Care Provider Unavailabl e Encounter Details Date Type Department Care Team (Late st Contact Info) Description 01/12/2023 Orders Only [facility] [employer] [facility] [place] [address] External, Scanning Provider Pain (Primary [...] a week 01/12/2023 5:03 PM EDT Thelma Sebasitan RN Q2: How many drinks containing alcohol [...]
--- OUTSIDE RECORDS SUMMARY | 2024-11-14 11:37 | XMS_ITS | Clinical Summary ---
Author Organization [facility] Address [address] [place] [address] Care Team Providers Care Stacking Machine Operator Name Role Phone Marlee Sosa MD Primary Care Provider Allergies Active Allergy Reactions Criticality Noted Date Comments Lisinopril Unknown 07/25/2023 Medications gabapentin (Neurontin) 600 mg tablet Take 600 mg by mouth at bedtime. Active gabapentin (Neurontin) 400 mg capsule Take 400 mg by mouth in the morning. Active amLODIPine (Norvasc) 10 mg tablet Take 10 mg by mouth in the morning. Active metoprolol succinate XL (Toprol-XL) 50 mg 24 hr tablet Take 1 tablet by mouth in the morning. 10/16/2024 Active tiZANidine (Zanaflex) 4 mg tablet Take 4 mg by mouth every 6 (six) hours if needed. Active meloxicam (Mobic) 15 mg tablet Take 15 mg by mouth in the morning. Active cloNIDine (Catapres) 0.3 mg tablet Take 0.3 mg by mouth twice a day. 07/24/2023 Active levETIRAcetam (Keppra) 750 mg tablet Take 750 mg by mouth two times daily. Active aspirin 81 mg EC tablet Take 81 mg by mouth in the morning. Active fenofibrate (Tricor) 145 mg tablet Take 1 tablet by mouth in the morning. 08/23/2024 Active spironolactone (Aldactone) 25 mg tabletIndications :Benign hypertensive heart disease without congestive heart failure Take 1 tablet (25 mg) by mouth in the morning. 30 tablet 11 11/14/2024 11/15/19 26 Active Active Problems Problem Noted Date Diagnosed Date Chronic tension-type headache, intractable 11/15 Idiopathic peripheral neuropathy 11/16/2023 Numbness and tingling 11/16/2023 HOWARD (obstructive sleep apnea) 11/16/2023 Seizure 11/16/2023 Seizure-like activity 01/12/2023 Encounters Date Type Department Care Team Description 11/14/2024 10:40 AM EDT Office Visit [facility] [address] [place] [address] Tanner Brian MD Benign hypertensive heart disease without congestive heart failure (Primary Dx); Precordial pain; Hypertensive left ventricular hypertrophy, without heart failure 11/14/2024 Orders Only [facility] [address] [place] [phone] Dilcia Pierre MA Benign hypertensive heart disease without congestive heart failure (Primary Dx) from Last 3 Months Family History Medical History Relation Name Comments Heart failure Mother Relation Name Status Comments Father Mother Alive Social History Tobacco Use Types Packs/Day Years Used Date Smoking Tobacco: Every Day Cigarettes Passive Smoke Exposure: Current Smokeless Tobacco: Never Tobacco Cessation:Ready to Q uit: Not Asked; Counseling Given: Not Answered Alcohol Use Standard Drinks/Week Comments Yes 0 (1 standard drink = 0.6 oz pur e alcohol) 1 to 2 per month. [place] Safety & Environment Answer Date Rec [...] Heterosexual or Straight 10/19 11:13 AM EDT Last Filed Vital Signs Vital Sign Reading [...] Mass Index 34.95 11/14/2024 10:47 AM EDT Plan of Treatment Upcoming Encounters Date Type Department Care Team (Late st Contact Info) Description 01/01/2025 11:00 AM EDT Office Visit [facility] [address] [place] [address] Tanner Brian MD [address] [place] [address] Health Maintenance Due Date Last [...] patient's age to complete this topic Insurance [employer] [place] [employer] Care Teams Stacking Machine Operator Relationship Specialty Start Date End Date Marlee Sosa MD [address] [facility] #A PCP - General 11/13/24
--- OUTSIDE RECORDS SUMMARY | 2024-11-14 11:37 | XMS_ITS | Encounter Summary ---
Author Organization [facility] Address [address] [place] [address] Care Team Providers Care Gasateria Attendant Name Role Phone Marlee Sosa MD Primary Care Provider [phone] Encounter Details Date Type Department Care Team (Late st Contact Info) Description 11/14/2024 Orders Only [address] [address] Dilcia Pierre MA Benign hypertensive heart disease without congestive heart failure (Primary Dx) Social History Tobacco Use Types Packs/Day Years Used Date Smoking Tobacco: Every Day Cigarettes Passive Smoke Exposure: Current Smokeless Tobacco: Never Alcohol Use Standard Drinks/Week Comments Yes 0 (1 standard drink = 0.6 oz pur e alcohol) 1 to 2 per month. [place] Safety & Environment Answer Date Rec orded [...] AM EDT documented as of this encounter Plan of Treatment Upcoming Encounters Date Type Department Care Team (Late st Contact Info) Description 01/01/2025 11:00 AM EDT Office Visit [facility] [address] [place] [address] Tanner Brian MD [address] [facility] [place] [address] Scheduled Orders Name Type Priority Associated Diagnoses Orde r Schedule Microalbumin, urine, random Lab Routine Benign hypertensive heart disease without congestive heart failure Expected: 11/14/2024 (Approximate), Expires: 11/14/2025 Creatinine, urine, 24 hour Lab Routine Benign hypertensive heart disease without congestive heart failure Expected: 11/14/2024 (Approximate), Expires: 11/14/2025 Aldosterone Lab Routine Benign hypertensive heart disease without congestive heart failure Expected: 11/14/2024 (Approximate), Expires: 11/14/2025 Renin activity Lab Routine Benign hypertensive heart disease without congestive heart failure Expected: 11/14/2024 (Approximate), Expires: 11/14/2025 Basic metabolic panel Lab Routine Benign hypertensive heart disease without congestive heart failure Expected: 11/14/2024 (Approximate), Expires: 11/14/2025 documented as of this encounter Visit Diagnoses Diagnosis Benign hypertensive heart disease without congestive heart failure- Primary Benign hypertensive heart disease without heart failure documented in this encounter Care Teams Gasateria Attendant Relationship Specialty Start Date End Date Marlee Sosa MD [address] [place] [address] #A PCP - General 11/13/24 documented as of this encounter
--- OUTSIDE RECORDS SUMMARY | 2024-11-14 11:37 | XMS_ITS | Clinical Summary ---
Author Organization [facility] Address [address] [place] [address] Care Team Providers Care Medical Imaging Director Name Role Phone Marlee Sosa MD Primary Care Provider [phone] Rachael Buck DO Unavailable [phone] Dorota Hou POSTPARTUM NURSE Unavailable [phone] Rachael Buck DO Unavailable [phone] Allergies Active Allergy Reactions Criticality Noted [...] (#1) 2024 Insurance [employer] Care Teams Medical Imaging Director Relationship Specialty Start Date End Date Marlee Sosa MD [address] [place] [address] PCP - General Family Medicine 07/26/23 Rachael Buck DO PCP - [facility] 06/18/24 Rachael Buck DO [address] [place] [address] Referring Physician Neurology 02/07/24 Dorota Hou NP [address] [place] [address] Nurse Practitioner Neurology 02/07/24
--- OUTSIDE RECORDS SUMMARY | 2024-11-14 11:53 | XMS_ITS | CCD ---
Author Organization [facility] Care Team Providers Care Head Trimmer Name Role Phone NEO WATKINS Attending Unavailable NEO WATKINS Consulting Unavailable MARTHA, DR MARLEE Akins Primary Care Unavailable NEO WATKINS Admitting Unavailable JAY JAY, DR OWEN Moss Attending Unavailable JAY JAY, DR OWEN Moss Consulting Unavailable JAY JAY, DR OWEN Moss Admitting Unavailable MARTHA, DR MARLEE Akins Primary Care Unavailable ABBI, DR GUERRERO Consulting Unavailable Marlee Tohmas Unavailable Marlee Thomas MD Primary Care Provider Rehan Rae DO Unavailable Savi SUR[employer]YOR [employer] PROSPECTING, Tiesha Unavailable [phone] TIESHA HOU Attending Unavailable REHAN RAE Attending Unavailable TIESHA HOU Attending Unavailable REHAN RAE Attending Unavailable TIESHA HOU Attending Unavailable MARLEE THOMAS Referring Unavailable Marlee Thomas MD Primary Care Provider Marlee Thomas MD Primary Care Provider [phone] Marlee Thomas MD Attending Provider Tiesha Hou APRN Attending Provider Allergies Allergy Classification Reported Allergen(s) Allergy Type Date of Onset Reaction(s) Facility (12 sources) Lisinopril Drug Allergy Unknown [facility] Other (11 sources) Lisinopril Propensity to adverse [...] 1; Qty: 30 Tablet; Provider: Martha Akins Start: 03-07-2023 take 1 tablet by [...] 08-15-2024 Episodic Other aftercare (1 source) 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; Translations: [OTH CARDIAC RN CURRENT DRUG THERAPY] Onset: 10-21-2020 Episodic Other [...] Basophils (Bld) [#/Vol] 0.1 10 3/uL 0.0-0.1 [facility] Basophils/100 WBC Auto (Bld) on 05-05-2023 Basophils/100 WBC (Bld) 0.6 % 0.2-2.0 [facility] Eosinophils/100 WBC Auto (Bl d)on 05-05-2023 Eosinophils/100 WBC (Bld) 1.8 % 0.9-7.0 [facility] Erythrocyte distribution wid th Auto (RBC) [Ratio]on 05-05-2023 Erythrocyte distribution width (RBC) [Ratio] 12.4 % 11.0-15.0 [facility] Estimated glomerular filtrat ion rate (GFR) non- Americanon 05-05-2023 GFR/1.73 sq M.predicted among non-blacks MDRD (S/P/Bld) [Vol rate/Area] 60 mL/min/{1.73_m2} >=60 [facility] Hematocrit Auto (Bld) [Volum e fraction]on 05-05-2023 Hematocrit (Bld) [Volume fraction] 45.7 % 42.0-54.0 [facility] Hemoglobin [Mass/volume] in Bloodon 05-05-2023 Hemoglobin (Bld) [Mass/Vol] 14.9 g/dL 14.0-18.0 [facility] Laboratory - Chemistry and C hemistry - challengeon 05-05-2023 Calcium [Mass/Vol] 9.3 mg/dL 8.5-10.1 [facility] Chloride [Moles/Vol] 103 mmol/L 98-107 [facility] CO2 [Moles/Vol] 29.7 mmol/L 21.0-32.0 [facility] Cobalamin (Vitamin B12) [Mass/Vol] 710.0 pg/mL 193.0-986.0 [facility] Creatinine [Mass/Vol] 1.25 mg/dL 0.70-1.30 [facility] GFR/1.73 sq M.predicted MDRD (S/P/Bld) [Vol rate/Area] mL/min/{1.73_m2} >=60 [facility] Glucose [Mass/Vol] 93 mg/dL 74-106 [facility] Potassium [Moles/Vol] 5.0 mmol/L 3.5-5.1 [facility] Sodium [Moles/Vol] 139 mmol/L 136-145 [facility] TSH Qn 2.896 m[IU]/L 0.358-3.740 [facility] Urea nitrogen [Mass/Vol] 19.0 mg/dL 7.0-18.0 [facility] Urea nitrogen/Creatinine [Mass ratio] 15.2 mg/mg [facility] Laboratory - Hematology and Cell countson 05-05-2023 Immature granulocytes/100 WBC (Bld) 0.5 % 0.0-0.5 [facility] Leukocytes [#/volume] correc wendy for nucleated erythrocytes in Blood by Automated counon 05-05-2023 WBC corrected for nucl RBC Auto (Bld) [#/Vol] 12.4 10 3/uL 4.0-11.0 [facility] Lymphocytes Auto (Bld) [#/Vo l]on 05-05-2023 Lymphocytes (Bld) [#/Vol] 3.3 10 3/uL 1.2-3.8 [facility] Lymphocytes/100 WBC Auto (Bl d)on 05-05-2023 Lymphocytes/100 WBC (Bld) 26.4 % 20.5-60.0 [facility] MCH Auto (RBC) [Entitic mass ]on 05-05-2023 MCH (RBC) [Entitic mass] 31.1 pg 25.9-34.0 [facility] MCHC Auto (RBC) [Mass/Vol]on 05-05-2023 MCHC (RBC) [Mass/Vol] 32.6 g/dL 29.9-35.2 [facility] MCV Auto (RBC) [Entitic vol] on 05-05-2023 MCV (RBC) [Entitic vol] 95.4 fL 80.0-94.0 [facility] Monocytes Auto (Bld) [#/Vol] on 05-05-2023 Monocytes (Bld) [#/Vol] 1.2 10 3/uL 0.3-0.8 [facility] Monocytes/100 WBC Auto (Bld) on 05-05-2023 Monocytes/100 WBC (Bld) 10.0 % 1.7-12.0 [facility] Neutrophils Auto (Bld) [#/Vo l]on 05-05-2023 Neutrophils (Bld) [#/Vol] 7.5 10 3/uL 1.4-6.5 [facility] Neutrophils/100 WBC Auto (Bl d)on 05-05-2023 Neutrophils/100 WBC (Bld) 60.7 % 43.0-75.0 [facility] No Panel Informationon 05-05 Eosinophils # (Auto) 0.2 10 3/uL 0.0-0.7 [facility] Folate 26.40 ng/mL 8.60-58.90 [facility] Immature Granulocyte # (Auto) 0.06 10 3/uL 0.00-0.03 [facility] Prostate Specific Antigen Screen 0.97 ng/mL <=4.00 [facility] Platelet mean volume Auto (B ld) [Entitic vol]on 05-05-2023 Platelet mean volume (Bld) [Entitic vol] 9.9 fL 9.5-13.5 [facility] Platelets Auto (Bld) [#/Vol] on 05-05-2023 Platelets (Bld) [#/Vol] 271 10 3/uL 150-450 [facility] RBC Auto (Bld) [#/Vol]on RBC (Bld) [#/Vol] 4.79 10 6/uL 4.70-6.10 [facility] Serum or plasma anion gap de terminationon 05-05-2023 Anion gap [Moles/Vol] 11.3 mmol/L [facility] FRESH FROZ PLASMAon 10-30-19 21 FRESH FROZ PLASMA Unit Blood Type O Pos Unit Number [id number] Status Information Transfused Product ID FFP Product Code [id number] Normal [facility] Comment on above: Performed By: #### F BRIGIDA #### [facility] [address] [place] [address] Brenda Katherine CBC W MANUAL DIFFon 10-20-19 21 ATYPICAL LYMPH # 0.29 103/ul Normal [facility] Comment on above: Performed By: #### C CARO #### [facility] [address] [address] Brenda Katherine ATYPICAL LYMPH % 2 % Normal [facility] Comment on above: Performed By: #### C CARO #### [facility] [address] [address] Brenda Katherine BAND # 0.1 103/ul Normal 0.0-0.3 [facility] Comment on above: Performed By: #### C CARO #### [facility] [address] [place], [place] [id number] Brenda Katherine BAND % 1 % Normal 0-5 [facility] Comment on above: Performed By: #### C CARO #### [facility] [address] [place] [address] Brenda Katherine BASOM # 0.15 103/ul Critically high 0.00-0.[address] [facility] Comment on above: Performed By: #### C CARO #### [facility] [address] [place] [address] Brenda Katherine BASOM % 1.0 % Normal 0.2-2.0 [facility] Comment on above: Performed By: #### C CARO #### [facility] [address] [place] [address] Brenda Aktherine BLAST # Normal [facility] Comment on above: Performed By: #### C CARO #### [facility] [address] [place] [address] Brenda Katherine BLAST % Normal [facility] Comment on above: Performed By: #### C CARO #### [facility] [address] [place] [address] Brenda Katherine CORRECTED WBC Normal 4.0-11.0 [facility] Comment on above: Performed By: #### C CARO #### [facility] [address] [place] [address] Brenda Katherine EOS # 0.58 103/ul Normal 0.00-0.70 [facility] Comment on above: Performed By: #### C CARO #### [facility] [address] [place] [address] Brenda Katherine EOS% 4.0 % Normal 0.9-7.0 [facility] Comment on above: Performed By: #### C CARO #### [facility] [address] [place] [address] Brenda Katherine HCT 39.9 % Critically low 42.0-54.0 [facility] Comment on above: Performed By: #### C CARO #### [facility] [address] [place] [address] Brenda Katherine HGB 13.3 g/dl Critically low 14.0-18.0 [facility] Comment on above: Performed By: #### C CARO #### [facility] [address] [place] [address] Brenda Murphy LYMPHM # 5.40 103/ul Critically high 1.20-3.80 [facility] Comment on above: Performed By: #### C CARO #### [facility] [address] [place] [address] Brenda Katherine LYMPHM% 37.0 % Normal 20.5-60.0 [facility] Comment on above: Performed By: #### C CARO #### [facility] [address] [place] [address] Brenda Linaresen MCH 31.4 pg Normal 25.9-34.0 [facility] Comment on above: Performed By: #### Alcon ELIZONDO #### [facility] [address] [place] [address] Brenda Murphy MCHC 33.3 g/dl Normal 29.9-35.2 [facility] Comment on above: Performed By: #### Alcon ELIZONDO #### [facility] [address] [place] [address] Brenda Linaresen MCV 94.1 fL Critically high 80.0-94.0 [facility] Comment on above: Performed By: #### Alcon ELIZONDO #### [facility] [address] [place] [address] Brenda Katherine METAMYELOCYTE # Normal [facility] Comment on above: Performed By: #### Alcon ELIZONDO #### [facility] [address] [place] [address] Brenda Katherine METAMYELOCYTE % Normal [facility] Comment on above: Performed By: #### C CARO #### [facility] [address] [place] [address] Brenda Linaresen MONOM# 0.00 103/ul Critically low 0.30-0.80 [facility] Comment on above: Performed By: #### Alcon ELIZONDO #### [facility] [address] [id number] Brenda Murphy MONOM% 0.0 % Critically low 1.7-12.0 [facility] Comment on above: Performed By: #### Alcon ELIZONDO #### [facility] [address] [id number] Brenda Murphy MPV 9.6 fL Normal 9.5-13.5 [facility] Comment on above: Performed By: #### Alcon ELIZONDO #### [facility] [address] [address] Brenda Katherine MYELOCYTE # Normal [facility] Comment on above: Performed By: #### Alcon ELIZONDO #### [facility] [address] [place], [place] [id number] Brendaconrad Murphy MYELOCYTE % Normal [facility] Comment on above: Performed By: #### Alcon ELIZONDO #### [facility] [address] [place], [place] [id number] Brenda Linaresen NRBC Normal [facility] Comment on above: Performed By: #### Alcon ELIZONDO #### [facility] [address] [place], [place] [id number] Brenda Linaresen PLT 256 103/ul Normal 150-450 [facility] Comment on above: Performed By: #### Alcon ELIZONDO #### [facility] [address] [place], [place] [id number] Brenda Katherine RBC 4.24 106/ul Critically low 4.70-6.10 [facility] Comment on above: Performed By: #### Alcon ELIZONDO #### [facility] [address] [place], [place] [id number] Brenda Murphy RDW 13.9 % Normal 11.0-15.0 [facility] Comment on above: Performed By: #### Alcon ELIZONDO #### [facility] [address] [place], [place] [id number] Brenda Katherine SEG # 8.03 103/ul Critically high 1.40-6.[address] [facility] Comment on above: Performed By: #### Alcon ELIZONDO #### [facility] [address] [place], [place] [id number] Brenda Katherine SEG % 55.0 % Normal 43.0-75.0 [facility] Comment on above: Performed By: #### C CARO #### [facility] [address] [place], [place] [address] Brenda Murphy WBC 14.6 103/ul Critically high 4.0-11.0 [facility] Comment on above: Performed By: #### C CARO #### [facility] [address] [place], [place] [id number] Brenda Murphy PROF 14(COMP METB)on 021 Albumin [Mass/Vol] 4.1 g/dL Normal 3.5-5.0 [facility] Comment on above: Performed By: #### C MP #### [facility] [address] [place], [place] [id number] Brenda Murphy Albumin/Globulin [Mass ratio] 1.5 {ratio} Normal [facility] Comment on above: Performed By: #### C MP #### [facility] [address] [place] [address] Brendaconrad Murphy ALP [Catalytic activity/Vol] 76 U/L Normal 38-126 [facility] Comment on above: Performed By: #### C MP #### [facility] [address] [place] [address] Brenda Murphy ALT [Catalytic activity/Vol] 27 U/L Normal 21-72 [facility] Comment on above: Performed By: #### C MP #### [facility] [address] [place], [place] [id number] Brenda Katherine Anion gap [Moles/Vol] 10.1 mmol/L Normal [facility] Comment on above: Performed By: #### C MP #### [facility] [address] [place], [place] [id number] Brenda Katherine AST [Catalytic activity/Vol] 24 U/L Normal 17-59 [facility] Comment on above: Performed By: #### C MP #### [facility] [address] [place] [address] Brendaconrad Murphy Bilirubin [Mass/Vol] 0.2 mg/dL Normal 0.2-1.3 [facility] Comment on above: Performed By: #### C MP #### [facility] [address] [id number] Brenda Katherine Calcium [Mass/Vol] 8.5 mg/dL Normal 8.4-10.2 [facility] Comment on above: Performed By: #### C MP #### [facility] [address] [id number] Brenda Katherine Chloride [Moles/Vol] 107 mmol/L Normal 98-107 [facility] Comment on above: Performed By: #### C MP #### [facility] [address] [id number] Brenda Katherine CO2 [Moles/Vol] 29.0 mmol/L Normal 22.0-30.[address] [facility] Comment on above: Performed By: #### C MP #### [facility] [address] [address] Brenda Katherine Creatinine [Mass/Vol] 1.30 mg/dL Critically high 0.66-1.25 [facility] Comment on above: Performed By: #### C MP #### [facility] [address] [id number] Brenda Katherine EGFR-AF LIBERIAN >60 Normal >=60 [facility] Comment on above: Performed By: #### C MP #### [facility] [address] [id number] Brenda Katherine EGFR-NON AF LIBERIAN 57 mL/min/1.73m2 Critically low >=60 [facility] Comment on above: Performed By: #### C MP #### [facility] [address] [id number] Brenda Katherine Globulin (S) [Mass/Vol] 2.7 g/dL Normal [facility] Comment on above: Performed By: #### C MP #### [facility] [address] [id number] Brenda Katherine Glucose [Mass/Vol] 109 mg/dL Critically high 74-106 [facility] Comment on above: Performed By: #### C MP #### [facility] [address] [address] Brenda Katherine Potassium [Moles/Vol] 4.1 mmol/L Normal 3.4-5.0 [facility] Comment on above: Performed By: #### C MP #### [facility] [address] [address] Brenda Katherine Protein [Mass/Vol] 6.8 g/dL Normal 6.1-8.2 [facility] Comment on above: Performed By: #### C MP #### [facility] [address] [id number] Brenda Katherine Sodium [Moles/Vol] 142 mmol/L Normal 137-145 [facility] Comment on above: Performed By: #### C MP #### [facility] [address] [address] Brenda Katherine Urea nitrogen [Mass/Vol] 19.0 mg/dL Normal 9.0-20.0 [facility] Comment on above: Performed By: #### C MP #### [facility] [address] [id number] Brenda Katherine Urea nitrogen/Creatinine [Mass ratio] 14.6 mg/mg Normal [facility] Comment on above: Performed By: #### C MP #### [facility] [address] [id number] Brenda Murphy PROTIMEon 10-19-2020 INR Coag (PPP) [Relative time] 0.97 {INR} Normal [facility] Comment on above: Performed By: #### P TT, PT #### [facility] [address] [id number] Brenda Katherine INR GUIDELINES SEE BELOW Normal [facility] Comment on above: Result Comment: JED RED INR: 2.0 - 3.0 CONDITIONS NOT LISTED BELOW 2.5 - 3.5 FOR PROSTHETIC HEART VALVE REPLACEMENT 2.5 - 3.5 RECURRENT THROMBOSIS Performed By: #### P TT, PT #### [facility] [address] [id number] Brenda Katherine PT Coag (PPP) [Time] 10.5 s Normal 9.0-11.6 [facility] Comment on above: Performed By: #### P TT, PT #### [facility] [address] [place], [place] [address] Brenda Murphy PTTon 10-19-2020 aPTT Coag (Bld) [Time] 26.8 s Normal 22.3-36.2 [facility] Comment on above: Performed By: #### P TT, PT #### [facility] [address] [place], [place] [address] Brenda Murphy TYPE AND SCREENon 10-19-2020 TYPE AND SCREEN Negative Normal [facility] Comment on above: Performed By: #### T NS #### [facility] [address] [place], [place] [address] Brenda Murphy Vital Signs Date Time Vital Sign Value Performing Clinician Facility 11-04-2024 09:41-0400 Body height 165.1 cm Marlee Thomas MD Work Phone: [facility] 11-04-2024 09:41-0400 Body mass index (BMI) [Ratio] 35.2 kg/m2 Marlee Thomas MD Work Phone: [facility] 11-04-2024 09:41-0400 Body weight 96.16 kg Marlee Thomas MD Work Phone: [facility] 11-04-2024 09:41-0400 Diastolic blood pressure 99 mm[Hg] Marlee Thomas MD Work Phone: [facility] 11-04-2024 09:41-0400 Systolic blood pressure 148 mm[Hg] Marlee Thomas MD Work Phone: [facility] 09-11-2024 10:02-0400 Body height 166.37 cm Marlee Thomas MD Work Phone: [facility] 09-11-2024 10:02-0400 Body mass index (BMI) [Ratio] 34.2 kg/m2 Marlee Thomas MD Work Phone: [facility] 09-11-2024 10:02-0400 Body weight 94.8 kg Marlee Thomas MD Work Phone: [facility] 09-11-2024 10:02-0400 Diastolic blood pressure 85 mm[Hg] Marlee Thomas MD Work Phone: [facility] 09-11-2024 10:02-0400 Heart rate 67 /min Marlee Thomas MD Work Phone: [facility] 09-11-2024 10:02-0400 Systolic blood pressure 130 mm[Hg] Marlee Thomas MD Work Phone: [facility] 08-15-2024 15:47-0400 Body height 166.37 cm [facility] 08-15-2024 15:47-0400 Body mass index (BMI) [Ratio] 34.2 kg/m2 [facility] 08-15-2024 15:47-0400 Body weight 94.8 kg [facility] 08-15-2024 15:47-0400 Diastolic blood pressure 96 mm[Hg] [facility] 08-15-2024 15:47-0400 Heart rate 61 /min [facility] 08-15-2024 15:47-0400 Systolic blood pressure 151 mm[Hg] [facility] 04-29-2024 13:57-0500 Body height 166.37 cm [facility] 04-29-2024 13:57-0500 Body mass index (BMI) [Ratio] 33.8 kg/m2 [facility] 04-29-2024 13:57-0500 Body weight 93.61 kg [facility] 04-29-2024 13:57-0500 Diastolic blood pressure 90 mm[Hg] [facility] 04-29-2024 13:57-0500 Heart rate 66 /min [facility] 04-29-2024 13:57-0500 Systolic blood pressure 145 mm[Hg] [facility] 02-07-2024 09:01-0500 Body height 165.1 cm Tiesha Hou NP Work Phone: [facility] 02-07-2024 09:01-0500 Body mass index (BMI) [Ratio] 34.28 kg/m2 Tiesha Sowr SUR[employer]YOR [employer]OSPECTING Work Phone: [facility] 02-07-2024 09:01-0500 Body weight 93.44 kg Tiesha Sowr SUR[employer]OSPECTING Work Phone: [facility] 02-07-2024 09:01-0500 Diastolic blood pressure 80 mm[Hg] Tiesha Sowr SURVEYOR [employer]OSPECTING Work Phone: [facility] 02-07-2024 09:01-0500 Heart rate 58 /min Tiesha Sowr [employer]OSPECTING Work Phone: [facility] 02-07-2024 09:01-0500 SaO2% (BldA) [Mass fraction] 95 % Tiesha Sowr [employer]OSPECTING Work Phone: [facility] 02-07-2024 09:01-0500 Systolic blood pressure 122 mm[Hg] Tiesha Sowr [employer]OSPECTING Work Phone: [facility] 12-05-2023 08:39-0400 Diastolic blood pressure 108 mm[Hg] Rehan Heber DO Work Phone: [facility] 12-05-2023 08:39-0400 Heart rate 78 /min Rehan Heber DO Work Phone: [facility] 12-05-2023 08:39-0400 SaO2% (BldA) [Mass fraction] 99 % Rehan Heber DO Work Phone: [facility] 12-05-2023 08:39-0400 Systolic blood pressure 184 mm[Hg] Rehan Heber DO Work Phone: [facility] 12-04-2023 15:36-0400 Body height 166.37 cm [facility] 12-04-2023 15:36-0400 Body mass index (BMI) [Ratio] 33.5 kg/m2 [facility] 12-04-2023 15:36-0400 Body weight 92.98 kg [facility] 12-04-2023 15:36-0400 Diastolic blood pressure 104 mm[Hg] [facility] 12-04-2023 15:36-0400 Heart rate 65 /min [facility] 12-04-2023 15:36-0400 SaO2% (BldA) [Mass fraction] 92 % [facility] 12-04-2023 15:36-0400 Systolic blood pressure 170 mm[Hg] [facility] 11-16-2023 13:19-0400 Body height 165.1 cm Tiesha Gillmor SUR[employer]OSPECTING Work Phone: [facility] 11-16-2023 13:19-0400 Body mass index (BMI) [Ratio] 33.61 kg/m2 Tiesha Gillmor [employer]OSPECTING Work Phone: [facility] 11-16-2023 13:19-0400 Body weight 91.63 kg Tiesha Gillmor SUR[employer]PECTING Work Phone: [facility] 11-16-2023 13:19-0400 Diastolic blood pressure 90 mm[Hg] Tiesha Gillmor SUR[employer]OSPECTING Work Phone: [facility] 11-16-2023 13:19-0400 Systolic blood pressure 152 mm[Hg] Tiesha Gillmor SUR[employer]YOR [employer]OSPECTING Work Phone: [facility] 07-24-2023 09:57-0400 Body height 166.37 cm [facility] 07-24-2023 09:57-0400 Body mass index (BMI) [Ratio] 33 kg/m2 [facility] 07-24-2023 09:57-0400 Body weight 91.62 kg [facility] 07-24-2023 09:57-0400 Diastolic blood pressure 101 mm[Hg] [facility] 07-24-2023 09:57-0400 Heart rate 72 /min [facility] 07-24-2023 09:57-0400 Systolic blood pressure 153 mm[Hg] [facility] 05-05-2023 09:28-0500 Body height 166.37 cm [facility] 05-05-2023 09:28-0500 Body mass index (BMI) [Ratio] 32.6 kg/m2 [facility] 05-05-2023 09:28-0500 Body weight 90.43 kg [facility] 05-05-2023 09:28-0500 Diastolic blood pressure 86 mm[Hg] [facility] 05-05-2023 09:28-0500 Heart rate 78 /min [facility] 05-05-2023 09:28-0500 Systolic blood pressure 134 mm[Hg] [facility] 03-07-2023 14:00-0500 Body height 166.37 cm Marlee Thomas Other [facility] 03-07-2023 14:00-0500 Body mass index (BMI) [Ratio] 31.2 kg/m2 Marlee Thomas Other [facility] Other 03-07-2023 14:00-0500 Body weight 86.37 kg Marlee Thomas Other [facility] Other 03-07-2023 14:00-0500 Body weight 86.36 kg [facility] 03-07-2023 14:00-0500 Diastolic blood pressure 85 mm[Hg] Marlee Thomas Other [facility] 03-07-2023 14:00-0500 SaO2% (BldA) [Mass fraction] 97 % Marlee Thomas Other [facility] Other 03-07-2023 14:00-0500 Systolic blood pressure 125 mm[Hg] [facility]lee Thomas [facility] [facility] 01-26-2023 10:45-0500 Body height 166.37 cm Marlee Thomas Other [facility] Other 01-26-2023 10:45-0500 Body mass index (BMI) [Ratio] 29.36 kg/m2 Marlee Thomas Other [facility] Other 01-26-2023 10:45-0500 Body weight 81.29 kg Marlee Thomas Other [facility] Other 01-26-2023 10:45-0500 Diastolic blood pressure 87 mm[Hg] Marlee Thomas Other [facility] Other 01-26-2023 10:45-0500 Systolic blood pressure 146 mm[Hg] Marlee Thomas Other [facility] Other 11-22-2022 09:00-0400 Body height 166.37 cm Marlee Thomas Other [facility] Other 11-22-2022 09:00-0400 Body mass index (BMI) [Ratio] 29.99 kg/m2 Marlee Thomas Other [facility] Other 11-22-2022 09:00-0400 Body weight 83.01 kg Marlee Thomas Other [facility] Other 11-22-2022 09:00-0400 Diastolic blood pressure 88 mm[Hg] Marlee hTomas Other [facility] Other 11-22-2022 09:00-0400 Systolic blood pressure 134 mm[Hg] Marlee Thomas Other [facility] Other Encounters Encounter Date Encounter Type Care Provider Facility Start: 11-04-2024 End: 11-04-2024 ambulatory Marlee Thomas MD Work Phone: [facility] Work Phone: Start: 11-04-2024 End: 11-04-2024 Patient encounter procedure Tiesha Venegas [facility] Work Phone: Start: 09-11-2024 End: 09-11-2024 ambulatory Marlee Thomas MD Work Phone: [facility] Work Phone: Start: 09-11-2024 End: 09-11-2024 Patient encounter procedure Marlee Thomas MD [facility] Work Phone: Start: 08-15-2024 End: 08-15-2024 ambulatory [facility] Work Phone: Start: 08-15-2024 End: 08-15-2024 Patient encounter procedure [facility] Work Phone: Start: 08-06-2024 End: 08-06-2024 Refmercedes WATT Comment on above: Idiopathic periphera l neuropathy Start: 05-09-2024 End: 05-09-2024 Bamboo flowsheet Tiesha Susymor [employer]OSPECTING Work Phone: ELAYNE [facility] Start: 05-09-2024 End: 05-09-2024 Bamboo flowsheet Tiesha Gillmor [employer]PECTING Work Phone: [facility] Start: 05-09-2024 End: 05-09-2024 ambulatory TIESHA SAVI Not Available Start: 04-29-2024 End: 04-29-2024 ambulatory [facility] Work Phone: Start: 04-29-2024 End: 04-29-2024 Patient encounter procedure [facility] Work Phone: Start: 02-07-2024 End: 02-07-2024 Bamboo flowsheet Tiesha Gillmor SURVEYOR GEOPH[employer] PROSPECTING Work Phone: [facility] [place] [address] [facility] Start: 02-07-2024 End: 02-07-2024 Bamboo flowsheet Tiesha Gillmor [employer]OSPECTING Work Phone: [facility] [place] [address] [facility] Start: 02-07-2024 End: 02-07-2024 Office outpatient visit 25 minutes Tiesha Sowr [employer]OSPECTING Work Phone: [facility] [place] [address] [facility] Comment [...] 25 minutes Rehan Rae DO Work Phone: [facility] Comment on above: Idiopathic periphera l neuropathy (Primary Dx); Migraine without aura and without status migrainosus, not intractable (CMS/HCC); Other complicated headache syndrome; Complex sleep apnea syndrome; Numbness and tingling; Chronic tension-type headache, intractable; HOWARD (obstructive sleep apnea) Start: 12-05-2023 End: 12-05-2023 ambulatory REHAN RAE Not Available Start: 12-04-2023 End: 12-04-2023 ambulatory [facility] Work Phone: Start: 12-04-2023 End: 12-04-2023 Patient encounter procedure [facility] Work Phone: Start: 11-16-2023 End: 11-16-2023 Bamboo flowsheet Tiesha Hou SURVEYOR GEOPHYSICAL PROSPECTING Work Phone: [facility] [place] [address] Start: 11-16-2023 End: 11-16-2023 Bamboo flowsheet Tiesha Hou SURVEYOR GEOPHYSICAL PROSPECTING [facility] [address] Start: 11-16-2023 End: 11-16-2023 Office outpatient visit 25 minutes Tiesha Hou SUR[employer]OPH[employer] PROSPECTING [facility] Comment on above: HOWARD (obstructive sle ep apnea) (Primary Dx); Seizure (CMS/HCC); Numbness and tingling; Idiopathic peripheral neuropathy; Chronic tension-type headache, intractable; Neck pain Start: 11-16-2023 End: 11-16-2023 ambulatory TIESHA GILLMOR Not Available Start: 09-20-2023 End: 09-20-2023 ambulatory REHAN RAE Not Available Start: 07-24-2023 End: 07-24-2023 ambulatory [facility] Work Phone: Start: 07-24-2023 End: 07-24-2023 Patient encounter procedure [facility] Work Phone: Start: 05-22-2023 Non-patient / Non-visit [facility] [place] Work Phone: Start: 05-12-2023 End: 05-12-2023 ambulatory Marlee Thomas Other [facility] Other Start: 05-12-2023 Telephone encounter Marlee Thomas [facility] Start: 05-12-2023 Non-patient / Non-visit [facility] [place] Work Phone: Start: 05-05-2023 End: 05-05-2023 ambulatory [facility] Work Phone: Start: 05-05-2023 End: 05-05-2023 Patient encounter procedure [facility] Work Phone: Start: 04-17-2023 End: 04-17-2023 ambulatory Marlee Thomas Other [facility] Other Start: 04-17-2023 Telephone encounter Marlee Thomas [facility] Start: 03-21-2023 End: 03-21-2023 ambulatory Marlee Thomas Other [facility] Other Start: 03-21-2023 Telephone encounter Marlee Thomas [facility] Start: 03-16-2023 End: 03-16-2023 ambulatory Marele Thomas Other [facility] Other Start: 03-16-2023 Telephone encounter Marlee Thomas [facility] Start: 03-07-2023 End: 03-07-2023 ambulatory Marlee Thomas Other [facility] Other Start: 03-07-2023 Office outpatient vi sit 15 minutes Marlee Thomas [facility] Start: 03-07-2023 End: 03-07-2023 Patient encounter procedure [facility] Work Phone: Start: 03-06-2023 End: 03-06-2023 ambulatory Marlee Thomas Other [facility] Other Start: 03-06-2023 Telephone encounter Marlee Thomas [facility] Start: 01-26-2023 End: 01-26-2023 ambulatory Marlee Thomas Other [facility] Other Start: 01-26-2023 Office outpatient vi sit 15 minutes Marlee Thomas [facility] Start: 01-02-2023 (Televisit) Televisit Marlee Thomas [facility] Start: 01-02-2023 End: 01-02-2023 ambulatory Marlee Martha Other [facility] Other Start: 11-28-2022 End: 11-28-2022 ambulatory Marlee Martha Other [facility] Other Start: 11-28-2022 Telephone encounter Marlee Martha [facility] Start: 11-22-2022 End: 11-22-2022 ambulatory Marlee Thomas Other [facility] Other Start: 11-22-2022 Office outpatient vi sit 15 minutes Marlee Thomas [facility] Start: 10-19-2020 End: 10-19-[address] [...] WATT [address] [place] [address] Tiesha Hou NP [address] [place] [facility] Start: 05-09-2024 End: 05-09-2024 Patient encounter procedure 05/09/2024 8:40 AM EST Office Visit [facility] [address] [place] [address] Tiesha Hou NP [address] [place] [facility] [address] Start: 02-07-2024 End: 02-07-2024 Patient encounter procedure [facility] [address] Comment on above: Arrived Start: 12-05-2023 End: 12-05-2023 Patient encounter procedure [facility] Comment on above: Arrived Start: 11-16-2023 End: 11-16-2023 Patient encounter procedure 11/16/2023 1:20 PM EDT Office Visit [facility] [address] [place] [address] Tiesha Hou NP [address] [place] Arrived [facility] [address] Comment on above: Arrived Comprehensive metabo lic 2000 panel - Serum or Plasma [facility] Payers Date Payer Category Payer Medicaid [employer] [place] [id number] 2023-Present [address] [place] [address] [id number] 2023 Private Health Insurance [employer] [id number] 2023 Medicaid [id number] 1965 Unknown [id number] 1965 Unknown [id number] 1965 Unknown [id number] 1259 1965 Unknown [id number] 1259 1965 Unknown [id number] [id number] 9 1965 Unknown [id number]. 1259 1965 Unknown [id number] 1259 1959 Self-pay [id number] Medicaid [employer] [id number] Self-pay Self Pay [id number] Unknown Regular Insurance [id number] Social History Date Type Detail Facility Start: 12-05-2023 End: 05-09-2024 Sex Assigned At [facility] Other Start: 1965 Sex Assigned At Male F [facility] Start: 07-25-20[address] [facility] History of tobacco use Cigarette Smoker [facility] Start: 12-05-2023 End: 05-09-2024 Alcoholic beverage intake Current drinker of alcohol (finding) [facility] Start: 12-05-2023 End: 05-09-2024 History of Social function [facility] Start: 1965 Sex assigned at Not on file N [facility] Tobacco smoking stat [facility] Unknown if ever smoked [facility] Work Phone: Start: 04-29-2024 End: 08-15-2024 Sex Male (finding) [facility] Clinical Notes 08-18-2017 to 08-15-2024 Note Date & Type Note Facility 08-15-2024 Evaluation note Diagnosis Onset Date Resolution Essential (primary) hypertension acute August 15, 2024 3 :35pm Left-sided chest pain acute August 15, 2024 3:35pm [facility] Work Phone: 1(785) 191-333605-29-2025 Evaluation note* Diagnosis Onset Date Resolution Status Admit Date Essential (primary) hypertension acu te August 15, 2024 3:35pm Left-sided chest pain acute August 15, 2024 3:35pm Essential (primary) hypertension acu te September 11, 2024 9:52am Left-sided chest pain acute Aug 9:52am [facility] Work Phone: 1(789) 329-913205-20-2025 Telephone encounter Note* Telephone Encounter - SABIHA Rogers - 08/06/2024 10:23 AM EDT Ada called on behalf of the patient requesting refill of gabapentin 400mg & 600mg sent to [facility] in [place]. (Continue the gabapentin to 400 mg in the morning 600 mg at night ... Per Tiesha Hou NP 05/09/24) [id number] Miscellaneous Notes* Telephone Encounter - SABIHA Rogers - 08/06/2024 10:23 AM EDT Ada called on behalf of the patient requesting refill of gabapentin 400mg & 600mg sent to [facility] in [place]. (Continue the gabapentin to 400 mg in the morning 600 mg at night ... Per Tiesha Hou SURVEYOR GEOPHYSICAL PROSPECTING 05/09/24) documented in this encounterSaint [facility] [id number] History of Present illness Narrative* Tiesha Hou [...] he did his sleep study at the [place] sleep clinic last night. Past Medical History: [...] 83 percent. He was sent over to [place] for a titration study. Heinitially refused this [...] improve Plan He had polysomnogram/titration study at [place] last night and therefore we do not [...] headaches and the blood pressure Continue the [facility] Continue the [facility] Call if there is any worsening He is inadequate sleep hygiene needs to set his sleep schedule and sleep for 8 hours a night and not nap during the day The patient was counseled on proper sleep hygiene and adequate hours of sleep. The patient was counseled on the risks of stroke, PR, and sudden with HOWARD, along with the need for compliance with the CPAP/BiPAP treatment. Return to clinic: already scheduled in a few weeks and he will keep this visit documented in this encounterSaint [facility] [id number] Evaluation note* Encounter Date Diagnosis Assessment Notes Treatment Notes Treatment Clinical Notes Mar, Seizure disorder (ICD-10 - G40.909) Mar, Essential (primary) hypertension (ICD-10 - I10) f/u in 6 months [facility] Other 12-19-2023 Evaluation note* Encounter Date Diagnosis Assessment Notes Treatment Notes Treatment Clinical Notes Feb, Essential (primary) hypertension (ICD-10 - I10) f/u in 6 months Switched b-cassie. Call w bps in 2 weeks Feb, Seizure disorder (ICD-10 - G40.909) Reviewed notes from Dr. Rae. - one med removed, followup there as scheduled. [facility] Other 11-09-2023 Evaluation note* Encounter Date Diagnosis Assessment Notes Treatment Notes Treatment Clinical Notes Jan, Seizure disorder (ICD-10 - G40.909) We will obtain test and discharge summaries from the [facility]. Patient and his significant other [...] had a lot of medical issues recently. [facility] Other 10-16-2023 Evaluation note* Encounter Date Diagnosis Assessment Notes Treatment Notes Treatment Clinical Notes Dec, Bronchitis (ICD-10 - J40) Finish antibiotic. ER if dyspnea occurs. Take OTC Cold meds only as listed on packaging. Pt understands. [facility] Other 09-05-2023 Evaluation note* Encounter Date Diagnosis Assessment Notes Treatment Notes Treatment Clinical Notes Nov, Bilateral leg paresthesia (ICD-10 - R20.2) Discussed differential including diabetes. Gave HO for JUNE at [place] - advised A1C and the lipid/chem 8 [...] symptoms. Any developing patterns. Stay well hydrated. [facility] Other 06-01-2018 History general Narrative - Reported* Type Description Date Medical History Essential (primary) hypertension Surgical History Lumbar medial branch block 09/06 17 Hospitalization History SEE SURGICAL HX [facility] Other 06-01-2018 History general Narrative - Reported* Type Description Date Medical History Essential (primary) hypertension Medical History Seizures Medical History Arthritis Surgical History Lumbar medial branch block 09/06 17 Hospitalization History SEE SURGICAL HX [facility] Other Evaluation noteNo InformationNort Rentabilities Other Evaluation note* Diagnosis Onset Date Resolution Status Dizziness of unknown cause a cute Encounter for screening for malignant neoplasm of prostate acute Essential (primary) hypertension acute Fatigue acute Osteoarthritis of lumbar spine acute [facility] Work Phone: Evaluation noteNo assessment information available [facility] Work Phone: Evaluation note* Diagnosis Idiopathic [...] Neck pain Cervicalgia documented in this encounter [facility] HealthcareEvaluation note* Diagnosis Onset Date Resolution Status Admit Date Essential (primary) hypertension acute April 29, 025 1:41pm Osteoarthritis of lumbar spine acute April 29, 2024 1:41pm Screening PSA (prostate specific antigen) acute April 29, 2024 1:41pm Seizure disorder acute April 29, 2024 1:41pm [facility] Work Phone: Evaluation note* Diagnosis Idiopathic peripheral neuropathy Unspecified hereditary and idiopathic peripheral neuropathy documented in this encounter [facility]* Diagnosis Onset Date Resolution Status Admit Date Essential (primary) hypertension acu te August 15, 2024 3:35pm Left-sided chest pain acute August 15, 2024 3:35pm [facility] Work Phone: History of Present illness [...] machine and this is out at the [facility] to get approved and obtained. We will [...] was counseled on the risks of stroke, PR, and sudden with HOWARD, along with the need for compliance with the CPAP/BiPAP treatment. Return to clinic: 6-8 weeks [facility] ([facility]ative)No reason for referral information availableA[facility] Work Phone: Summary Purpose Family [...] August 02 1:13pm Reason for Referral Reason [place] office - Se izure disorder, treated at [facility]. Diagnosis 1 Seizure disorder (G4 0.909) Referral Organization [facility] Referring Provider First Name Marlee Referring Provider Last Name Martha Referring Provider Specialty Family [facility] Referred Organization [facility] Referred Address [address] [place], [place],[address] Referred Provider Specialty Neurology Referral Priority Routine [...] DATE CREATED AUTHOR AUTHOR'S ORGANIZ ATION 05/11/2024 [facility] dical Specialists EPIC REASON FOR VISIT (unrecogniz [...] December 04, 2023 End: December 04, 2023 Head Trimmer Relationship Specialty Start Date End Date Marlee Thomas MD [address] [place] [address] PCP - General Family Medicine 07/26/23 Head Trimmer Relationship Specialty Start Date End Date Marlee Thomas MD [address] [facility] [place] [address] PCP - General Family Medicine 07/26/23 Rehan Rae DO [address] [place] [address] Referring Physician Neurology 02/07/24 Tiesha Hou NP [address] [place], [place] Nurse Practitioner Neurology 02/07/24 Head Trimmer Relationship Specialty Start Date End Date Marlee Thomas MD [address] [facility] [place] [address] PCP - General Family Medicine 07/26/23 Head Trimmer Relationship Specialty Start Date End Date Marlee Thomas MD [address] [facility] [place] [address] PCP - General Family Medicine 07/26/23 Head Trimmer Relationship Specialty Start Date End Date Marlee Thomas MD [address] [facility] [place] [address] PCP - General Family Medicine 07/26/23 Team Status: Inactive Member Role Status Dates Marlee Thomas MD Primary Care Provide r, Attending Provider Active Start: April 29, 2024 End: April 29, 2024 Head Trimmer Relationship Specialty Start Date End Date Marlee Thomas MD [address] [facility] [place] [address] PCP - General Family Medicine 07/26/23 Rehan Rae DO [address] [place] [address] Referring Physician Neurology 02/07/24 Tiesha Hou NP [address] [place], [place] Nurse Practitioner Neurology 02/07/24 Head Trimmer Relationship Specialty Start Date End Date Marlee Thomas MD PCP - General Family Medicine 07/26/23 Rehan Rae DO [address] [place] [address] Referring Physician Neurology 02/07/24 Tiesha Hou NP [address] [facility] [place] [place] Nurse Practitioner Neurology 02/07/24 Team Status: [...] BE BASED ON THE PRIMARY CLINICAL RECORDS. [facility]. provides no warranty or guarantee of the accuracy or completeness of information in this document.
[2024-11-14 12:19] LABS: Anion Gap 15.4; Blood Urea Nitrogen 26.0 mg/dL (7.0-18.0); Calcium 9.4 mg/dL (8.5-10.1); Carbon Dioxide 25.9 mmol/L (21.0-32.0); Chloride 105 mmol/L (98-107); Estimated GFR (African America >60 (>=60 mL/min/1.73m^2); Estimated GFR (Non-African Ame 53 (>=60 mL/min/1.73m^2); Glucose 94 mg/dL (74-106); Potassium 4.3 mmol/L (3.5-5.1); Sodium 142 mmol/L (136-145)
[2024-11-19 17:07] LABS: Renin Activity, Plasma 1.149 ng/mL/hr (0.167-5.380)
[2024-11-20 04:07] LABS: Aldosterone LCMS, Serum 3.8 ng/dL (0.0-30.0)
== END 2024-11-14 11:35 | disposition home or self-care (01) ==
PROVIDERS: PCP Family Medicine; Visit Provider Internal Medicine Cardiovascular Disease
DX: I11.9 Hypertensive heart disease without heart failure (principal)
CPT/HCPCS: 36415; 80048; 82043; 82088; 82570; 84244

== ENCOUNTER 2024-11-18 07:00 | Outpatient (REF) | payer OTHER, SELFPAY ==
--- OUTSIDE RECORDS SUMMARY | 2024-11-14 10:40 | XMS_ITS | Encounter Summary ---
Author Organization [facility] Address [address] [place] [address] Care Team Providers Care Web Services Professional Name Role Phone Marlee Sosa MD Primary Care Provider [phone] Reason for Visit * Reason Comments Chest Pain Cardiac Stress Test Sleep Apnea Seizures New Patient Hypertension Shortness of Breath Encounter Details Date Type Department Care Team (Late st Contact Info) Description 11/14/2024 10:40 AM EDT Office Visit [facility] [address] [place] [address] Tanner Brian MD [address] [place] [phone] Benign hypertensive heart disease without congestive heart failure (Primary Dx); Precordial pain; Hypertensive left ventricular hypertrophy, without heart failure Social History Tobacco Use Types Packs/Day Years Used Date Smoking Tobacco: Every Day Cigarettes Passive Smoke Exposure: Current Smokeless Tobacco: Never Tobacco Cessation:Ready to Q uit: Not Asked; Counseling Given: Not Answered Alcohol Use Standard Drinks/Week Comments Yes 0 (1 standard drink = 0.6 oz pur e alcohol) 1 to 2 per month. [place] Safety & Environment Answer Date Rec orded Fear of Current or Ex-Partner Not on file Emotionally Abused Not on file 05/12/2023 Physically Abused Not on file 05/12/2023 Sexually Abused Not on file 05/12/2023 Physically or Sexually Abused Not on file Sex and Gender Information Value Date Recorded Sex Assigned at Male 11/12/2024 11:13 AM EDT Legal Sex Male 2:15 PM EST Gender Identity Male 11/12/2024 11:13 AM EDT Sexual Orientation Heterosexual or Straight 10/19 11:13 AM EDT documented as of this encounter Last Filed Vital Signs Vital Sign Reading Time Taken Comments Blood Pressure 155/102 11/14/2024 10:47 AM EDT Pulse 72 11/14/2024 10:47 AM EDT Temperature - - Respiratory Rate - - Oxygen Saturation 97% 11/14/2024 10:47 AM EDT Inhaled Oxygen Concentration - - Weight 95.3 kg (210 lb) 11/14/2024 10:47 AM EDT Height 165.1 cm (5' 5 ) 11/14/2024 10:47 AM EDT Body Mass Index 34.95 11/14/2024 10:47 AM EDT documented in this encounter Progress Notes * Katherine Lara MA - 11/14/2024 10:40 AM EDT Cosigned by Tanner Brian MD at 11/14/2024 11:03 AM EDT * Tanner Brian MD - 11/14/2024 10:40 AM EDT Subjective Patient ID: Bob Blackburn is a 59 y.o. male who presents for Chest Pain (/), Cardiac Stress Test,Sleep Apnea, Seizures (/), New Patient, Hypertension, and Shortness of Breath. HPI Review of Systems Objective Visit Vitals BP (!) 155/102 (BP Location: Left arm, Patient Position: Sitting) Pulse 72 Physical Exam Assessment/Plan No diagnosis found. No orders of the defined types were placed in this encounter. No results found for this or any previous visit (from the past 36 hours). No follow-ups on file. * Tanner Brian MD - 11/14/2024 10:40 AM EDT Subjective Patient ID: Bob Blackburn is a 59 y.o. male who presents for Chest Pain (/), Cardiac Stress Test,Sleep Apnea, Seizures (/), New Patient, Hypertension, and Shortness of Breath. Been having chest pains Gets chest pain and SOB. Uses CPAP at night. After waking up, sharp like stabbing lasts less thana minute. Only in the mornings, rarely at night. 3x/month Not able to do too much. Able to go to grocery store and weed whack without chest pain. 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 Pertinent negatives include no dizziness. His past medical history is significant for seizures. Seizures Associated symptoms include chest pain. Hypertension Associated symptoms include chest pain and shortness of breath. Shortness of Breath Associated symptoms include chest pain. Review of Systems Constitutional: Positive for diaphoresis. Respiratory: Positive for shortness of breath. Cardiovascular: Positive for chest pain. Neurological: Positive for seizures. Negative for dizziness. Objective Visit Vitals BP (!) 155/102 (BP Location: Left arm, Patient Position: Sitting) Pulse 72 Physical Exam Constitutional: Appearance: Normal appearance. He is obese. HENT: Head: Normocephalic and atraumatic. Cardiovascular: Rate and Rhythm: Normal rate and regular rhythm. Chest Wall: PMI is not displaced. No thrill. Pulses: Carotid pulses are 2+ on the right side and 2+ on the left side. Popliteal pulses are 2+ on the right side and 2+ on the left side. Dorsalis pedis pulses are 2+ on the right side and 2+ on the left side. Heart sounds: Heart sounds not distant. No murmur heard. No systolic murmur is present. No diastolic murmur is present. No friction rub. No gallop. Pulmonary: Breath sounds: Wheezing present. Musculoskeletal: Right lower leg: No edema. Left lower leg: No edema. Skin: General: Skin is warm and dry. Neurological: General: No focal deficit present. Mental Status: He is alert and oriented to person, place, and time. Mental status is at baseline. Psychiatric: Mood and Affect: Mood normal. Behavior: Behavior normal. Thought Content: Thought content normal. Echo 01/09 LVH EKG strip 09/09/24 reviewed by me: L axis deviation Assessment/Plan Mr. Blackburn has several issues: Chest pain likely non-cardiac. Sharp and lancinating, very brief. Importantly stress test normal. Most likely pleuritic. Regarding BP, he has hypertensive heart disease with LVH by echo in 2022. Doesn't eat much salt. Will check meliton renin ratio and urine protein creatinine ratio and trial low dose aldactone to see if this improves bp control. Will also get BMP in several weeks Diagnosis Plan 1. Benign hypertensive heart disease without congestive heart failure spironolactone (Aldactone) 25mg tablet 2. Precordial pain 3. Hypertensive left ventricular hypertrophy, without heart failure No orders of the defined types were placed in this encounter. No results found for this or any previous visit (from the past 36 hours). Follow up in about 4 weeks (around 12/12/2024). documented in this encounter Plan of Treatment Upcoming Encounters Date Type Department Care Team (Late st Contact Info) Description 01/01/2025 11:00 AM EDT Office Visit [facility] [address] [place] [address] Tanner Brian MD [address] [place] [phone] documented as of this encounter Visit Diagnoses Diagnosis Benign hypertensive heart disease without congestive heart failure- Primary Benign hypertensive heart disease without heart failure Precordial pain Hypertensive left ventricular hypertrophy, without heart failure documented in this encounter Care Teams Web Services Professional Relationship Specialty Start Date End Date Marlee Sosa MD [address] [facility] [address]A PCP - General 11/13/24 documented as of this encounter
--- OUTSIDE RECORDS SUMMARY | 2024-11-20 14:38 | XMS_ITS | Encounter Summary ---
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 [place] Safety & Environment Answer Date Rec orded [...] Description 01/01/2025 11:00 AM EDT Office Visit [facility] [address] [place] [address] Tanner Brian MD [address] [facility] [place] [address] Scheduled Orders Name Type Priority Associated Diagnoses [...] failure documented in this encounter Care Teams Theology Professor Relationship Specialty Start Date End Date Marlee Sosa MD [address] [place] [address] #A PCP - General 11/13/24 documented as of this encounter
--- OUTSIDE RECORDS SUMMARY | 2024-11-20 14:38 | XMS_ITS | Encounter Summary ---
Author Organization [facility] Address [id number] [address] [place] [address] Care Team Providers Care Ornamental Bronze Worker Name Role Phone Unavailable Primary Care Provider Unavailabl e Encounter Details Date Type Department Care Team (Late st Contact Info) Description 01/12/2023 Orders Only [facility] External [employer] [facility] [place] [address] External, Scanning Provider Pain (Primary [...]
--- OUTSIDE RECORDS SUMMARY | 2024-11-20 14:38 | XMS_ITS | Clinical Summary ---
Author Organization [facility] Address [address] [place] [address] Care Team Providers Care Film Processor Name Role Phone Marlee Sosa MD Primary Care Provider [phone] Allergies Active Allergy Reactions Criticality Noted Date [...] Description 11/14/2024 10:40 AM EDT Office Visit 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 [address] [place] [facility] [address] Dilcia Pierre MA 11/14/[address] [facility] [address] [place] [facility] [address] Dilcia Pierre MA Benign hypertensive heart disease [...] Description 01/01/2025 11:00 AM EDT Office Visit [facility] [address] [place] [address] Tanner Brian MD [address] [place] [address] Health Maintenance Due Date Last [...] Vaccines (1 of 2) 06/05/2015 COVID-19 Vaccine ( - 2023-2 5 season) 2024 Influenza Vaccine (#1) 2024 HIB Vaccines Aged [...] topic Insurance [employer] [place] [employer] Care Teams Film Processor Relationship Specialty Start Date End Date Marlee Sosa MD [address] [facility] #A PCP - General 11/13/24
--- OUTSIDE RECORDS SUMMARY | 2024-11-20 14:38 | XMS_ITS | Clinical Summary ---
Author Organization [facility] [employer] [facility] tem Address [id number] [address] [place] [address] Care Team Providers Care Phone Manager Name Role Phone Unavailable Primary Care Provider [...] Documents on File Type Date Recorded Patient Learning And Development Analyst Expl anation DNR Physician Order 01/23/2023 1:11 PM * DNR Comfort Care Arrest (DNR-CCA) [place] (Latest Code Status on File) Date Activated Date Inactivated Comments 01/12/2023 5:07 PM 01/18/2023 6:29 PM
--- OUTSIDE RECORDS SUMMARY | 2024-11-20 14:38 | XMS_ITS | Encounter Summary ---
Author Organization [facility] Address [address] [place] [address] Care Team Providers Care Pin Pusher Name Role Phone Marlee Sosa MD Primary Care Provider [phone] Encounter Details Date Type Department Care Team (Late Contact Info) Description 11/14/2024 Orders Only [address] [address] Dilcia Pierre MA Social History Tobacco Use Types Packs/Day Years Used Date Smoking Tobacco: Every Day Cigarettes Passive Smoke Exposure: Current Smokeless Tobacco: Never Alcohol Use Standard Drinks/Week Comments Yes 0 (1 standard drink = 0.6 oz pur e alcohol) 1 to 2 per month. [place] Safety [employer] Environment Answer Date Rec orded [...] Encounters Date Type Department Care Team (Late Contact Info) Description 01/01/2025 11:00 AM EDT Office Visit [facility] [address] [place] [address] Tanner Brian MD [address] [place] [address] documented as of this encounter Visit Diagnoses Not on filedocumented in this encounter Care Teams Pin Pusher Relationship Specialty Start Date End Date Marlee Sosa MD [address] [facility] #A PCP - General 11/13/24 documented as of this encounter
[2024-11-20 15:50] LABS: Creatinine 24 Hour Urine 2027.80 mg/24 hr (1000.0-2000.00); Total Volume 24 Hour Urine 1000 mL/24hr
--- OUTSIDE RECORDS SUMMARY | 2024-11-20 18:43 | XMS_ITS | CCD ---
Author Organization [facility]ini[facility] Care Team Providers Care Batch Dumper Name Role Phone NEO WATKINS Attending Unavailable NEO WATKINS Consulting Unavailable MARTHA, DR MARLEE Akins Primary Care Unavailable NEO WATKINS Admitting Unavailable JAY JAY, DR OWEN Moss Attending Unavailable JAY JAY, DR OWEN Moss Consulting Unavailable JAY JAY, DR OWEN Moss Admitting Unavailable MARTHA, DR MARLEE Akins Primary Care Unavailable ABBI, DR GUERRERO Consulting Unavailable Marlee Thomsa Unavailable Marlee Thomas MD Primary Care Provider [phone] Rehan Rae DO Unavailable Savi DISTRIBUTION DISPATCHER, Tiesha Unavailable [phone] TIESHA HOU Attending Unavailable REHAN RAE Attending Unavailable TIESHA HOU Attending Unavailable REHAN RAE Attending Unavailable TIESHA HOU Attending Unavailable MARLEE THOMAS Referring Unavailable Marlee Thomas MD Primary Care Provider Marlee Thomas MD Primary Care Provider Marlee Thomas MD Attending Provider Tiesha Hou APRN Attending Provider MOISE AZEVEDO Attending Unavailable Allergies Allergy Classification Reported Allergen(s) Allergy Type Date of Onset Reaction(s) Facility (13 sources) Lisinopril; Translations: [LISINOPRIL] Drug Allergy 4 Unknown [facility] Repository (11 sources) Lisinopril Propensity to adverse reactions [...] disorder; Translations: [Other headache syndrome] 02-07-2024 Episodic Hypertension with complications and secondary hypertension (2 sources) Hypertensive heart disease without heart failure; Translations: [Hypertensive heart disease without heart failure] Onset: 11-14-2024 Chronic Malaise and fatigue (9 sources) Fatigue; Translations: [Other fatigue] 05-05-2023 Episodic Nonspecific chest pain (9 sources) Left sided chest pain; Translations: [Chest pain, unspecified] Onset: 11-14-2024 08-15-2024 Episodic Other aftercare (1 source) Other [facility] (current) drug therapy; Translations: [OTH LIBRARY SERVICES DEAN CURRENT DRUG THERAPY] Onset: 10-21-2020 Episodic Other [...] Name Value Interpretation Reference Range Facil ity Office Visiton 11-14-2024 Follow-up visit [id number] Osmani Bear 1965 M Date Provider Department Center 11/14/2024 [facility]MOISE AZEVEDO [facility] Family History Problem Relation Age of Onset Heart failure Mother Family Status - Relation Status Age at Mother Alive Father Level of Service:70171 LA OFFICE/OUTPATIENT NEW MODERATE MDM 45 MINUTES Reason for Visit and Comments: Chest Pain [138400] - Cardiac Stress Test [489] Sleep Apnea [348] Seizures [97] - New Patient [632] Hypertension [345456] Shortness of Breath [051996] Normal [facility] Basophils Auto (Bld) [#/Vol] on 05-05-2023 Basophils (Bld) [#/Vol] 0.1 10 3/uL 0.0-0.1 [facility] Basophils/100 WBC Auto (Bld) on 05-05-2023 Basophils/100 WBC (Bld) 0.6 % 0.2-2.0 [facility] Eosinophils/100 WBC Auto (Bl d)on 05-05-2023 Eosinophils/100 WBC (Bld) 1.8 % 0.9-7.0 [facility] Erythrocyte distribution wid th Auto (RBC) [Ratio]on 05-05-2023 Erythrocyte distribution width (RBC) [Ratio] 12.4 % 11.0-15.0 [facility] Estimated glomerular filtrat ion rate (GFR) non- Americanon 05-05-2023 GFR/1.73 sq M.predicted among non-blacks MDRD (S/P/Bld) [Vol rate/Area] 60 mL/min/{1.73_m2} >=60 [facility] Hematocrit Auto (Bld) [Volum e fraction]on 05-05-2023 Hematocrit (Bld) [Volume fraction] 45.7 % 42.0-54.0 [facility] Hemoglobin [Mass/volume] in Bloodon 05-05-2023 Hemoglobin (Bld) [Mass/Vol] 14.9 g/dL 14.0-18.0 [facility] Laboratory - Chemistry and C hemistry - challengeon 05-05-2023 Calcium [Mass/Vol] 9.3 mg/dL 8.5-10.1 [facility] Chloride [Moles/Vol] 103 mmol/L 98-107 [facility] CO2 [Moles/Vol] 29.7 mmol/L 21.0-32.0 [facility] Cobalamin (Vitamin B12) [Mass/Vol] 710.0 pg/mL 193.0-986.0 [facility] Creatinine [Mass/Vol] 1.25 mg/dL 0.70-1.30 [facility] GFR/1.73 sq M.predicted MDRD (S/P/Bld) [Vol rate/Area] mL/min/{1.73_m2} >=60 [facility] Glucose [Mass/Vol] 93 mg/dL 74-106 [facility] Potassium [Moles/Vol] 5.0 mmol/L 3.5-5.1 [facility] Sodium [Moles/Vol] 139 mmol/L 136-145 [facility] TSH Qn 2.896 m[IU]/L 0.358-3.740 [facility] Urea nitrogen [Mass/Vol] 19.0 mg/dL 7.0-18.0 [facility] Urea nitrogen/Creatinine [Mass ratio] 15.2 mg/mg [facility] Laboratory - Hematology and Cell countson 05-05-2023 Immature granulocytes/100 WBC (Bld) 0.5 % 0.0-0.5 [facility] Leukocytes [#/volume] correc wendy for nucleated erythrocytes in Blood by Automated counon 05-05-2023 WBC corrected for nucl RBC Auto (Bld) [#/Vol] 12.4 10 3/uL 4.0-11.0 [facility] Lymphocytes Auto (Bld) [#/Vo l]on 05-05-2023 Lymphocytes (Bld) [#/Vol] 3.3 10 3/uL 1.2-3.8 [facility] Lymphocytes/100 WBC Auto (Bl d)on 05-05-2023 Lymphocytes/100 WBC (Bld) 26.4 % 20.5-60.0 [facility] MCH Auto (RBC) [Entitic mass ]on 05-05-2023 MCH (RBC) [Entitic mass] 31.1 pg 25.9-34.0 [facility] MCHC Auto (RBC) [Mass/Vol]on 05-05-2023 MCHC (RBC) [Mass/Vol] 32.6 g/dL 29.9-35.2 [facility] MCV Auto (RBC) [Entitic vol] on 05-05-2023 MCV (RBC) [Entitic vol] 95.4 fL 80.0-94.0 [facility] Monocytes Auto (Bld) [#/Vol] on 05-05-2023 Monocytes (Bld) [#/Vol] 1.2 10 3/uL 0.3-0.8 [facility] Monocytes/100 WBC Auto (Bld) on 05-05-2023 Monocytes/100 WBC (Bld) 10.0 % 1.7-12.0 [facility] Neutrophils Auto (Bld) [#/Vo l]on 05-05-2023 Neutrophils (Bld) [#/Vol] 7.5 10 3/uL 1.4-6.5 [facility] Neutrophils/100 WBC Auto (Bl d)on 05-05-2023 Neutrophils/100 WBC (Bld) 60.7 % 43.0-75.0 [facility] No Panel Informationon 05-05 Eosinophils # (Auto) 0.2 10 3/uL 0.0-0.7 [facility] Folate 26.40 ng/mL 8.60-58.90 [facility] Immature Granulocyte # (Auto) 0.06 10 3/uL 0.00-0.03 [facility] Prostate Specific Antigen Screen 0.97 ng/mL <=4.00 [facility] Platelet mean volume Auto (B ld) [Entitic vol]on 05-05-2023 Platelet mean volume (Bld) [Entitic vol] 9.9 fL 9.5-13.5 [facility] Platelets Auto (Bld) [#/Vol] on 05-05-2023 Platelets (Bld) [#/Vol] 271 10 3/uL 150-450 [facility] RBC Auto (Bld) [#/Vol]on RBC (Bld) [#/Vol] 4.79 10 6/uL 4.70-6.10 [facility] Serum or plasma anion gap de terminationon 05-05-2023 Anion gap [Moles/Vol] 11.3 mmol/L [facility] FRESH FROZ PLASMAon 10-30-19 21 FRESH FROZ PLASMA Unit Blood Type O Pos Unit Number [id number] Status Information Transfused Product ID FFP Product Code [id number] Normal [facility] Comment on above: Performed By: #### F FP #### [facility] [address] [place], [place] [id number] Brenda Katherine CBC W MANUAL DIFFon 10-20-19 21 ATYPICAL LYMPH # 0.29 103/ul Normal [facility] Comment on above: Performed By: #### C CARO #### [facility] [address] [place], [place] [id number] Brenda Katherine ATYPICAL LYMPH % 2 % Normal [facility] Comment on above: Performed By: #### C CARO #### [facility] [address] [place] [address] Brenda Katherine BAND # 0.1 103/ul Normal 0.0-0.3 [facility] Comment on above: Performed By: #### C CARO #### [facility] [address] [place] [address] Brenda Katherine BAND % 1 % Normal 0-5 [facility] Comment on above: Performed By: #### Alcon ELIZONDO #### [facility] [address] [place] [address] Brenda Katherine BASOM # 0.15 103/ul Critically high 0.00-0.10 [facility] Comment on above: Performed By: #### Alcon ELIZONDO #### [facility] [address] [place] [address] Brenda Katherine BASOM % 1.0 % Normal 0.2-2.0 [facility] Comment on above: Performed By: #### Alcon ELIZONDO #### [facility] [address] [place] [address] Brenda Katherine BLAST # Normal [facility] Comment on above: Performed By: #### Alcon ELIZONDO #### [facility] [address] [place] [address] Brenda Katherine BLAST % Normal [facility] Comment on above: Performed By: #### Alcon ELIZONDO #### [facility] [address] [place] [address] Brenda Katherine CORRECTED WBC Normal 4.0-11.0 [facility] Comment on above: Performed By: #### Alcon ELIZONDO #### [facility] [address] [id number] Brenda Katherine EOS # 0.58 103/ul Normal 0.00-0.70 [facility] Comment on above: Performed By: #### Alcon ELIZONDO #### [facility] [address] [id number] Brenda Katherine EOS% 4.0 % Normal 0.9-7.0 [facility] Comment on above: Performed By: #### Alcon ELIZONDO #### [facility] [address] [id number] Brenda Katherine HCT 39.9 % Critically low 42.0-54.0 [facility] Comment on above: Performed By: #### Alcon ELIZONDO #### [facility] [address] [place] [address] Brenda Katherine HGB 13.3 g/dl Critically low 14.0-18.0 [facility] Comment on above: Performed By: #### Alcon ELIZONDO #### [facility] [address] [place] [address] Brenda Katherine LYMPHM # 5.40 103/ul Critically high 1.20-3.80 [facility] Comment on above: Performed By: #### Alcon ELIZONDO #### [facility] [address] [place], [place] [address] Brenda Katherine LYMPHM% 37.0 % Normal 20.5-60.0 [facility] Comment on above: Performed By: #### Alcon ELIZONDO #### [facility] [address] [place], [place] [address] Brenda Katherine MCH 31.4 pg Normal 25.9-34.0 [facility] Comment on above: Performed By: #### Alcon ELIZONDO #### [facility] [address] [place], [place] [address] Brenda Katherine MCHC 33.3 g/dl Normal 29.9-35.2 [facility] Comment on above: Performed By: #### Alcon ELIZONDO #### [facility] [address] [place], [place] [address] Brenda Katherine MCV 94.1 fL Critically high 80.0-94.0 [facility] Comment on above: Performed By: #### Alcon ELIZONDO #### [facility] [address] [place] [address] Brenda Katherine METAMYELOCYTE # Normal [facility] Comment on above: Performed By: #### Alcon ELIZONDO #### [facility] [address] [place], [place] [address] Brenda Katherine METAMYELOCYTE % Normal [facility] Comment on above: Performed By: #### Alcon ELIZONDO #### [facility] [address] [place] [address] Brenda Katherine MONOM# 0.00 103/ul Critically low 0.30-0.80 [facility] Comment on above: Performed By: #### Alcon ELIZONDO #### [facility] [address] [place] [address] Brenda Katherine MONOM% 0.0 % Critically low 1.7-12.0 [facility] Comment on above: Performed By: #### Alcon ELIZONDO #### [facility] [address] [place] [address] Brenda Katherine MPV 9.6 fL Normal 9.5-13.5 [facility] Comment on above: Performed By: #### Alcon ELIZONDO #### [facility] [address] [place] [address] Brenda Katherine MYELOCYTE # Normal [facility] Comment on above: Performed By: #### Alcon ELIZONDO #### [facility] [address] [place] [address] Brenda Katherine MYELOCYTE % Normal [facility] Comment on above: Performed By: #### Alcon ELIZONDO #### [facility] [address] [place] [address] Brenda Katherine NRBC Normal [facility] Comment on above: Performed By: #### Alcon ELIZONDO #### [facility] [address] [place] [address] Brenda Katherine PLT 256 103/ul Normal 150-450 [facility] Comment on above: Performed By: #### Alcon ELIZONDO #### [facility] [address] [place], [place] [address] Brendaconrad Linaresen RBC 4.24 106/ul Critically low 4.70-6.10 [facility] Comment on above: Performed By: #### Alcon ELIZONDO #### [facility] [address] [place], [place] [address] Brendaconrad Linaresen RDW 13.9 % Normal 11.0-15.0 [facility] Comment on above: Performed By: #### Alcon ELIZONDO #### [facility] [address] [place], [place] [address] Brendaconrad Linaresen SEG # 8.03 103/ul Critically high 1.40-6.50 [facility] Comment on above: Performed By: #### Alcon ELIZONDO #### [facility] [address] [place], [place] [address] Brenda Linaresen SEG % 55.0 % Normal 43.0-75.0 [facility] Comment on above: Performed By: #### Alcon ELIZONDO #### [facility] [address] [place], [place] [address] Brendaconrad Linaresen WBC 14.6 103/ul Critically high 4.0-11.0 [facility] Comment on above: Performed By: #### Alcon ELIZONDO #### [facility] [address] [place] [address] Brenda Murphy PROF 14(COMP METB)on 021 Albumin [Mass/Vol] 4.1 g/dL Normal 3.5-5.0 [facility] Comment on above: Performed By: #### C MP #### [facility] [address] [place], [place] [address] Brenda Murphy Albumin/Globulin [Mass ratio] 1.5 {ratio} Normal [facility] Comment on above: Performed By: #### C MP #### [facility] [address] [place], [place] [address] Brenda Katherine ALP [Catalytic activity/Vol] 76 U/L Normal 38-126 [facility] Comment on above: Performed By: #### C MP #### [facility] [address] [place] [address] Brenda Katherine ALT [Catalytic activity/Vol] 27 U/L Normal 21-72 [facility] Comment on above: Performed By: #### C MP #### [facility] [address] [place], [place] [address] Brenda Katherine Anion gap [Moles/Vol] 10.1 mmol/L Normal [facility] Comment on above: Performed By: #### C MP #### [facility] [address] [place] [address] Brenda Katherine AST [Catalytic activity/Vol] 24 U/L Normal 17-59 [facility] Comment on above: Performed By: #### C MP #### [facility] [address] [place] [address] Brenda Katherine Bilirubin [Mass/Vol] 0.2 mg/dL Normal 0.2-1.3 [facility] Comment on above: Performed By: #### C MP #### [facility] [address] [place] [address] Brenda Katherine Calcium [Mass/Vol] 8.5 mg/dL Normal 8.4-10.2 [facility] Comment on above: Performed By: #### C MP #### [facility] [address] [place] [address] Brenda Katherine Chloride [Moles/Vol] 107 mmol/L Normal 98-107 [facility] Comment on above: Performed By: #### C MP #### [facility] [address] [place] [address] Brenda Katherine CO2 [Moles/Vol] 29.0 mmol/L Normal 22.0-30.0 [facility] Comment on above: Performed By: #### C MP #### [facility] [address] [place], [place] [address] Brenda Katherine Creatinine [Mass/Vol] 1.30 mg/dL Critically high 0.66-1.25 [facility] Comment on above: Performed By: #### C MP #### [facility] [address] [place], [place] [address] Brenda Katherine EGFR-AF SLOVENIAN >60 Normal >=60 [facility] Comment on above: Performed By: #### C MP #### [facility] [address] [place], [place] [address] Brenda Katherine EGFR-NON AF SLOVENIAN 57 mL/min/1.73m2 Critically low >=60 [facility] Comment on above: Performed By: #### C MP #### [facility] [address] [place], [place] [address] Brenda Katherine Globulin (S) [Mass/Vol] 2.7 g/dL Normal [facility] Comment on above: Performed By: #### C MP #### [facility] [address] [place], [place] [address] Brenda Katherine Glucose [Mass/Vol] 109 mg/dL Critically high 74-106 [facility] Comment on above: Performed By: #### C MP #### [facility] [address] [id number] Brenda Katherine Potassium [Moles/Vol] 4.1 mmol/L Normal 3.4-5.0 [facility] Comment on above: Performed By: #### C MP #### [facility] [address] [place], [place] [address] Brenda Katherine Protein [Mass/Vol] 6.8 g/dL Normal 6.1-8.2 [facility] Comment on above: Performed By: #### C MP #### [facility] [address] [place], [place] [address] Brenda Katherine Sodium [Moles/Vol] 142 mmol/L Normal 137-145 [facility] Comment on above: Performed By: #### C MP #### [facility] [address] [place], [place] [address] Brenda Katherine Urea nitrogen [Mass/Vol] 19.0 mg/dL Normal 9.0-20.0 [facility] Comment on above: Performed By: #### C MP #### [facility] [address] [place], [place] [address] Brenda Katherine Urea nitrogen/Creatinine [Mass ratio] 14.6 mg/mg Normal [facility] Comment on above: Performed By: #### C MP #### [facility] [address] [place], [place] [address] Brenda Katherine PROTIMEon 10-19-2020 INR Coag (PPP) [Relative time] 0.97 {INR} Normal [facility] Comment on above: Performed By: #### P TT, PT #### [facility] [address] [place], [place] [address] Brenda Katherine INR GUIDELINES SEE BELOW Normal [facility] Comment on above: Result Comment: JED RED INR: 2.0 - 3.0 CONDITIONS NOT LISTED BELOW 2.5 - 3.5 FOR PROSTHETIC HEART VALVE REPLACEMENT 2.5 - 3.5 RECURRENT THROMBOSIS Performed By: #### P TT, PT #### [facility] [address] [place], [place] [address] Brenda Katherine PT Coag (PPP) [Time] 10.5 s Normal 9.0-11.6 [facility] Comment on above: Performed By: #### P TT, PT #### [facility] [address] [place] [address] Brenda Katherine PTTon 10-19-2020 aPTT Coag (Bld) [Time] 26.8 s Normal 22.3-36.2 [facility] Comment on above: Performed By: #### P TT, PT #### [facility] [address] [place], [place] [address] Brenda Katherine TYPE AND SCREENon 10-19-2020 TYPE AND SCREEN Negative Normal [facility] Comment on above: Performed By: #### T NS #### [facility] [address] [place], [place] [address] Brenda Katherine Vital Signs Date Time Vital Sign Value Performing Clinician Facility 11-04-2024 09:41-0400 Body height 165.1 cm Marlee Thomas MD Work Phone: [facility] 11-04-2024 [id number] Body mass index (BMI) [Ratio] 35.2 kg/m2 Marlee Thomas MD Work Phone: [facility] 11-04-2024 [id number] Body weight 96.16 kg Marlee Thomas MD Work Phone: [facility] 11-04-2024 09:41-0400 Diastolic blood pressure 99 mm[Hg] Marlee Thomas MD Work Phone: [facility] 11-04-2024 09:41-0400 Systolic blood pressure 148 mm[Hg] Marlee Thomas MD Work Phone: [facility] 09-11-2024 10:02-0400 Body height 166.37 cm Marlee Thomas MD Work Phone: [facility] 09-11-2024 10:02-0400 Body mass index (BMI) [Ratio] 34.2 kg/m2 Marlee Thomas MD Work Phone: [facility] 09-11-2024 10:02-0400 Body weight 94.8 kg Marlee Thomas MD Work Phone: [facility] 09-11-2024 10:02-0400 Diastolic blood pressure 85 mm[Hg] Marlee Thomas MD Work Phone: [facility] 09-11-2024 10:02-0400 Heart rate 67 /min Marlee Thomas MD Work Phone: [facility] 09-11-2024 10:02-0400 Systolic blood pressure 130 mm[Hg] Marlee Thomas MD Work Phone: [facility] 08-15-2024 15:47-0400 Body height 166.37 cm [facility] 08-15-2024 15:47-0400 Body mass index (BMI) [Ratio] 34.2 kg/m2 [facility] 08-15-2024 15:47-0400 Body weight 94.8 kg [facility] 08-15-2024 15:47-0400 Diastolic blood pressure 96 mm[Hg] [facility] 08-15-2024 15:47-0400 Heart rate 61 /min [facility] 08-15-2024 15:47-0400 Systolic blood pressure 151 mm[Hg] [facility] 04-29-2024 13:57-0500 Body height 166.37 cm [facility] 04-29-2024 13:57-0500 Body mass index (BMI) [Ratio] 33.8 kg/m2 [facility] 04-29-2024 13:57-0500 Body weight 93.61 kg [facility] 04-29-2024 13:57-0500 Diastolic blood pressure 90 mm[Hg] [facility] 04-29-2024 13:57-0500 Heart rate 66 /min [facility] 04-29-2024 13:57-0500 Systolic blood pressure 145 mm[Hg] [facility] 02-07-2024 09:01-0500 Body height 165.1 cm Tiesha Hou DISTRIBUTION DISPATCHER Work Phone: [facility] 02-07-2024 09:01-0500 Body mass index (BMI) [Ratio] 34.28 kg/m2 Tiesha Sowr DISTRIBUTION DISPATCHER Work Phone: [facility] 02-07-2024 09:01-0500 Body weight 93.44 kg Tiesha Jainmor DISTRIBUTION DISPATCHER Work Phone: [facility] 02-07-2024 09:01-0500 Diastolic blood pressure 80 mm[Hg] Tiesha Jainmor DISTRIBUTION DISPATCHER Work Phone: [facility] 02-07-2024 09:01-0500 Heart rate 58 /min Tiesha Jainmor DISTRIBUTION DISPATCHER Work Phone: [facility] 02-07-2024 09:01-0500 SaO2% (BldA) [Mass fraction] 95 % Tiesha Susymor DISTRIBUTION DISPATCHER Work Phone: [facility] 02-07-2024 09:01-0500 Systolic blood pressure 122 mm[Hg] Tiesha Susymor DISTRIBUTION DISPATCHER Work Phone: [facility] 12-05-2023 08:39-0400 Diastolic blood pressure 108 mm[Hg] Rehan Kyra DO Work Phone: [facility] 12-05-2023 08:39-0400 Heart rate 78 /min Rehan Kyra DO Work Phone: [facility] 12-05-2023 08:39-0400 SaO2% (BldA) [Mass fraction] 99 % Rehan Kyra DO Work Phone: [facility] 12-05-2023 08:39-0400 Systolic blood pressure 184 mm[Hg] Rehan Kyra DO Work Phone: [facility] 12-04-2023 15:36-0400 Body height 166.37 cm [facility] 12-04-2023 15:36-0400 Body mass index (BMI) [Ratio] 33.5 kg/m2 [facility] 12-04-2023 15:36-0400 Body weight 92.98 kg [facility] 12-04-2023 15:36-0400 Diastolic blood pressure 104 mm[Hg] [facility] 12-04-2023 15:36-0400 Heart rate 65 /min [facility] 12-04-2023 15:36-0400 SaO2% (BldA) [Mass fraction] 92 % [facility] 12-04-2023 15:36-0400 Systolic blood pressure 170 mm[Hg] [facility] 11-16-2023 13:19-0400 Body height 165.1 cm Tiesha Sowr DISTRIBUTION DISPATCHER Work Phone: [facility] 11-16-2023 13:19-0400 Body mass index (BMI) [Ratio] 33.61 kg/m2 Tiesha Susymor DISTRIBUTION DISPATCHER Work Phone: [facility] 11-16-2023 13:19-0400 Body weight 91.63 kg Tiesha Susymor DISTRIBUTION DISPATCHER Work Phone: [facility] 11-16-2023 13:19-0400 Diastolic blood pressure 90 mm[Hg] Tiesha Gillmor DISTRIBUTION DISPATCHER Work Phone: [facility] 11-16-2023 13:19-0400 Systolic blood pressure 152 mm[Hg] Tiesha Susymor DISTRIBUTION DISPATCHER Work Phone: [facility] 07-24-2023 09:57-0400 Body height 166.37 cm [facility] 07-24-2023 09:57-0400 Body mass index (BMI) [Ratio] 33 kg/m2 [facility] 07-24-2023 09:57-0400 Body weight 91.62 kg [facility] 07-24-2023 09:57-0400 Diastolic blood pressure 101 mm[Hg] [facility] 07-24-2023 09:57-0400 Heart rate 72 /min [facility] 07-24-2023 09:57-0400 Systolic blood pressure 153 mm[Hg] [facility] 05-05-2023 09:28-0500 Body height 166.37 cm [facility] 05-05-2023 09:28-0500 Body mass index (BMI) [Ratio] 32.6 kg/m2 [facility] 05-05-2023 09:28-0500 Body weight 90.43 kg [facility] 05-05-2023 09:28-0500 Diastolic blood pressure 86 mm[Hg] [facility] 05-05-2023 09:28-0500 Heart rate 78 /min [facility] 05-05-2023 09:28-0500 Systolic blood pressure 134 mm[Hg] [facility] 03-07-2023 14:00-0500 Body height 166.37 cm Marlee Thomas Other [facility] 03-07-2023 14:00-0500 Body mass index (BMI) [Ratio] 31.2 kg/m2 Marlee Thomas Other [facility] Other 03-07-2023 14:00-0500 Body weight 86.37 kg Marlee Thomas Other [facility] Other 03-07-2023 14:00-0500 Body weight 86.36 kg [facility] 03-07-2023 14:00-0500 Diastolic blood pressure 85 mm[Hg] Marlee Thomas Other [facility] 03-07-2023 14:00-0500 SaO2% (BldA) [Mass fraction] 97 % Marlee Thomas Other [facility] Other 03-07-2023 14:00-0500 Systolic blood pressure 125 mm[Hg] Marlee Thomas Other [facility] 01-26-2023 10:45-0500 Body height 166.37 cm Marlee Thomas Other [facility] Other 01-26-2023 10:45-0500 Body mass index (BMI) [Ratio] 29.36 kg/m2 Marlee Thomas Other [facility] Other 01-26-2023 10:45-0500 Body weight 81.29 kg Marlee Thomas Other [facility] Other 01-26-2023 10:45-0500 Diastolic blood pressure 87 mm[Hg] Marlee Thomas Other [facility] Other 01-26-2023 10:45-0500 Systolic blood pressure 146 mm[Hg] Marlee Thomas Other [facility] Other 11-22-2022 09:00-0400 Body height 166.37 cm Marlee Thomas Other [facility] Other 11-22-2022 09:00-0400 Body mass index (BMI) [Ratio] 29.99 kg/m2 Marlee Thomas Other [facility] Other 11-22-2022 09:00-0400 Body weight 83.01 kg Marlee Thomas Other [facility] Other 11-22-2022 09:00-0400 Diastolic blood pressure 88 mm[Hg] Marlee Thomas Other [facility] Other 11-22-2022 09:00-0400 Systolic blood pressure 134 mm[Hg] Marlee Thomas Other [facility] Other Encounters Encounter Date Encounter Type Care Provider Facility Start: 11-14-2024 End: 11-14-2024 ambulatory MOISE [facility] Start: 11-04-2024 End: 11-04-2024 ambulatory Marlee Thomas MD Work Phone: [facility] Work Phone: Start: 11-04-2024 End: 11-04-2024 Patient encounter procedure Tiesha Venegas [facility] Work Phone: Start: 09-11-2024 End: 09-11-2024 ambulatory Marlee Thomas MD Work Phone: [facility] Work Phone: Start: 09-11-2024 End: 09-11-2024 Patient encounter procedure Marlee Thomas MD -[facility] Work Phone: Start: 08-15-2024 End: 08-15-[address] [facility] Work Phone: Start: 08-15-2024 End: 08-15-2024 Patient encounter procedure [facility] Work Phone: Start: 08-06-2024 End: 08-06-2024 Refill Rey Gale ARRT [facility] Comment on above: Idiopathic periphera l neuropathy Start: 05-09-2024 End: 05-09-2024 Bamboo flowsheet Tiesha Susymor DISTRIBUTION DISPATCHER Work Phone: [facility] Start: 05-09-2024 End: 05-09-2024 Bamboo flowsheet Tiesha Susymor DISTRIBUTION DISPATCHER Work Phone: [facility] Start: 05-09-2024 End: 05-09-2024 ambulatory TIESHA HOU Not Available Start: 04-29-2024 End: 04-29-[address] [facility] Work Phone: Start: 04-29-2024 End: 04-29-2024 Patient encounter procedure [facility] Work Phone: Start: 02-07-2024 End: 02-07-2024 Bamboo flowsheet Tiesha Hou DISTRIBUTION DISPATCHER [facility] Start: 02-07-2024 End: 02-07-2024 Bamboo flowsheet Tiesha Hou DISTRIBUTION DISPATCHER [facility] [address] Start: 02-07-2024 End: 02-07-2024 Office outpatient visit 25 minutes Tiesha Hou DISTRIBUTION DISPATCHER [facility] Comment on above: Idiopathic periphera l neuropathy (Primary Dx); Seizure (CMS/HCC); Complex sleep apnea syndrome; Other complicated headache syndrome; Numbness and tingling Start: 02-07-2024 End: 02-07-2024 ambulatory TIESHA SUSYMOR Not Available Start: 12-05-2023 End: 12-05-2023 Bamboo flowsheet Rehan Kyra DO Work Phone: [facility] Start: 12-05-2023 End: 12-05-2023 Bamboo flowsheet Rehan Kyra DO Work Phone: [facility] Start: 12-05-2023 End: 12-05-2023 Office outpatient visit 25 minutes Rehan Kyra DO Work Phone: [facility] Comment on above: Idiopathic periphera l neuropathy (Primary Dx); Migraine without aura and without status migrainosus, not intractable (CMS/HCC); Other complicated headache syndrome; Complex sleep apnea syndrome; Numbness and tingling; Chronic tension-type headache, intractable; HOWARD (obstructive sleep apnea) Start: 12-05-2023 End: 12-05-2023 ambulatory REHAN KYRA Not Available Start: 12-04-2023 End: 12-04-[address] [facility] Work Phone: Start: 12-04-2023 End: 12-04-2023 Patient encounter procedure [facility] Work Phone: Start: 11-16-2023 End: 11-16-2023 Bambootis fraustoheet Tiesha Hou DISTRIBUTION DISPATCHER Work Phone: [facility] Start: 11-16-2023 End: 11-16-2023 Bamboo flowsheet Tiesha Hou DISTRIBUTION DISPATCHER Work Phone: [facility] Start: 11-16-2023 End: 11-16-2023 Office outpatient visit 25 minutes Tiesha Hou DISTRIBUTION DISPATCHER Work Phone: [facility] Comment on above: HOWARD (obstructive sle ep apnea) (Primary Dx); Seizure (CMS/HCC); Numbness and tingling; Idiopathic peripheral neuropathy; Chronic tension-type headache, intractable; Neck pain Start: 11-16-2023 End: 11-16-2023 ambulatory TIESHA HOU Not Available Start: 09-20-2023 End: 09-20-2023 ambulatory REHAN RAE Not Available Start: 07-24-2023 End: 07-24-[address] [facility] Work Phone: Start: 07-24-2023 End: 07-24-2023 Patient encounter procedure [facility] Work Phone: Start: 05-22-2023 Non-patient / Non-visit [facility] Work Phone: Start: 05-12-2023 End: 05-12-2023 ambulatory Marlee Thomas Other [facility] Other Start: 05-12-2023 Telephone encounter Marlee Thomas [facility] Start: 05-12-2023 Non-patient / Non-visit [facility] Work Phone: Start: 05-05-2023 End: 05-05-[address] [facility] Work Phone: Start: 05-05-2023 End: 05-05-2023 Patient encounter procedure [facility] Work Phone: Start: 04-17-2023 End: 04-17-2023 ambulatory Marlee Thomas Other [facility] Other Start: 04-17-2023 Telephone encounter Marlee Thomas [facility] Start: 03-21-2023 End: 03-21-2023 ambulatory Marlee Thomas Other [facility] Other Start: 03-21-2023 Telephone encounter Marlee Thomas [facility] Start: 03-16-2023 End: 03-16-2023 ambulatory Marlee Thomas Other [facility] Other Start: 03-16-2023 Telephone encounter Marlee Thomas [facility] Start: 03-07-2023 End: 03-07-2023 ambulatory Marlee Thomas Other [facility] Other Start: 03-07-2023 Office outpatient visit 15 minutes Marlee Thomas [facility] Start: 03-07-2023 End: 03-07-2023 Patient encounter procedure [facility] Work Phone: Start: 03-06-2023 End: 03-06-2023 ambulatory Marlee Thomas Other [facility] Other Start: 03-06-2023 Telephone encounter Marlee Martha [facility] Start: 01-26-2023 End: 01-26-2023 ambulatory Marlee Thomas Other [facility] Other Start: 01-26-2023 Office outpatient visit 15 minutes Marlee Thomas [facility] Start: 01-02-2023 (Televisit) Televisit Marlee Thomas [facility] Start: 01-02-2023 End: 01-02-2023 ambulatory Marlee Thomas Other [facility] Other Start: 11-28-2022 End: 11-28-2022 ambulatory Marlee Thomas Other [facility] Other Start: 11-28-2022 Telephone encounter Marlee Thomas [facility] Start: 11-22-2022 End: 11-22-2022 ambulatory Marlee Thomas Other [facility] Other Start: 11-22-2022 Office outpatient visit 15 minutes Marlee Thomas [facility] Start: 10-19-2020 End: 10-19-[address] WOEN GOYAL Facility:[facility]1 Start: 11-04-2019 End: 11-04-2019 ambulatory NEO WATKINS Facility:[facility] Procedures Date Procedure Procedure Detail Performing Clinician Screening for malign ant neoplasm of prostate Marlee Thomas Other Plan of Treatment Date Care Activity Detail Author Start: 11-04-2024 End: 11-04-2024 Patient encounter procedure 11/04/2024 9:40 AM EDT Office Visit [place] [address] [place] [address], [place] [address] Tiesha Hou NP [address] [place] [address], [place] Start: 05-09-2024 End: 05-09-2024 Patient encounter procedure 05/09/2024 8:40 AM EST Office Visit [facility] [place] [address] [place] [address] Tiesha Hou NP [address] [place], [place] [facility] [place] [address] [facility] Start: 02-07-2024 End: 02-07-2024 Patient encounter procedure [facility] [place] [facility] Comment on above: Arrived Start: 12-05-2023 End: 12-05-2023 Patient encounter procedure [facility] Comment on above: Arrived Start: 11-16-2023 End: 11-16-2023 Patient encounter procedure 11/16/2023 1:20 PM EDT Office Visit [facility] [address] [place] [address] Tiesha Hou NP [address] [place], [place] Arrived [facility] [place] [address] Comment on above: Arrived Comprehensive metabo lic 2000 panel - Serum or Plasma [facility] Payers Date Payer Category Payer Medicaid [facility] [place] [id number] 2023-Present [address] [place] [address] [id number] 2023 Private Health Insurance [facility] [id number] 2023 Medicaid [id number] 1965 Unknown [id number] 1965 Unknown [id number] 1965 Unknown [id number] 1259 1965 Unknown [id number] [id number] 1965 Unknown [id number] 1259 1965 Unknown [id number] 1259 1965 Unknown [id number] 1259 1959 Self-pay [id number] Medicaid [employer] [id number] Self-pay Self Pay [id number] Unknown Regular Insurance [id number] Social History Date Type Detail Facility Start: 12-05-2023 End: 05-09-2024 Sex Assigned At [facility] Other Start: 1965 Sex Assigned At Male [facility] Start: 07-25-2023 Tobacco smoking stat [facility] Smokes tobacco daily [facility] History of tobacco use Cigarette Smoker N [facility] Start: 12-05-2023 End: 05-09-2024 Alcoholic beverage intake Current drinker of alcohol (finding) [facility] Start: 12-05-2023 End: 05-09-2024 History of Social function [facility] Start: 1965 Sex assigned at Not on file N [facility] Tobacco smoking stat [facility] Unknown if ever smoked [facility] Work Phone: Start: 04-29-2024 End: 08-15-2024 Sex Male (finding) [facility] Clinical Notes 08-18-2017 to 11-14-2024 Note Date & Type Note Facility 11-14-2024 Note Subjective Patient ID: Osmani Bear is a 59 y.o. male who presents for Chest Pain (/), Cardiac Stress Test, Sleep Apnea, Seizures (/), New Patient, Hypertension, and [...] past 36 hours). No follow-ups on file. [facility] 11-14-2024 Note Subjective Patient ID: Osmani Bear is a 59 y.o. male who presents for Chest Pain (/), Cardiac Stress Test, Sleep Apnea, Seizures (/), New Patient, Hypertension, and Shortness of Breath. Been having chest pains Gets chest pain and SOB. Uses CPAP at night. After waking up, sharp like stabbing lasts less than a minute. Only in the mornings, rarely at night. 3x/month Not able to do too much. Able to go to grocery store and weed whack without chest pain. 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 Bear has several issues: Chest pain likely non-cardiac. [...] disease without congestive heart failure spironolactone (Aldactone) 25 mg tablet 2. Precordial pain 3. Hypertensive left ventricular hypertrophy, without heart failure No orders of the defined types were placed in this encounter. No results found for this or any previous visit (from the past 36 hours). Follow up in about 4 weeks (around 12/12/2024). [facility] 08-15-2024 Evaluation note Diagnosis Onset Date Resolution Essential (primary) hypertension acute August 15, 2024 3 :35pm Left-sided chest pain acute August 15, 2024 3:35pm [facility] Work Phone: 1(832) 204-687005-29-2025 Evaluation note* Diagnosis Onset Date Resolution Status Admit Date Essential (primary) hypertension acu te August 15, 2024 3:35pm Left-sided chest pain acute August 15, 2024 3:35pm Essential (primary) hypertension acu te September 11, 2024 9:52am Left-sided chest pain acute Aug 9:52am [facility] Work Phone: 1(927) 361-661505-20-2025 Telephone encounter Note* Telephone Encounter - SABIHA Rogers - 08/06/2024 10:23 AM EDT Ada called on behalf of the patient requesting refill of gabapentin 400mg & 600mg sent to [facility] in [place]. (Continue the gabapentin to 400 mg in the morning 600 mg at night ... Per Tiesha Hou NP 05/09/24) [id number] Miscellaneous Notes* Telephone Encounter - SABIHA Rogers - 08/06/2024 10:23 AM EDT Ada called on behalf of the patient requesting refill of gabapentin 400mg & 600mg sent to [facility] in [place]. (Continue the gabapentin to 400 mg in the morning 600 mg at night ... Per Tiesha Hou NP 05/09/24) documented in this encounterReyn[facility] [id number] History of Present illness Narrative* Tiesha Hou [...] he did his sleep study at the [place] sleep clinic last night. Past Medical History: [...] 83 percent. He was sent over to [place] for a titration study. Heinitially refused this [...] improve Plan He had polysomnogram/titration study at [place] last night and therefore we do not [...] was counseled on the risks of stroke, NM, and sudden with HOWARD, along with the need for compliance with the CPAP/BiPAP treatment. Return to clinic: already scheduled in a few weeks and he will keep this visit documented in this encounterReynolds County General Memorial [id number] Evaluation note* Encounter Date Diagnosis Assessment Notes Treatment Notes Treatment Clinical Notes Mar, Seizure disorder (ICD-10 - G40.909) Mar, Essential (primary) hypertension (ICD-10 - I10) f/u in 6 months [facility] Other 12-19-2023 Evaluation note* Encounter Date Diagnosis Assessment Notes Treatment Notes Treatment Clinical Notes Feb, Essential (primary) hypertension (ICD-10 - I10) f/u in 6 months Switched b-cassie. Call w bps in 2 weeks Feb, Seizure disorder (ICD-10 - G40.909) Reviewed notes from Dr. Rae. - one med removed, followup there as scheduled. [facility] Other 11-09-2023 Evaluation note* Encounter Date Diagnosis Assessment Notes Treatment Notes Treatment Clinical Notes Jan, Seizure disorder (ICD-10 - G40.909) [facility] Patient and his significant other [...] had a lot of medical issues recently. [facility] Other 10-16-2023 Evaluation note* Encounter Date Diagnosis Assessment Notes Treatment Notes Treatment Clinical Notes Dec, Bronchitis (ICD-10 - J40) Finish antibiotic. ER if dyspnea occurs. Take OTC Cold meds only as listed on packaging. Pt understands. [facility] Other 09-05-2023 Evaluation note* Encounter Date Diagnosis Assessment Notes Treatment Notes Treatment Clinical Notes Nov, Bilateral leg paresthesia (ICD-10 - R20.2) Discussed differential including diabetes. Gave HO for JUNE at [place] - advised A1C and the lipid/chem 8 [...] symptoms. Any developing patterns. Stay well hydrated. [facility] Other 06-01-2018 History general Narrative - Reported* Type Description Date Medical History Essential (primary) hypertension Surgical History Lumbar medial branch block 09/06 17 Hospitalization History SEE SURGICAL HX [facility] Other 06-01-2018 History general Narrative - Reported* Type Description Date Medical History Essential (primary) hypertension Medical History Seizures Medical History Arthritis Surgical History Lumbar medial branch block 09/06 17 Hospitalization History SEE SURGICAL HX Hospitalization History Jese Mora 3 [facility] Other Evaluation noteNo InformationNort [employer] Other Evaluation note* Diagnosis Onset Date Resolution Status Dizziness of unknown cause a cute Encounter for screening for malignant neoplasm of prostate acute Essential (primary) hypertension acute Fatigue acute Osteoarthritis of lumbar spine acute [facility] Work Phone: Evaluation noteNo assessment information available [facility] Work Phone: Evaluation note* Diagnosis Idiopathic [...] apnea (adult) (pediatric) documented in this encounter [facility] HealthcareEvaluation note* Diagnosis HOWARD (obstructive sleep apnea)- Primary Obstructive sleep apnea (adult) (pediatric) Seizure (CMS/HCC) Other convulsions Numbness and tingling Disturbance of skin sensation Idiopathic peripheral neuropathy Unspecified hereditary and idiopathic peripheral neuropathy Chronic tension-type headache, intractable Chronic tension type headache Neck pain Cervicalgia documented in this encounter [facility] HealthcareEvaluation note* Diagnosis Onset Date Resolution Status Admit Date Essential (primary) hypertension acute April 29, 025 1:41pm Osteoarthritis of lumbar spine acute April 29, 2024 1:41pm Screening PSA (prostate specific antigen) acute April 29, 2024 1:41pm Seizure disorder acute April 29, 2024 1:41pm [facility] Work Phone: Evaluation note* Diagnosis Idiopathic peripheral neuropathy Unspecified hereditary and idiopathic peripheral neuropathy documented in this encounter [facility] HealthcareEvaluation note* Diagnosis Onset Date Resolution Status Admit Date Essential (primary) hypertension acu te August 15, 2024 3:35pm Left-sided chest pain acute August 15, 2024 3:35pm [facility] Work Phone: History of Present illness [...] machine and this is out at the [facility] to get approved and obtained. We will [...] of the blood pressure up to Dr. Thomas cont zanaflex 4 mg prn, neck and back [...] was counseled on the risks of stroke, NM, and sudden with HOWARD, along with the need for compliance with the CPAP/BiPAP treatment. Return to clinic: 6-8 weeks documented in this encounterNOWestern [facility] Medical CenterReason for referral (narrative)No reason for referral information availableClermont [facility] Hospital Work Phone: Summary Purpose Family History [...] office - Se izure disorder, treated at [facility]. Diagnosis 1 Seizure disorder (G4 0.909) Referral Organization [facility] Referring Provider First Name Marlee Referring Provider Last Name Martha Referring Provider Specialty Family [facility] Referred Organization [facility] Referred Address [address],[place], [place],[address] Referred Provider Specialty Neurology Referral Priority Routine [...] for Visit Admit Date Essential (primary) hypertension ua2024 1:41pm Osteoarthritis of lumbar spine April 29, [...] content) No Status Records FoundNo Status Records FoundNo Status Records Found INFORMATION SOURCE (unrecogn ized section and content) DATE CREATED AUTHOR 10/30/2020 [facility] DATE CREATED AUTHOR AUTHOR'S ORGANIZ ATION 05/11/2024 [facility] EPIC DATE CREATED AUTHOR AUTHOR'S ORGANIZ ATION 11/16/2024 [facility] REASON FOR VISIT (unrecogniz ed section and [...] December 04, 2023 End: December 04, 2023 Batch Dumper Relationship Specialty Start Date End Date Marlee Thomas MD [address] [place] [facility] [place] [address] PCP - General Family Medicine 07/26/23 Batch Dumper Relationship Specialty Start Date End Date Marlee Thomas MD [address] [place] [facility] [place] [address] PCP - General Family Medicine 07/26/23 Rehan Rae DO [address] [address] Referring Physician Neurology 02/07/24 Tiesha Hou NP [address] [place] [address] Nurse Practitioner Neurology 02/07/24 Batch Dumper Relationship Specialty Start Date End Date Marlee Thomas MD [address] [place] [address] PCP - General Family Medicine 07/26/23 Batch Dumper Relationship Specialty Start Date End Date Marlee Thomas MD [address] [place] [facility] [place] [address] PCP - General Family Medicine 07/26/23 Batch Dumper Relationship Specialty Start Date End Date Marlee Thomas MD [address] [place] [address] PCP - General Family Medicine 07/26/23 Team Status: Inactive Member Role Status Dates Marlee Thomas MD Primary Care Provide r, Attending Provider Active Start: April 29, 2024 End: April 29, 2024 Batch Dumper Relationship Specialty Start Date End Date Marlee Thomas MD [address] [facility] [address] PCP - General Family Medicine 07/26/23 Rehan Rae DO [address] [place], [place] [id number] Referring Physician Neurology 02/07/24 Tiesha Hou NP [address] [place], [place] [address], [place] Nurse Practitioner Neurology 02/07/24 Batch Dumper Relationship Specialty Start Date End Date Marlee Thomas MD PCP - General Family Medicine 07/26/23 Rehan Rae DO [address] [place] [address] Referring Physician Neurology 02/07/24 Tiesha Hou NP [address] [place] [address], [place] Nurse Practitioner Neurology 02/07/24 Team Status: Inactive [...] BE BASED ON THE PRIMARY CLINICAL RECORDS. [facility] [employer] provides no warranty or guarantee of the accuracy or completeness of information in this document.
== END 2024-11-18 07:01 | disposition home or self-care (01) ==
LOC: LAB 07:00
PROVIDERS: PCP Family Medicine; Visit Provider Internal Medicine Cardiovascular Disease
DX: I11.9 Hypertensive heart disease without heart failure (principal)
CPT/HCPCS: 82570

== ENCOUNTER 2025-03-10 07:53 | Outpatient (OUT) | payer OTHER, SELFPAY ==
--- OUTSIDE RECORDS SUMMARY | 2025-03-10 08:01 | XMS_ITS | Clinical Summary ---
Author Organization [facility] Address [address] [place] [address] Care Team Providers Care Entertainment Dancer Name Role Phone Marlee Sosa MD Primary Care Provider [phone] Allergies Active AllergyReactionsCriticalityNoted DateCommentsLisinoprilAngioedema 07/25/2023 Medications MedicationSigDispense QuantityRefillsLast FilledStart DateEnd DateStatus gabapentin (Neurontin) 600 mg tablet Take 600 mg by mouth at bedtime.Active gabapentin (Neurontin) 400 mg capsule Take 400 mg by mouth in the morning.Active amLODIPine (Norvasc) 10 mg tablet Take 10 mg by mouth in the morning.Active metoprolol succinate XL (Toprol-XL) 50 mg 24 hr tablet Take 1 tablet by mouth in the morning.5Active tiZANidine (Zanaflex) 4 mg tablet Take 4 mg by mouth every 6 (six) hours if needed.Active meloxicam (Mobic) 15 mg tablet Take 15 mg by mouth in the morning.Active levETIRAcetam (Keppra) 750 mg tablet Take 750 mg by mouth two times daily.Active aspirin 81 mg EC tablet Take 81 mg by mouth in the morning.Active fenofibrate (Tricor) 145 mg tablet Take 1 tablet by mouth in the morning.5Active vitamin J03-kymed acid 0.5-1 mg tablet Take 1 tablet by mouth in the morning.5Active spironolactone (Aldactone) 50 mg tablet Indications:Benign hypertensive heart disease without congestive heart failure Take 1 tablet (50 mg) by mouth in the morning. 90 tablet 6Active spironolactone (Aldactone) 25 mg tablet Indications:Benign hypertensive heart disease without congestive heart failure Take 1 tablet (25 mg) by mouth in the morning. 30 tablet 1108//18219004/20/2024Discontinued chlorthalidone (Hygroton) 25 mg tablet Indications:Benign hypertensive heart disease without congestive heart failure Take 1 tablet (25 mg) by mouth in the morning. 30 tablet 510Discontinued(Side effects) spironolactone (Aldactone) 50 mg tablet Indications:Benign hypertensive heart disease without congestive heart failure Take 1 tablet (50 mg) by mouth in the morning. 90 tablet 3125104/20/2024Discontinued Active Problems ProblemNoted DateDiagnosed DateDizziness of unknown cause02/17/2025olon cancer erqqciyxg42/01/2025Encounter for screening for malignant neoplasm of prostate 02/17/2025Essential (primary) qiofjipamarw77/01/6699Xomeipz27/01/2025Left-sided chest pain02/17/2025Memory brvewj6802/17/2025Neck pain02/17/2025Osteoarthritis of lumbar spine02/17/2025RLS (restless legs syndrome)02/17/2025hronic tension-type headache, bzflpozckik28/29/2024Idiopathic peripheral uvwyuippmo60/29/2024 Numbness and cdxolrxr15/29/2024OSA (obstructive sleep apnea)11/16/2023Seizure 11/16/2023Seizure-like tcweypeu23/26/2023 Encounters DateTypeDepartmentCare SjezKqutdpanqbd84/01/2025 1:20 PM ESTOffice Visit [place] [address] [place] [address] Tanner Brian MD Benign hypertensive heart disease without congestive heart failure (Primary Dx) 02/17/2025Orders Only [facility] [address] [place] [address] Dilcia Pierre MA Benign hypertensive heart disease without congestive heart failure (Primary Dx) 01/01/2025 11:00 AM EDTOffice Visit [place] [address] [place] [address] Tanner Brian MD Benign hypertensive heart disease without congestive heart failure (Primary Dx) 01/01/2025Orders Only [facility] [address] [place] [facility] [place] [address] Dilcia Pierre MA Benign hypertensive heart disease without congestive heart failure (Primary Dx) from Last 3 Months Family History Medical HistoryRelationNameCommentsHeart failureMotherRelationNameStatusComments FatherDeceasedMotherAlive Social History Tobacco UseTypesPacks/DayYears UsedDateSmoking Tobacco: Every DayCigarettes Passive Smoke Exposure: CurrentSmokeless Tobacco: Never Tobacco Cessation:Ready to Q uit: Not Asked; Counseling Given: Not Answered Alcohol UseStandard Drinks/WeekCommentsYes0 (1 standard drink = 0.6 oz pure alcohol)1 to 2 per month.[place] Safety & EnvironmentAnswerDate RecordedFear of Current or Ex-PartnerNot on file05/12/2023Emotionally AbusedNot on file 4Physically AbusedNot on file05/12/2023Sexually AbusedNot on file 4Physically or Sexually AbusedNot on file05/12/2023Sex and Gender InformationValueDate RecordedSex Assigned at CrnglXqlk86/26/2025 11:13 AM EDT Legal RznPacl0303/27/2023 2:15 PM ESTGender RerforywDgcq45/26/2025 11:13 AM EDT Sexual OrientationHeterosexual or Dauchkbq42/26/2025 11:13 AM EDT Last Filed Vital Signs Vital SignReadingTime TakenCommentsBlood Fsxdtfih674/9202/17/2025 1:55 PM EST Inobl683802/17/2025 1:55 PM ESTTemperature--Respiratory Rate--Oxygen Wtzovvnsfu57% 02/17/2025 1:55 PM ESTInhaled Oxygen Concentration--Xvajlv32.1 kg (214 lb) 02/17/2025 1:55 PM GWMHojhyo888.1 cm (5' 5 )02/17/2025 1:55 PM ESTBody Mass Index35.6102/17/2025 1:55 PM EST Plan of Treatment DateTypeDepartmentCare Team (Latest Contact Info)Ratayidbubh73/22/2025 9:20 AM ESTOffice Visit [place] [address] [place] [facility] [place] [address] Tanner Brian MD [address] [place] [address] Health MaintenanceDue DateLast DoneCommentsCT Upqqyfvbivtb68/18/1966Colonoscopy 1965Colorectal Cancer Kslkxuneq80/18/1966FIT-DNA1965FIT1965 FOBT1965 8540Yumvbjghoxuzc64/18/1966Depression Xddgwlqif74/18/1978Hepatitis B Vaccines (1 of 3 - 19+ 3-dose series)1984Pneumococcal Vaccine: Pediatrics (0 to 5 Years) and At-Risk Patients (6 to 64 Years) (1 of 2 - PCV)1984 Adult Pxwcrwu8906/05/1987Zoster Vaccines (1 of 2)06/05/2015COVID-19 Vaccine (1 - 2024- season)2024Influenza Vaccine (#1)2024HIB VaccinesAged OutNo longer eligible based on patient's age to complete this topicHPV VaccinesAged OutNo longer eligible based on patient's age to complete this topicIPV Vaccines Aged OutNo longer eligible based on patient's age to complete this topic Meningococcal B VaccineAged OutNo longer eligible based on patient's age to complete this topicMeningococcal VaccineAged OutNo longer eligible based on patient's age to complete this topicRotavirus VaccinesAged OutNo longer eligible based on patient's age to complete this topic Insurance Care Teams Team MemberRelationshipSpecialtyStart DateEnd Date Marlee Sosa MD [address] [place], [place] [address]A PCP - General11/13/24
--- OUTSIDE RECORDS SUMMARY | 2025-03-10 08:01 | XMS_ITS | Clinical Summary ---
Author Organization [facility] Address [address] [place] [address] Care Team Providers Care Fur Feeder Name Role Phone Marlee Sosa MD Primary Care Provider [phone] Rachael Buck DO Unavailable [phone] Dorota Hou FISCAL ANALYST Unavailable [phone] Allergies Active AllergyReactionsCriticalityNoted IgmaKirpmltqVuhfplgxnn68/07/2024 Medications MedicationSigDispense QuantityRefillsLast FilledStart DateEnd DateStatus aspirin 81 MG EC tablet Take 81 mg by mouth at bedtimeActive meloxicam (Mobic) 15 MG tablet Take 15 mg by mouth at bedtimeActive cloNIDine (Catapres) 0.3 MG tablet Take 0.3 mg by mouth in the morning and 0.3 mg before bedtime.07/24/2023ctive amLODIPine (Norvasc) 10 MG tablet 12/04/2023ctive metoprolol succinate XL (Toprol-XL) 100 MG 24 hr tablet Take 25 mg by mouth Daily03/07/2023ctive levETIRAcetam (Keppra) 750 MG tablet Indications:Seizure (HCC)Take 2 tabs twice a day 120 tablet ctive tiZANidine (Zanaflex) 4 MG tablet Indications:Neck painTake 1/2-1 as needed qam 30 tablet 5Active gabapentin (Neurontin) 400 MG capsule Indications:Idiopathic peripheral neuropathyTake one in the am 30 capsule 5Active gabapentin (Neurontin) 600 MG tablet Indications:Idiopathic peripheral neuropathyTake one at bedtime 30 tablet 5Active Active Problems ProblemNoted DateDiagnosed DateOSA (obstructive sleep apnea)11/16/2023Seizure 11/16/2023Numbness and udwqlrjh47/29/2024Idiopathic peripheral neuropathy 11/16/2023hronic tension-type headache, riipvgqkkpq89/29/2024 Family History Medical HistoryRelationNameCommentsDiabetesMotherDiabetesSisterRelationName StatusCommentsMotherSister Social History Tobacco UseTypesPacks/DayYears UsedDateSmoking Tobacco: Every DayCigarettes Tobacco Cessation:Ready to Q uit: Not Asked; Counseling Given: Not Answered Alcohol UseStandard Drinks/WeekCommentsYes3 (1 standard drink = 0.6 oz pure alcohol)Sex and Gender InformationValueDate RecordedSex Assigned at BirthNot on fileLegal XxrCzrl3507/05/2023 10:31 AM EDTGender IdentityNot on fileSexual OrientationNot on file Last Filed Vital Signs Vital SignReadingTime TakenCommentsBlood Pemndihv648/76005/09/2024 8:44 AM EST Cxcsk426705/09/2024 8:44 AM ESTTemperature--Respiratory Rate--Oxygen Zgxnkcbsxr64% 05/09/2024 8:44 AM ESTInhaled Oxygen Concentration--Uzcqfq34.9 kg (207 lb) 05/09/2024 8:44 AM NDUKogesk486.1 cm (5' 5 )05/09/2024 8:44 AM ESTBody Mass Index34.45005/09/2024 8:44 AM EST Plan of Treatment Not on file Insurance Care Teams Team MemberRelationshipSpecialtyStart DateEnd Date Marlee Sosa MD [address] [place] [address] [facility] - [facility] Rachael Buck DO [address] [place] [address] Referring HavofvglyXemiklqlq08/20/24 Dorota Hou NP [address] [place] [address] Nurse MbdfjqjxammkGqayykkwc74/20/24
[2025-03-10 08:22] LABS: Anion Gap 12.7; Blood Urea Nitrogen 15.0 mg/dL (7.0-18.0); Calcium 9.7 mg/dL (8.5-10.1); Carbon Dioxide 29.7 mmol/L (21.0-32.0); Chloride 102 mmol/L (98-107); Estimated GFR (African America 58 (>=60 mL/min/1.73m^2); Estimated GFR (Non-African Ame 48 (>=60 mL/min/1.73m^2); Glucose 110 mg/dL (74-106); Potassium 4.4 mmol/L (3.5-5.1); Sodium 140 mmol/L (136-145)
== END 2025-03-10 07:54 | disposition home or self-care (01) ==
LOC: LAB 07:57
PROVIDERS: PCP Family Medicine; Visit Provider Internal Medicine Cardiovascular Disease
DX: I11.9 Hypertensive heart disease without heart failure (principal)
CPT/HCPCS: 36415; 80048